=== PATIENT | male | born 1985 | race African-American/Black ===

== ENCOUNTER 2016-07-24 06:56 | Emergency (ER) | payer SELFPAY ==
[2016-07-24] MEDS ORDERED: NORMAL SALINE 1000 ML 1,000 ML IV ONE ×2 (07:12→09:31)
[2016-07-24 08:35] LABS: ABSOLUTE EOSINOPHILS # (AUTO) 0.2 10^3/uL (0.0-0.6); ABSOLUTE LYMPHOCYTES (AUTO) 1.6 10^3/uL (0.5-4.7); ABSOLUTE MONOCYTES (AUTO) 0.6 10^3/uL (0.1-1.4); ABSOLUTE NEUT (AUTO) 6.3 10^3/uL (1.7-8.2); BASOPHILS % (AUTO) 0.4 % (0-2); EOSINOPHILS % (AUTO) 1.7 % (0-6); HEMATOCRIT 43.4 % (37.9-51.0); HEMOGLOBIN 14.9 g/dL (13.5-17.0); HGB HCT DIFFERENCE 1.3; LYMPHOCYTES % (AUTO) 18.5 % (13-45); MEAN CORPUSCULAR HEMOGLOBIN 31.6 pg (27.0-33.4); MEAN CORPUSCULAR HGB CONC 34.4 g/dL (32.0-36.0); MEAN CORPUSCULAR VOLUME 92 fl (80-97); MONOCYTES % (AUTO) 7.2 % (3-13); RED BLOOD COUNT 4.72 10^6/uL (4.35-5.55); RED CELL DISTRIBUTION WIDTH 14.2 % (11.5-14.0); SEGMENTED NEUTROPHILS % (AUTO) 72.2 % (42-78); WHITE BLOOD COUNT 8.7 10^3/uL (4.0-10.5)
[2016-07-24 08:49] LABS: ALANINE AMINOTRANSFERASE 45 U/L (21-72); ALBUMIN 4.1 g/dL (3.5-5.0); ALKALINE PHOSPHATASE 84 U/L (38-126); ANION GAP 10 (5-19); ASPARTATE AMINO TRANSFERASE 46 U/L (17-59); BILIRUBIN,TOTAL 0.6 mg/dL (0.2-1.3); BLOOD UREA NITROGEN 17 mg/dL (7-20); CALCIUM 9.1 mg/dL (8.4-10.2); CARBON DIOXIDE 28 mmol/L (22-30); CHLORIDE 101 mmol/L (98-107); CREATININE RESULT 0.99 mg/dL (0.52-1.25); GLUCOSE 104 mg/dL (75-110); LIPASE 1140.3 U/L (23-300); POTASSIUM 4.6 mmol/L (3.6-5.0); SODIUM 139.3 mmol/L (137-145); TOTAL PROTEIN 6.3 g/dL (6.3-8.2)
[2016-07-24 08:50] LABS: ALCOHOL < 10 mg/dL (NONE DETECTED)
[2016-07-24 10:13] LABS: APPEARANCE,URINE CLEAR; BILIRUBIN,URINE NEGATIVE (NEGATIVE); GLUCOSE, URINE NEGATIVE (NEGATIVE); KETONES,URINE NEGATIVE (NEGATIVE); LEUKOCYTE ESTERASE,URINE NEGATIVE (NEGATIVE); NITRITE,URINE NEGATIVE (NEGATIVE); PROTEIN,URINE NEGATIVE (NEGATIVE); URINE SPECIFIC GRAVITY 1.008
[2016-07-24 10:32] LABS: URINE BARBITURATES SCREEN NEGATIVE; URINE METHADONE SCREEN NEGATIVE; URINE PHENCYCLIDINE SCREEN NEGATIVE
--- NOTE | 2016-07-24 11:15 | ER Document Report ---
ED General - General Chief Complaint: Abdominal Pain Stated Complaint: CHEST PAIN TRAVEL OUTSIDE OF THE [place] IN LAST 30 DAYS: No - HPI Patient complains to provider of: abdominal pain right-sided chest pain Notes: Patient coming in for the above stated symptoms. States started prior to arrival. Patient has multiple visits here in ER for EtOH abdominal pain the past. Patient denies taking alcohol the night. Patient denies using drugs however there is a copious millimeter marijuana with a near patient has bilateral erythema of his eyes. Patient denies fevers chills nausea vomiting. Upon my evaluation patient is sleeping easily arousable. Patient is nontoxic looking - Related Data Allergies/Adverse Reactions: azithromycin [From Zithromax] Allergy (Verified 06/14/16 13:28) ciprofloxacin [From Cipro] Allergy (Verified 06/14/16 13:28) ibuprofen Allergy (Verified 06/14/16 13:28) iodine [Iodine] Allergy (Verified 06/14/16 13:28) ondansetron [From Zofran (as hydrochloride)] Allergy (Verified 06/14/16 13:28) Penicillins Allergy (Verified 06/14/16 13:28) Past Medical History - Social History Smoking Status: Current Every Day Smoker Family History: CVA, DM, Hyperlipidemia, Hypertension Pulmonary Medical History: Reports: Hx Asthma Musculoskeltal Medical History: Reports Hx Musculoskeletal Trauma Psychiatric Medical History: Reports: Hx Anxiety, Hx Bipolar Disorder, Hx Depression Traumatic Medical History: Reports: Hx Fractures - nose - Immunizations Hx Diphtheria, Pertussis, Tetanus Vaccination: Yes Review of Systems - Review of Systems Constitutional: No symptoms reported EENT: No symptoms reported Cardiovascular: Chest pain Respiratory: No symptoms reported Gastrointestinal: Abdominal pain Genitourinary: No symptoms reported Male Genitourinary: No symptoms reported Musculoskeletal: No symptoms reported Skin: No symptoms reported Hematologic/Lymphatic: No symptoms reported Neurological/Psychological: No symptoms reported -: Yes All other systems reviewed and negative Physical Exam - Vital signs Vitals: Resp 18 07/24/16 07:09 Interpretation: Normal - General General appearance: Appears well, Alert - HEENT Head: Normocephalic, Atraumatic Eyes: Normal Conjunctiva: Injected Cornea: Normal Eyelashes: Normal Pupils: PERRL Pharynx: Normal Neck: Normal - Respiratory Respiratory status: No respiratory distress Chest status: Nontender Breath sounds: Normal Chest palpation: Normal - Cardiovascular Rhythm: Regular Heart sounds: Normal auscultation Murmur: No - Abdominal Inspection: Normal Distension: No distension Bowel sounds: Normal Tenderness: Nontender. No: McBurney's point, Gonsalves's sign, Guarding, Rebound Organomegaly: No organomegaly - Back Back: Normal, Nontender - Extremities General upper extremity: Normal inspection, Nontender, Normal color, Normal ROM , Normal temperature General lower extremity: Normal inspection, Nontender, Normal color, Normal ROM , Normal temperature, Normal weight bearing. No: Kristin's sign - Neurological Neuro grossly intact: Yes Cognition: Normal Orientation: AAOx4 [place] Coma Scale Eye Opening: Spontaneous [place] Coma Scale Verbal: Oriented [place] Coma Scale Motor: Obeys Commands [place] Coma Scale Total: 15 Speech: Normal Motor strength normal: LUE, RUE, LLE, RLE Sensory: Normal - Psychological Associated symptoms: Normal affect, Normal mood - Skin Skin Temperature: Warm Skin Moisture: Dry Skin Color: Normal Course - Re-evaluation Re-evalutation: 07/24/16 16:28 Patient's lab work did show elevation in his lipase. Patient did recently have been right upper quadrant ultrasound performed showing a normal right upper quadrant. At this time this is more likely alcohol induced. Discussed with be possibly drug-induced. Patient did return positive for marijuana. Patient was observed in ER given IV hydration. Patient then was able to tolerate by mouth. Upon last 2 evaluations patient sleeping easily arousable. At this time I filled patient is safe to be discharged home. Patient was encouraged to stop his substance abuse is that this is more likely the etiology of his problems. Patient smiles and goes back to sleep very easily. - Vital Signs Vital signs: Temp Pulse Resp BP Pulse Ox 98.3 F 80 16 131/85 H 96 07/24/16 11:43 07/24/16 11:43 07/24/16 11:43 07/24/16 11:43 07/24/16 11:43 - Laboratory Result Diagrams: 07/24/16 08:22 07/24/16 08:22 Laboratory results interpreted by me: 07/24/16 07/24/16 07/24/16 08:22 08:22 08:22 RDW 14.2 H Creatine Kinase 756 H Lipase 1140.3 H Urine Urobilinogen 07/24/16 09:54 RDW Creatine Kinase Lipase Urine Urobilinogen 4.0 H Discharge - Discharge Clinical Impression: Tobacco dependency, Marijuana abuse Pancreatitis Qualifiers: Chronicity: chronic Pancreatitis type: unspecified pancreatitis type Qualified Code(s): K86.1 - Other chronic pancreatitis Condition: Good Disposition: HOME, SELF-CARE Instructions: Pancreatitis ([facility]), Clear Liquid Diet ([facility]) Additional Instructions: Please stick to a clear liquid diet today. He may take the medication prescribed for nausea. Return to ER symptoms worsen. Prescriptions: Promethazine HCl [Phenergan 25 mg Tablet] 1 - 2 tab PO Q6H PRN #15 tablet PRN Reason: Forms: Smoking Cessation Education
[2016-07-24 11:48] VITALS: BP 131/85
--- NOTE | 2016-07-24 11:54 | EKG REPORT ---
SEVERITY:- ABNORMAL ECG - SINUS RHYTHM ST ELEVATION SUGGESTS PERICARDITIS : Confirmed by: Karen Fajardo 24-Jul-2016 11:53:32
== END 2016-07-24 11:48 | disposition home or self-care (01) ==
LOC: ER 06:56
DX: K86.1 Other chronic pancreatitis (principal); F12.10 Cannabis abuse, uncomplicated; R10.9 Unspecified abdominal pain; R07.9 Chest pain, unspecified; F17.200 Nicotine dependence, unspecified, uncomplicated
CPT/HCPCS: 93005; 99285; 96360; 96361; 36415; 80307 ×2; 82550; 83690; 85025; 80053; 81001; 84484; 93010; J7030

== ENCOUNTER 2016-08-06 10:28 | Emergency (ER) | payer SELFPAY ==
[2016-08-06 10:42] VITALS: BP 119/69
--- NOTE | 2016-08-06 10:47 | ER Document Report ---
ED Medical Screen (RME) - General Stated Complaint: MOUTH PAIN Notes: 30 yo male c/o left upper dental pain x 3 days. + swelling. + fever yesterday. no dentist. no chronic health problems TRAVEL OUTSIDE OF THE [place] IN LAST 30 DAYS: No - Related Data Allergies/Adverse Reactions: azithromycin [From Zithromax] Allergy (Verified 06/14/16 13:28) ciprofloxacin [From Cipro] Allergy (Verified 06/14/16 13:28) ibuprofen Allergy (Verified 06/14/16 13:28) iodine [Iodine] Allergy (Verified 06/14/16 13:28) ondansetron [From Zofran (as hydrochloride)] Allergy (Verified 06/14/16 13:28) Penicillins Allergy (Verified 06/14/16 13:28) Past Medical History Pulmonary Medical History: Reports: Hx Asthma Musculoskeltal Medical History: Reports Hx Musculoskeletal Trauma Psychiatric Medical History: Reports: Hx Anxiety, Hx Bipolar Disorder, Hx Depression Traumatic Medical History: Reports: Hx Fractures - nose - Immunizations Hx Diphtheria, Pertussis, Tetanus Vaccination: Yes Physical Exam - Vital signs Vitals: Temp Pulse Resp BP Pulse Ox 97.9 F 84 16 119/69 99 08/06/16 10:41 08/06/16 10:41 08/06/16 10:41 08/06/16 10:41 08/06/16 10:41 Course - Vital Signs Vital signs: Temp Pulse Resp BP Pulse Ox 97.9 F 84 16 119/69 99 08/06/16 10:41 08/06/16 10:41 08/06/16 10:41 08/06/16 10:41 08/06/16 10:41
[2016-08-06] MEDS ORDERED: CLINDAMYCIN HCL 150 MG CAPSULE PO ONE (11:14)
--- NOTE | 2016-08-06 11:22 | ER Document Report ---
HPI - HPI Patient complains to provider of: mouth pain and swelling Onset: Other - staurday Onset/Duration: Gradual Quality of pain: Throbbing Pain Level: 5 Context: 30-year-old male complaining of swelling and pain to his left upper gum. He has a decayed tooth in the area. No fever chills. Associated Symptoms: None Relieved by: Denies Similar symptoms previously: No Recently seen / treated by doctor: No - ROS ROS below otherwise negative: Yes Systems Reviewed and Negative: Yes All other systems reviewed and negative - REPRODUCTIVE Reproductive: DENIES: : - DERM Skin Color: Normal Past Medical History - General Information source: Patient - Social History Smoking Status: Current Every Day Smoker Chew tobacco use (# tins/day): No Frequency of alcohol use: Occasional Drug Abuse: None Lives with: Family Family History: CVA, DM, Hyperlipidemia, Hypertension Patient has suicidal ideation: No Patient has homicidal ideation: No Pulmonary Medical History: Reports: Hx Asthma Musculoskeltal Medical History: Reports Hx Musculoskeletal Trauma Psychiatric Medical History: Reports: Hx Anxiety, Hx Bipolar Disorder, Hx Depression Traumatic Medical History: Reports: Hx Fractures - nose Surgical Hx: Negative - Immunizations Hx Diphtheria, Pertussis, Tetanus Vaccination: Yes Vertical Provider Document - CONSTITUTIONAL Agree With Documented VS: Yes - INFECTION CONTROL TRAVEL OUTSIDE OF THE [place] IN LAST 30 DAYS: No - HEENT HEENT: Normocephalic Notes: gingival swelling, tenderness above the left top biscuspid which is severly decay, some teeth already gone. non tender left malar area. - NECK Neck: Supple. negative: Lymphadenopathy-Left, Lymphadenopathy-Right - RESPIRATORY Respiratory: Breath Sounds Normal, No Respiratory Distress O2 Sat by Pulse Oximetry: 99 - CARDIOVASCULAR Cardiovascular: Regular Rate, Regular Rhythm - MUSCULOSKELETAL/EXTREMETIES Musculoskeletal/Extremeties: TANI MAX - NEURO Level of Consciousness: Awake, Alert - DERM Integumentary: Warm, Dry Course - Vital Signs Vital signs: Temp Pulse Resp BP Pulse Ox 97.9 F 84 16 119/69 99 08/06/16 10:41 08/06/16 10:41 08/06/16 10:41 08/06/16 10:41 08/06/16 10:41 Discharge - Discharge Clinical Impression: upper left dental abscess Condition: Good Disposition: HOME, SELF-CARE Instructions: Oral Narcotic Medication ([facility]), Clindamycin ([facility]), Toothache ([facility] ), Dental Infection or Abscess ([facility]), Dentist Additional Instructions: to er if worse warm compress see the dentist take the antibiotics as prescribed. Prescriptions: Hydrocodone Bit/Acetaminophen [Hydrocodon-Acetaminophen 5-325] 1 each PO Q4HP PRN #10 tablet PRN Reason: Clindamycin HCl [Cleocin 150 mg Capsule] 300 mg PO TID #42 capsule
== END 2016-08-06 11:35 | disposition home or self-care (01) ==
LOC: ER 10:28
DX: K04.7 Periapical abscess without sinus (principal); K02.9 Dental caries, unspecified; F17.200 Nicotine dependence, unspecified, uncomplicated; J45.909 Unspecified asthma, uncomplicated
CPT/HCPCS: 99282

== ENCOUNTER 2016-10-31 03:38 | Emergency (ER) | payer SELFPAY ==
[2016-10-31] MEDS ORDERED: NORMAL SALINE 1000 ML 1,000 ML IV ONE (04:07)
[2016-10-31] MEDS ORDERED: METOCLOPRAMIDE HCL INJ/PF 10 MG/2 ML SDV IV ONE (04:10)
[2016-10-31] MEDS ORDERED: DIPHENHYDRAMINE HCL 50 MG/ML VIAL IV ONE (04:10)
[2016-10-31 04:49] LABS: ABSOLUTE LYMPHOCYTES (AUTO) 2.1 10^3/uL (0.5-4.7); ABSOLUTE MONOCYTES (AUTO) 0.9 10^3/uL (0.1-1.4); ABSOLUTE NEUT (AUTO) 12.6 10^3/uL (1.7-8.2); BASOPHILS % (AUTO) 0.3 % (0-2); EOSINOPHILS % (AUTO) 0.3 % (0-6); HEMATOCRIT 49.4 % (37.9-51.0); HEMOGLOBIN 17.3 g/dL (13.5-17.0); HGB HCT DIFFERENCE 2.5; LYMPHOCYTES % (AUTO) 13.6 % (13-45); MEAN CORPUSCULAR HEMOGLOBIN 32.2 pg (27.0-33.4); MEAN CORPUSCULAR HGB CONC 35.1 g/dL (32.0-36.0); MEAN CORPUSCULAR VOLUME 92 fl (80-97); MONOCYTES % (AUTO) 5.6 % (3-13); RED BLOOD COUNT 5.38 10^6/uL (4.35-5.55); RED CELL DISTRIBUTION WIDTH 13.9 % (11.5-14.0); SEGMENTED NEUTROPHILS % (AUTO) 80.2 % (42-78); WHITE BLOOD COUNT 15.6 10^3/uL (4.0-10.5)
[2016-10-31 05:03] LABS: ALANINE AMINOTRANSFERASE 42 U/L (21-72); ALBUMIN 4.2 g/dL (3.5-5.0); ALKALINE PHOSPHATASE 89 U/L (38-126); ANION GAP 11 (5-19); ASPARTATE AMINO TRANSFERASE 32 U/L (17-59); BILIRUBIN,DIRECT 0.3 mg/dL (0.0-0.4); BILIRUBIN,TOTAL 0.9 mg/dL (0.2-1.3); BLOOD UREA NITROGEN 12 mg/dL (7-20); CARBON DIOXIDE 26 mmol/L (22-30); CHLORIDE 105 mmol/L (98-107); CREATININE RESULT 1.08 mg/dL (0.52-1.25); GLUCOSE 92 mg/dL (75-110); LIPASE 428.2 U/L (23-300); POTASSIUM 4.3 mmol/L (3.6-5.0); SODIUM 141.7 mmol/L (137-145); TOTAL PROTEIN 6.5 g/dL (6.3-8.2)
[2016-10-31 05:04] LABS: APPEARANCE,URINE CLEAR; BILIRUBIN,URINE NEGATIVE (NEGATIVE); GLUCOSE, URINE NEGATIVE (NEGATIVE); KETONES,URINE 20 mg/dL (NEGATIVE); LEUKOCYTE ESTERASE,URINE NEGATIVE (NEGATIVE); NITRITE,URINE NEGATIVE (NEGATIVE); PROTEIN,URINE NEGATIVE (NEGATIVE); URINE SPECIFIC GRAVITY 1.015; UROBILINOGEN,URINE NEGATIVE mg/dL (<2.0)
[2016-10-31 05:18] LABS: URINE BARBITURATES SCREEN NEGATIVE; URINE METHADONE SCREEN NEGATIVE; URINE OPIATES LOW NEGATIVE; URINE PHENCYCLIDINE SCREEN UNCONFIRMED POSITIVE
[2016-10-31] MEDS ORDERED: SUCRALFATE 1 GM TABLET PO ONE (05:38)
[2016-10-31] MEDS ORDERED: FAMOTIDINE 20 MG TABLET PO ONE (05:38)
[2016-10-31] MEDS ORDERED: MAG HYDROX/AL HYDROX/SIMETH SUSP 30 ML UDCUP PO ONE (05:38)
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
[2016-10-31 06:27] VITALS: BP 126/85
== END 2016-10-31 06:29 | disposition home or self-care (01) ==
LOC: ER 03:38
DX: R11.2 Nausea with vomiting, unspecified (principal); R10.84 Generalized abdominal pain; R10.10 Upper abdominal pain, unspecified; R00.0 Tachycardia, unspecified; F17.200 Nicotine dependence, unspecified, uncomplicated; Z88.3 Allergy status to other anti-infective agents; Z88.0 Allergy status to penicillin
CPT/HCPCS: 99284; 96361; 96374; 96375; 36415; 83690; 85025; 80053; 81001; 80307; J1200; J2765; J7030

== ENCOUNTER 2016-11-02 01:54 | Emergency (ER) | payer SELFPAY ==
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
[2016-11-02 06:04] VITALS: BP 124/91
== END 2016-11-02 06:10 | disposition home or self-care (01) ==
LOC: ER 01:54
DX: T14.8 Other injury of unspecified body region (principal); R07.89 Other chest pain; R55 Syncope and collapse; Y09 Assault by unspecified means; Y92.512 Supermarket, store or market as the place of occurrence of the external cause; R03.0 Elevated blood-pressure reading, without diagnosis of hypertension; J45.909 Unspecified asthma, uncomplicated; Z88.1 Allergy status to other antibiotic agents; Z88.6 Allergy status to analgesic agent; Z88.8 Allergy status to other drugs, medicaments and biological substances; Z88.0 Allergy status to penicillin; Z82.49 Family history of ischemic heart disease and other diseases of the circulatory system
CPT/HCPCS: 70450; 70486; 71020; 72070; 99284

== ENCOUNTER 2016-12-10 01:31 | Emergency (ER) | payer SELFPAY ==
[2016-12-10 02:15] VITALS: BP 127/83
== END 2016-12-10 03:10 | disposition left against medical advice (07) ==
LOC: ER 01:31
DX: Z53.9 Procedure and treatment not carried out, unspecified reason (principal); M54.9 Dorsalgia, unspecified

== ENCOUNTER 2017-01-06 04:07 | Emergency (ER) | payer SELFPAY ==
[2017-01-06] MEDS ORDERED: ACETAMINOPHEN 325 MG TABLET PO ONE (05:04)
--- NOTE | 2017-01-06 05:16 | ER Document Report ---
ED General - General Chief Complaint: Leg Pain Stated Complaint: LEG PAIN Time Seen by Provider: 01/06/17 04:59 Notes: Patient is a 31-year-old male who presents with complaint of pain in his right calf. He says sometimes the leg gives out. He is homeless and does walk around constantly. He denies any injuries or trauma to his leg. Denies any weakness or numbness. He says he has had some pain in his leg before but this is more than usual. He has not taken anything for pain. He says ibuprofen gives him hives. No numbness or weakness into the leg. TRAVEL OUTSIDE OF THE [place] IN LAST 30 DAYS: No - Related Data Allergies/Adverse Reactions: azithromycin [From Zithromax] Allergy (Verified 11/02/16 04:58) ciprofloxacin [From Cipro] Allergy (Verified 11/02/16 04:58) ibuprofen Allergy (Verified 11/02/16 04:58) iodine [Iodine] Allergy (Verified 11/02/16 04:58) ondansetron [From Zofran (as hydrochloride)] Allergy (Verified 11/02/16 04:58) Penicillins Allergy (Verified 11/02/16 04:58) Past Medical History - Social History Smoking Status: Unknown if Ever Smoked Frequency of alcohol use: None Drug Abuse: None Family History: CVA, DM, Hyperlipidemia, Hypertension Pulmonary Medical History: Reports: Hx Asthma Renal/ Medical History: Denies: Hx Peritoneal Dialysis Musculoskeltal Medical History: Reports Hx Musculoskeletal Trauma Psychiatric Medical History: Reports: Hx Anxiety, Hx Bipolar Disorder, Hx Depression Traumatic Medical History: Reports: Hx Fractures - nose - Immunizations Hx Diphtheria, Pertussis, Tetanus Vaccination: Yes Review of Systems - Review of Systems Notes: My Normal Review Basic REVIEW OF SYSTEMS: CONSTITUTIONAL : Denies fever, chills, or sweats. Denies recent illness. RESPIRATORY: Denies cough, cold, or chest congestion. Denies shortness of breath, difficulty breathing, or wheezing. GASTROINTESTINAL: Denies abdominal pain. Denies nausea, vomiting, or diarrhea. Denies constipation. Last BM: MUSCULOSKELETAL: Right calf pain SKIN: Denies rash or skin lesions. NEUROLOGICAL: Denies altered mental status or loss of consciousness. Denies headache. Denies weakness or paralysis or loss of use of either side. Denies problems with gait or speech. Denies sensory or motor loss. ALL OTHER SYSTEMS REVIEWED AND NEGATIVE. Physical Exam - Vital signs Vitals: Temp Pulse Resp BP Pulse Ox 98.6 F 87 20 113/72 97 01/06/17 04:12 01/06/17 04:12 01/06/17 04:12 01/06/17 04:12 01/06/17 04:12 - Notes Notes: General Appearance: Well nourished, alert, cooperative, no acute distress, no obvious discomfort. Vitals: reviewed, See vital signs table. Head: no swelling or tenderness to the head Eyes: PERRL, EOMI, Conjuctiva clear Mouth: No decreasd moisture Extremities: strength 5/5 in all extremities, good pulses in all extremities, palpation of the right calf muscle. Pain is mostly over the proximal aspect of the calf muscle. No edema or swelling of the leg. It is the same size as the left lower extremity. Patient does have good strength with plantar dorsiflexion. He has normal patellar reflexes., no edema. Skin: warm, dry, appropriate color, no rash Neuro: speech clear, oriented x 3, normal affect, responds appropriately to questions. Course - Vital Signs Vital signs: Temp Pulse Resp BP Pulse Ox 98.6 F 87 20 113/72 97 01/06/17 04:12 01/06/17 04:12 01/06/17 04:12 01/06/17 04:12 01/06/17 04:12 - Transfer of Care Notes: 01/06/17 05:14 Has what appears to be a gastrocnemius strain. I do not suspect DVT as the patient has been up and walking frequently and he has no swelling or edema to the right lower extremity. We will give the patient crutches. I will give him a Bart bandage to wear on his right calf muscle. I encouraged him return to ER if he has worsening of his pain or has further concerns. Patient agrees with plan and will be discharged home. Dictation of this chart was performed using voice recognition software; therefore, there may be some unintended grammatical errors. Discharge - Discharge Clinical Impression: Gastrocnemius muscle strain Qualifiers: Encounter type: initial encounter Laterality: right Qualified Code(s): S86.111A - Strain of other muscle(s) and tendon(s) of posterior muscle group at lower leg level, right leg, initial encounter Condition: Good Disposition: HOME, SELF-CARE Additional Instructions: Please return to the ER immediately if you develop worsening pain, weakness in your foot. difficulty breathing, chest pain, swelling to your leg, or if you feel unwell. Please use the crutches until you no longer of significant pain with walking. Please follow up with a doctor or the ER in 5 days for reevaluation if you are still having pain.
[2017-01-06 06:03] VITALS: BP 120/74
== END 2017-01-06 06:00 | disposition home or self-care (01) ==
LOC: ER 04:07
DX: S86.111A Strain of other muscle(s) and tendon(s) of posterior muscle group at lower leg level, right leg, initial encounter (principal); X58.XXXA Exposure to other specified factors, initial encounter; Z59.0 Homelessness; Z88.1 Allergy status to other antibiotic agents; Z88.0 Allergy status to penicillin; Z88.6 Allergy status to analgesic agent; Z88.8 Allergy status to other drugs, medicaments and biological substances; J45.909 Unspecified asthma, uncomplicated
CPT/HCPCS: 99283

== ENCOUNTER 2017-01-07 04:53 | Emergency (ER) | payer SELFPAY ==
[2017-01-07 05:16] VITALS: BP 131/80
[2017-01-07] MEDS ORDERED: LIDOCAINE 5% (700 MG) TRANSDERMAL ADH..PATCH TP ONE (06:27)
[2017-01-07] MEDS ORDERED: ACETAMINOPHEN 325 MG TABLET PO ONE (06:27)
--- NOTE | 2017-01-07 06:31 | ER Document Report ---
ED General - General Chief Complaint: Leg Pain Stated Complaint: LEG PAIN Time Seen by Provider: 01/07/17 06:27 TRAVEL OUTSIDE OF THE [place] IN LAST 30 DAYS: No - HPI Patient complains to provider of: Right calf pain Notes: Patient coming in for evaluation of right calf pain. Patient was seen day prior to arrival for similar pain. Patient states pain continues. Patient was diagnosed with a gastroc strain at that time. Patient has been having increasing his walking. Upon my evaluation patient sleeping easily arousable. Patient is able to move his legs are all full range of motion. Patient is complaining of tenderness to touch of his calf. Denies any fever chills nausea vomiting denies history of DVT. - Related Data Allergies/Adverse Reactions: azithromycin [From Zithromax] Allergy (Verified 11/02/16 04:58) ciprofloxacin [From Cipro] Allergy (Verified 11/02/16 04:58) ibuprofen Allergy (Verified 11/02/16 04:58) iodine [Iodine] Allergy (Verified 11/02/16 04:58) ondansetron [From Zofran (as hydrochloride)] Allergy (Verified 11/02/16 04:58) Penicillins Allergy (Verified 11/02/16 04:58) Past Medical History - Social History Smoking Status: Unknown if Ever Smoked Family History: CVA, DM, Hyperlipidemia, Hypertension Patient has suicidal ideation: No Patient has homicidal ideation: No Pulmonary Medical History: Reports: Hx Asthma Renal/ Medical History: Denies: Hx Peritoneal Dialysis Musculoskeltal Medical History: Reports Hx Musculoskeletal Trauma Psychiatric Medical History: Reports: Hx Anxiety, Hx Bipolar Disorder, Hx Depression Traumatic Medical History: Reports: Hx Fractures - nose - Immunizations Hx Diphtheria, Pertussis, Tetanus Vaccination: Yes Review of Systems - Review of Systems Constitutional: No symptoms reported EENT: No symptoms reported Cardiovascular: No symptoms reported Respiratory: No symptoms reported Gastrointestinal: No symptoms reported Genitourinary: No symptoms reported Male Genitourinary: No symptoms reported Musculoskeletal: Other - Back pain calf pain Skin: No symptoms reported Hematologic/Lymphatic: No symptoms reported Neurological/Psychological: No symptoms reported -: Yes All other systems reviewed and negative Physical Exam - Vital signs Vitals: Temp Pulse Resp BP Pulse Ox 98.0 F 81 16 131/80 H 98 01/07/17 05:12 01/07/17 05:12 01/07/17 05:12 01/07/17 05:12 01/07/17 05:12 Interpretation: Normal - General General appearance: Appears well, Alert - HEENT Head: Normocephalic, Atraumatic Eyes: Normal Pupils: PERRL - Respiratory Respiratory status: No respiratory distress Chest status: Nontender Breath sounds: Normal Chest palpation: Normal - Cardiovascular Rhythm: Regular Heart sounds: Normal auscultation Murmur: No - Abdominal Inspection: Normal Distension: No distension Bowel sounds: Normal Tenderness: Nontender Organomegaly: No organomegaly - Back Back: Normal, Nontender - Extremities General upper extremity: Normal inspection, Nontender, Normal color, Normal ROM , Normal temperature General lower extremity: Normal inspection, Tender - Tenderness to palpation of the right calf no swelling appreciated no palpable cords. Bedside ultrasound showed good flow in the popliteal vein with decompression distally. No signs of DVT bedside ultrasound., Normal color, Normal ROM, Normal temperature, Normal weight bearing. No: Kristin's sign - Neurological Neuro grossly intact: Yes Cognition: Normal Orientation: AAOx4 Enigma Coma Scale Eye Opening: Spontaneous Enigma Coma Scale Verbal: Oriented Enigma Coma Scale Motor: Obeys Commands Aubree Coma Scale Total: 15 Speech: Normal Motor strength normal: LUE, RUE, LLE, RLE Sensory: Normal - Psychological Associated symptoms: Normal affect, Normal mood - Skin Skin Temperature: Warm Skin Moisture: Dry Skin Color: Normal Course - Re-evaluation Re-evalutation: 01/07/17 11:27 Patient evaluated for leg pain. No critical etiology seen. Patient was discharged on follow-up primary care physician - Vital Signs Vital signs: Temp Pulse Resp BP Pulse Ox 98.0 F 81 16 131/80 H 98 01/07/17 05:12 01/07/17 05:12 01/07/17 05:12 01/07/17 05:12 01/07/17 05:12 Discharge - Discharge Clinical Impression: Leg pain, right Condition: Good Disposition: HOME, SELF-CARE Instructions: Myalagia (Muscle Pain) ([facility]), Muscle Strain ([facility]), Ice Packs ([facility] ) Additional Instructions: Continue to take tylenol and motrin for pain. Apply ice.
== END 2017-01-07 06:53 | disposition home or self-care (01) ==
LOC: ER 04:53
DX: M79.604 Pain in right leg (principal); M54.9 Dorsalgia, unspecified; J45.909 Unspecified asthma, uncomplicated; Z88.3 Allergy status to other anti-infective agents; Z88.0 Allergy status to penicillin
CPT/HCPCS: 99283

== ENCOUNTER 2018-01-08 04:31 | Emergency (ER) | payer SELFPAY ==
--- NOTE | 2018-01-08 05:12 | ER Document Report ---
ED Medical Screen (RME) - General Chief Complaint: Bloody Stools Stated Complaint: BLOOD IN STOOL Time Seen by Provider: 01/08/18 05:00 Notes: 32-year-old male comes emergency department multiple complaints. First complaint is he states last night he had a seizure, he states he was informed of this by his significant other, she states that he was shaking and not responding for a couple of minutes. He states he was diagnosed with seizures while he was in nursing home, he used to be on a seizure medication although he is not sure which one. He is not currently on any medications. Patient also states that since he stopped shooting up meth 2 weeks ago he has had swelling in his right hand, shakes, sweats, and intermittent blood in his stool. He denies current abdominal pain, chest pain, shortness of breath. TRAVEL OUTSIDE OF THE [place] IN LAST 30 DAYS: No - Related Data Allergies/Adverse Reactions: azithromycin [From Zithromax] Allergy (Verified 11/02/16 04:58) ciprofloxacin [From Cipro] Allergy (Verified 11/02/16 04:58) ibuprofen Allergy (Verified 11/02/16 04:58) iodine [Iodine] Allergy (Verified 11/02/16 04:58) ondansetron [From Zofran (as hydrochloride)] Allergy (Verified 11/02/16 04:58) Penicillins Allergy (Verified 11/02/16 04:58) Past Medical History Pulmonary Medical History: Reports: Hx Asthma Renal/ Medical History: Denies: Hx Peritoneal Dialysis Musculoskeltal Medical History: Reports Hx Musculoskeletal Trauma Psychiatric Medical History: Reports: Hx Anxiety, Hx Bipolar Disorder, Hx Depression Traumatic Medical History: Reports: Hx Fractures - nose - Immunizations Hx Diphtheria, Pertussis, Tetanus Vaccination: Yes Physical Exam - Vital signs Vitals: Temp Pulse Resp BP Pulse Ox 98.5 F 63 18 133/86 H 98 01/08/18 04:38 01/08/18 04:38 01/08/18 04:38 01/08/18 04:38 01/08/18 04:38 - General General appearance: Appears well, Alert In distress: None - Cardiovascular Rhythm: Regular. No: Tachycardia Heart sounds: Normal auscultation, S1 appreciated, S2 appreciated Course - Re-evaluation Re-evalutation: I have greeted and performed a rapid initial assessment of this patient. A comprehensive ED assessment and evaluation of the patient, analysis of test results and completion of the medical decision making process will be conducted by additional ED providers. - Vital Signs Vital signs: Temp Pulse Resp BP Pulse Ox 98.5 F 63 18 133/86 H 98 01/08/18 04:38 01/08/18 04:38 01/08/18 04:38 01/08/18 04:38 01/08/18 04:38
--- NOTE | 2018-01-08 05:26 | RADIOLOGY REPORT (SQ) ---
EXAM DESCRIPTION: XR HAND 3 OR MORE VIEWS COMPLETED DATE/TME: 01/08/2018 05:10 CLINICAL HISTORY: 32 years Male, swelling, hx injecting meth, ?FB COMPARISON: None. Findings: No radiopaque foreign body. 0.4 cm ossicle volar to the second middle phalangeal base. Bones, joints, and soft tissues of the XR RIGHT HAND 3 VIEWS appear otherwise intact. IMPRESSION: No acute findings.
[2018-01-08 06:10] LABS: ABSOLUTE EOSINOPHILS # (AUTO) 0.1 10^3/uL (0.0-0.6); ABSOLUTE LYMPHOCYTES (AUTO) 0.6 10^3/uL (0.5-4.7); ABSOLUTE MONOCYTES (AUTO) 0.7 10^3/uL (0.1-1.4); ABSOLUTE NEUT (AUTO) 3.6 10^3/uL (1.7-8.2); BASOPHILS % (AUTO) 0.5 % (0-2); EOSINOPHILS % (AUTO) 1.7 % (0-6); HEMATOCRIT 40.1 % (37.9-51.0); HEMOGLOBIN 13.8 g/dL (13.5-17.0); LYMPHOCYTES % (AUTO) 12.5 % (13-45); MEAN CORPUSCULAR HEMOGLOBIN 31.3 pg (27.0-33.4); MEAN CORPUSCULAR HGB CONC 34.3 g/dL (32.0-36.0); MEAN CORPUSCULAR VOLUME 91 fl (80-97); MONOCYTES % (AUTO) 13.2 % (3-13); PLATELET COUNT 226 10^3/uL (150-450); RED CELL DISTRIBUTION WIDTH 13.7 % (11.5-14.0); SEGMENTED NEUTROPHILS % (AUTO) 72.1 % (42-78); TOTAL CELLS COUNTED % (AUTO) 100 %; WHITE BLOOD COUNT 4.9 10^3/uL (4.0-10.5)
[2018-01-08 06:24] LABS: ALANINE AMINOTRANSFERASE 45 U/L (21-72); ALBUMIN 4.1 g/dL (3.5-5.0); ALKALINE PHOSPHATASE 103 U/L (38-126); ANION GAP 11 (5-19); ASPARTATE AMINO TRANSFERASE 31 U/L (17-59); BILIRUBIN,DIRECT 0.3 mg/dL (0.0-0.4); BILIRUBIN,TOTAL 0.3 mg/dL (0.2-1.3); BLOOD UREA NITROGEN 10 mg/dL (7-20); CALCIUM 9.7 mg/dL (8.4-10.2); CARBON DIOXIDE 29 mmol/L (22-30); CHLORIDE 104 mmol/L (98-107); GLUCOSE 94 mg/dL (75-110); POTASSIUM 4.1 mmol/L (3.6-5.0); SODIUM 143.5 mmol/L (137-145); TOTAL PROTEIN 7.2 g/dL (6.3-8.2)
[2018-01-08 06:26] LABS: ALCOHOL < 10 mg/dL (NONE DETECTED)
--- NOTE | 2018-01-08 06:30 | ER Document Report ---
ED General - General Mode of Arrival: Ambulatory Information source: Patient TRAVEL OUTSIDE OF THE [place] IN LAST 30 DAYS: No <SHARRI THOMSON - Last Filed: 01/08/18 09:10> <KINGSLEY GALLAGHER - Last Filed: 01/09/18 15:09> - General Chief Complaint: Bloody Stools Stated Complaint: BLOOD IN STOOL Time Seen by Provider: 01/08/18 05:00 Notes: Patient is a 32-year-old male that presents to the emergency department today with complaints of subjective right hand swelling and pain along with possible seizures. Patient states he has been having seizures since age 18 but he has never been diagnosed with "actual seizures". Patient and girlfriend at bedside state that every night for the last 2 weeks between 11 PM and midnight the patient has had a "seizure". Patient mentions that he is a "very anxious person " and he seems to have these "seizures" when he is stressed. Patient is afraid that his right hand swelling and pain is related to him injecting cocaine and methamphetamine into his veins on his right hand. Patient states he stopped injecting 2 weeks ago when his seizures began and plans to remain off of those illicit substances. Patient denies fevers. (SHARRI THOMSON) - Related Data Allergies/Adverse Reactions: azithromycin [From Zithromax] Allergy (Verified 11/02/16 04:58) ciprofloxacin [From Cipro] Allergy (Verified 11/02/16 04:58) ibuprofen Allergy (Verified 11/02/16 04:58) iodine [Iodine] Allergy (Verified 11/02/16 04:58) ondansetron [From Zofran (as hydrochloride)] Allergy (Verified 11/02/16 04:58) Penicillins Allergy (Verified 11/02/16 04:58) Past Medical History - General Information source: Patient - Social History Smoking Status: Current Every Day Smoker Cigarette use (# per day): Yes Frequency of alcohol use: None Drug Abuse: Cocaine, Marijuana, Methamphetamine Lives with: Family Family History: Reviewed & Not Pertinent, CVA, DM, Hyperlipidemia, Hypertension Patient has suicidal ideation: No Patient has homicidal ideation: No Pulmonary Medical History: Reports: Hx Asthma Renal/ Medical History: Denies: Hx Peritoneal Dialysis Musculoskeltal Medical History: Reports Hx Musculoskeletal Trauma Psychiatric Medical History: Reports: Hx Anxiety, Hx Bipolar Disorder, Hx Depression Traumatic Medical History: Reports: Hx Fractures - nose Surgical Hx: Negative - Immunizations Hx Diphtheria, Pertussis, Tetanus Vaccination: Yes <SHARRI THOMSON - Last Filed: 01/08/18 09:10> Review of Systems - Review of Systems Constitutional: denies: Fever EENT: No symptoms reported Cardiovascular: No symptoms reported Respiratory: No symptoms reported Gastrointestinal: No symptoms reported Genitourinary: No symptoms reported Male Genitourinary: No symptoms reported Musculoskeletal: See HPI, Other - Subjective right hand swelling Skin: No symptoms reported Hematologic/Lymphatic: No symptoms reported Neurological/Psychological: See HPI, Seizure - Possible -: Yes All other systems reviewed and negative <SHARRI THOMSON - Last Filed: 01/08/18 09:10> Physical Exam <SHARRI THOMSON - Last Filed: 01/08/18 09:10> <KINGSLEY GALLAGHER - Last Filed: 01/09/18 15:09> - Vital signs Vitals: Resp BP Pulse Ox 18 116/83 99 01/07/18 23:13 01/07/18 23:13 01/07/18 23:13 - Notes Notes: Physical Exam: General: Alert, appears well. HEENT: Normocephalic. Atraumatic. PERRL. Extraocular movements intact. Oropharynx clear. Neck: Supple. Non-tender. Respiratory: No respiratory distress. Clear and equal breath sounds bilaterally. Cardiovascular: Regular rate and rhythm. 2+ bilateral radial pulses. Abdominal: Normal Inspection. Non-tender. No distension. Normal Bowel Sounds. Back: Non-tender. No deformity or step off. Extremities: Moves all four extremities. Upper extremities: Normal inspection. Normal ROM. No swelling appreciated of the right hand. No induration or fluctuance. No palpable cords or tenderness to palpation. Lower extremities: Normal inspection. No edema. Normal ROM. Neurological: Normal cognition. AAOx4. Normal speech. Psychological: Normal affect. Normal Mood. Skin: Warm. Dry. Normal color. (SHARRI THOMSON) Course - Laboratory Result Diagrams: 01/08/18 05:55 01/08/18 05:55 <SHARRI THOMSON - Last Filed: 01/08/18 09:10> - Laboratory Result Diagrams: 01/08/18 05:55 01/08/18 05:55 <KINGSLEY GALLAGHER - Last Filed: 01/09/18 15:09> - Re-evaluation Re-evalutation: 01/08/18 06:56 Patient's vitals within normal limits and lab work is within normal limits of nonsignificant. No foreign body or soft tissue swelling seen on x-ray. Exam is benign no soft tissue swelling noted although mild tenderness to palpation over dorsal aspect right hand with no induration or erythema or fluctuance. History of drug abuse will provide antibiotics and shooting up although he states he is not for 2 weeks. Due to infection risk based on history we will place patient on Bactrim with recheck with community clinic next week. Return precautions were provided. Patient states he has been under more years or seizure type activity per significant other but his presentation appears more pseudoseizure in nature. Also have him follow-up with [facility] regarding his concern for seizure activity. (KINGSLEY GALLAGHER) - Vital Signs Vital signs: Temp Pulse Resp BP Pulse Ox 98.4 F 63 19 128/72 H 100 01/08/18 07:00 01/08/18 04:38 01/08/18 07:00 01/08/18 07:00 01/08/18 07:00 - Laboratory Laboratory results interpreted by me: 01/08/18 05:55 Lymphocytes % 12.5 L Monocytes % 13.2 H Discharge <SHARRI THOMSON - Last Filed: 01/08/18 09:10> <KINGSLEY GALLAGHER - Last Filed: 01/09/18 15:09> - Discharge Clinical Impression: Hand pain, right Condition: Good Disposition: HOME, SELF-CARE Instructions: Antibiotic Therapy ([facility]) Additional Instructions: Please follow-up with community care clinic for reevaluation of your hand pain within the next 3-5 days as well as evaluation for concern of seizure activity Prescriptions: Sulfamethoxazole/Trimethoprim [Bactrim Ds Tablet] 1 each PO BID 7 Days #14 tablet Referrals: [facility] [NO [facility]AL MD] - Follow up in 3-5 days (For re-evaluation ) Scribe Attestation: 01/09/18 15:09 I personally performed the services described documentation, reviewed and edited the documentation which was dictated to describe my presence, and it accurately records my words and actions. (KINGSLEY GALLAGHER) Scribe Documentation - Scribe Written by Scribe:: Dian Lainez, 01/08/2018 0921 acting as scribe for :: Long <SHARRI THOMSON - Last Filed: 01/08/18 09:10>
[2018-01-08 07:49] VITALS: BP 128/72
== END 2018-01-08 07:49 | disposition home or self-care (01) ==
LOC: ER 04:31
DX: K92.1 Melena (principal); M79.641 Pain in right hand; F17.210 Nicotine dependence, cigarettes, uncomplicated; F12.10 Cannabis abuse, uncomplicated; F15.10 Other stimulant abuse, uncomplicated; F14.10 Cocaine abuse, uncomplicated; J45.909 Unspecified asthma, uncomplicated; Z88.1 Allergy status to other antibiotic agents; Z88.6 Allergy status to analgesic agent; Z88.8 Allergy status to other drugs, medicaments and biological substances
CPT/HCPCS: 36415; 80053; 80307; 83735; 85025; 99284

== ENCOUNTER 2018-02-23 23:11 | Emergency (ER) | payer SELFPAY ==
[2018-02-24 02:48] LABS: ABSOLUTE BASOPHILS # (AUTO) 0.1 10^3/uL (0.0-0.2); ABSOLUTE EOSINOPHILS # (AUTO) 0.2 10^3/uL (0.0-0.6); ABSOLUTE MONOCYTES (AUTO) 0.5 10^3/uL (0.1-1.4); ABSOLUTE NEUT (AUTO) 2.7 10^3/uL (1.7-8.2); BASOPHILS % (AUTO) 0.9 % (0-2); EOSINOPHILS % (AUTO) 3.5 % (0-6); HEMATOCRIT 40.5 % (37.9-51.0); HEMOGLOBIN 13.6 g/dL (13.5-17.0); LYMPHOCYTES % (AUTO) 37.7 % (13-45); MEAN CORPUSCULAR HEMOGLOBIN 30.5 pg (27.0-33.4); MEAN CORPUSCULAR HGB CONC 33.6 g/dL (32.0-36.0); MEAN CORPUSCULAR VOLUME 91 fl (80-97); MONOCYTES % (AUTO) 8.5 % (3-13); PLATELET COUNT 242 10^3/uL (150-450); RED BLOOD COUNT 4.45 10^6/uL (4.35-5.55); RED CELL DISTRIBUTION WIDTH 14.7 % (11.5-14.0); SEGMENTED NEUTROPHILS % (AUTO) 49.4 % (42-78); TOTAL CELLS COUNTED % (AUTO) 100 %; WHITE BLOOD COUNT 5.4 10^3/uL (4.0-10.5)
[2018-02-24 03:02] LABS: ALANINE AMINOTRANSFERASE 38 U/L (21-72); ALBUMIN 3.8 g/dL (3.5-5.0); ALKALINE PHOSPHATASE 87 U/L (38-126); ANION GAP 11 (5-19); ASPARTATE AMINO TRANSFERASE 30 U/L (17-59); BILIRUBIN,DIRECT 0.2 mg/dL (0.0-0.4); BILIRUBIN,TOTAL 0.3 mg/dL (0.2-1.3); BLOOD UREA NITROGEN 14 mg/dL (7-20); CALCIUM 9.3 mg/dL (8.4-10.2); CARBON DIOXIDE 27 mmol/L (22-30); CHLORIDE 105 mmol/L (98-107); GLUCOSE 94 mg/dL (75-110); POTASSIUM 4.4 mmol/L (3.6-5.0); SODIUM 142.9 mmol/L (137-145); TOTAL PROTEIN 6.7 g/dL (6.3-8.2)
--- NOTE | 2018-02-24 04:17 | ER Document Report ---
ED General - General Chief Complaint: Seizure Stated Complaint: POSSIBLE SIEZURE Time Seen by Provider: 02/24/18 01:53 Mode of Arrival: Ambulatory Information source: Patient Notes: Patient is a 32-year-old male who presents with chief complaint of seizure. Patient is a known epileptic. Patient reports he has had several seizures over the last few weeks. Patient reports that he has been drinking alcohol and doing crack lately. Patient denies any bladder incontinence with his seizure. TRAVEL OUTSIDE OF THE [place] IN LAST 30 DAYS: No - Related Data Allergies/Adverse Reactions: azithromycin [From Zithromax] Allergy (Verified 11/02/16 04:58) ciprofloxacin [From Cipro] Allergy (Verified 11/02/16 04:58) ibuprofen Allergy (Verified 11/02/16 04:58) iodine [Iodine] Allergy (Verified 11/02/16 04:58) ondansetron [From Zofran (as hydrochloride)] Allergy (Verified 11/02/16 04:58) Penicillins Allergy (Verified 11/02/16 04:58) Past Medical History - General Information source: Patient - Social History Smoking Status: Current Every Day Smoker Frequency of alcohol use: Heavy Drug Abuse: Cocaine Family History: Reviewed & Not Pertinent, CVA, DM, Hyperlipidemia, Hypertension Patient has suicidal ideation: No Patient has homicidal ideation: No Pulmonary Medical History: Reports: Hx Asthma Neurological Medical History: Reports: Hx Seizures Renal/ Medical History: Denies: Hx Peritoneal Dialysis Musculoskeletal Medical History: Reports Hx Musculoskeletal Trauma Psychiatric Medical History: Reports: Hx Anxiety, Hx Bipolar Disorder, Hx Depression Traumatic Medical History: Reports: Hx Fractures - nose - Immunizations Hx Diphtheria, Pertussis, Tetanus Vaccination: Yes Review of Systems - Review of Systems Constitutional: No symptoms reported EENT: No symptoms reported Cardiovascular: No symptoms reported Respiratory: No symptoms reported Gastrointestinal: No symptoms reported Genitourinary: No symptoms reported Male Genitourinary: No symptoms reported Musculoskeletal: No symptoms reported Skin: No symptoms reported Hematologic/Lymphatic: No symptoms reported Neurological/Psychological: No symptoms reported Physical Exam - Vital signs Vitals: Temp Pulse Resp BP Pulse Ox 97.3 F 72 18 130/85 H 100 02/23/18 23:22 02/23/18 23:22 02/23/18 23:22 02/23/18 23:22 02/23/18 23:22 - Notes Notes: PHYSICAL EXAMINATION: GENERAL: Well-appearing, well-nourished and in no acute distress. HEAD: Atraumatic, normocephalic. EYES: Pupils equal round and reactive to light, extraocular movements intact, sclera anicteric, conjunctiva are normal. ENT: Nares patent, oropharynx clear without exudates. Moist mucous membranes. NECK: Normal range of motion, supple without lymphadenopathy LUNGS: Breath sounds clear to auscultation bilaterally and equal. No wheezes rales or rhonchi. HEART: Regular rate and rhythm without murmurs ABDOMEN: Soft, nontender, nondistended abdomen. No guarding, no rebound. No masses appreciated. Musculoskeletal: Normal range of motion, no pitting or edema. No cyanosis. NEUROLOGICAL: Cranial nerves grossly intact. Normal speech, normal gait. Normal sensory, motor exams PSYCH: Normal mood, normal affect. SKIN: Warm, Dry, normal turgor, no rashes or lesions noted. Course - Re-evaluation Re-evalutation: Patient is a 32-year-old male with past medical history of seizure disorder who presents tonight for chief complaint of seizure. This was not witnessed. Patient reports he had generalized shaking without urinary incontinence and without postictal phase. Patient is completely alert, oriented and ambulated into the emergency department without difficulty. Of note, patient refused EKG per triage nurse. CBC, comprehensive metabolic panel and magnesium are all within normal limits. I did not check an EtOH level however patient does not smell of alcohol and does not appear to be clinically intoxicated. Patient reports he has not had any alcohol for a few weeks so I do not think this is a contributing factor. Patient's vital signs are stable during a several hour monitoring. Patient has not had any seizure activity. Patient reports that he does not take any medications for his seizures, he reports he has never been prescribed anything. Patient is stable for discharge. Patient requesting to stay in the emergency department as he states that he is homeless. Patient will be discharged in stable condition. - Vital Signs Vital signs: Temp Pulse Resp BP Pulse Ox 97.5 F 76 18 119/79 98 02/24/18 04:25 02/24/18 04:25 02/23/18 23:22 02/24/18 04:25 02/24/18 04:25 - Laboratory Result Diagrams: 02/24/18 02:20 02/24/18 02:20 Laboratory results interpreted by me: 02/24/18 02:20 RDW 14.7 H Discharge - Discharge Clinical Impression: Seizure Condition: Stable Disposition: HOME, SELF-CARE Additional Instructions: Seizure, Known Epileptic You have had a seizure. Seizures may "break through" in an epileptic due to stress of infection or injury, a change in blood chemistry, or drug and alcohol use. Another common cause is failure to take medication as prescribed. Your doctor has evaluated your situation for the likely cause of this seizure. It is important that you follow his advice concerning any medication changes and follow-up care. Further testing of anti-seizure medication levels in your blood may be necessary. If you have a driver license examiner's license, it's important that you DO NOT DRIVE until given permission by your physician. This seizure must be reported to the driver license examiner 's license bureau. Call the doctor or return if seizures recur, or if new or unusual symptoms arise -- such as severe headache, confusion, excessive sleepiness, local weakness or numbness, neck stiffness, or fever. Please stop smoking crack. This is likely contributing to the increase in your seizure activity. Return to the emergency department with any worsening symptoms or concerns. Referrals: [facility] [Provider Group] - Follow up as needed
[2018-02-24 04:43] VITALS: BP 119/79
== END 2018-02-24 04:39 | disposition home or self-care (01) ==
LOC: ER 23:11
DX: R56.9 Unspecified convulsions (principal); F14.10 Cocaine abuse, uncomplicated; Z72.89 Other problems related to lifestyle; F17.200 Nicotine dependence, unspecified, uncomplicated; J45.909 Unspecified asthma, uncomplicated; Z59.0 Homelessness
CPT/HCPCS: 36415; 80053; 83735; 85025; 99284

== ENCOUNTER 2018-03-02 04:18 | Inpatient (IN) | payer SELFPAY ==
[2018-03-02] MEDS ORDERED: ASPIRIN 81 MG TABLET, CHEWABLE PO ONE (04:54)
--- NOTE | 2018-03-02 05:24 | ER Document Report ---
ED Medical Screen (RME) - General Chief Complaint: Chest Pain Stated Complaint: POSSIBLE PANIC ATTACK Time Seen by Provider: 03/02/18 05:05 Notes: 32-year-old male comes emergency department for chief complaint of feeling like he cannot catch his breath, tightness in his chest, and anxiety. He denies recreational drugs recently, states he is taking them in the past. He denies dizziness, passing out, fever or chills. He called 911, both law-enforcement and EMS responded, after his complaints were voiced he was brought to the emergency department. Past medical history of seizure disorder and bipolar per patient, states he used to be on Dilantin, states he takes no medications at this time. TRAVEL OUTSIDE OF THE [place] IN LAST 30 DAYS: No - Related Data Allergies/Adverse Reactions: azithromycin [From Zithromax] Allergy (Verified 11/02/16 04:58) ciprofloxacin [From Cipro] Allergy (Verified 11/02/16 04:58) ibuprofen Allergy (Verified 11/02/16 04:58) iodine [Iodine] Allergy (Verified 11/02/16 04:58) ondansetron [From Zofran (as hydrochloride)] Allergy (Verified 11/02/16 04:58) Penicillins Allergy (Verified 11/02/16 04:58) Past Medical History - Social History Chew tobacco use (# tins/day): No Frequency of alcohol use: None Drug Abuse: Other Pulmonary Medical History: Reports: Hx Asthma Neurological Medical History: Reports: Hx Seizures Renal/ Medical History: Denies: Hx Peritoneal Dialysis Musculoskeltal Medical History: Reports Hx Musculoskeletal Trauma Psychiatric Medical History: Reports: Hx Anxiety, Hx Bipolar Disorder, Hx Depression - manic depression Traumatic Medical History: Reports: Hx Fractures - nose - Immunizations Hx Diphtheria, Pertussis, Tetanus Vaccination: Yes Physical Exam - Vital signs Vitals: Temp Pulse Resp BP Pulse Ox 98.2 F 80 28 H 125/98 H 99 03/02/18 04:19 03/02/18 04:19 03/02/18 04:19 03/02/18 04:19 03/02/18 04:19 - Respiratory Respiratory status: Tachypnea - Mild tachypnea. No: Labored, Retractions Breath sounds: Normal. No: Decreased air movement, Wheezing - Cardiovascular Rhythm: Regular. No: Tachycardia Heart sounds: Normal auscultation, S1 appreciated, S2 appreciated Course - Vital Signs Vital signs: Temp Pulse Resp BP Pulse Ox 98.2 F 80 22 H 141/100 H 100 03/02/18 04:19 03/02/18 04:19 03/02/18 05:12 03/02/18 05:12 03/02/18 05:12
[2018-03-02 05:43] LABS: ABSOLUTE EOSINOPHILS # (AUTO) 0.1 10^3/uL (0.0-0.6); ABSOLUTE LYMPHOCYTES (AUTO) 1.9 10^3/uL (0.5-4.7); ABSOLUTE MONOCYTES (AUTO) 0.6 10^3/uL (0.1-1.4); ABSOLUTE NEUT (AUTO) 4.8 10^3/uL (1.7-8.2); BASOPHILS % (AUTO) 0.6 % (0-2); EOSINOPHILS % (AUTO) 1.3 % (0-6); HEMOGLOBIN 13.2 g/dL (13.5-17.0); LYMPHOCYTES % (AUTO) 25.9 % (13-45); MEAN CORPUSCULAR HEMOGLOBIN 30.6 pg (27.0-33.4); MEAN CORPUSCULAR VOLUME 90 fl (80-97); MONOCYTES % (AUTO) 7.6 % (3-13); PLATELET COUNT 240 10^3/uL (150-450); RED BLOOD COUNT 4.33 10^6/uL (4.35-5.55); RED CELL DISTRIBUTION WIDTH 14.2 % (11.5-14.0); SEGMENTED NEUTROPHILS % (AUTO) 64.6 % (42-78); TOTAL CELLS COUNTED % (AUTO) 100 %; WHITE BLOOD COUNT 7.5 10^3/uL (4.0-10.5)
[2018-03-02 05:56] LABS: ALANINE AMINOTRANSFERASE 37 U/L (21-72); ALBUMIN 3.9 g/dL (3.5-5.0); ALKALINE PHOSPHATASE 91 U/L (38-126); ANION GAP 11 (5-19); ASPARTATE AMINO TRANSFERASE 42 U/L (17-59); BILIRUBIN,DIRECT 0.2 mg/dL (0.0-0.4); BILIRUBIN,TOTAL 0.3 mg/dL (0.2-1.3); BLOOD UREA NITROGEN 10 mg/dL (7-20); CALCIUM 9.6 mg/dL (8.4-10.2); CARBON DIOXIDE 24 mmol/L (22-30); CHLORIDE 107 mmol/L (98-107); GLUCOSE 92 mg/dL (75-110); POTASSIUM 4.5 mmol/L (3.6-5.0); SODIUM 142.3 mmol/L (137-145); TOTAL PROTEIN 6.9 g/dL (6.3-8.2)
[2018-03-02 05:58] LABS: ACETAMINOPHEN < 10 ug/mL (10-30); ALCOHOL < 10 mg/dL (NONE DETECTED); SALICYLATE < 1.0 mg/dL (2.0-20.0)
--- NOTE | 2018-03-02 06:01 | RADIOLOGY REPORT (SQ) ---
Chest 2 view on 03/02/2018 at 6:03 AM CLINICAL INDICATION: Chest pain COMPARISON: 11/02/2016 FINDINGS: The lungs are clear. Cardiac, hilar and mediastinal contours are within normal limits. Pulmonary vascularity is within normal limits. No bony abnormality is noted. IMPRESSION: No active disease.
--- NOTE | 2018-03-02 07:39 | EKG REPORT ---
SEVERITY:- ABNORMAL ECG - SINUS RHYTHM ST ELEVATION SUGGESTS NROMAL VARIANT : Confirmed by: Henri Rojas MD 02-Mar-2018 07:38:56
[2018-03-02] MEDS ORDERED: NORMAL SALINE 1000 ML 1,000 ML IV ONE (09:10)
[2018-03-02] MEDS ORDERED: KETOROLAC TROMETHAMINE INJ/PF 30 MG/1 ML SDV IV ONE ×2 (09:24→14:00)
--- NOTE | 2018-03-02 09:30 | ER Document Report ---
ED Cardiac - General Chief Complaint: Chest Pain Stated Complaint: POSSIBLE PANIC ATTACK Time Seen by Provider: 03/02/18 05:05 Notes: 32-year-old male reportedly homeless brought in by police for evaluation of chest pain. Patient reportedly was not acting normal. Was well-known to the PD. Patient complaining of chest pain. Chills. Intermittent fevers. Cough. Hurts to take a deep breath. TRAVEL OUTSIDE OF THE [place] IN LAST 30 DAYS: No - HPI Patient complains to provider of: Chest pain, Chest tightness Was the onset of pain: Gradual Chest pain location: Substernal Quality of pain: Sharp, Throbbing - Related Data Allergies/Adverse Reactions: azithromycin [From Zithromax] Allergy (Verified 03/02/18 05:25) ciprofloxacin [From Cipro] Allergy (Verified 03/02/18 05:25) ibuprofen Allergy (Verified 03/02/18 05:25) iodine [Iodine] Allergy (Verified 03/02/18 05:25) ondansetron [From Zofran (as hydrochloride)] Allergy (Verified 03/02/18 05:25) Penicillins Allergy (Verified 03/02/18 05:25) Past Medical History - General Information source: Patient - Social History Smoking Status: Current Every Day Smoker Chew tobacco use (# tins/day): No Frequency of alcohol use: None Drug Abuse: Other Lives with: Homeless Family History: Reviewed & Not Pertinent, CVA, DM, Hyperlipidemia, Hypertension Patient has suicidal ideation: No Patient has homicidal ideation: No Pulmonary Medical History: Reports: Hx Asthma Neurological Medical History: Reports: Hx Seizures Renal/ Medical History: Denies: Hx Peritoneal Dialysis Musculoskeletal Medical History: Reports Hx Musculoskeletal Trauma Psychiatric Medical History: Reports: Hx Anxiety, Hx Bipolar Disorder, Hx Depression - manic depression Traumatic Medical History: Reports: Hx Fractures - nose - Immunizations Hx Diphtheria, Pertussis, Tetanus Vaccination: Yes Review of Systems - Review of Systems Constitutional: denies: Fever, Malaise, Weakness EENT: denies: Double vision, Difficulty swallowing, Throat swelling Cardiovascular: Chest pain. denies: Palpitations, Heart racing, Orthopnea, Syncope, Dizziness Respiratory: denies: Cough, Hurts to breathe, Short of breath, Wheezing Gastrointestinal: denies: Abdominal pain, Diarrhea, Nausea, Vomiting Genitourinary: denies: Burning, Dysuria, Discharge Musculoskeletal: denies: Back pain, Joint pain, Muscle pain, Leg swelling Skin: denies: Change in color, Dryness, Lumps, Rash Hematologic/Lymphatic: denies: Anemia, Blood clots, Easy bleeding, Easy bruising Neurological/Psychological: denies: Confusion, Weakness, Numbness Physical Exam - Vital signs Vitals: Temp Pulse Resp BP Pulse Ox 98.2 F 80 28 H 125/98 H 99 03/02/18 04:19 03/02/18 04:19 03/02/18 04:19 03/02/18 04:19 03/02/18 04:19 Interpretation: Normal - General General appearance: Appears well, Alert - HEENT Head: Normocephalic, Atraumatic Eyes: Normal Pupils: PERRL - Respiratory Respiratory status: No respiratory distress Chest status: Nontender Breath sounds: Normal Chest palpation: Normal - Cardiovascular Rhythm: Regular Heart sounds: Normal auscultation Murmur: No - Abdominal Inspection: Normal Distension: No distension Bowel sounds: Normal Tenderness: Nontender Organomegaly: No organomegaly - Back Back: Normal, Nontender - Extremities General upper extremity: Normal inspection, Nontender, Normal color, Normal ROM , Normal temperature General lower extremity: Normal inspection, Nontender, Normal color, Normal ROM , Normal temperature, Normal weight bearing. No: Kristin's sign - Neurological Neuro grossly intact: Yes Cognition: Normal Orientation: AAOx4 [place]ree Coma Scale Eye Opening: Spontaneous [place] Coma Scale Verbal: Oriented [place] Coma Scale Motor: Obeys Commands [place] Coma Scale Total: 15 Speech: Normal Motor strength normal: LUE, RUE, LLE, RLE Sensory: Normal - Psychological Associated symptoms: Normal affect, Normal mood - Skin Skin Temperature: Warm Skin Moisture: Dry Skin Color: Normal Course - Re-evaluation Re-evalutation: 03/02/18 09:[address] segment elevation on EKG consistent with pericarditis. Patient is unreliable as he is homeless and has a drug abuse history. I am going to get a echocardiogram on him at this time just to make sure that there is no signs of a pericardial effusion as he states his pain is severe. Anticipate that if I discharged the patient he would be brought back in by police again and again so will consult with hospitalist for admission for his pericarditis. Will place a consult with cardiology as well. 03/02/18 10:24 Spoke with the hospitalist. Requests a echocardiogram before admitting to the hospital. Echocardiogram order has been placed. Resting comfortably at this time. - Vital Signs Vital signs: Temp Pulse Resp BP Pulse Ox 98.2 F 80 20 117/83 100 03/02/18 04:19 03/02/18 04:19 03/02/18 09:01 03/02/18 09:01 03/02/18 09:01 - Laboratory Result Diagrams: 03/02/18 05:10 03/02/18 05:10 Laboratory results interpreted by me: 03/02/18 03/02/18 03/02/18 05:10 05:10 05:10 RBC 4.33 L Hgb 13.2 L RDW 14.2 H Creatine Kinase 649 H Salicylates < 1.0 L Acetaminophen < 10 L - EKG Interpretation by Me Additional EKG results interpreted by me: 03/02/18 09:25 Heart rate 57, diffuse ST elevation, suggestive of pericarditis. Discharge - Discharge Clinical Impression: Acute pericarditis Qualifiers: Pericarditis type: unspecified type Qualified Code(s): I30.9 - Acute pericarditis, unspecified Condition: Good Disposition: ADMITTED OBSERVATION Admitting Provider: Hospitalist - [facility] Admitted: Telemetry
--- NOTE | 2018-03-02 13:52 | XCELERA REPORT ---
[address] [address] Transthoracic Echocardiogram Report Name: ROSALVA VAZQUEZ JR Age: 32 yrs Gender: Male : 1985 Patient Status: Emergency Patient Location: ER Study Date: 03/02/2018 11:23 AM Height: 72 in Weight: 143 lb BSA: 1.8 m2 Procedure: A two-dimensional transthoracic echocardiogram with color flow Doppler was performed. The study was technically adequate with some images being suboptimal in quality. Reason For Study: chest pain,ST elevation History: chest pain,ST elevation. Ordering Physician: BURT GRIFFITH Performed By: Rebecca Bowles Interpretation Summary The left ventricle is normal in size. There is normal left ventricular wall thickness. LV EF is 55% Left ventricular systolic function is low normal. Doppler measurements suggest normal left ventricular diastolic function The left ventricular wall motion is normal. There is no ventricular septal defect visualized. The right ventricle is normal in size and function. The right atrium is normal. The left atrial size is normal. The interatrial septum is intact with no evidence for an atrial septal defect. There is no evidence of mitral valve prolapse. There is no vegetation seen on the mitral valve. There is no mitral valve stenosis. There is a trace to mild amount of mitral regurgitation There is no aortic valvular vegetation. There is no aortic valve stenosis There is no LVOT obstruction. No aortic regurgitation is present. There is no tricuspid stenosis. There is a trace amount of tricuspid regurgitation RSVP is equal to RVSP is 25 to 30 mm of Hg with RA mean of 5 to 10. Trace to mild MD. The aortic root is normal size. There is no pericardial effusion. MMode/2D Measurements & Calculations RVDd: 2.4 cm LVIDd: 4.8 cm FS: 26.9 % Ao root diam: 2.7 cm IVSd: 0.99 cm LVIDs: 3.5 cm EDV(Teich): 109.5 ml Ao root area: 5.7 cm2 LVPWd: 1.00 cm ESV(Teich): 52.2 ml LA dimension: 2.7 cm EF(Teich): 52.3 % Doppler Measurements & Calculations MV E max steve: MV P1/2t max steve: Ao V2 max: LV V1 max P.3 cm/sec 49.0 cm/sec 90.3 cm/sec 2.3 mmHg MV A max steve: MV P1/2t: 87.0 msec Ao max PG: LV V1 max: 28.5 cm/sec MVA(P1/2t): 2.5 cm2 3.3 mmHg 76.0 cm/sec MV E/A: 1.6 MV dec slope: 164.9 cm/sec2 MV dec time: 0.29 sec PA V2 max: PI end-d steve: TR max steve: MV P1/2t-pr_phl: 65.6 cm/sec 91.2 cm/sec 227.0 cm/sec 87.0 msec PA max PG: TR max P.7 mmHg 20.6 mmHg Left Ventricle The left ventricle is normal in size. There is normal left ventricular wall thickness. LV EF is 55%. Left ventricular systolic function is low normal. Doppler measurements suggest normal left ventricular diastolic function. The left ventricular wall motion is normal. There is no thrombus. There is no ventricular septal defect visualized. Right Ventricle The right ventricle is normal in size and function. Atria The right atrium is normal. The left atrial size is normal. The interatrial septum is intact with no evidence for an atrial septal defect. Mitral Valve There is no evidence of mitral valve prolapse. There is no vegetation seen on the mitral valve. There is no mitral valve stenosis. There is a trace to mild amount of mitral regurgitation. Aortic Valve There is no aortic valvular vegetation. There is no aortic valve stenosis. There is no LVOT obstruction. No aortic regurgitation is present. Tricuspid Valve There is no tricuspid stenosis. There is a trace amount of tricuspid regurgitation. RSVP is equal to RVSP is 25 to 30 mm of Hg with RA mean of 5 to 10. Pulmonic Valve There is no pulmonic valvular stenosis. Trace to mild MD. Great Vessels The aortic root is normal size. Effusions There is no pericardial effusion. : BURT GRIFFITH > Jana Mancilla
--- NOTE | 2018-03-02 14:00 | EKG REPORT ---
SEVERITY:- BORDERLINE ECG - SINUS RHYTHM ABNORMAL T, CONSIDER ISCHEMIA, ANT-LAT LEADS ST ELEVATION SUGGESTS NORMAL VARIANT. : Confirmed by: Henri Rojas MD 02-Mar-2018 13:59:12
[2018-03-02 14:09] LABS: APPEARANCE,URINE CLEAR; BILIRUBIN,URINE NEGATIVE (NEGATIVE); COLOR,URINE YELLOW; GLUCOSE, URINE NEGATIVE (NEGATIVE); KETONES,URINE NEGATIVE (NEGATIVE); LEUKOCYTE ESTERASE,URINE NEGATIVE (NEGATIVE); NITRITE,URINE NEGATIVE (NEGATIVE); PROTEIN,URINE NEGATIVE (NEGATIVE); URINE SPECIFIC GRAVITY 1.015
[2018-03-02 14:19] LABS: URINE AMPHETAMINES SCREEN NEGATIVE; URINE BARBITURATES SCREEN NEGATIVE; URINE COCAINE SCREEN UNCONFIRMED POSITIVE; URINE MARIJUANA (THC) SCREEN NEGATIVE; URINE METHADONE SCREEN NEGATIVE; URINE PHENCYCLIDINE SCREEN NEGATIVE
[2018-03-02 14:24] LABS: URINE BENZODIAZEPINES SCREEN NEGATIVE
[2018-03-02] MEDS ORDERED: KETOROLAC TROMETHAMINE INJ/PF 30 MG/1 ML SDV IV SCH (14:30)
[2018-03-02] MEDS ORDERED: COLCHICINE 0.6 MG TABLET PO ONE (15:00)
[2018-03-02] MEDS: NORMAL SALINE 1000 ML 1,000 ML IV PRN (15:06)
--- NOTE | 2018-03-02 15:27 | PDOC H&P ---
History of Present Illness Admission Date/PCP: 03/02/18 13:25 None History of Present Illness: ROSALVA VAZQUEZ JR is a 32 year old male who was brought to the emergency room who is homeless. Reportedly his past medical history is significant for bipolar disorder, seizure disorder and drug abuse. He was brought to the emergency room by the police department. He had called 911 as he had developed chest pain and shortness of breath. According to police officers he is well known to them and he was not acting himself at the time he was brought to the hospital. In the emergency room he had a chest x-ray that was unremarkable. EKG revealed diffuse ST elevations throughout all leads. He subsequently had a 2D echocardiogram which revealed no evidence of pericardial effusion or tamponade. He had normal LV function. The patient was given an aspirin as well as IV Toradol in the emergency room. He was referred for admission. When I went to see the patient he is lying in the bed. He is shaking rather uncontrollably and is covered up with the blanket. He states that he has been feeling increasingly weak and been running fevers for at least the past 2 months. He states that he had been using IV methamphetamine on a very regular basis up until 2 months ago and he stopped because he was just feeling so poorly. Since that time he has been snorting cocaine but has not been using any other drugs. The last time he used cocaine was 2 days ago. Yesterday evening he began to develop chest pain. He describes it as a pressure and pain in his chest. He also has pain with inspiration. He became increasingly short of breath and called 911 to bring him to the hospital. The patient states that he has a cough. He does smoke. He states that he is coughing up garcia phlegm. No nausea vomiting or diarrhea. He states that he has not been eating due to lack of food due to his homeless situation. He states he does not want to go into a store because he would steal and then he would get arrested. He just has not been eating. He has had no abdominal pain. He has not had a bowel movement today. He reports no urinary complaints. Past Medical History Cardiac Medical History: Reports: None Pulmonary Medical History: Reports: Asthma EENT Medical History: Reports: None Neurological Medical History: Reports: Seizures Endocrine Medical History: Reports: None Renal/ Medical History: Reports: None Malignancy Medical History: Reports: None GI Medical History: Reports: None Musculoskeltal Medical History: Reports: None Skin Medical History: Reports: None Psychiatric Medical History: Reports: Bipolar Disorder, Depression - manic depression Traumatic Medical History: Reports: None Hematology: Reports: None Infectious Medical History: Reports: None Past Surgical History Past Surgical History: Reports: None Social History Information Source: Patient Lives with: Homeless Smoking Status: Current Every Day Smoker Frequency of Alcohol Use: Heavy Hx Recreational Drug Use: No Drugs: Cocaine, Other - He was using IV methamphetamine up until 2 months ago. Hx Prescription Drug Abuse: No - Advance Directive Resuscitation Status: Full Code Family History Family History: CVA, DM, Hyperlipidemia, Hypertension Parental Family History Reviewed: Yes Children Family History Reviewed: Yes Sibling(s) Family History Reviewed.: Yes Medication/Allergy Home Medications: No Home Medications 03/02/18 Allergies/Adverse Reactions: azithromycin [From Zithromax] Allergy (Verified 03/02/18 05:25) ciprofloxacin [From Cipro] Allergy (Verified 03/02/18 05:25) ibuprofen Allergy (Verified 03/02/18 05:25) iodine [Iodine] Allergy (Verified 03/02/18 05:25) ondansetron [From Zofran (as hydrochloride)] Allergy (Verified 03/02/18 05:25) Penicillins Allergy (Verified 03/02/18 05:25) Review of Systems Constitutional: PRESENT: chills, fatigue, fever(s), night sweats, weight loss Eyes: ABSENT: visual disturbances Ears: ABSENT: hearing changes Nose, Mouth, and Throat: PRESENT: headache(s). ABSENT: sore throat Cardiovascular: PRESENT: chest pain, dyspnea on exertion Respiratory: PRESENT: cough, sputum. ABSENT: hemoptysis Gastrointestinal: ABSENT: abdominal pain, constipation, diarrhea, hematemesis, hematochezia, nausea, vomiting Genitourinary: ABSENT: dysuria, hematuria Musculoskeletal: PRESENT: other - He complains of leg pain bilaterally Integumentary: ABSENT: rash, wounds Neurological: ABSENT: abnormal gait, abnormal speech, confusion, dizziness, focal weakness, syncope Psychiatric: PRESENT: other - The patient is somewhat lethargic. He is shaking. Endocrine: ABSENT: cold intolerance, heat intolerance, polydipsia, polyuria Hematologic/Lymphatic: ABSENT: easy bleeding, easy bruising Physical Exam Vital Signs: Temp Pulse Resp BP Pulse Ox 98.2 F 80 16 112/81 99 03/02/18 04:19 03/02/18 04:19 03/02/18 14:00 03/02/18 11:01 03/02/18 14:00 General appearance: PRESENT: thin - Ill-appearing -Gabonese male. He is shaking Head exam: PRESENT: atraumatic - having shaking spells at the time of my visit. , normocephalic Eye exam: PRESENT: conjunctiva pink, EOMI, PERRLA. ABSENT: scleral icterus Ear exam: PRESENT: normal external ear exam Mouth exam: PRESENT: dry mucosa Neck exam: ABSENT: carotid bruit, JVD, lymphadenopathy, thyromegaly Respiratory exam: PRESENT: other - His lungs sound fairly clear. He has some scattered rhonchi bilaterally Cardiovascular exam: PRESENT: RRR. ABSENT: diastolic murmur, rubs, systolic murmur Pulses: PRESENT: normal dorsalis pedis pul GI/Abdominal exam: PRESENT: normal bowel sounds, soft. ABSENT: distended, guarding, mass, organolmegaly, rebound, tenderness Rectal exam: PRESENT: deferred Extremities exam: PRESENT: full ROM. ABSENT: calf tenderness, clubbing, pedal edema Musculoskeletal exam: PRESENT: ambulatory Neurological exam: PRESENT: other - He is somewhat somnolent. He keeps falling asleep in the middle of our conversations. He is frequently shaking. This does not look like a seizure. Overall he is alert and oriented. Psychiatric exam: PRESENT: appropriate affect, normal mood, other - He is somewhat lethargic. ABSENT: homicidal ideation, suicidal ideation Skin exam: PRESENT: dry, intact, warm. ABSENT: cyanosis, rash Results Laboratory Results: 03/02/18 13:40 Urine Color YELLOW Urine Appearance CLEAR Urine pH 7.0 Ur Specific [place] 1.015 Urine Protein NEGATIVE Urine Glucose (UA) NEGATIVE Urine Ketones NEGATIVE Urine Blood NEGATIVE Urine Nitrite NEGATIVE Ur Leukocyte Esterase NEGATIVE Urine WBC (Auto) 1 Urine RBC (Auto) 0 Impressions: Chest X-Ray 03/02/18 05:05 IMPRESSION: No active disease. Assessment & Plan - Diagnosis (1) Acute pericarditis Is this a current diagnosis for this admission?: Yes Plan: The patient has evidence of acute pericarditis. I am going to place him on scheduled IV Toradol and we will load him with 1.2 mg of colchicine. He will continue on 0.6 mg of colchicine daily. I have spoken to Dr. Mancilla does not believe that he needs to see the patient as he does not have any sort of pericardial effusion and he is sure whether this is actually pericarditis. Certainly he does have diffuse ST elevation throughout all leads. He could be a normal variant. He will have an EKG in the morning. (2) Encephalopathy Is this a current diagnosis for this admission?: Yes Plan: The patient has waxing and waning mental status when I am in the room. I am not sure whether this is due to his bipolar disorder versus drug use or possibly even underlying infection. We will continue to watch him quite closely. He is profoundly malnourished and likely dehydrated. We will hydrate him with fluids and hopefully his mental status will improve. (3) Pleuritic chest pain Is this a current diagnosis for this admission?: Yes Plan: Continue IV Toradol and colchicine. His pleuritic chest pain is likely due to his pericarditis. Of note I do have concerns for possible underlying endocarditis. He does have pleuritic chest pain and increasing shortness of breath. I am going to get a CT angiography of the chest to rule out pulmonary embolus. (4) IVDU (intravenous drug user) Is this a current diagnosis for this admission?: Yes Plan: The patient states that he was using IV methamphetamine on a very regular basis. He quit 2 months ago as he just was not feeling well. He states that he has had low-grade fevers and night sweats that have been worsening. I am concerned that he possibly could have underlying endocarditis. At this point blood cultures have been drawn. I have consulted cardiology. I am not going to start any antibiotics until we get further information. His white blood cell count is normal. (5) Cocaine use Is this a current diagnosis for this admission?: Yes Plan: The patient most recently has been snorting cocaine. He last used 2 days ago. His urine drug screen is positive for cocaine but no other substances. (6) Protein calorie malnutrition Qualifiers: Protein-calorie malnutrition severity: moderate Qualified Code(s): E44.0 - Moderate protein-calorie malnutrition Is this a current diagnosis for this admission?: Yes (7) Bipolar disorder Is this a current diagnosis for this admission?: Yes Plan: This is untreated. He has been homeless on [address]. He states that his parents have disowned him and he is not in touch with them. I have suggested we try to get in touch with them as they would probably like to know that he is in the hospital. He is going to think about this. (8) Seizure disorder Is this a current diagnosis for this admission?: Yes Plan: He will have IV Ativan available as needed. (9) Anemia Is this a current diagnosis for this admission?: Yes Plan: He has a very mild normocytic anemia likely secondary to chronic disease (10) Tobacco dependence Is this a current diagnosis for this admission?: Yes Plan: I am placing a nicotine patch on the patient. (11) Alcohol use Is this a current diagnosis for this admission?: Yes Plan: It is a little unclear how much he actually drinks. He will have IV Ativan available as needed for agitation. We will watch him closely for signs of withdrawal (12) Full code status Is this a current diagnosis for this admission?: Yes - Time Time Spent: 50 to 70 Minutes - Inpatient Certification Medical Necessity: Need Close Monitoring Due to Risk of Patient Decompensation - In placing this patient in inpatient status in the hospital. I am quite concerned the patient may have underlying endocarditis. Certainly he has evidence of pericarditis. He is homeless and is a drug user. He has been in trouble with the law. He is going to need assistance from discharge planning. I would like to keep him in the hospital for a couple of days to make sure his blood cultures remain negative. At this point I really doubt that I will get him out of the hospital in 1 midnight. He will be admitted to inpatient status. , Need For IV Fluids, Other
[2018-03-02] MEDS ORDERED: LORAZEPAM INJ 2 MG/1 ML VIAL IV PRN (15:33)
[2018-03-02 16:44] LABS: CREATINE KINASE MB 2.41 ng/mL (<4.55); TROPONIN I < 0.012 ng/mL
[2018-03-02] MEDS: NICOTINE 21 MG/24 HR PATCH.TD24 TD SCH (16:52)
[2018-03-02 22:01] LABS: CREATINE KINASE MB 1.95 ng/mL (<4.55)
[2018-03-02 22:04] LABS: TROPONIN I < 0.012 ng/mL
[2018-03-03 03:56] LABS: PHOSPHORUS 3.5 mg/dL (2.5-4.5)
[2018-03-03 04:06] LABS: HEMOGLOBIN 13.3 g/dL (13.5-17.0); MEAN CORPUSCULAR HEMOGLOBIN 30.9 pg (27.0-33.4); MEAN CORPUSCULAR HGB CONC 34.1 g/dL (32.0-36.0); MEAN CORPUSCULAR VOLUME 91 fl (80-97); PLATELET COUNT 220 10^3/uL (150-450); RED CELL DISTRIBUTION WIDTH 14.4 % (11.5-14.0); WHITE BLOOD COUNT 5.7 10^3/uL (4.0-10.5)
[2018-03-03 04:15] LABS: CREATINE KINASE MB 1.56 ng/mL (<4.55)
[2018-03-03] MEDS: NORMAL SALINE 1000 ML 1,000 ML IV PRN ×2 (04:18→22:08)
[2018-03-03 04:24] LABS: TROPONIN I < 0.012 ng/mL
--- NOTE | 2018-03-03 07:13 | EKG REPORT ---
SEVERITY:- ABNORMAL ECG - SINUS RHYTHM NONSPECIFIC T ABNORMALITIES, ANT-LAT LEADS ST ELEVATION SUGGESTS NORMAL VARIANT : Confirmed by: Henri Rojas MD 03-Mar-2018 07:13:07
[2018-03-03] MEDS: NICOTINE 21 MG/24 HR PATCH.TD24 TD SCH (09:02)
[2018-03-03] MEDS: ENOXAPARIN SODIUM INJ 40 MG/0.4 ML DISP.SYRIN SUBCUT SCH ×2 (09:03→09:06)
[2018-03-03] MEDS ORDERED: COLCHICINE 0.6 MG TABLET PO SCH (10:00)
--- NOTE | 2018-03-03 20:06 | PDOC PROGRESS REPORT ---
Subjective Progress Note for:: 03/03/18 Subjective:: 32-year-old male known to be homeless, with a history of bipolar disorder, seizure disorder and drug abuse. Had shortness of breath complaints at the time of admission. EKG showed diffuse ST elevations throughout all leads, but this was consistent with an EKG taken in 2016 in his chart. 2D echo was performed that was without any tamponade physiology or pericardial effusion. He had a normal LV function. Patient's chest pain was reproducible on examination. Does appear to be chest wall related. At present patient is being treated for chest wall pain. Given his IV methamphetamine described use and recent cocaine use, blood cultures are currently being monitored for possible growth. No vegetation found on transthoracic echo consistent with a endocarditis. Reason For Visit: PERICARDITIS Physical Exam Vital Signs: Temp Pulse Resp BP Pulse Ox 98.2 F 72 16 82/40 L 100 03/03/18 15:50 03/03/18 15:50 03/03/18 15:50 03/03/18 15:50 03/03/18 15:50 Intake & Output 03/02/18 03/03/18 03/04/18 06:59 06:59 06:59 Intake Total 2338 769 Output Total 1100 2125 Balance 1238 -1356 Weight 67.2 kg General appearance: PRESENT: mild distress, thin. ABSENT: morbidly obese Head exam: PRESENT: atraumatic, normocephalic Eye exam: PRESENT: EOMI. ABSENT: conjunctival injection, nystagmus Ear exam: PRESENT: normal external ear exam. ABSENT: bleeding Mouth exam: PRESENT: moist. ABSENT: dry mucosa Neck exam: ABSENT: full ROM, JVD, tenderness, thyromegaly Respiratory exam: ABSENT: accessory muscle use, rales, rhonchi, wheezes Cardiovascular exam: PRESENT: RRR, +S1, +S2. ABSENT: irregular rhythm Pulses: ABSENT: normal carotid pulses, normal dorsalis pedis pul Vascular exam: PRESENT: normal capillary refill. ABSENT: pallor GI/Abdominal exam: ABSENT: ascites, mass, normal bowel sounds Extremities exam: ABSENT: calf tenderness, joint swelling Musculoskeletal exam: PRESENT: ambulatory, full ROM Neurological exam: PRESENT: alert, oriented to person, oriented to place, oriented to time, CN II-XII grossly intact Psychiatric exam: PRESENT: flat affect. ABSENT: agitated, anxious Focused psych exam: ABSENT: catatonic, paranoid Skin exam: ABSENT: abrasion, mottled Additional comments: Patient was awoken to do the physical exam in room and mildly groggy through the physical exam. Results Laboratory Results: 03/03/18 03:32 03/03/18 03/03/18 03/03/18 03:32 03:32 03:32 WBC 5.7 RBC 4.30 L Hgb 13.3 L Hct 39.0 MCV 91 MCH 30.9 MCHC 34.1 RDW 14.4 H Plt Count 220 Phosphorus 3.5 Magnesium 2.0 TSH 1.36 03/02/18 03/02/18 03/02/18 15:00 15:31 21:30 Creatine Kinase 464 H 327 H CK-MB (CK-2) 2.41 Troponin I < 0.012 03/02/18 03/03/18 03/03/18 21:30 03:32 03:32 Creatine Kinase 314 H CK-MB (CK-2) 1.95 1.56 Troponin I < 0.012 < 0.012 Impressions: Chest X-Ray 03/02/18 05:05 IMPRESSION: No active disease. Assessment & Plan - Diagnosis (1) Chest pain Is this a current diagnosis for this admission?: Yes Plan: Chest pain is reproducible on examination. No elevation in troponins taken. EKG ST segment elevations do appear to be chronic and were present on the 2015 EKG. Continue to pain treat with NSAIDs. Pericarditis was ruled out. Chest pain is not positional. (2) Acute pericarditis Qualifiers: Pericarditis type: unspecified type Qualified Code(s): I30.9 - Acute pericarditis, unspecified Is this a current diagnosis for this admission?: No Plan: Ruled out. (3) Alcohol use Is this a current diagnosis for this admission?: Yes Plan: Start thiamine, folate, multivitamin. Sign of active alcohol withdrawal. IV Ativan as needed. (4) Bipolar disorder Is this a current diagnosis for this admission?: Yes Plan: will need terminologist follow up to faclitate treatment of this at discharge. (5) Cocaine use Is this a current diagnosis for this admission?: Yes Plan: encouraged patient, will need support group and counseling in the outpatient setting. (6) IVDU (intravenous drug user) Is this a current diagnosis for this admission?: Yes Plan: No vegetations found on transthoracic echo. Blood cultures without positive growth at present, 24 hour jordana. Monitor blood cultures. Continue to monitor vitals. At present stable vital signs. (7) Seizure disorder Is this a current diagnosis for this admission?: Yes Plan: IV Ativan prn, seizure activity at present. - Time Time Spent with patient: 15-24 minutes - Inpatient Certification Based on my medical assessment, after consideration of the patient's comorbidities, presenting symptoms, or acuity I expect that the services needed warrant INPATIENT care.: Yes I certify that my determination is in accordance with my understanding of Medicare's requirements for reasonable and necessary INPATIENT services [42 CFR 412.3e].: Yes Medical Necessity: Need Close Monitoring Due to Risk of Patient Decompensation
[2018-03-03] MEDS ORDERED: MORPHINE SULFATE 10 MG/ML INJ IV PRN (20:09)
[2018-03-03] MEDS ORDERED: KETOROLAC TROMETHAMINE INJ/PF 30 MG/1 ML SDV IV PRN (20:11)
[2018-03-03] MEDS ORDERED: IBUPROFEN 800 MG TABLET PO SCH (20:15)
[2018-03-03] MEDS ORDERED: LIDOCAINE 5% (700 MG) TRANSDERMAL ADH..PATCH TP SCH (22:00)
[2018-03-04 06:36] LABS: ABSOLUTE BASOPHILS # (AUTO) 0.1 10^3/uL (0.0-0.2); ABSOLUTE EOSINOPHILS # (AUTO) 0.2 10^3/uL (0.0-0.6); ABSOLUTE LYMPHOCYTES (AUTO) 1.9 10^3/uL (0.5-4.7); ABSOLUTE MONOCYTES (AUTO) 0.5 10^3/uL (0.1-1.4); ABSOLUTE NEUT (AUTO) 3.2 10^3/uL (1.7-8.2); BASOPHILS % (AUTO) 0.9 % (0-2); EOSINOPHILS % (AUTO) 3.6 % (0-6); HEMATOCRIT 40.8 % (37.9-51.0); HEMOGLOBIN 13.8 g/dL (13.5-17.0); LYMPHOCYTES % (AUTO) 32.5 % (13-45); MEAN CORPUSCULAR HEMOGLOBIN 30.5 pg (27.0-33.4); MEAN CORPUSCULAR HGB CONC 33.9 g/dL (32.0-36.0); MEAN CORPUSCULAR VOLUME 90 fl (80-97); MONOCYTES % (AUTO) 8.5 % (3-13); PLATELET COUNT 196 10^3/uL (150-450); RED BLOOD COUNT 4.52 10^6/uL (4.35-5.55); RED CELL DISTRIBUTION WIDTH 14.3 % (11.5-14.0); SEGMENTED NEUTROPHILS % (AUTO) 54.5 % (42-78); TOTAL CELLS COUNTED % (AUTO) 100 %; WHITE BLOOD COUNT 5.8 10^3/uL (4.0-10.5)
[2018-03-04 07:01] LABS: ALBUMIN 3.3 g/dL (3.5-5.0); ANION GAP 10 (5-19); BLOOD UREA NITROGEN 10 mg/dL (7-20); CALCIUM 9.2 mg/dL (8.4-10.2); CARBON DIOXIDE 25 mmol/L (22-30); CHLORIDE 106 mmol/L (98-107); GLUCOSE 91 mg/dL (75-110); PHOSPHORUS 4.4 mg/dL (2.5-4.5); POTASSIUM 4.4 mmol/L (3.6-5.0); SODIUM 140.8 mmol/L (137-145)
[2018-03-04] MEDS: ENOXAPARIN SODIUM INJ 40 MG/0.4 ML DISP.SYRIN SUBCUT SCH (09:59)
[2018-03-04] MEDS: THIAMINE HCL 100 MG TABLET PO SCH (10:09)
[2018-03-04] MEDS: NICOTINE 21 MG/24 HR PATCH.TD24 TD SCH (10:09)
[2018-03-04] MEDS: MULTIVITAMIN TABLET PO SCH (10:09)
[2018-03-04] MEDS: FOLIC ACID 1 MG TABLET PO SCH (10:09)
[2018-03-04] MEDS ORDERED: LIDOCAINE 5% (700 MG) TRANSDERMAL ADH..PATCH TP SCH (15:00)
[2018-03-04] MEDS ORDERED: KETOROLAC TROMETHAMINE INJ/PF 30 MG/1 ML SDV IV ONE (16:00)
[2018-03-04] MEDS: NAPROXEN 250 MG TABLET PO SCH (17:03)
--- NOTE | 2018-03-04 21:50 | PDOC PROGRESS REPORT ---
Subjective Progress Note for:: 03/04/18 Subjective:: 32-year-old male known to be homeless, with a history of bipolar disorder, seizure disorder and drug abuse. Had shortness of breath complaints at the time of admission. EKG showed diffuse ST elevations throughout all leads, but this was consistent with an EKG taken in 2016 in his chart. 2D echo was performed that was without any tamponade physiology or pericardial effusion. He had a normal LV function. Suspect costochondritis with his reproducible chest pain on exam. Giving Naproxen scheduled today, due to his ibuprofen allergy. Monitor for pain control. Giving lidocaine topical patch. Counseled on polysubstance abuse cessation at length today. Reason For Visit: PERICARDITIS Physical Exam Vital Signs: Temp Pulse Resp BP Pulse Ox 98.6 F 75 17 114/73 99 03/04/18 19:29 03/04/18 19:29 03/04/18 19:29 03/04/18 19:29 03/04/18 19:29 Intake & Output 03/03/18 03/04/18 03/05/18 06:59 06:59 06:59 Intake Total 2338 1991 1420 Output Total 1100 3200 1950 Balance 1238 -1209 -530 Weight 67.2 kg 70.7 kg General appearance: PRESENT: no acute distress, cooperative, disheveled Head exam: PRESENT: atraumatic, normocephalic Eye exam: PRESENT: EOMI, PERRLA Ear exam: PRESENT: normal external ear exam. ABSENT: bleeding Mouth exam: PRESENT: moist. ABSENT: dry mucosa Neck exam: PRESENT: full ROM. ABSENT: JVD, thyromegaly Respiratory exam: ABSENT: rales, rhonchi, wheezes Cardiovascular exam: PRESENT: RRR, +S1, +S2 Pulses: PRESENT: normal radial pulses, normal dorsalis pedis pul Vascular exam: PRESENT: normal capillary refill. ABSENT: pallor GI/Abdominal exam: PRESENT: soft. ABSENT: ascites, hyperactive bowel sounds, hypoactive bowel sounds Extremities exam: ABSENT: calf tenderness, joint swelling Musculoskeletal exam: PRESENT: full ROM. ABSENT: ambulatory Neurological exam: PRESENT: alert, oriented to person, oriented to place, oriented to time, oriented to situation, CN II-XII grossly intact Psychiatric exam: ABSENT: agitated, anxious Focused psych exam: ABSENT: delusional, paranoid Skin exam: ABSENT: abrasion, cyanosis Results Laboratory Results: 03/04/18 05:47 03/04/18 05:47 03/04/18 03/04/18 05:47 05:47 WBC 5.8 RBC 4.52 Hgb 13.8 Hct 40.8 MCV 90 MCH 30.5 MCHC 33.9 RDW 14.3 H Plt Count 196 Seg Neutrophils % 54.5 Lymphocytes % 32.5 Monocytes % 8.5 Eosinophils % 3.6 Basophils % 0.9 Absolute Neutrophils 3.2 Absolute Lymphocytes 1.9 Absolute Monocytes 0.5 Absolute Eosinophils 0.2 Absolute Basophils 0.1 Sodium 140.8 Potassium 4.4 Chloride 106 Carbon Dioxide 25 Anion Gap 10 BUN 10 Creatinine 0.92 Est GFR ( Amer) > 60 Est GFR (Non-Af Amer) > 60 Glucose 91 Calcium 9.2 Phosphorus 4.4 Albumin 3.3 L 03/02/18 03/02/18 03/02/18 15:00 15:31 21:30 Creatine Kinase 464 H 327 H CK-MB (CK-2) 2.41 Troponin I < 0.012 03/02/18 03/03/18 03/03/18 21:30 03:32 03:32 Creatine Kinase 314 H CK-MB (CK-2) 1.95 1.56 Troponin I < 0.012 < 0.012 Impressions: Chest X-Ray 03/02/18 05:05 IMPRESSION: No active disease. Assessment & Plan - Diagnosis (1) Chest pain Is this a current diagnosis for this admission?: Yes Plan: This is likely costochondritis. Starting scheduled naproxen today. Chest pain is reproducible on examination. No elevation in troponins taken. EKG ST segment elevations do appear to be chronic and were present on the 2016 EKG. Pericarditis was ruled out. (2) Acute pericarditis Qualifiers: Pericarditis type: unspecified type Qualified Code(s): I30.9 - Acute pericarditis, unspecified Is this a current diagnosis for this admission?: No Plan: Ruled out. (3) Alcohol use Is this a current diagnosis for this admission?: Yes Plan: continue thiamine, folate, multivitamin. No Sign of active alcohol withdrawal. IV Ativan as needed. (4) Bipolar disorder Is this a current diagnosis for this admission?: Yes Plan: will need [facility] follow up to faclitate treatment of this at discharge. (5) Cocaine use Is this a current diagnosis for this admission?: Yes Plan: encouraged cessation, will need support group and counseling in the outpatient setting after discharge. this was re-emphasized to him today. (6) IVDU (intravenous drug user) Is this a current diagnosis for this admission?: Yes Plan: No vegetations found on transthoracic echo. Blood cultures without positive growth at present, 48 hour jordana. Monitor blood cultures. Continue to monitor vitals. At present stable vital signs. (7) Seizure disorder Is this a current diagnosis for this admission?: Yes Plan: IV Ativan prn, seizure activity at present.
[2018-03-05] MEDS: ENOXAPARIN SODIUM INJ 40 MG/0.4 ML DISP.SYRIN SUBCUT SCH (09:22)
[2018-03-05] MEDS: NAPROXEN 250 MG TABLET PO SCH (09:26)
[2018-03-05] MEDS: MULTIVITAMIN TABLET PO SCH (09:26)
[2018-03-05] MEDS: THIAMINE HCL 100 MG TABLET PO SCH (09:26)
[2018-03-05] MEDS: NICOTINE 21 MG/24 HR PATCH.TD24 TD SCH (09:26)
[2018-03-05] MEDS: FOLIC ACID 1 MG TABLET PO SCH (09:26)
--- NOTE | 2018-03-05 15:25 | PDOC DISCHARGE SUMMARY ---
General - Admit/Disc Date/PCP Admission Date/Primary Care Provider: 03/02/18 14:49 Discharge Date: 03/05/18 - seen on rounds this afternoon - Discharge Diagnosis (1) Costochondritis Is this a current diagnosis for this admission?: Yes (2) Acute pericarditis Is this a current diagnosis for this admission?: Yes (3) Chest pain Is this a current diagnosis for this admission?: Yes (4) IVDU (intravenous drug user) Is this a current diagnosis for this admission?: Yes (5) Pleuritic chest pain Is this a current diagnosis for this admission?: Yes (6) Tobacco dependence Is this a current diagnosis for this admission?: Yes - Additional Information Resuscitation Status: Full Code Discharge Activity: Activity As Tolerated, Balance Activity w/Rest Prescriptions: Folic Acid [Folvite 1 mg Tablet] 1 mg PO DAILY #30 tablet Multivitamin [Tab-A-Carrie (Multiple Vitamin) Tablet] 1 tab PO DAILY #30 tablet Naproxen [Naprosyn 250 mg Tablet] 500 mg PO BIDBS 14 Days #28 tablet Thiamine HCl [Thiamine 100 mg Tablet] 100 mg PO DAILY #30 tablet Home Medications: Folic Acid [Folvite 1 mg Tablet] 1 mg PO DAILY #30 tablet 03/05/18 Multivitamin [Tab-A-Carrie (Multiple Vitamin) Tablet] 1 tab PO DAILY #30 tablet Naproxen [Naprosyn 250 mg Tablet] 500 mg PO BIDBS 14 Days #28 tablet 03/05/18 Thiamine HCl [Thiamine 100 mg Tablet] 100 mg PO DAILY #30 tablet 03/05/18 History of Present Illness History of Present Illness: ROSALVA VAZQUEZ JR is a 32 year old male admitted for chest pain with suspicion for pericarditis. please see full assessment and plan from H&P. Hospital Course Hospital Course: after admission he had work up for pericarditis and yesterday it was deemed that his chest pain was NOT from pericarditis. his ST changes were not acute but chronic as seen on old EKG's documented by physician yesterday. i examined him today and he has chest wall tenderness on palpation. i agree with prior physician that this is likely costochondritis. he is to continue with naprosyn twice daily for 2 more weeks with food. do not take ibuprofen while on naprosyn. call PCP if your pain gets worse or you have associated symptoms. he verbalized understanding. i counseled him on alcohol and drug abuse. he is to go to [facility] for help. he had spoken with CM about this. he verbalized understanding. i am so discharging him on folic acid, thiamine and MVI. he is homeless currently but will seek help after discharge. he understands he needs PCP follow up but also needs to get his life together. Physical Exam Vital Signs: Temp Pulse Resp BP Pulse Ox 98.1 F 68 14 117/69 99 03/05/18 10:55 03/05/18 10:55 03/05/18 10:55 03/05/18 10:55 03/05/18 10:55 Intake & Output 03/04/18 03/05/18 03/06/18 06:59 06:59 06:59 Intake Total 19905 503 Output Total 3200 2850 625 Balance -1209 -705 -122 Weight 155 lb 13.869 oz 147 lb 14.883 oz General appearance: PRESENT: no acute distress, well-developed, well-nourished Head exam: PRESENT: atraumatic, normocephalic Eye exam: PRESENT: EOMI, PERRLA. ABSENT: scleral icterus Ear exam: PRESENT: normal external ear exam Mouth exam: PRESENT: neck supple, tongue midline Neck exam: PRESENT: tracheal deviation Respiratory exam: PRESENT: chest wall tenderness - diffuse in both sides, clear to auscultation lalo, symmetrical Cardiovascular exam: PRESENT: RRR, +S1, +S2 Pulses: PRESENT: +2 pedal pulses bilateral GI/Abdominal exam: PRESENT: normal bowel sounds, soft. ABSENT: tenderness Extremities exam: ABSENT: joint swelling, pedal edema, +2 edema Neurological exam: PRESENT: alert, awake, oriented to person, oriented to place , oriented to time, oriented to situation, CN II-XII grossly intact Skin exam: PRESENT: dry, warm Results Laboratory Results: 03/04/18 05:47 03/04/18 05:47 03/02/18 03/02/18 03/02/18 15:00 15:31 21:30 Creatine Kinase 464 H 327 H CK-MB (CK-2) 2.41 Troponin I < 0.012 03/02/18 03/03/18 03/03/18 21:30 03:32 03:32 Creatine Kinase 314 H CK-MB (CK-2) 1.95 1.56 Troponin I < 0.012 < 0.012 Impressions: Chest X-Ray 03/02/18 05:05 IMPRESSION: No active disease. Qualifiers - * PATIENT BEING DISCHARGED WITH ANY OF THE FOLLOWING DIAGNOSIS: No VTE patient discharged on overlapping Therapy?: Yes Plan Time Spent: Less than 30 Minutes
[2018-03-05 15:27] VITALS: BP 126/82
== END 2018-03-05 16:33 | disposition home or self-care (01) | DRG 205 ==
LOC: ER 04:18 → EH 13:25 → OBSVTOIN 14:49 → 4S 17:32
PROVIDERS: ADMIT Internal Medicine; ATTEND Internal Medicine
DX: M94.0 Chondrocostal junction syndrome [Tietze] (principal); G93.40 Encephalopathy, unspecified; E44.0 Moderate protein-calorie malnutrition; Z68.1 Body mass index [BMI] 19.9 or less, adult; F17.200 Nicotine dependence, unspecified, uncomplicated; F41.9 Anxiety disorder, unspecified; E86.0 Dehydration; F31.9 Bipolar disorder, unspecified; F14.90 Cocaine use, unspecified, uncomplicated; F13.90 Sedative, hypnotic, or anxiolytic use, unspecified, uncomplicated; G40.909 Epilepsy, unspecified, not intractable, without status epilepticus; D64.9 Anemia, unspecified; J45.909 Unspecified asthma, uncomplicated; Z59.0 Homelessness; Z88.1 Allergy status to other antibiotic agents; Z88.6 Allergy status to analgesic agent; Z88.0 Allergy status to penicillin; Z82.49 Family history of ischemic heart disease and other diseases of the circulatory system
CPT/HCPCS: 36415; 71046; 80053; 80069; 80307; 81001; 82550; 82553; 83735; 84100; 84443; 84484; 85025; 85027; 85652; 86140; 87040; 93005; 93010; 93306; 96361; 96374; 99285; J1650; J1885; J2060; J3490; J7030

== ENCOUNTER 2018-03-22 03:04 | Emergency (ER) | payer SELFPAY ==
--- NOTE | 2018-03-22 04:39 | ER Document Report ---
ED General - General Chief Complaint: Chest Pain > 30 Stated Complaint: CHEST PAIN Time Seen by Provider: 03/22/18 04:11 Notes: Patient is a 32-year-old male that comes to the emergency department for chief complaint of chest pain. Patient called EMS, he states that he started having chest pain after snorting a line of cocaine. Patient states that he uses cocaine frequently, he denies heroin, methamphetamines, or any other recreational drugs. He denies any IV drugs. He denies any fevers. He states he vomited twice before arrival. He denies current vomiting, he does report current chest pain. He denies difficulty breathing, dizziness, or any other symptoms at this time. Past medical history also includes bipolar disorder and seizure disorder, he is not on any daily medications. He does smoke cigarettes. He denies any alcohol. He states that he has not eaten over the past 1-2 days, states he bought cocaine instead. TRAVEL OUTSIDE OF THE [place] IN LAST 30 DAYS: No - Related Data Allergies/Adverse Reactions: azithromycin [From Zithromax] Allergy (Verified 03/02/18 05:25) ciprofloxacin [From Cipro] Allergy (Verified 03/02/18 05:25) ibuprofen Allergy (Verified 03/02/18 05:25) iodine [Iodine] Allergy (Verified 03/02/18 05:25) ondansetron [From Zofran (as hydrochloride)] Allergy (Verified 03/02/18 05:25) Penicillins Allergy (Verified 03/02/18 05:25) Past Medical History - General Information source: Patient - Social History Smoking Status: Current Every Day Smoker Frequency of alcohol use: None Drug Abuse: Cocaine Lives with: Alone Family History: CVA, DM, Hyperlipidemia, Hypertension Pulmonary Medical History: Reports: Hx Asthma Neurological Medical History: Reports: Hx Seizures Renal/ Medical History: Denies: Hx Peritoneal Dialysis Musculoskeletal Medical History: Reports Hx Musculoskeletal Trauma Psychiatric Medical History: Reports: Hx Anxiety, Hx Bipolar Disorder, Hx Depression - manic depression Traumatic Medical History: Reports: Hx Fractures - nose - Immunizations Hx Diphtheria, Pertussis, Tetanus Vaccination: Yes Review of Systems - Review of Systems Constitutional: See HPI EENT: No symptoms reported Cardiovascular: See HPI Respiratory: No symptoms reported Gastrointestinal: No symptoms reported Genitourinary: No symptoms reported Male Genitourinary: No symptoms reported Musculoskeletal: No symptoms reported Skin: No symptoms reported Hematologic/Lymphatic: No symptoms reported Neurological/Psychological: No symptoms reported Physical Exam - Vital signs Vitals: Temp Pulse Resp BP Pulse Ox 98 F 72 14 119/73 100 03/22/18 03:03/22/18 03:03/22/18 03:03/22/18 03:03/22/18 03:23 - Notes Notes: GENERAL: Sleeping but easily aroused. No distress. HEAD: Normocephalic, atraumatic. EYES: Pupils equal, round, and reactive to light. No dilated pupils. Extraocular movements intact. ENT: Oral mucosa moist, tongue midline. Normal oropharyngeal exam. NECK: Full range of motion. Supple. Trachea midline. LUNGS: Clear to auscultation bilaterally, no wheezes, rales, or rhonchi. No respiratory distress. HEART: Regular rate and rhythm. No murmur ABDOMEN: Soft, non-tender. Non-distended. Bowel sounds present in all 4 quadrants. EXTREMITIES: Moves all 4 extremities spontaneously. No edema, normal radial and dorsalis pedis pulses bilaterally. No cyanosis. BACK: no cervical, thoracic, lumbar midline tenderness. No saddle anesthesia, normal distal neurovascular exam. NEUROLOGICAL: Sleeping and easily aroused. Oriented to person, time, place. Normal speech. [cranial nerves II through XII grossly intact]. PSYCH: Flat affect. SKIN: Warm, dry, normal turgor. No rashes or lesions noted. Course - Re-evaluation Re-evalutation: EKG showing sinus rhythm at a rate of 65, ST elevation in multiple leads including inferiorly and anteriorly however this is not changed from prior. Patient has had this on all of his recent EKGs. QTC of 416, W[place] interval of 168. Chest x-ray unremarkable. CBC, chemistry unremarkable and does not suggest patient has not eaten anything for the past 2 days. Troponin is negative. Patient is not tachycardic, hypotensive, does not have dilated pupils, is sleeping but easily aroused. His drug screen is positive for cocaine but normal otherwise. Negative for alcohol. He does not appear to have just used cocaine (he also is not hypertensive or tachycardic) and he does not appear to be in any distress. He is requesting food and wants to sleep. He denies suicidal ideations or homicidal ideations but he states that he "wants to quit drugs" and he wants to discuss detox. Discussed with Dr. Leong. Patient is medically cleared. Patient is voluntary and wants to speak to the mental health team. Consult placed. - Vital Signs Vital signs: Temp Pulse Resp BP Pulse Ox 98 F 72 14 119/73 100 03/22/18 03:23 03/22/18 03:23 03/22/18 03:23 03/22/18 03:23 03/22/18 03:23 - Laboratory Result Diagrams: 03/22/18 04:40 03/22/18 04:40 Laboratory results interpreted by me: 03/22/18 03/22/18 04:40 04:40 RBC 4.34 L Hgb 13.3 L RDW 14.2 H Chloride 108 H Discharge - Discharge Clinical Impression: Substance abuse Condition: Stable Disposition: HOME, SELF-CARE Additional Instructions: Do not use illegal/recreational drugs, these will cause many health complications and eventually will lead to your . Follow-up with the primary care referral. Return to the hospital for any concerns including vomiting, passing out, difficulty breathing, fever, or something is not right. Referrals: [facility] [Provider Group] - Follow up in 1 week
[2018-03-22 04:47] LABS: ABSOLUTE BASOPHILS # (AUTO) 0.1 10^3/uL (0.0-0.2); ABSOLUTE EOSINOPHILS # (AUTO) 0.1 10^3/uL (0.0-0.6); ABSOLUTE MONOCYTES (AUTO) 0.5 10^3/uL (0.1-1.4); ABSOLUTE NEUT (AUTO) 4.8 10^3/uL (1.7-8.2); BASOPHILS % (AUTO) 0.9 % (0-2); EOSINOPHILS % (AUTO) 1.1 % (0-6); HEMATOCRIT 39.2 % (37.9-51.0); HEMOGLOBIN 13.3 g/dL (13.5-17.0); LYMPHOCYTES % (AUTO) 26.6 % (13-45); MEAN CORPUSCULAR HEMOGLOBIN 30.6 pg (27.0-33.4); MEAN CORPUSCULAR HGB CONC 33.9 g/dL (32.0-36.0); MEAN CORPUSCULAR VOLUME 90 fl (80-97); MONOCYTES % (AUTO) 6.2 % (3-13); PLATELET COUNT 236 10^3/uL (150-450); RED BLOOD COUNT 4.34 10^6/uL (4.35-5.55); RED CELL DISTRIBUTION WIDTH 14.2 % (11.5-14.0); SEGMENTED NEUTROPHILS % (AUTO) 65.2 % (42-78); TOTAL CELLS COUNTED % (AUTO) 100 %; WHITE BLOOD COUNT 7.4 10^3/uL (4.0-10.5)
--- NOTE | 2018-03-22 04:57 | RADIOLOGY REPORT (SQ) ---
Chest single view on 03/22/2018 at 4:42 AM CLINICAL INDICATION: Chest pain COMPARISON: 03/02/2018 FINDINGS: The lungs are clear. Cardiac, hilar and mediastinal contours are within normal limits. Pulmonary vascularity is within normal limits. No bony abnormality is noted. IMPRESSION: No active disease.
[2018-03-22 05:02] LABS: ALANINE AMINOTRANSFERASE 34 U/L (21-72); ALKALINE PHOSPHATASE 99 U/L (38-126); ANION GAP 8 (5-19); ASPARTATE AMINO TRANSFERASE 39 U/L (17-59); BILIRUBIN,DIRECT 0.2 mg/dL (0.0-0.4); BILIRUBIN,TOTAL 0.4 mg/dL (0.2-1.3); BLOOD UREA NITROGEN 8 mg/dL (7-20); CALCIUM 9.4 mg/dL (8.4-10.2); CARBON DIOXIDE 28 mmol/L (22-30); CHLORIDE 108 mmol/L (98-107); GLUCOSE 85 mg/dL (75-110); POTASSIUM 3.9 mmol/L (3.6-5.0); SODIUM 144.4 mmol/L (137-145); TOTAL PROTEIN 7.1 g/dL (6.3-8.2)
[2018-03-22 05:05] LABS: ALCOHOL < 10 mg/dL (NONE DETECTED)
[2018-03-22 05:53] LABS: URINE AMPHETAMINES SCREEN NEGATIVE; URINE BARBITURATES SCREEN NEGATIVE; URINE BENZODIAZEPINES SCREEN NEGATIVE; URINE COCAINE SCREEN UNCONFIRMED POSITIVE; URINE MARIJUANA (THC) SCREEN NEGATIVE; URINE METHADONE SCREEN NEGATIVE; URINE PHENCYCLIDINE SCREEN NEGATIVE
--- NOTE | 2018-03-22 08:10 | EKG REPORT ---
SEVERITY:- ABNORMAL ECG - SINUS RHYTHM NONSPECIFIC T ABNORMALITIES, ANT-LAT LEADS ST ELEVATION SUGGESTS NORMAL VARIANT : Confirmed by: Henri Rojas MD 22-Mar-2018 08:10:21
[2018-03-22 09:03] VITALS: BP 124/82
--- NOTE | 2018-03-22 10:43 | PSYCHOLOGICAL NOTE ---
Psych Note - Psych Note Psych Note: Reason for Consult: substance abuse Consent permissions:none given Pt presents to ED with chest pain that has been present "for the past couple of weeks". Patient called EMS, he states that he started having chest pain after snorting a line of cocaine. Patient patient is closed interest in sobriety however when provided resource information he stated "no I can't do it by myself... I told them...you have to do it for me." Patient conducted psychoeducation on the importance of taking the first steps in sobriety. Patient refused stating that he would just leave and use drugs again. As clinician discussed treatment options and discharge patient stated "I will just go kill myself." Clinician spoke with patient about his comment asking why he stated thoughts of self harm now when discussing treatment options which he requested. Patient disclosed he wants off drugs but can't do it alone. Patient confirmed he is homeless. Clinician attempted to assist the patient with making the phone call here in the ED with the clinician but reminded the patient he would have to talk with the detox facility. Patient stated he did not want to do that. Patient was unable to provided a plan just "using drugs." Clinician contacted [facility], -patient person to notify in chart, she disclosed her concerns of the patient's drug use. She states the patient gets on binges where he does not eat and just does drugs; "He has tried hurting himself by not eating and do drugs." To her knowledge, the patient has never received substance abuse treatment or had a mental health diagnosis. Patient is alert and orientated to person, place, time and circumstance. Mood is irritable with congruent affect. Clinician notes patient was awoken for evaluation. Patient originally denied suicidal homicidal ideation however upon discussing treatment options and discharge patient disclosed passive suicidal ideation i.e. no plans means or intent. Delusions are absent behaviors congruent with an intact reality based presentation i.e. organized and linear thought process. Eye contact was poor. Conversational speech was short and clearly communicated his irritability. Flexion abilities appear to be within average range. Attention and concentration are fair. Insight, judgment, impulse control are fair. No medication recommendations at this time Diagnosis 292.9 (F14.99) Unspecified Stimulant Disorder; Cocaine 292.9 (F15.99) Unspecified stimulant disorder; IV methamphetamine per history 291.9 (F10.99) unspecified alcohol related disorder per history Impression\\plan: Patient is cleared from acute psychiatric services. It is noted the patient may passive suicidal comments (i.e. no plans means or intent) upon discharge. Patient does not meet IVC criteria per [place] GS 122C. Patient discloses wanting to have assistance with substance abuse treatment; however, upon receiving the information patient refused stating he wanted it done for him , he was unable to do for himself. Clinician conducted psychoeducation on the importance of taking the first steps in sobriety. Patient refused further assistance. Dr. Cates was consulted and the care management this patient; attending physician is agreement with recommendations and disposition.
== END 2018-03-22 09:05 | disposition home or self-care (01) ==
LOC: ER 03:04
DX: F19.10 Other psychoactive substance abuse, uncomplicated (principal); R07.9 Chest pain, unspecified; F14.90 Cocaine use, unspecified, uncomplicated; R11.10 Vomiting, unspecified; F17.210 Nicotine dependence, cigarettes, uncomplicated; F31.9 Bipolar disorder, unspecified; I10 Essential (primary) hypertension; J45.909 Unspecified asthma, uncomplicated
CPT/HCPCS: 36415; 71045; 80053; 80307; 84484; 85025; 93005; 93010; 99285

== ENCOUNTER 2018-04-19 03:46 | Emergency (ER) | payer SELFPAY ==
[2018-04-19 04:52] LABS: ABSOLUTE BASOPHILS # (AUTO) 0.1 10^3/uL (0.0-0.2); ABSOLUTE EOSINOPHILS # (AUTO) 0.2 10^3/uL (0.0-0.6); ABSOLUTE MONOCYTES (AUTO) 0.5 10^3/uL (0.1-1.4); BASOPHILS % (AUTO) 0.6 % (0-2); HEMATOCRIT 39.7 % (37.9-51.0); HEMOGLOBIN 13.7 g/dL (13.5-17.0); LYMPHOCYTES % (AUTO) 22.6 % (13-45); MEAN CORPUSCULAR HEMOGLOBIN 31.4 pg (27.0-33.4); MEAN CORPUSCULAR HGB CONC 34.6 g/dL (32.0-36.0); MEAN CORPUSCULAR VOLUME 91 fl (80-97); MONOCYTES % (AUTO) 5.9 % (3-13); PLATELET COUNT 270 10^3/uL (150-450); RED BLOOD COUNT 4.37 10^6/uL (4.35-5.55); RED CELL DISTRIBUTION WIDTH 14.3 % (11.5-14.0); SEGMENTED NEUTROPHILS % (AUTO) 68.9 % (42-78); TOTAL CELLS COUNTED % (AUTO) 100 %; WHITE BLOOD COUNT 8.7 10^3/uL (4.0-10.5)
[2018-04-19 05:08] LABS: ALANINE AMINOTRANSFERASE 30 U/L (21-72); ALBUMIN 4.1 g/dL (3.5-5.0); ALKALINE PHOSPHATASE 98 U/L (38-126); ANION GAP 6 (5-19); ASPARTATE AMINO TRANSFERASE 43 U/L (17-59); BILIRUBIN,DIRECT 0.4 mg/dL (0.0-0.4); BILIRUBIN,TOTAL 0.4 mg/dL (0.2-1.3); BLOOD UREA NITROGEN 12 mg/dL (7-20); CALCIUM 9.2 mg/dL (8.4-10.2); CARBON DIOXIDE 27 mmol/L (22-30); CHLORIDE 105 mmol/L (98-107); CREATINE KINASE 882 U/L (55-170); GLUCOSE 123 mg/dL (75-110); POTASSIUM 4.2 mmol/L (3.6-5.0); SODIUM 137.9 mmol/L (137-145); TOTAL PROTEIN 7.4 g/dL (6.3-8.2)
--- NOTE | 2018-04-19 05:08 | RADIOLOGY REPORT (SQ) ---
EXAM DESCRIPTION: XR CHEST 1 VIEW COMPLETED DATE/TME: 04/19/2018 04:46 CLINICAL HISTORY: 32 years Male, chest pain COMPARISON: None. NUMBER OF VIEWS/TECHNIQUE: 1/AP FINDINGS: Adequate lung volume, clear parenchyma, normal cardiac silhouette, and intact bony thorax. IMPRESSION: No acute cardiopulmonary findings.
[2018-04-19 05:20] LABS: TROPONIN I < 0.012 ng/mL
[2018-04-19 05:31] LABS: CREATINE KINASE MB 5.59 ng/mL (<4.55)
[2018-04-19] MEDS ORDERED: NORMAL SALINE 1000 ML 1,000 ML IV ONE ×2 (05:59→06:37)
--- NOTE | 2018-04-19 06:46 | ER Document Report ---
ED General - General Mode of Arrival: Ambulatory Information source: Patient TRAVEL OUTSIDE OF THE [place] IN LAST 30 DAYS: No <LISSA EDMOND - Last Filed: 04/19/18 07:59> <ROSELYN REZA - Last Filed: 04/19/18 10:03> - General Chief Complaint: Pain All Over Stated Complaint: SHORTNESS OF BREATH Time Seen by Provider: 04/19/18 04:45 Notes: Patient is a 32-year-old male who presents with chief complaint of generalized body pains. Patient reports he has pain from his chest to his feet. Patient reports the chest pain feels like a heaviness in the center of his chest. Denies any radiation. Denies any nausea or vomiting. Patient reports associated shortness of breath. (LISSA EDMOND) - Related Data Allergies/Adverse Reactions: azithromycin [From Zithromax] Allergy (Verified 04/19/18 03:49) ciprofloxacin [From Cipro] Allergy (Verified 04/19/18 03:49) ibuprofen Allergy (Verified 04/19/18 03:49) iodine [Iodine] Allergy (Verified 04/19/18 03:49) ondansetron [From Zofran (as hydrochloride)] Allergy (Verified 04/19/18 03:49) Penicillins Allergy (Verified 04/19/18 03:49) Past Medical History - General Information source: Patient - Social History Smoking Status: Current Every Day Smoker Frequency of alcohol use: Occasional Drug Abuse: Cocaine Family History: CVA, DM, Hyperlipidemia, Hypertension Patient has suicidal ideation: No Patient has homicidal ideation: No - Past Medical History Cardiac Medical History: Reports: Other - Pericarditis Pulmonary Medical History: Reports: Hx Asthma Neurological Medical History: Reports: Hx Seizures Renal/ Medical History: Denies: Hx Peritoneal Dialysis Musculoskeletal Medical History: Reports Hx Musculoskeletal Trauma Psychiatric Medical History: Reports: Hx Anxiety, Hx Bipolar Disorder, Hx Depression - manic depression Traumatic Medical History: Reports: Hx Fractures - nose - Immunizations Hx Diphtheria, Pertussis, Tetanus Vaccination: Yes <LISSA EDMOND - Last Filed: 04/19/18 07:59> Review of Systems - Review of Systems Constitutional: Other - Myalgias Cardiovascular: Chest pain Respiratory: Short of breath -: Yes All other systems reviewed and negative <LISSA EDMOND - Last Filed: 04/19/18 07:59> Physical Exam <LISSA EDMOND - Last Filed: 04/19/18 07:59> <ROSELYN REZA - Last Filed: 04/19/18 10:03> - Vital signs Vitals: Temp Pulse Resp BP Pulse Ox 97.8 F 78 20 124/91 H 99 04/19/18 03:58 04/19/18 03:58 04/19/18 03:58 04/19/18 03:58 04/19/18 03:58 - Notes Notes: PHYSICAL EXAMINATION: GENERAL: Well-appearing, well-nourished and in no acute distress. HEAD: Atraumatic, normocephalic. EYES: Pupils equal round and reactive to light, extraocular movements intact, sclera anicteric, conjunctiva are normal. ENT: Nares patent, oropharynx clear without exudates. Moist mucous membranes. NECK: Normal range of motion, supple without lymphadenopathy LUNGS: Breath sounds clear to auscultation bilaterally and equal. No wheezes rales or rhonchi. HEART: Regular rate and rhythm without murmurs ABDOMEN: Soft, nontender, nondistended abdomen. No guarding, no rebound. No masses appreciated. Musculoskeletal: Normal range of motion, no pitting or edema. No cyanosis. NEUROLOGICAL: Cranial nerves grossly intact. Normal speech, normal gait. Normal sensory, motor exams PSYCH: Normal mood, normal affect. SKIN: Warm, Dry, normal turgor, no rashes or lesions noted. (LISSA EDMOND) Course - Laboratory Result Diagrams: 04/19/18 04:39 04/19/18 04:39 <LISSA EDMOND - Last Filed: 04/19/18 07:59> - Laboratory Result Diagrams: 04/19/18 04:39 04/19/18 04:39 <ROSELYN REZA - Last Filed: 04/19/18 10:03> - Re-evaluation Re-evalutation: CBC and comprehensive metabolic panel are within normal limits. CK is elevated at 882. Troponin is normal. Chest x-ray is negative for any acute findings. EKG shows a sinus rhythm, rate of 73, QTc 437, normal axis, mild ST elevations but no acute changes compared with previous EKG done on 03/22/18. Patient will be given IV fluids and CK will be rechecked in a couple of hours. Patient remains resting comfortably with no acute distress noted, vital signs are within normal limits, heart rate 60, SPO2 100% on room air, respiratory rate of 18, blood pressure 115/79. Patient is updated and aware of the plan of care. Handoff given to oncoming shift, NATACHA Carmen. (LISSA EDMOND) 04/19/18 10:03 Repeat CK discussed with Dr. Benton who stated the Pt. was ok for d/c. Reiterated with Pt importance of keeping well hydrated and return precautions given. (ROSELYN REZA) - Vital Signs Vital signs: Temp Pulse Resp BP Pulse Ox 97.8 F 78 16 121/88 H 100 04/19/18 03:58 04/19/18 03:58 04/19/18 09:00 04/19/18 08:01 04/19/18 09:00 - Laboratory Laboratory results interpreted by me: 04/19/18 04/19/18 04/19/18 04:39 04:39 04:39 RDW 14.3 H Glucose 123 H Creatine Kinase 882 H CK-MB (CK-2) 5.59 H 04/19/18 09:11 RDW Glucose Creatine Kinase 715 H CK-MB (CK-2) Discharge <LISSA EDMOND - Last Filed: 04/19/18 07:59> <ROSELYN REZA - Last Filed: 04/19/18 10:03> - Discharge Clinical Impression: Elevated CK, Dehydration Condition: Stable Disposition: HOME, SELF-CARE Additional Instructions: Dehydration Dehydration can result from vomiting or diarrhea, fever, or decreased intake of fluids. If severe, hospitalization and intravenous fluids may be required. Most cases are treated at home with fluids by mouth. For the next 24 hours, drink lots of clear fluids. In mild cases, this can be soda pop or sports drinks. For more severe dehydration, the doctor may recommend special fluids such as Pedialyte or Lytren. Try to get three liters ( 3 quarts) of fluid per day. If vomiting occurs, continue to drink the fluids frequently (every 15 to 20 minutes), but in small amounts (one or two ounces). Depending on the type of dehydration, the doctor may prescribe antinausea medicine or potassium replacements. Call the doctor or return for re-examination if you become progressively weak, vomit repeatedly, or have other new symptoms. Ice & Elevation Apply ice packs frequently against the painful area. Many different schedules are recommended, such as "20 minutes on, 20 minutes off" or "one hour ice, two hours rest." If you need to work, you may need to go longer between ice treatments. You should plan to have the area ice packed AT LEAST one- fourth of the time. The ice should be applied over the wrap, tape, or splint, or over a layer of cloth -- not directly against the skin. Some ice bags have a built-in cloth and can be put directly on the skin. Your injured part should be elevated as much as possible over the next 48 hours. Try to keep the injury above the level of the heart. Avoid use of the injured area. Elevation and rest will decrease the swelling. Your given IV hydration today for your symptoms. Please drink plenty of fluids. Take all home medications as prescribed. Follow-up with your primary care provider in the next 3-5 days for a follow-up. Return to the emergency department if you develop worsening chest pain, shortness of breath or any other symptom that is concerning to you.
--- NOTE | 2018-04-19 07:57 | EKG REPORT ---
SEVERITY:- ABNORMAL ECG - SINUS RHYTHM ST ELEVATION SUGGESTS PERICARDITIS : Confirmed by: Karen Fajardo 19-Apr-2018 07:56:13
[2018-04-19 10:21] VITALS: BP 123/98
== END 2018-04-19 10:21 | disposition home or self-care (01) ==
LOC: ER 03:46
DX: E86.0 Dehydration (principal); R74.8 Abnormal levels of other serum enzymes; R07.9 Chest pain, unspecified; R06.02 Shortness of breath; M79.10 Myalgia, unspecified site; F17.200 Nicotine dependence, unspecified, uncomplicated; J45.909 Unspecified asthma, uncomplicated; Z88.1 Allergy status to other antibiotic agents; Z88.6 Allergy status to analgesic agent; Z88.8 Allergy status to other drugs, medicaments and biological substances; Z88.0 Allergy status to penicillin
CPT/HCPCS: 36415; 71045; 80053; 82550; 82553; 84484; 85025; 93005; 93010; 96360; 96361; 99284

== ENCOUNTER 2018-04-20 07:24 | Emergency (ER) | payer SELFPAY ==
--- NOTE | 2018-04-20 08:07 | ER Document Report ---
ED General - General Mode of Arrival: Ambulatory Information source: Patient TRAVEL OUTSIDE OF THE [place] IN LAST 30 DAYS: No <SHARRI THOMSON - Last Filed: 04/20/18 10:47> <MAXIMINO ESTRADA - Last Filed: 04/20/18 17:06> - General Chief Complaint: Cough Stated Complaint: COUGH Time Seen by Provider: 04/20/18 07:45 Notes: 32-year-old male who presents to the emergency department today with complaints of chest pain. Patient has an extensive history of cocaine abuse, and originally says he last used cocaine 2 days ago. Upon further questioning, patient does admit to using "crack" at 0300, approximately 4 hours prior to arrival. Patient was seen here yesterday for chest pain he says today his pain is worse. (SHARRI THOMSON) - Related Data Allergies/Adverse Reactions: azithromycin [From Zithromax] Allergy (Verified 04/20/18 07:26) ciprofloxacin [From Cipro] Allergy (Verified 04/20/18 07:26) ibuprofen Allergy (Verified 04/20/18 07:26) iodine [Iodine] Allergy (Verified 04/20/18 07:26) ondansetron [From Zofran (as hydrochloride)] Allergy (Verified 04/20/18 07:26) Penicillins Allergy (Verified 04/20/18 07:26) Past Medical History - General Information source: Patient - Social History Smoking Status: Current Every Day Smoker Cigarette use (# per day): Yes Drug Abuse: Cocaine, Other - reports using "all of them" Family History: Reviewed & Not Pertinent, CVA, DM, Hyperlipidemia, Hypertension Pulmonary Medical History: Reports: Hx Asthma Neurological Medical History: Reports: Hx Seizures Musculoskeletal Medical History: Reports Hx Musculoskeletal Trauma Psychiatric Medical History: Reports: Hx Anxiety, Hx Bipolar Disorder, Hx Depression - manic depression Traumatic Medical History: Reports: Hx Fractures - nose - Immunizations Hx Diphtheria, Pertussis, Tetanus Vaccination: Yes <SHARRI THOMSON - Last Filed: 04/20/18 10:47> Review of Systems - Review of Systems Constitutional: No symptoms reported EENT: No symptoms reported Cardiovascular: See HPI, Chest pain Respiratory: No symptoms reported Gastrointestinal: No symptoms reported Genitourinary: No symptoms reported Male Genitourinary: No symptoms reported Musculoskeletal: No symptoms reported Skin: No symptoms reported Hematologic/Lymphatic: No symptoms reported Neurological/Psychological: No symptoms reported -: Yes All other systems reviewed and negative <SHARRI THOMSON - Last Filed: 04/20/18 10:47> Physical Exam <SHARRI THOMSON - Last Filed: 04/20/18 10:47> <MAXIMINO ESTRADA - Last Filed: 04/20/18 17:06> - Vital signs Vitals: Temp Pulse Resp BP Pulse Ox 98.4 F 82 16 126/76 H 98 04/20/18 07:29 04/20/18 07:29 04/20/18 07:29 04/20/18 07:29 04/20/18 07:29 - Notes Notes: PHYSICAL EXAM GENERAL: Alert, interacts appropriately, appears irritated. No acute distress, does not appear to be in any significant pain. HEAD: Normocephalic, atraumatic. EYES: Pupils equal, round, and reactive to light. Extraocular movements intact. ENT: Oral mucosa moist, tongue midline. NECK: Full range of motion. Supple. Trachea midline. LUNGS: Clear to auscultation bilaterally, no wheezes, rales, or rhonchi. No respiratory distress. HEART: Regular rate and rhythm. No murmurs, gallops, or rubs. ABDOMEN: Soft, non-tender. Non-distended. Bowel sounds present in all 4 quadrants. No guarding, rigidity, or rebound. EXTREMITIES: Moves all 4 extremities spontaneously. No edema, radial and dorsalis pedis pulses 2/4 bilaterally. No cyanosis. NEUROLOGICAL: Alert and oriented x3. Normal speech. PSYCH: Normal affect, normal mood. SKIN: Warm, dry, normal turgor. No rashes or lesions noted. No trackmarks appreciated. (SHARRI THOMSON) Course - Laboratory Result Diagrams: 04/20/18 07:55 04/20/18 07:55 <SHARRI THOMSON - Last Filed: 04/20/18 10:47> - Laboratory Result Diagrams: 04/20/18 07:55 04/20/18 07:55 <MAXIMINO ESTRADA - Last Filed: 04/20/18 17:06> - Re-evaluation Re-evalutation: 04/20/18 17:03 Initial EKG that STEMI criteria however because it was so markedly different from the prior EKG from yesterday we did repeat it as there was a question of possible lead reversal, when the leads were corrected it no longer met STEMI criteria. I did discuss this with Dr. Fajardo our local reservationist who agreed that it was not a good idea to give lytics to a cocaine user particularly with a question of incorrect lead placement on the initial EKG. I also called to discuss it with the casting finisher Dr. Red at [facility], he was kind enough to discuss the patient with me over the phone and I did email him photos securely using my [facility] email address of the patient's EKGs. He stated that he would recommend initially treating the patient with Ativan and nitroglycerin, if the EKG met STEMI criteria after getting nitroglycerin and Ativan then the patient would have to have lytics and be transferred otherwise he would not lytic this patient. After multiple doses of nitroglycerin and Ativan the patient's chest pain has resolved. I did keep the patient for serial EKGs and cardiac enzymes, they remain completely negative. I discussed the patient with Dr. Mancilla who stated that there was some suggestion of pericarditis on the EKG however the ESR and CRP came back negative therefore this is unlikely to be pericarditis. He had a normal echocardiogram within the past year. After many hours of observation and repeat EKGs and cardiac enzymes the patient' s pain has completely resolved, is complaining of being hungry and would like to go home. Patient was counseled to stop using cocaine. Patient was discharged home. (MAXIMINO ESTRADA) - Vital Signs Vital signs: Temp Pulse Resp BP Pulse Ox 98.4 F 82 20 128/79 H 94 04/20/18 07:29 04/20/18 07:29 04/20/18 16:00 04/20/18 11:11 04/20/18 16:00 - Laboratory Laboratory results interpreted by me: 04/20/18 04/20/18 04/20/18 07:55 07:55 11:16 Glucose 135 H Creatine Kinase 712 H 483 H CK-MB (CK-2) 4.84 H - EKG Interpretation by Me Additional EKG results interpreted by me: 04/20/18 16:45 Initial EKG at 07:48 showed sinus rhythm at a rate of 73, left axis deviation, ST segment elevations in lead I and aVL, T wave inversions and some ST segment depressions in 3 and aVF, lead II was normal. There were also T wave inversions in V2, this is significantly different from the prior EKG that was taken yesterday, this does meet STEMI criteria. However before we activated the [employer] or gave lytics we did repeat the EKG because there is some question as to whether or not the leads may have been misplaced. Repeat EKG at 8:01 showed sinus rhythm at a rate of 67, normal axis, normal intervals, ST segment elevations in 2, 3, aVF, persistent T wave inversions in aVL, no reciprocal changes, this does not meet STEMI criteria, ST segment elevations in 2, 3, aVF, aVL showed T wave inversions, there is slight improvement in the ST segment elevations in 2, 3, aVF, continue normal axis and intervals, per my interpretation. Second nitroglycerin was given and EKG was repeated at 8:42 AM, shows sinus rhythm at a rate of 65, continued elevations in 2 3 and aVF with minimal improvement, no change in the other aspects of the EKG, there does appear to be some early repolarization with LVH per my interpretation. After nitroglycerin No. 3 was given EKG was repeated at 8:49 AM, improvement in the ST segment elevations in 2, 3, aVF, continued T wave inversions in aVL and V2, continued LVH and continued early repolarization abnormalities per my interpretation. EKG was performed at 1102 and shows significantly improved ST segment elevations in 2, 3, aVF, persistent T wave inversions in aVL and V2, LVH per my interpretation. Final EKG performed at 1420 when patient was denying any chest pain at this time , less than [address] segment in 2, 3, aVF, persistent T wave inversions in aVL and V2, continued LVH per my interpretation. (MAXIMINO ESTRADA) Discharge <SHARRI THOMSON - Last Filed: 04/20/18 10:47> <MAXIMINO ESTRADA - Last Filed: 04/20/18 17:06> - Discharge Clinical Impression: Cocaine use Chest pain Qualifiers: Chest pain type: unspecified Qualified Code(s): R07.9 - Chest pain, unspecified Condition: Stable Disposition: HOME, SELF-CARE Instructions: Cocaine Abuse ([facility]) Additional Instructions: You must stop using cocaine and crack. This is putting you at very high risk for having a heart attack. You will likely within the next 5-10 years if you continue to use crack and cocaine. You are at a very high risk for heart attack. If you develop worsening chest pain after using cocaine you should return to the emergency department so we can repeat your EKG and see if you have caused your self to have a heart attack. Today we did not see any sign of a heart attack. You are very jessi. Aprilibe Attestation: 04/20/18 17:06 I personally performed the services described in the documentation, reviewed and edited the documentation which was dictated to the scribe in my presence, and it accurately records my words and actions. (MAXIMINO ESTRADA) Aprilibe Documentation - Scribe Written by Dian:: Dian Lainez, 04/20/2018 1057 acting as scribe for :: Gulshan <SHARRI THOMSON - Last Filed: 04/20/18 10:47>
[2018-04-20] MEDS ORDERED: ASPIRIN 325 MG TABLET PO ONE (08:08)
[2018-04-20 08:09] LABS: ABSOLUTE BASOPHILS # (AUTO) 0.1 10^3/uL (0.0-0.2); ABSOLUTE EOSINOPHILS # (AUTO) 0.2 10^3/uL (0.0-0.6); ABSOLUTE LYMPHOCYTES (AUTO) 1.9 10^3/uL (0.5-4.7); ABSOLUTE MONOCYTES (AUTO) 0.5 10^3/uL (0.1-1.4); ABSOLUTE NEUT (AUTO) 5.1 10^3/uL (1.7-8.2); BASOPHILS % (AUTO) 0.8 % (0-2); HEMATOCRIT 39.4 % (37.9-51.0); HEMOGLOBIN 13.7 g/dL (13.5-17.0); LYMPHOCYTES % (AUTO) 24.8 % (13-45); MEAN CORPUSCULAR HEMOGLOBIN 31.1 pg (27.0-33.4); MEAN CORPUSCULAR HGB CONC 34.7 g/dL (32.0-36.0); MEAN CORPUSCULAR VOLUME 90 fl (80-97); MONOCYTES % (AUTO) 6.9 % (3-13); PLATELET COUNT 263 10^3/uL (150-450); RED BLOOD COUNT 4.38 10^6/uL (4.35-5.55); SEGMENTED NEUTROPHILS % (AUTO) 65.5 % (42-78); TOTAL CELLS COUNTED % (AUTO) 100 %; WHITE BLOOD COUNT 7.8 10^3/uL (4.0-10.5)
[2018-04-20 08:12] LABS: INTERNATIONAL RATION (INR) 0.98; PROTHROMBIN TIME 13.5 SEC (11.4-15.4)
[2018-04-20] MEDS ORDERED: LORAZEPAM INJ 2 MG/1 ML VIAL IV ONE (08:12)
[2018-04-20] MEDS: NITROGLYCERIN 0.4 MG/TAB 25 TAB/BOTTLE SL PRN ×3 (08:17→08:48)
[2018-04-20] MEDS ORDERED: NITROGLYCERIN/D5W 50 MG/250 ML RTUINJ IV PRN (08:23)
[2018-04-20 08:30] LABS: ALANINE AMINOTRANSFERASE 30 U/L (21-72); ALBUMIN 4.1 g/dL (3.5-5.0); ALKALINE PHOSPHATASE 95 U/L (38-126); ANION GAP 7 (5-19); ASPARTATE AMINO TRANSFERASE 37 U/L (17-59); BILIRUBIN,DIRECT 0.4 mg/dL (0.0-0.4); BILIRUBIN,TOTAL 0.5 mg/dL (0.2-1.3); BLOOD UREA NITROGEN 12 mg/dL (7-20); CARBON DIOXIDE 29 mmol/L (22-30); CHLORIDE 104 mmol/L (98-107); CREATINE KINASE 712 U/L (55-170); GLUCOSE 135 mg/dL (75-110); POTASSIUM 4.1 mmol/L (3.6-5.0)
[2018-04-20 08:41] LABS: CREATINE KINASE MB 4.84 ng/mL (<4.55)
[2018-04-20 08:43] LABS: TROPONIN I < 0.012 ng/mL
[2018-04-20] MEDS ORDERED: NORMAL SALINE 1000 ML 1,000 ML IV ONE (09:06)
--- NOTE | 2018-04-20 09:08 | RADIOLOGY REPORT (SQ) ---
EXAM DESCRIPTION: CHEST SINGLE VIEW COMPLETED DATE/TIME: 04/20/2018 8:16 am REASON FOR STUDY: chest pain COMPARISON: None. EXAM PARAMETERS: NUMBER OF VIEWS: One view. TECHNIQUE: Single frontal radiographic view of the chest acquired. RADIATION DOSE: NA LIMITATIONS: None. FINDINGS: LUNGS AND PLEURA: No acute infiltrates or effusions. MEDIASTINUM AND HILAR STRUCTURES: No masses. Contour normal. HEART AND VASCULAR STRUCTURES: The heart is normal with normal pulmonary vasculature. BONES: No acute findings. HARDWARE: None in the chest. OTHER: Chest leads in place. IMPRESSION: NO ACUTE DISEASE. TECHNICAL DOCUMENTATION: JOB ID: [id number] [id number] 2010 [email or web address]- All Rights Reserved Reading location - IP/workstation name: [email or web address]
[2018-04-20 12:03] LABS: CREATINE KINASE MB 3.25 ng/mL (<4.55)
[2018-04-20 12:08] LABS: TROPONIN I < 0.012 ng/mL
--- NOTE | 2018-04-20 12:24 | EKG REPORT ---
SEVERITY:- ABNORMAL ECG - SINUS RHYTHM NONSPECIFIC T ABNORMALITIES, ANT-LAT LEADS ST ELEVATION SUGGESTS PERICARDITIS : Confirmed by: Karen Fajardo 20-Apr-2018 12:24:16
--- NOTE | 2018-04-20 12:25 | EKG REPORT ---
SEVERITY:- ABNORMAL ECG - SINUS RHYTHM ST ELEVATION SUGGESTS PERICARDITIS : Confirmed by: Karen Fajardo 20-Apr-2018 12:24:51
[2018-04-20 17:04] VITALS: BP 130/97
--- NOTE | 2018-04-20 19:38 | EKG REPORT ---
SEVERITY:- ABNORMAL ECG - SINUS RHYTHM ST ELEVATION SUGGESTS PERICARDITIS : Confirmed by: Karen Fajardo 20-Apr-2018 19:38:23
--- NOTE | 2018-04-20 19:38 | EKG REPORT ---
SEVERITY:- ABNORMAL ECG - SINUS RHYTHM EARLY REPOL CHANGES : Confirmed by: Karen Fajardo 20-Apr-2018 19:37:57
== END 2018-04-20 17:04 | disposition home or self-care (01) ==
LOC: ER 07:24
DX: F14.90 Cocaine use, unspecified, uncomplicated (principal); R07.9 Chest pain, unspecified; R05 Cough; Z88.3 Allergy status to other anti-infective agents; Z88.0 Allergy status to penicillin
CPT/HCPCS: 93005; 99285; 96361; 96374; 36415; 87040; 82553; 82550; 83605; 85025; 85652; 85610; 86140; 87077; 80053; 84484; 87186; 71045; 93010; J2060

== ENCOUNTER 2018-05-08 05:57 | Emergency (ER) | payer SELFPAY ==
[2018-05-08] MEDS ORDERED: NORMAL SALINE 1000 ML 1,000 ML IV ONE (07:30)
--- NOTE | 2018-05-08 07:30 | ER Document Report ---
ED General - General Chief Complaint: Bloody Stools Stated Complaint: ABDOMINAL PAIN Time Seen by Provider: 05/08/18 07:12 TRAVEL OUTSIDE OF THE [place] IN LAST 30 DAYS: No - HPI Notes: Patient is a 32-year-old male with a history of drug abuse who presents to the ED complaining of bilateral lower abdominal pain cramping with associated bloody stool over the last 1-1/2-2 weeks. Patient states that he has noticed red blood in his stool and no black stool. Patient states that he is still able to eat and drink, but does have decreased p.o. intake due to financial issues. He is urinating normally. Pains do not radiate. Denies any headache, fever, neck pain, URI, sore throat, chest pain, palpitations, syncope, cough, shortness of breath, wheeze, dyspnea, nausea/vomiting/diarrhea, urinary retention, dysuria, hematuria, back pain, loss of control of bowel or bladder, numbness/tingling, muscle paralysis/weakness, or rash. - Related Data Allergies/Adverse Reactions: azithromycin [From Zithromax] Allergy (Verified 04/20/18 07:26) ciprofloxacin [From Cipro] Allergy (Verified 04/20/18 07:26) ibuprofen Allergy (Verified 04/20/18 07:26) iodine [Iodine] Allergy (Verified 04/20/18 07:26) ondansetron [From Zofran (as hydrochloride)] Allergy (Verified 04/20/18 07:26) Penicillins Allergy (Verified 04/20/18 07:26) Past Medical History - Social History Smoking Status: Current Some Day Smoker Frequency of alcohol use: Occasional Drug Abuse: Other Family History: Reviewed & Not Pertinent, CVA, DM, Hyperlipidemia, Hypertension Patient has suicidal ideation: No Patient has homicidal ideation: No Pulmonary Medical History: Reports: Hx Asthma Neurological Medical History: Reports: Hx Seizures Renal/ Medical History: Denies: Hx Peritoneal Dialysis Musculoskeletal Medical History: Reports Hx Musculoskeletal Trauma Psychiatric Medical History: Reports: Hx Anxiety, Hx Bipolar Disorder, Hx Depression - manic depression Traumatic Medical History: Reports: Hx Fractures - nose - Immunizations Hx Diphtheria, Pertussis, Tetanus Vaccination: Yes Review of Systems - Review of Systems -: Yes All other systems reviewed and negative Physical Exam - Vital signs Vitals: Temp Pulse Resp BP Pulse Ox 98 F 96 18 135/75 H 97 05/08/18 06:04 05/08/18 06:04 05/08/18 06:04 05/08/18 06:04 05/08/18 06:04 - Notes Notes: PHYSICAL EXAMINATION: GENERAL: Well-appearing, well-nourished and in no acute distress. HEAD: Atraumatic, normocephalic. EYES: Pupils equal round and reactive to light, extraocular movements intact, sclera anicteric, conjunctiva are normal. ENT: Nares patent and without discharge. oropharynx clear without exudates. No tonsilar hypertrophy or erythema. Moist mucous membranes. NECK: Normal range of motion, supple without lymphadenopathy LUNGS: Breath sounds clear to auscultation bilaterally and equal. No wheezes rales or rhonchi. HEART: Regular rate and rhythm without murmurs, rubs, gallops. ABDOMEN: Soft, nondistended abdomen. No guarding, no rebound. No masses appreciated. Normal bowel sounds present. No CVA tenderness bilaterally. + mild tenderness to the L>R lower abd. Rectal: Stool appears loose, brown colored, no obvious signs of melena. Musculoskeletal: FROM to passive/active. Strength 5+/5. Extremities: No cyanosis, clubbing, or edema b/l. Peripheral pulses 2+. Capillary refill less than 3 seconds. NEUROLOGICAL: Normal speech, normal gait. PSYCH: Normal mood, normal affect. SKIN: Warm, Dry, normal turgor, no rashes or lesions noted. Course - Re-evaluation Re-evalutation: 05/08/18 10:05 Patient is an afebrile, well-hydrated, 32-year-old male who presents to the ED with lower abdominal pain, unspecified. Vitals are acceptable without any significant tachycardia, tachypnea, or hypoxia. PE is otherwise unremarkable. Patient has had improvement in his abdominal pain throughout his stay. He is nontoxic-appearing and is tolerating p.o. without difficulties. CBC, CMP, urinalysis were unremarkable for any acute pathology. Guaiac was negative. CT scan unremarkable. No further labs or imaging warranted at this time. Low suspicion/risk for acute appendicitis, bowel obstruction, acute cholecystitis, perforated diverticulitis, incarcerated hernia, pancreatitis, perforated ulcer, peritonitis, sepsis, testicular torsion, or other systemic emergent condition at this time. Patient is aware that his condition can change from initial presentation and he needs to monitor symptoms closely and seek medical attention if any acute changes. Conservative measures otherwise for symptoms. Recheck with PCM in 2-3 days. Consider consult with a customer sales representative. Return to the ED with any worsening/concerning symptoms otherwise as reviewed in discharge. Patient is in agreement. - Vital Signs Vital signs: Temp Pulse Resp BP Pulse Ox 98 F 96 18 135/75 H 97 05/08/18 06:04 05/08/18 06:04 05/08/18 06:04 05/08/18 06:04 05/08/18 06:04 - Laboratory Result Diagrams: 05/08/18 07:51 05/08/18 07:51 Laboratory results interpreted by me: 05/08/18 05/08/18 07:51 09:35 RBC 4.03 L Hgb 12.4 L Hct 36.3 L RDW 14.3 H Urine Urobilinogen 2.0 H Discharge - Discharge Clinical Impression: Lower abdominal pain, unspecified Condition: Stable Disposition: HOME, SELF-CARE Instructions: Abdominal Pain ([facility]) Additional Instructions: Maintain adequate fluid and food intake Zofran as needed tylenol if needed Monitor for any worsening symptoms Make sure you are staying hydrated enough to urinate and have normal BM's Recheck with your PCM in 2-3 days Consider consult with Gastroenterology for ongoing/worsening symptoms Return to the ED with any worsening symptoms and/or development of fever, headache, chest pain, palpitations, syncope, shortness of breath, trouble breathing, abdominal pain, n/v/d, blood in stool/urine, weakness, or other worsening symptoms that are concerning to you. Forms: Elevated Blood Pressure Referrals: PACO HARRIS MD [ACTIVE STAFF] - Follow up as needed
[2018-05-08 08:08] LABS: ABSOLUTE EOSINOPHILS # (AUTO) 0.1 10^3/uL (0.0-0.6); ABSOLUTE MONOCYTES (AUTO) 0.7 10^3/uL (0.1-1.4); BASOPHILS % (AUTO) 0.4 % (0-2); EOSINOPHILS % (AUTO) 0.9 % (0-6); HEMATOCRIT 36.3 % (37.9-51.0); HEMOGLOBIN 12.4 g/dL (13.5-17.0); LYMPHOCYTES % (AUTO) 20.7 % (13-45); MEAN CORPUSCULAR HEMOGLOBIN 30.9 pg (27.0-33.4); MEAN CORPUSCULAR HGB CONC 34.3 g/dL (32.0-36.0); MEAN CORPUSCULAR VOLUME 90 fl (80-97); MONOCYTES % (AUTO) 6.8 % (3-13); PLATELET COUNT 269 10^3/uL (150-450); RED BLOOD COUNT 4.03 10^6/uL (4.35-5.55); RED CELL DISTRIBUTION WIDTH 14.3 % (11.5-14.0); SEGMENTED NEUTROPHILS % (AUTO) 71.2 % (42-78); TOTAL CELLS COUNTED % (AUTO) 100 %; WHITE BLOOD COUNT 9.8 10^3/uL (4.0-10.5)
[2018-05-08 08:31] LABS: ALANINE AMINOTRANSFERASE 22 U/L (21-72); ALBUMIN 3.7 g/dL (3.5-5.0); ALKALINE PHOSPHATASE 93 U/L (38-126); ANION GAP 9 (5-19); ASPARTATE AMINO TRANSFERASE 22 U/L (17-59); BILIRUBIN,DIRECT 0.1 mg/dL (0.0-0.4); BILIRUBIN,TOTAL 0.4 mg/dL (0.2-1.3); BLOOD UREA NITROGEN 12 mg/dL (7-20); CALCIUM 9.2 mg/dL (8.4-10.2); CARBON DIOXIDE 29 mmol/L (22-30); CHLORIDE 103 mmol/L (98-107); GLUCOSE 108 mg/dL (75-110); POTASSIUM 4.1 mmol/L (3.6-5.0); SODIUM 140.8 mmol/L (137-145); TOTAL PROTEIN 6.3 g/dL (6.3-8.2)
[2018-05-08 09:55] LABS: APPEARANCE,URINE CLEAR; BILIRUBIN,URINE NEGATIVE (NEGATIVE); COLOR,URINE YELLOW; GLUCOSE, URINE NEGATIVE (NEGATIVE); KETONES,URINE NEGATIVE (NEGATIVE); LEUKOCYTE ESTERASE,URINE NEGATIVE (NEGATIVE); NITRITE,URINE NEGATIVE (NEGATIVE); PROTEIN,URINE NEGATIVE (NEGATIVE); URINE SPECIFIC GRAVITY 1.032
--- NOTE | 2018-05-08 10:02 | RADIOLOGY REPORT (SQ) ---
EXAM DESCRIPTION: CT ABD/PELVIS WITH IV ONLY COMPLETED DATE/TIME: 05/08/2018 9:28 am REASON FOR STUDY: Lower abd pain, L>R COMPARISON: CT abdomen pelvis 03/01/2016 TECHNIQUE: CT scan of the abdomen and pelvis performed using helical scanning technique with dynamic intravenous contrast injection. No oral contrast. Images reviewed with lung, soft tissue, and bone windows. Reconstructed coronal and sagittal MPR images reviewed. Delayed images for evaluation of the urinary system also acquired. All images stored on PACS. All CT scanners at this facility use dose modulation, iterative reconstruction, and/or weight based d osing when appropriate to reduce radiation dose to as low as reasonably achievable (ALARA). [facility]: Dose Right [facility]: CareDose [facility]: Dose Right [facility]: Teradose 4D [facility]: Lat49 CONTRAST TYPE AND DOSE: contrast/concentration: Isovue 350.00 mg/ml; Total Contrast Delivered: 78.0 ml; Total Saline Delivered: 67.0 ml RENAL FUNCTION: None required. The patient is less than 50 years old. RADIATION DOSE: CT Rad equipment meets quality standard of care and radiation dose reduction techniq ues were employed. CTDIvol: 4.8 - 5.6 mGy. DLP: 536 mGy-cm.. LIMITATIONS: Slender patient without much body fat. No oral contrast. FINDINGS: LOWER CHEST: No significant findings. No nodules or infiltrates. LIVER: Normal size. No masses. No dilated ducts. SPLEEN: Normal size. No focal lesions. PANCREAS: No masses. No significant calcifications. No adjacent inflammation or peripancreatic fluid collections. Pancreatic duct not dilated. GALLBLADDER: No identified stones by CT criteria. No inflammatory changes to suggest cholecystitis. ADRENAL GLANDS: No significant masses or asymmetry. RIGHT KIDNEY AND URETER: No solid masses. No significant calcifications. No hydronephrosis or hyd roureter. LEFT KIDNEY AND URETER: No solid masses. No significant calcifications. No hydronephrosis or hydr oureter. AORTA AND VESSELS: No aneurysm. No dissection. Renal arteries, SMA, celiac without stenosis. RETROPERITONEUM: No retroperitoneal adenopathy, hemorrhage or masses. BOWEL AND PERITONEAL CAVITY: No gross free intraperitoneal air. No bowel obstruction. Limited evalu ation of the gastrointestinal tract due to lack of oral contrast. APPENDIX: Not identified PELVIS: No mass. No free fluid. Normal bladder. ABDOMINAL WALL: No masses. No hernias. BONES: No significant or acute findings. OTHER: No other significant finding. IMPRESSION: Limited negative study. TECHNICAL DOCUMENTATION: JOB ID: [id number] Quality ID # [id number]: Final reports with documentation of one or more dose reduction techniques (e.g., Au tomated exposure control, adjustment of the mA and/or kV according to patient size, use of iterative reconstruction technique) 2010 [employer]- All Rights Reserved Reading location - IP/workstation name: [email or web address]
[2018-05-08 10:23] VITALS: BP 117/64
== END 2018-05-08 10:23 | disposition home or self-care (01) ==
LOC: ER 05:57
DX: R10.30 Lower abdominal pain, unspecified (principal); K92.1 Melena; F17.200 Nicotine dependence, unspecified, uncomplicated; Z88.3 Allergy status to other anti-infective agents; Z88.6 Allergy status to analgesic agent; Z88.0 Allergy status to penicillin
CPT/HCPCS: 99284; 96360; 36415; 85025; 82272; 80053; 81001; 74177; J7030

== ENCOUNTER 2019-04-08 03:57 | Emergency (ER) | payer SELFPAY ==
[2019-04-08 04:05] VITALS: BP 121/71
[2019-04-08 04:46] LABS: APPEARANCE,URINE CLEAR; BILIRUBIN,URINE NEGATIVE (NEGATIVE); COLOR,URINE YELLOW; GLUCOSE, URINE NEGATIVE (NEGATIVE); KETONES,URINE TRACE mg/dL (NEGATIVE); LEUKOCYTE ESTERASE,URINE NEGATIVE (NEGATIVE); NITRITE,URINE NEGATIVE (NEGATIVE); PROTEIN,URINE 30 mg/dL (NEGATIVE); URINE SPECIFIC GRAVITY 1.029
[2019-04-08 05:26] LABS: ABSOLUTE BASOPHILS # (AUTO) 0.1 10^3/uL (0.0-0.2); ABSOLUTE EOSINOPHILS # (AUTO) 0.1 10^3/uL (0.0-0.6); ABSOLUTE LYMPHOCYTES (AUTO) 1.9 10^3/uL (0.5-4.7); ABSOLUTE MONOCYTES (AUTO) 0.4 10^3/uL (0.1-1.4); ABSOLUTE NEUT (AUTO) 6.8 10^3/uL (1.7-8.2); BASOPHILS % (AUTO) 0.6 % (0-2); EOSINOPHILS % (AUTO) 1.3 % (0-6); HEMATOCRIT 36.9 % (37.9-51.0); HEMOGLOBIN 12.8 g/dL (13.5-17.0); LYMPHOCYTES % (AUTO) 20.8 % (13-45); MEAN CORPUSCULAR HEMOGLOBIN 31.5 pg (27.0-33.4); MEAN CORPUSCULAR HGB CONC 34.7 g/dL (32.0-36.0); MEAN CORPUSCULAR VOLUME 91 fl (80-97); MONOCYTES % (AUTO) 4.8 % (3-13); PLATELET COUNT 207 10^3/uL (150-450); RED BLOOD COUNT 4.06 10^6/uL (4.35-5.55); RED CELL DISTRIBUTION WIDTH 13.5 % (11.5-14.0); SEGMENTED NEUTROPHILS % (AUTO) 72.5 % (42-78); TOTAL CELLS COUNTED % (AUTO) 100 %; WHITE BLOOD COUNT 9.3 10^3/uL (4.0-10.5)
[2019-04-08 05:39] LABS: ALBUMIN 3.6 g/dL (3.5-5.0); ALKALINE PHOSPHATASE 102 U/L (38-126); ANION GAP 8 (5-19); ASPARTATE AMINO TRANSFERASE 39 U/L (17-59); BLOOD UREA NITROGEN 12 mg/dL (7-20); CALCIUM 8.4 mg/dL (8.4-10.2); CARBON DIOXIDE 27 mmol/L (22-30); CHLORIDE 105 mmol/L (98-107); GLUCOSE 139 mg/dL (75-110); POTASSIUM 3.6 mmol/L (3.6-5.0); TOTAL PROTEIN 6.2 g/dL (6.3-8.2)
[2019-04-08 05:46] LABS: BILIRUBIN,TOTAL < 0.1 mg/dL (0.2-1.3)
[2019-04-08] MEDS ORDERED: NORMAL SALINE 1000 ML 1,000 ML IV ONE (08:14)
[2019-04-08 08:44] LABS: URINE AMPHETAMINES SCREEN NEGATIVE; URINE BARBITURATES SCREEN NEGATIVE; URINE BENZODIAZEPINES SCREEN NEGATIVE; URINE COCAINE SCREEN UNCONFIRMED POSITIVE; URINE MARIJUANA (THC) SCREEN UNCONFIRMED POSITIVE; URINE METHADONE SCREEN NEGATIVE; URINE PHENCYCLIDINE SCREEN NEGATIVE
[2019-04-08 08:45] LABS: CREATINE KINASE 807 U/L (55-170)
--- NOTE | 2019-04-08 09:14 | ER Document Report ---
Entered by SHARRI THOMSON SCRIBE 04/08/19 0813 Acting as scribe for:WARD WHYTE MD ED General - General Chief Complaint: Abdominal Pain Stated Complaint: BACK/ABDOMINAL PAIN Time Seen by Provider: 04/08/19 08:03 Information source: Patient, [facility] Records Notes: Patient is a 33-year-old male with a long history of IV drug abuse including methadone, heroin, crack cocaine, methamphetamine, and other illicit substances who presents to the emergency department today with complaints of upper abdominal pain and back pain. Patient states that this pain is a chronic issue for him, mentioning that it has been present for around x2 months. Patient has chronic recurring pancreatitis related to EtOH abuse. According to nursing notes, the patient requested resources for detox as well today. Patient does still endorse wanting to get help. Patient admits that he smoked crack prior to arrival this morning. TRAVEL OUTSIDE OF THE [place] IN LAST 30 DAYS: No - Related Data Allergies/Adverse Reactions: azithromycin [From Zithromax] Allergy (Verified 04/20/18 07:26) ciprofloxacin [From Cipro] Allergy (Verified 04/20/18 07:26) ibuprofen Allergy (Verified 04/20/18 07:26) iodine [Iodine] Allergy (Verified 04/20/18 07:26) ondansetron [From Zofran (as hydrochloride)] Allergy (Verified 04/20/18 07:26) Penicillins Allergy (Verified 04/20/18 07:26) Past Medical History - General Information source: Patient, [facility] Records - Social History Smoking Status: Current Every Day Smoker Cigarette use (# per day): Yes Chew tobacco use (# tins/day): No Smoking Education Provided: No Frequency of alcohol use: None Drug Abuse: None Family History: Reviewed & Not Pertinent, CVA, DM, Hyperlipidemia, Hypertension Patient has suicidal ideation: No Patient has homicidal ideation: No Pulmonary Medical History: Reports: Hx Asthma Neurological Medical History: Reports: Hx Seizures Musculoskeletal Medical History: Reports Hx Musculoskeletal Trauma Psychiatric Medical History: Reports: Hx Anxiety, Hx Bipolar Disorder, Hx Depression - manic depression Traumatic Medical History: Reports: Hx Fractures - nose Surgical Hx: Negative - Immunizations Hx Diphtheria, Pertussis, Tetanus Vaccination: Yes Review of Systems - Review of Systems Constitutional: See HPI, Other - request for detox from heroin, crack cocaine, and methadone EENT: No symptoms reported Cardiovascular: No symptoms reported Respiratory: No symptoms reported Gastrointestinal: See HPI, Abdominal pain Genitourinary: No symptoms reported Male Genitourinary: No symptoms reported Musculoskeletal: See HPI, Back pain Skin: No symptoms reported Hematologic/Lymphatic: No symptoms reported Neurological/Psychological: No symptoms reported -: Yes All other systems reviewed and negative Physical Exam - Vital signs Vitals: Temp Pulse Resp BP Pulse Ox 98.0 F 95 15 121/71 96 04/08/19 04:03 04/08/19 04:03 04/08/19 04:03 04/08/19 04:03 04/08/19 04:03 - Notes Notes: Physical Exam: General: Sleeping initially but does arouse to name for a brief period of time, continues to fall back asleep during interaction. Does not answer several questions, most answers have to be drug out of him. HEENT: Normocephalic. Atraumatic. PERRL. Extraocular movements intact. Oropharynx clear. Neck: Supple. Non-tender. Respiratory: No respiratory distress. Clear and equal breath sounds bilaterally. Cardiovascular: Regular rate and rhythm. Abdominal: Minimal diffuse upper abdominal tenderness with palpation. No distension. Normal Bowel Sounds. Back: No gross abnormalities. Extremities: Moves all four extremities. Upper extremities: Normal inspection. Normal ROM. Lower extremities: Normal inspection. No edema. Normal ROM. Neurological: Normal cognition. AAOx4. Normal speech. Skin: Warm. Dry. Normal color. Course - Re-evaluation Re-evalutation: 04/08/19 10:57 Patient reported he wanted rehab for methadone heroin abuse, he also reported used heroin prior to arrival this morning. He later added that he smoked crack last night. His urine drug screen is negative for methadone, negative for opiates. It is positive for cocaine and marijuana. At this time the patient is sound asleep and has been that way since arriving here about 4 AM this morning. It is now 11 AM. His lab work does suggest he has a mild pancreatitis, but the pain is obviously not bad enough to keep him awake. His lab work also is co nsistent with possibly having been on a crack binge with an elevated CPK along with his inability to stay awake now. He does have a past history of alcohol abuse. He was provided resources for help with his substance abuse. He will be given instructions on mild pancreatitis. - Vital Signs Vital signs: Temp Pulse Resp BP Pulse Ox 98.0 F 95 15 121/71 96 04/08/19 04:03 04/08/19 04:03 04/08/19 04:03 04/08/19 04:03 04/08/19 04:03 - Laboratory Result Diagrams: 04/08/19 05:17 04/08/19 05:17 Laboratory results interpreted by me: 04/08/19 04/08/19 04/08/19 04:05 05:17 05:17 RBC 4.06 L Hgb 12.8 L Hct 36.9 L Glucose 139 H Total Bilirubin < 0.1 L Creatine Kinase Total Protein 6.2 L Lipase 462.4 H Urine Protein 30 H Urine Ketones TRACE H Urine Urobilinogen 2.0 H 04/08/19 05:17 RBC Hgb Hct Glucose Total Bilirubin Creatine Kinase 807 H Total Protein Lipase Urine Protein Urine Ketones Urine Urobilinogen Discharge - Discharge Clinical Impression: Cocaine abuse, Marijuana abuse Pancreatitis Qualifiers: Chronicity: acute Pancreatitis type: alcohol induced Acute pancreatitis complication: unspecified Qualified Code(s): K85.20 - Alcohol induced acute pancreatitis without necrosis or infection Condition: Stable Disposition: HOME, SELF-CARE Additional Instructions: Pancreatitis Pancreatitis is an inflammation of the pancreas, an organ at the back of your abdomen. The pancreas produces insulin and enzymes that digest your food. Pancreatitis can be caused by gallstones in the bile duct, by alcohol or viruses, or by excess fat or calcium in the blood stream. Occasionally, pancreatitis occurs when a stomach ulcer caldwell through into the pancreas. We try to find the cause of pancreatitis, but some tests can't be done until the pancreas heals. The usual symptoms of pancreatitis are pain in the pit of the stomach that goes straight through to the back, vomiting, and low-grade fever. Severe cases require hospital admission, but many patients with mild pancreatitis do well at home. You will probably need medicine for pain and for vomiting. Sometimes we pr escribe medicine to decrease stomach acid secretion and to decrease flow of pancreatic juices. Start with a diet of clear liquids (soda pop, juices). When the pain is decreasing, you can add some simple starches (potato, toast, applesauce). Avoid proteins and fats until you are completely painfree. When you're better, your doctor may suggest treatment to prevent future pancreatitis (such as gallbladder removal). Avoid alcohol forever. Get immediate treatment for any future episodes. Contact your doctor at once or return here if you have increasing pain, shortness of breath, general swelling, increasing size of the abdomen, continued vomiting, muscle spasms, or other new symptoms. Cocaine Abuse Cocaine causes many dangerous medical problems. Problems can occur even w ith "usual" amounts. Cocaine affects judgement, creating a sense of invulnerability. Cocaine users often make bad decisions that seem "great" at the time. Most cocaine users eventually will be hurt by bad job performance, damaged personal relations, crime, and unsafe sexual practices. Toxic effects of cocaine can include seizures, hallucinations, delusions, high blood pressure, heart damage, or sudden . There's always the risk of a "bad batch." But heart attacks, brain hemorrhages, or cardiac arrest can occur unpredictably even with "normal" use. Injection of cocaine is risky for abscesses, endocarditis (heart infection), pneumonia, and AIDS. Withdrawal from cocaine often causes anxiety and drug cravings. Some users become paranoid and psychotic. Many treatment programs are available, but you must make the decision to quit. Medication can be prescribed to control the symptoms of cocaine toxicity (beta blockers or benzodiazepines). Withdrawal symptoms may require tranquilizers. Drink plenty of fluids today to rehydrate, and to help wash the elevated muscle enzymes out of your system. Stop using cocaine and marijuana. There was no sign of methadone or heroin in your urine drug screen today. Follow-up with the resources provided to you for help with your substance abuse. Follow-up with a local medical doctor to help manage her pancreatitis if it does not improve. RETURN TO THE EMERGENCY ROOM IF ANY NEW OR WORSENING SYMPTOMS. Scribe Attestation: 04/08/19 11:00 I personally performed the services described in the documentation, reviewed and edited the documentation which was dictated to the scribe in my presence, and it accurately records my words and actions. I personally performed the services described in the documentation, reviewed and edited the documentation which was dictated to the scribe in my presence, and it accurately records my words and actions.
[2019-04-08] MEDS ORDERED: RINGERS SOLUTION,LACTATED 1,000 ML IV ONE (09:15)
== END 2019-04-08 11:32 | disposition home or self-care (01) ==
LOC: ER 03:57
DX: K85.20 Alcohol induced acute pancreatitis without necrosis or infection (principal); F14.10 Cocaine abuse, uncomplicated; F12.10 Cannabis abuse, uncomplicated; M54.9 Dorsalgia, unspecified; F11.10 Opioid abuse, uncomplicated; F19.10 Other psychoactive substance abuse, uncomplicated; F10.10 Alcohol abuse, uncomplicated; J45.909 Unspecified asthma, uncomplicated; F17.210 Nicotine dependence, cigarettes, uncomplicated
CPT/HCPCS: 36415; 82550; 83690; 85025; 80053; 81001; 80307; J7030; J7120; 96360; 96361; 99283

== ENCOUNTER 2019-04-13 02:18 | Emergency (ER) | payer SELFPAY ==
[2019-04-13] MEDS ORDERED: LIDOCAINE 4% TRANSPARENT DRESSING 5 GM KIT TP ONE (03:16)
--- NOTE | 2019-04-13 03:16 | ER Document Report ---
ED General - General Chief Complaint: Abscess Stated Complaint: ABSCESS Time Seen by Provider: 04/13/19 02:59 Notes: Patient is a 33-year-old male that comes emergency department for chief complaint of abscesses in the left armpit and over the left leg and also a desire to be placed in detox. Patient states that he has a problem with "using and injecting everything", states that today he injected crack cocaine. He denies chest pain, shortness of breath, fever. He denies history of abscesses. Patient also admits to previous heavy alcohol abuse and pancreatitis but denies current heavy alcohol use. He denies suicidal or homicidal ideations but does state he has been suicidal in the past. He states that he is afraid that he might go home and overdose because he cannot help himself. TRAVEL OUTSIDE OF THE [place] IN LAST 30 DAYS: No - Related Data Allergies/Adverse Reactions: azithromycin [From Zithromax] Allergy (Verified 04/20/18 07:26) ciprofloxacin [From Cipro] Allergy (Verified 04/20/18 07:26) ibuprofen Allergy (Verified 04/20/18 07:26) iodine [Iodine] Allergy (Verified 04/20/18 07:26) ondansetron [From Zofran (as hydrochloride)] Allergy (Verified 04/20/18 07:26) Penicillins Allergy (Verified 04/20/18 07:26) Past Medical History - General Information source: Patient - Social History Smoking Status: Current Every Day Smoker Chew tobacco use (# tins/day): No Frequency of alcohol use: Social Drug Abuse: Cocaine, Heroin, Marijuana, Methamphetamine Lives with: Family Family History: Reviewed & Not Pertinent, CVA, DM, Hyperlipidemia, Hypertension Patient has suicidal ideation: No Patient has homicidal ideation: No Pulmonary Medical History: Reports: Hx Asthma Neurological Medical History: Reports: Hx Seizures Renal/ Medical History: Denies: Hx Peritoneal Dialysis Musculoskeletal Medical History: Reports Hx Musculoskeletal Trauma Psychiatric Medical History: Reports: Hx Anxiety, Hx Bipolar Disorder, Hx Depression - manic depression Traumatic Medical History: Reports: Hx Fractures - nose Surgical Hx: Negative - Immunizations Hx Diphtheria, Pertussis, Tetanus Vaccination: Yes Review of Systems - Review of Systems Constitutional: See HPI EENT: No symptoms reported Cardiovascular: No symptoms reported Respiratory: No symptoms reported Gastrointestinal: No symptoms reported Genitourinary: No symptoms reported Male Genitourinary: No symptoms reported Musculoskeletal: No symptoms reported Skin: See HPI Hematologic/Lymphatic: No symptoms reported Neurological/Psychological: No symptoms reported Physical Exam - Vital signs Vitals: Temp Pulse Resp BP Pulse Ox 97.9 F 81 16 120/100 H 96 04/13/19 02:20 04/13/19 02:20 04/13/19 02:20 04/13/19 02:04/13/19 02:20 - Notes Notes: GENERAL: Alert, interacts well. No acute distress. HEAD: Normocephalic, atraumatic. EYES: Pupils equal, round, and reactive to light. Extraocular movements intact. ENT: Oral mucosa moist, tongue midline. Oropharynx unremarkable. Airway patent. NECK: Full range of motion. Supple. Trachea midline. LUNGS: Clear to auscultation bilaterally, no wheezes, rales, or rhonchi. No respiratory distress. HEART: Regular rate and rhythm. No murmur ABDOMEN: Soft, non-tender. Non-distended. EXTREMITIES: Moves all 4 extremities spontaneously. No edema, normal radial and dorsalis pedis pulses bilaterally. No cyanosis. BACK: no cervical, thoracic, lumbar midline tenderness. No saddle anesthesia, normal distal neurovascular exam. Moves all extremities in full range of motion. NEUROLOGICAL: Alert and oriented x3. Normal speech. Cranial nerves II through XII grossly intact. PSYCH: Normal affect, normal mood. SKIN: 2 fluctuant indurated abscesses noted in the left mid axillary area, there is also a raised fluctuant abscess over the proximal left anterior tibial area. No spreading cellulitis noted, no nearby lymphadenopathy, unremarkable skin exam otherwise. Course - Re-evaluation Re-evalutation: Patient with 3 abscesses, 2 in the left axilla and one over the left proximal anterior tibial area. These were drained with large amount of purulent drainage, the abscess over the left tibia specifically appears to have a MRSA component based on the appearance. Starting on Bactrim. Patient initially saying he is not suicidal or homicidal but he is worried about going home, I discussed this with him again, he states that if he goes home he i s worried he will overdose. He states he does not want to and he does not have suicidal ideations. Patient insistent that he wants to stay, see mental health, and hopefully be placed somewhere for detox/recovery from his substance abuse. Drug screen positive for cocaine and marijuana, alcohol negative, general laboratory work-up and EKG unremarkable. Patient does not have a murmur or fever on exam. Patient is medically cleared now that the abscesses have been drained and he has been started on antibiotics. Pending evaluation and possible placement by mental health team. Discussed patient with Dr. James. - Vital Signs Vital signs: Temp Pulse Resp BP Pulse Ox 97.9 F 81 16 120/100 H 96 04/13/19 02:20 04/13/19 02:20 04/13/19 02:20 04/13/19 02:20 04/13/19 02:20 - Laboratory Result Diagrams: 04/13/19 03:35 04/13/19 03:35 Laboratory results interpreted by me: 04/13/19 04/13/19 04/13/19 03:35 03:35 03:35 WBC 11.5 H Absolute Neuts (auto) 8.9 H Urine Urobilinogen 2.0 H Salicylates < 1.0 L Acetaminophen < 10 L Procedures - Incision and Drainage Left axilla #1 Type: Single Anesthetic type: Other - LMX I&D procedure: Shurclens applied, Sterile dressing applied Incision Method: Incision made by scalpel Amount/type of drainage: About 4 cc of purulent drainage Left axilla #2 Type: Single Anesthetic type: Other - LMX I&D procedure: Shurclens applied, Sterile dressing applied Incision Method: Incision made by scalpel Amount/type of drainage: 1 to 2 cc of purulent drainage Left anterior proximal tibia Type: Single I&D procedure: Shurclens applied, Sterile dressing applied Incision Method: Incision made by scalpel Amount/type of drainage: Moderate amount of purulent drainage with small amount of necrotic tissue Discharge - Discharge Clinical Impression: Drug abuse, Abscess Condition: Stable Disposition: PSYCH HOSP/UNIT Prescriptions: Sulfamethoxazole/Trimethoprim [Bactrim Ds Tablet] 1 each PO BID #14 tablet
[2019-04-13] MEDS: LIDOCAINE 1% INJ-PF (10 MG/ML) 30 ML SDV INJ ONE ×2 (03:21→07:09)
[2019-04-13 04:09] LABS: APPEARANCE,URINE CLEAR; BILIRUBIN,URINE NEGATIVE (NEGATIVE); COLOR,URINE YELLOW; GLUCOSE, URINE NEGATIVE (NEGATIVE); KETONES,URINE NEGATIVE (NEGATIVE); LEUKOCYTE ESTERASE,URINE NEGATIVE (NEGATIVE); NITRITE,URINE NEGATIVE (NEGATIVE); PROTEIN,URINE NEGATIVE (NEGATIVE); URINE SPECIFIC GRAVITY 1.026
[2019-04-13 04:10] LABS: ABSOLUTE BASOPHILS # (AUTO) 0.1 10^3/uL (0.0-0.2); ABSOLUTE EOSINOPHILS # (AUTO) 0.1 10^3/uL (0.0-0.6); ABSOLUTE LYMPHOCYTES (AUTO) 1.7 10^3/uL (0.5-4.7); ABSOLUTE MONOCYTES (AUTO) 0.8 10^3/uL (0.1-1.4); ABSOLUTE NEUT (AUTO) 8.9 10^3/uL (1.7-8.2); BASOPHILS % (AUTO) 0.5 % (0-2); EOSINOPHILS % (AUTO) 0.7 % (0-6); HEMATOCRIT 41.1 % (37.9-51.0); LYMPHOCYTES % (AUTO) 14.6 % (13-45); MEAN CORPUSCULAR HGB CONC 34.1 g/dL (32.0-36.0); MEAN CORPUSCULAR VOLUME 91 fl (80-97); MONOCYTES % (AUTO) 6.9 % (3-13); PLATELET COUNT 261 10^3/uL (150-450); RED BLOOD COUNT 4.52 10^6/uL (4.35-5.55); RED CELL DISTRIBUTION WIDTH 13.7 % (11.5-14.0); SEGMENTED NEUTROPHILS % (AUTO) 77.3 % (42-78); TOTAL CELLS COUNTED % (AUTO) 100 %; WHITE BLOOD COUNT 11.5 10^3/uL (4.0-10.5)
[2019-04-13 04:18] LABS: ALBUMIN 4.3 g/dL (3.5-5.0); ALKALINE PHOSPHATASE 110 U/L (38-126); ANION GAP 8 (5-19); ASPARTATE AMINO TRANSFERASE 26 U/L (17-59); BILIRUBIN,DIRECT 0.1 mg/dL (0.0-0.4); BILIRUBIN,TOTAL 0.5 mg/dL (0.2-1.3); BLOOD UREA NITROGEN 11 mg/dL (7-20); CALCIUM 9.8 mg/dL (8.4-10.2); CARBON DIOXIDE 29 mmol/L (22-30); CHLORIDE 103 mmol/L (98-107); GLUCOSE 87 mg/dL (75-110); POTASSIUM 4.4 mmol/L (3.6-5.0); TOTAL PROTEIN 7.3 g/dL (6.3-8.2)
[2019-04-13 04:19] LABS: ACETAMINOPHEN < 10 ug/mL (10-30); ALCOHOL < 10 mg/dL (NONE DETECTED); SALICYLATE < 1.0 mg/dL (2.0-20.0)
[2019-04-13 04:23] LABS: URINE AMPHETAMINES SCREEN NEGATIVE; URINE BARBITURATES SCREEN NEGATIVE; URINE BENZODIAZEPINES SCREEN NEGATIVE; URINE COCAINE SCREEN UNCONFIRMED POSITIVE; URINE MARIJUANA (THC) SCREEN UNCONFIRMED POSITIVE; URINE METHADONE SCREEN NEGATIVE; URINE PHENCYCLIDINE SCREEN NEGATIVE
[2019-04-13] MEDS ORDERED: SULFAMETHOXAZOLE/TRIMETHOPRIM 800-160 MG TABLET PO ONE (05:34)
[2019-04-13] MEDS ORDERED: ACETAMINOPHEN 325 MG TABLET PO ONE (05:36)
--- NOTE | 2019-04-13 08:02 | PSYCHOLOGICAL NOTE ---
Psych Note - Psych Note Date seen by psych provider: 04/13/19 Time seen by psych provider: 07:38 - Evaluation from [id number]. Chart review at 0744. Psych Note: Presenting Problem: Desire for detox, polysubstance, he reported to medical use of marijuana/meth/cocaine/heroin, he reported to this clinician his drug of choice is heroin (last used 4-5 days ago via IV) and crack/cocaine (last use yesterday, he smokes and injects), UDS positive for cocaine and cannabis, he noted chronic SI (current passive, no plan, no intent, no action). He denied past treatment or being in any outpatient services currently. He was seen by [facility] 03/22/18 after coming in for chest pain which he reported started after he did a line of cocaine, his collateral/EC at that time noted patient would go on binges of drug use and go days without eating, and passive SI at that time. Patient alert and oriented x5 with linear thinking, mood was euthymic with congruent affect, he denied HI and noted passive SI (no plan, intent, or action taken), he made fair eye contact, he was able to engage and carry on dialogue conversation which was within normal limits for rate/tone/prosody. Diagnosis: Polysubstance Use Cocaine Use Disorder, Severe Cannabis Use Disorder, Severe Methamphetamine Use Disorder, Moderate per patient Opioid (Heroin) Use Disorder, Moderate per patient Impression/Plan: Patient is cleared from acute psychiatric services. Patient alert and oriented x5 with linear thinking, mood was euthymic with congruent affect, he denied HI and noted passive SI (no plan, intent, or action taken), he made fair eye contact, he was able to engage and carry on dialogue conversation which was within normal limits for rate/tone/prosody. He expressed a desire for detox and gave verbal consent to provide linkage and referral to the [facility]. They denied due to possible wound drainage. Provided patient with the outpatient [facility] resource sheet which highlighted [facility] for assistance with other detox placement options. He agreed to contact them and did so in the ED prior to discharge. Also highlighted [facility] on resource sheet for ongoing outpatient services/support. Consulted with Dr. Cates regarding the management and care of patient. ED Physician in agreement with recommendations.
--- NOTE | 2019-04-13 09:18 | ER Document Report ---
Doctor's Note Notes: 04/13/19 09:16 Pt here with abscess and concerned about drug abuse. No HI/SI. Awaiting psych eval and possible referral to [facility]. Antibiotics started.
--- NOTE | 2019-04-13 11:21 | EKG REPORT ---
SEVERITY:- ABNORMAL ECG - SINUS RHYTHM ST ELEVATION SUGGESTS PERICARDITIS VS EARLY REPOL CHANGES : Confirmed by: Karen Fajardo 13-Apr-2019 11:20:51
[2019-04-13 14:16] VITALS: BP 116/78
== END 2019-04-13 14:15 | disposition home or self-care (01) ==
LOC: ER 02:18
PROC: 0H9CXZZ Drainage of Left Upper Arm Skin, External Approach (ICD-10-PCS; principal; 2019-04-13)
DX: L02.412 Cutaneous abscess of left axilla (principal); L02.416 Cutaneous abscess of left lower limb; F14.10 Cocaine abuse, uncomplicated; F19.10 Other psychoactive substance abuse, uncomplicated; F11.10 Opioid abuse, uncomplicated; F12.10 Cannabis abuse, uncomplicated; F17.200 Nicotine dependence, unspecified, uncomplicated; J45.909 Unspecified asthma, uncomplicated
CPT/HCPCS: 93005; 99283; 36415; 80307 ×4; 85025; 80053; 81001; 93010; 10060; J3490

== ENCOUNTER 2019-04-27 04:26 | Emergency (ER) | payer SELFPAY ==
[2019-04-27 05:42] LABS: ABSOLUTE EOSINOPHILS # (AUTO) 0.1 10^3/uL (0.0-0.6); ABSOLUTE LYMPHOCYTES (AUTO) 1.6 10^3/uL (0.5-4.7); ABSOLUTE MONOCYTES (AUTO) 0.4 10^3/uL (0.1-1.4); BASOPHILS % (AUTO) 0.6 % (0-2); EOSINOPHILS % (AUTO) 1.3 % (0-6); HEMATOCRIT 37.1 % (37.9-51.0); HEMOGLOBIN 12.7 g/dL (13.5-17.0); LYMPHOCYTES % (AUTO) 19.4 % (13-45); MEAN CORPUSCULAR HEMOGLOBIN 31.2 pg (27.0-33.4); MEAN CORPUSCULAR HGB CONC 34.3 g/dL (32.0-36.0); MEAN CORPUSCULAR VOLUME 91 fl (80-97); MONOCYTES % (AUTO) 4.8 % (3-13); PLATELET COUNT 276 10^3/uL (150-450); RED BLOOD COUNT 4.07 10^6/uL (4.35-5.55); RED CELL DISTRIBUTION WIDTH 13.5 % (11.5-14.0); SEGMENTED NEUTROPHILS % (AUTO) 73.9 % (42-78); TOTAL CELLS COUNTED % (AUTO) 100 %; WHITE BLOOD COUNT 8.1 10^3/uL (4.0-10.5)
[2019-04-27 05:57] LABS: ALBUMIN 3.7 g/dL (3.5-5.0); ALKALINE PHOSPHATASE 103 U/L (38-126); ANION GAP 7 (5-19); ASPARTATE AMINO TRANSFERASE 29 U/L (17-59); BLOOD UREA NITROGEN 16 mg/dL (7-20); CALCIUM 9.2 mg/dL (8.4-10.2); CARBON DIOXIDE 28 mmol/L (22-30); CHLORIDE 105 mmol/L (98-107); GLUCOSE 101 mg/dL (75-110); POTASSIUM 4.6 mmol/L (3.6-5.0); TOTAL PROTEIN 6.5 g/dL (6.3-8.2)
[2019-04-27 06:27] LABS: BILIRUBIN,TOTAL < 0.1 mg/dL (0.2-1.3)
[2019-04-27 06:28] LABS: ACETAMINOPHEN < 10 ug/mL (10-30); ALCOHOL < 10 mg/dL (NONE DETECTED); SALICYLATE < 1.0 mg/dL (2.0-20.0)
[2019-04-27 09:08] VITALS: BP 122/71
[2019-04-27 09:46] LABS: AMORPHOUS SEDIMENT,URINE 1+ /HPF; APPEARANCE,URINE TURBID; BILIRUBIN,URINE NEGATIVE (NEGATIVE); COLOR,URINE YELLOW; GLUCOSE, URINE NEGATIVE (NEGATIVE); KETONES,URINE NEGATIVE (NEGATIVE); LEUKOCYTE ESTERASE,URINE NEGATIVE (NEGATIVE); NITRITE,URINE NEGATIVE (NEGATIVE); PROTEIN,URINE NEGATIVE (NEGATIVE); URINE SPECIFIC GRAVITY 1.024; UROBILINOGEN,URINE NEGATIVE mg/dL (<2.0)
[2019-04-27 09:54] LABS: URINE AMPHETAMINES SCREEN NEGATIVE; URINE BARBITURATES SCREEN NEGATIVE; URINE BENZODIAZEPINES SCREEN NEGATIVE; URINE COCAINE SCREEN UNCONFIRMED POSITIVE; URINE MARIJUANA (THC) SCREEN UNCONFIRMED POSITIVE; URINE METHADONE SCREEN NEGATIVE; URINE PHENCYCLIDINE SCREEN NEGATIVE
--- NOTE | 2019-04-27 11:56 | PSYCHOLOGICAL NOTE ---
Psych Note - Psych Note Date seen by psych provider: 04/27/19 Time seen by psych provider: 07:50 Psych Note: Reason for consult: Suicidal ideation Patient presents to [facility] ED reporting passive suicidal ideation i.e. no plans means or intent. Patient reports that his "life sucks." He disclosed that he feels sobriety would assist in him feeling better and would like assistance in detox. He reports he uses cocaine and marijuana most the time however sometimes uses heroin when he is able to get it. He reports that he "hears things a lot" both as if they are his thoughts and if someone standing next to him. He believes he started hearing things prior to his cocaine use. He reports that he has a diagnosis of bipolar but does not have any outpatient mental health provider and does not take any medications. Patient confirms he is currently homeless. Patient is alert and orientated to person, place, time and circumstance. Mood is euthymic with congruent affect. Patient reports passive suicidal (i.e. no plans means or intent) and denies homicidal ideation. Delusions are absent and behaviors congruent with an intact reality based presentation i.e. organized and linear thought process. Eye contact is fair to poor as patient was awoken for evaluation. Conversational speech is within normal rate, tone and prosody. Intellectual abilities appear to be within the average range. Attention and concentration are good. Insight, judgment, impulse control are fair. Behavioral health team contacted [facility]. A bed has been confirmed reserved for the patient at 3 PM. Diagnosis: Polysubstance abuse Medication recommendations per [facility]'s contracted psychiatrist Dr. Nithya SULLIVAN are as follows No medication recommendations at this time Impression\\plan: Patient is cleared from acute psychiatric services. Patient presents with passive suicidal ideation i.e. no plans means or intent. Patient is currently homeless and struggles with polysubstance abuse. Patient identifies going to detox and being able to maintain sobriety would help him feel better. He requests assistance to get into detox. The behavioral health team has been able to reserve a bed for the patient at [facility] for [address] Cates was consulted to care management of this patient; attending physicians in agreement with recommendations and disposition.
--- NOTE | 2019-04-27 13:27 | ER Document Report ---
Entered by SHARRI THOMSON SCRIBE 04/27/19 0652 Acting as scribe for:WARD WHYTE MD ED Psych Disorder / Suicide <PANDEYWENDY - Last Filed: 04/27/19 11:56> - General Information source: Patient, [facility] Records TRAVEL OUTSIDE OF THE [place] IN LAST 30 DAYS: No <WARD WHYTE - Last Filed: 04/27/19 15:05> - General Chief Complaint: Psych Problem Stated Complaint: SUICIDIAL IDEATIONS Time Seen by Provider: 04/27/19 06:09 Primary Care Provider: [facility] [Outside] - Follow up as needed Notes: This 33-year-old male patient comes emergency room complaining of feeling suicidal. He is homeless, bipolar disorder patient, who abuses cocaine and marijuana on a daily basis. He always reports abuse of meth, heroin, and methadone, and he is always drug screen negative for those drugs. He is always positive for the marijuana and cocaine. He wants to go to the [facility] detox [facility], stating he wants to get clean, however I think he wants to go there because he is homeless and that would provide him a respite from the elements. (WARD WHYTE) - Related Data Allergies/Adverse Reactions: azithromycin [From Zithromax] Allergy (Verified 04/20/18 07:26) ciprofloxacin [From Cipro] Allergy (Verified 04/20/18 07:26) ibuprofen Allergy (Verified 04/20/18 07:26) iodine [Iodine] Allergy (Verified 04/20/18 07:26) ondansetron [From Zofran (as hydrochloride)] Allergy (Verified 04/20/18 07:26) Penicillins Allergy (Verified 04/20/18 07:26) Past Medical History - General Information source: Patient - Social History Smoking Status: Current Every Day Smoker Cigarette use (# per day): Yes Drug Abuse: Cocaine, Heroin, Marijuana, Methamphetamine, Prescription drugs Family History: Reviewed & Not Pertinent, CVA, DM, Hyperlipidemia, Hypertension Patient has suicidal ideation: Yes Patient has homicidal ideation: Yes Pulmonary Medical History: Reports: Hx Asthma Neurological Medical History: Reports: Hx Seizures Renal/ Medical History: Denies: Hx Peritoneal Dialysis Musculoskeletal Medical History: Reports Hx Musculoskeletal Trauma Psychiatric Medical History: Reports: Hx Anxiety, Hx Bipolar Disorder, Hx Depression - manic depression Traumatic Medical History: Reports: Hx Fractures - nose - Immunizations Hx Diphtheria, Pertussis, Tetanus Vaccination: Yes <ISABELLWARD - Last Filed: 04/27/19 15:05> Review of Systems - Review of Systems Constitutional: See HPI EENT: No symptoms reported Cardiovascular: No symptoms reported Respiratory: No symptoms reported Gastrointestinal: No symptoms reported Genitourinary: No symptoms reported Male Genitourinary: No symptoms reported Musculoskeletal: No symptoms reported Skin: No symptoms reported Hematologic/Lymphatic: No symptoms reported Neurological/Psychological: See HPI, Other - homeless -: Yes All other systems reviewed and negative <WARD WHYTE - Last Filed: 04/27/19 15:05> Physical Exam <ISABELLWARD HOOVER - Last Filed: 04/27/19 15:05> - Vital signs Vitals: Temp Pulse Resp BP Pulse Ox 97.5 F 71 18 113/66 100 04/27/19 05:15 04/27/19 05:15 04/27/19 05:15 04/27/19 05:15 04/27/19 05:15 - Notes Notes: PHYSICAL EXAMINATION: GENERAL: Well-appearing, well-nourished and in no acute distress. HEAD: Atraumatic, normocephalic. EYES: Pupils equal round and reactive to light, extraocular movements intact, sclera anicteric, conjunctiva are normal. ENT: nares patent, oropharynx clear without exudates. Moist mucous membranes. NECK: Normal range of motion, supple without lymphadenopathy LUNGS: Breath sounds clear to auscultation bilaterally and equal. No wheezes rales or rhonchi. HEART: Regular rate and rhythm without murmurs ABDOMEN: Soft, nontender, normoactive bowel sounds. No guarding, no rebound. No masses appreciated. EXTREMITIES: Normal range of motion, no pitting or edema. No cyanosis. Left axilla shows healing incision from I&D done last we ek. Left anterior tibial leg region shows an open wound related to the incision and drainage done last week, The wound has not completely filled in at this point. NEUROLOGICAL: Cranial nerves grossly intact. Normal speech, normal gait. Normal sensory, motor, and reflex exams. PSYCH: Normal mood, normal affect. SKIN: Warm, Dry, normal turgor, no rashes or lesions noted. (WARD WHYTE) Course - Laboratory Result Diagrams: 04/27/19 05:26 04/27/19 05:26 <WENDY PANDEY - Last Filed: 04/27/19 11:56> - Laboratory Result Diagrams: 04/27/19 05:26 04/27/19 05:26 <WARD WHYTE - Last Filed: 04/27/19 15:05> - Vital Signs Vital signs: Temp Pulse Resp BP Pulse Ox 97.7 F 62 16 122/71 100 04/27/19 09:00 04/27/19 09:00 04/27/19 09:00 04/27/19 09:00 04/27/19 09:00 - Laboratory Laboratory results interpreted by me: 04/27/19 04/27/19 05:26 05:26 RBC 4.07 L Hgb 12.7 L Hct 37.1 L Total Bilirubin < 0.1 L Salicylates < 1.0 L Acetaminophen < 10 L Discharge <WENDY PANDEY - Last Filed: 04/27/19 11:56> <WARD WHYTE - Last Filed: 04/27/19 15:05> - Discharge Clinical Impression: Cocaine abuse, Passive suicidal ideations Condition: Stable Disposition: HOME, SELF-CARE Additional Instructions: You have evaluated both medical and behavioral health teams and been deemed appropriate for discharge. The behavioral health team has been able to reserve a bed for you at [facility] for 3 PM. You are highly encouraged to follow through with this voluntary placement. COCAINE ABUSE: Cocaine causes many dangerous medical problems. Problems can occur even with "usual" amounts. Cocaine affects judgement, creating a sense of invulnerability. Cocaine users often make bad decisions that seem "great" at the time. Most cocaine users eventually will be hurt by bad job performance, damaged personal relations, crime, and unsafe sexual practices. Toxic effects of cocaine can include seizures, hallucinations, delusions, high blood pressure, heart damage, or sudden . There's always the risk of a "bad batch." But heart attacks, brain hemorrhages, or cardiac arrest can occur unpredictably even with "normal" use. Injection of cocaine is risky for abscesses, endocarditis (heart infection), pneumonia, and AIDS. Withdrawal from cocaine often causes anxiety and drug cravings. Some users become paranoid and psychotic. Many treatment programs are available, but you must make the decision to quit. Medication can be prescribed to control the symptoms of cocaine toxicity (beta blockers or benzodiazepines). Withdrawal symptoms may require tranquilizers. DEPRESSION: Your evaluation reveals that you have mental depression. While symptoms may be vague, they often include disturbance of sleep, fatigue, loss of appetite, and general loss of interest in life. While depression may be a side effect of drugs, or a reaction to a major change in your life, many cases have no known cause. If depression is acute, and related to a major loss in your life, you can expect it to clear completely with time. If you have been depressed a long time, are prone to repeated bouts of depression or low mood, or have been thinking of suicide, get help. Depression can be treated with anti-depressant medication and counselling. Long-term depression will often take a few weeks to clear, even with appropriate medication. Follow-up care is important. SUICIDAL IDEATION: Suicidal ideation is a common medical term for thoughts about suicide, which may be as detailed as a formulated plan, without the suicidal act itself. Although most people who undergo suicidal ideation do not commit suicide, some go on to make suicide attempts. The range of suicidal ideation varies greatly from fleeting to detailed planning, role playing, and unsuccessful attempts. While thoughts about suicide are common, most people do not carry out serious actions to commit suicide. Based upon your evaluation and discussion with you, we do not believe you are currently at risk to act upon your thoughts of suicide. You have agreed to return to the Emergency Department, at any time, if you feel inclined to act upon your suicidal thoughts. FOLLOW-UP CARE: If you have been referred to a physician for follow-up care, call the physicians office for an appointment as you were instructed or within the next two days. If you experience worsening or a significant change in your symptoms, notify the physician immediately or return to the Emergency Department at any time for re-evaluation. Referrals: [facility] [Outside] - Follow up as needed Scribe Attestation: 04/27/19 07:54 I personally performed the services described in the documentation, reviewed and edited the documentation which was dictated to the scribe in my presence, and it accurately records my words and actions. (WARD WHYTE) I personally performed the services described in the documentation, reviewed and edited the documentation which was dictated to the scribe in my presence, and it accurately records my words and actions.
== END 2019-04-27 15:20 | disposition home or self-care (01) ==
LOC: ER 04:26
DX: F14.10 Cocaine abuse, uncomplicated (principal); R45.851 Suicidal ideations; F17.210 Nicotine dependence, cigarettes, uncomplicated; Z59.0 Homelessness; F31.9 Bipolar disorder, unspecified; Z88.3 Allergy status to other anti-infective agents; Z88.6 Allergy status to analgesic agent; Z88.0 Allergy status to penicillin
CPT/HCPCS: 36415; 80053; 80307; 81001; 85025; 99285

== ENCOUNTER 2019-04-30 04:05 | Emergency (ER) | payer SELFPAY ==
--- NOTE | 2019-04-30 07:30 | ER Document Report ---
ED General - General Chief Complaint: Wound Recheck Stated Complaint: LEG PAIN Time Seen by Provider: 04/30/19 07:04 Notes: 33-year-old male presents emergency department complaining of continuing pain on his left leg after having an MRSA abscess drained approximately 2 weeks ago. Patient states he did not take the antibiotics as instructed. States that he has not had any drainage recently, states the pain continues to radiate down his leg. Denies any fevers, numbness, tingling, weakness. Denies any worsening with walking. TRAVEL OUTSIDE OF THE [place] IN LAST 30 DAYS: No - Related Data Allergies/Adverse Reactions: azithromycin [From Zithromax] Allergy (Verified 04/20/18 07:26) ciprofloxacin [From Cipro] Allergy (Verified 04/20/18 07:26) ibuprofen Allergy (Verified 04/20/18 07:26) iodine [Iodine] Allergy (Verified 04/20/18 07:26) ondansetron [From Zofran (as hydrochloride)] Allergy (Verified 04/20/18 07:26) Penicillins Allergy (Verified 04/20/18 07:26) Past Medical History - General Information source: Patient - Social History Smoking Status: Current Every Day Smoker Frequency of alcohol use: None Drug Abuse: Marijuana Family History: Reviewed & Not Pertinent, CVA, DM, Hyperlipidemia, Hypertension Patient has suicidal ideation: No Patient has homicidal ideation: No Pulmonary Medical History: Reports: Hx Asthma Neurological Medical History: Reports: Hx Seizures Renal/ Medical History: Denies: Hx Peritoneal Dialysis Musculoskeletal Medical History: Reports Hx Musculoskeletal Trauma Psychiatric Medical History: Reports: Hx Anxiety, Hx Bipolar Disorder, Hx Depression - manic depression Traumatic Medical History: Reports: Hx Fractures - nose - Immunizations Hx Diphtheria, Pertussis, Tetanus Vaccination: Yes Review of Systems - Review of Systems Constitutional: No symptoms reported EENT: No symptoms reported Cardiovascular: No symptoms reported Respiratory: No symptoms reported Musculoskeletal: See HPI Skin: See HPI Neurological/Psychological: No symptoms reported Physical Exam - Vital signs Vitals: Temp Pulse Resp BP Pulse Ox 98 F 97 16 119/82 94 04/30/19 04:10 04/30/19 04:10 04/30/19 04:10 04/30/19 04:10 04/30/19 04:10 Interpretation: Normal - General General appearance: Appears well, Alert In distress: None - HEENT Head: Normocephalic, Atraumatic Eyes: Normal Pupils: PERRL - Respiratory Respiratory status: No respiratory distress - Cardiovascular Pulses: Normal: Posterior tibial, Dorsalis pedis Normal capillary refill: Yes - Skin Notes: Approximately 1 cm lesion noted to the proximal tibia anteriorly, minimally tender palpation, depigmentation noted, no fluctuance, no erythema, no lymphangitic streaking, appears quite well-healed and consistent with history of prior incision and drainage. No evidence of remaining infection. Minimal tenderness of the surrounding bone. No surrounding swelling, able to fully flex and extend without difficulty. Course - Re-evaluation Re-evalutation: 04/30/19 09:02 X-ray negative for any foreign body or evidence of osteomyelitis, no evidence of infection. I do not know why the patient's leg still hurts. Patient has no risk factors for and no evidence of DVT. Patient will be discharged home. - Vital Signs Vital signs: Temp Pulse Resp BP Pulse Ox 98 F 97 16 119/82 94 04/30/19 04:10 04/30/19 04:10 04/30/19 04:10 04/30/19 04:10 04/30/19 04:10 Discharge - Discharge Clinical Impression: Pain of left anterior lower extremity Condition: Stable Disposition: HOME, SELF-CARE Additional Instructions: Your abscess appears well-healed. There is no evidence of continuing infection. The x-ray did not show any evidence of fracture, dislocation, foreign body or infection in the bone. I do not know why your leg is still hurting. You may take [id number] medications such as acetaminophen or ibuprofen as directed on the bottle for pain. Please return to the emergency department for any new or concerning symptoms.
--- NOTE | 2019-04-30 08:45 | RADIOLOGY REPORT (SQ) ---
XR TIBIA FIBULA 2 VIEWS CLINICAL STATEMENT: proximal tibial pain COMPARISON: None FINDINGS: Bony alignment is anatomic. There is no fracture or dislocation. The soft tissues are unremarkable. IMPRESSION: No fracture.
[2019-04-30 09:15] VITALS: BP 116/68
== END 2019-04-30 09:15 | disposition home or self-care (01) ==
LOC: ER 04:05
DX: M79.605 Pain in left leg (principal); Z86.14 Personal history of Methicillin resistant Staphylococcus aureus infection; F17.200 Nicotine dependence, unspecified, uncomplicated; J45.909 Unspecified asthma, uncomplicated
CPT/HCPCS: 99283

== ENCOUNTER 2019-05-09 18:30 | Emergency (ER) | payer SELFPAY ==
--- NOTE | 2019-05-09 18:42 | ER Document Report ---
ED Medical Screen (RME) - General Chief Complaint: Psych Problem Stated Complaint: SUICIDAL IDEATION Time Seen by Provider: 05/09/19 18:40 Mode of Arrival: Ambulatory Information source: Patient Notes: 33-year-old male presented to ED for complaint of suicidal ideations. He states he thought he would jump out in front of a car on [address]. He states he has had thoughts of suicide for a long time but is just tired of everything today so he came in. [place] about 2 weeks ago for the same thing. He states he left both times. I have greeted and performed a rapid initial assessment of this patient. A comprehensive ED assessment and evaluation of the patient, analysis of test results and completion of medical decision making process will be conducted by an additional ED providers. TRAVEL OUTSIDE OF THE [place] IN LAST 30 DAYS: No - Related Data Allergies/Adverse Reactions: azithromycin [From Zithromax] Allergy (Verified 04/20/18 07:26) ciprofloxacin [From Cipro] Allergy (Verified 04/20/18 07:26) ibuprofen Allergy (Verified 04/20/18 07:26) iodine [Iodine] Allergy (Verified 04/20/18 07:26) ondansetron [From Zofran (as hydrochloride)] Allergy (Verified 04/20/18 07:26) Penicillins Allergy (Verified 04/20/18 07:26) Past Medical History Pulmonary Medical History: Reports: Hx Asthma Neurological Medical History: Reports: Hx Seizures Renal/ Medical History: Denies: Hx Peritoneal Dialysis Musculoskeltal Medical History: Reports Hx Musculoskeletal Trauma Psychiatric Medical History: Reports: Hx Anxiety, Hx Bipolar Disorder, Hx Depression - manic depression Traumatic Medical History: Reports: Hx Fractures - nose - Immunizations Hx Diphtheria, Pertussis, Tetanus Vaccination: Yes
[2019-05-09 19:41] LABS: ABSOLUTE EOSINOPHILS # (AUTO) 0.1 10^3/uL (0.0-0.6); ABSOLUTE LYMPHOCYTES (AUTO) 1.8 10^3/uL (0.5-4.7); ABSOLUTE MONOCYTES (AUTO) 0.4 10^3/uL (0.1-1.4); BASOPHILS % (AUTO) 0.5 % (0-2); EOSINOPHILS % (AUTO) 2.1 % (0-6); HEMATOCRIT 38.9 % (37.9-51.0); HEMOGLOBIN 12.9 g/dL (13.5-17.0); LYMPHOCYTES % (AUTO) 27.5 % (13-45); MEAN CORPUSCULAR HEMOGLOBIN 30.4 pg (27.0-33.4); MEAN CORPUSCULAR HGB CONC 33.1 g/dL (32.0-36.0); MEAN CORPUSCULAR VOLUME 92 fl (80-97); MONOCYTES % (AUTO) 6.8 % (3-13); PLATELET COUNT 227 10^3/uL (150-450); RED BLOOD COUNT 4.24 10^6/uL (4.35-5.55); RED CELL DISTRIBUTION WIDTH 13.6 % (11.5-14.0); SEGMENTED NEUTROPHILS % (AUTO) 63.1 % (42-78); TOTAL CELLS COUNTED % (AUTO) 100 %; WHITE BLOOD COUNT 6.4 10^3/uL (4.0-10.5)
[2019-05-09 19:49] LABS: ACETAMINOPHEN < 10 ug/mL (10-30); ALBUMIN 3.8 g/dL (3.5-5.0); ALCOHOL < 10 mg/dL (NONE DETECTED); ALKALINE PHOSPHATASE 93 U/L (38-126); ANION GAP 9 (5-19); ASPARTATE AMINO TRANSFERASE 36 U/L (17-59); BILIRUBIN,DIRECT 0.1 mg/dL (0.0-0.4); BILIRUBIN,TOTAL 0.2 mg/dL (0.2-1.3); BLOOD UREA NITROGEN 17 mg/dL (7-20); CALCIUM 9.1 mg/dL (8.4-10.2); CARBON DIOXIDE 25 mmol/L (22-30); CHLORIDE 109 mmol/L (98-107); GLUCOSE 127 mg/dL (75-110); POTASSIUM 4.4 mmol/L (3.6-5.0); TOTAL PROTEIN 6.6 g/dL (6.3-8.2)
[2019-05-09 20:10] LABS: APPEARANCE,URINE CLEAR; BILIRUBIN,URINE NEGATIVE (NEGATIVE); COLOR,URINE YELLOW; GLUCOSE, URINE NEGATIVE (NEGATIVE); KETONES,URINE NEGATIVE (NEGATIVE); LEUKOCYTE ESTERASE,URINE NEGATIVE (NEGATIVE); NITRITE,URINE NEGATIVE (NEGATIVE); PROTEIN,URINE NEGATIVE (NEGATIVE); URINE SPECIFIC GRAVITY 1.023
[2019-05-09] MEDS ORDERED: NORMAL SALINE 1000 ML 1,000 ML IV ONE (20:15)
[2019-05-09 20:27] LABS: URINE AMPHETAMINES SCREEN NEGATIVE; URINE BARBITURATES SCREEN NEGATIVE; URINE BENZODIAZEPINES SCREEN NEGATIVE; URINE COCAINE SCREEN UNCONFIRMED POSITIVE; URINE MARIJUANA (THC) SCREEN NEGATIVE; URINE METHADONE SCREEN NEGATIVE; URINE PHENCYCLIDINE SCREEN NEGATIVE
--- NOTE | 2019-05-09 21:40 | ER Document Report ---
ED Psych Disorder / Suicide - General Chief Complaint: Suicidal Ideation Stated Complaint: SUICIDAL IDEATION Time Seen by Provider: 05/09/19 18:40 Mode of Arrival: Ambulatory Notes: Patient is a 33-year-old male presents to the emergency department for suicidal ideations. Patient voices he would like to kill himself. Patient then voices he would like to walk into traffic in order to kill himself. Patient's denying any homicidal ideations. He is denying any auditory or visual hallucinations. TRAVEL OUTSIDE OF THE [place] IN LAST 30 DAYS: No - Related Data Allergies/Adverse Reactions: azithromycin [From Zithromax] Allergy (Verified 04/20/18 07:26) ciprofloxacin [From Cipro] Allergy (Verified 04/20/18 07:26) ibuprofen Allergy (Verified 04/20/18 07:26) iodine [Iodine] Allergy (Verified 04/20/18 07:26) ondansetron [From Zofran (as hydrochloride)] Allergy (Verified 04/20/18 07:26) Penicillins Allergy (Verified 04/20/18 07:26) Past Medical History - General Information source: Patient - Social History Smoking Status: Current Every Day Smoker Frequency of alcohol use: Occasional Drug Abuse: Cocaine, Heroin, Marijuana, Methamphetamine Family History: Reviewed & Not Pertinent, CVA, DM, Hyperlipidemia, Hypertension Patient has suicidal ideation: Yes Patient has homicidal ideation: Yes Pulmonary Medical History: Reports: Hx Asthma Neurological Medical History: Reports: Hx Seizures Renal/ Medical History: Denies: Hx Peritoneal Dialysis Musculoskeletal Medical History: Reports Hx Musculoskeletal Trauma Psychiatric Medical History: Reports: Hx Anxiety, Hx Bipolar Disorder, Hx Depression - manic depression Traumatic Medical History: Reports: Hx Fractures - nose - Immunizations Hx Diphtheria, Pertussis, Tetanus Vaccination: Yes Review of Systems - Review of Systems Constitutional: denies: Fever EENT: No symptoms reported Cardiovascular: No symptoms reported Respiratory: No symptoms reported Gastrointestinal: No symptoms reported Genitourinary: No symptoms reported Male Genitourinary: No symptoms reported Musculoskeletal: No symptoms reported Skin: No symptoms reported Hematologic/Lymphatic: No symptoms reported Neurological/Psychological: See HPI Physical Exam - Vital signs Vitals: Temp Pulse Resp BP Pulse Ox 98 F 86 16 135/86 H 100 05/09/19 18:43 05/09/19 18:43 05/09/19 18:43 05/09/19 18:43 05/09/19 18:43 - Notes Notes: GENERAL: Alert, interacts well. No acute distress. HEAD: Normocephalic, atraumatic. EYES: Pupils equal, round, and reactive to light. Extraocular movements intact. ENT: Oral mucosa moist, tongue midline. NECK: Full range of motion. Supple. Trachea midline. LUNGS: Clear to auscultation bilaterally, no wheezes, rales, or rhonchi. No respiratory distress. HEART: Regular rate and rhythm. No murmur ABDOMEN: Soft, non-tender. Non-distended. Bowel sounds present in all 4 quadrants. EXTREMITIES: Moves all 4 extremities spontaneously. No edema, normal radial and dorsalis pedis pulses bilaterally. No cyanosis. BACK: no cervical, thoracic, lumbar midline tenderness. No saddle anesthesia, normal distal neurovascular exam. NEUROLOGICAL: Alert and oriented x3. Normal speech. cranial nerves II through XII grossly intact PSYCH: Flat affect, depressed mood. SKIN: Warm, dry, normal turgor. No rashes or lesions noted. Course - Re-evaluation Re-evalutation: IVC paperwork has been filled out on patient. Laboratory 05/09/19 05/09/19 05/09/19 19:17 19:17 19:17 WBC 6.4 RBC 4.24 L Hgb 12.9 L Hct 38.9 MCV 92 MCH 30.4 MCHC 33.1 RDW 13.6 Plt Count 227 Lymph % (Auto) 27.5 [place] % (Auto) 6.8 Eos % (Auto) 2.1 Baso % (Auto) 0.5 Absolute Neuts (auto) 4.0 Absolute Lymphs (auto) 1.8 Absolute Monos (auto) 0.4 Absolute Eos (auto) 0.1 Absolute Basos (auto) 0.0 Seg Neutrophils % 63.1 Sodium 142.7 Potassium 4.4 Chloride 109 H Carbon Dioxide 25 Anion Gap 9 BUN 17 Creatinine 1.75 H Est GFR ( Amer) 55 L Est GFR (MDRD) Non-Af 45 L Glucose 127 H Calcium 9.1 Total Bilirubin 0.2 Direct Bilirubin 0.1 Neonat Total Bilirubin Not Reportable Neonat Direct Bilirubin Not Reportable Neonat Indirect Bili Not Reportable AST 36 ALT 23 Alkaline Phosphatase 93 Total Protein 6.6 Albumin 3.8 Urine Color YELLOW Urine Appearance CLEAR Urine pH 7.0 Ur Specific [place] 1.023 Urine Protein NEGATIVE Urine Glucose (UA) NEGATIVE Urine Ketones NEGATIVE Urine Blood NEGATIVE Urine Nitrite NEGATIVE Urine Bilirubin NEGATIVE Urine Urobilinogen 2.0 H Ur Leukocyte Esterase NEGATIVE Urine WBC (Auto) 0 Urine RBC (Auto) 0 Urine Ascorbic Acid NEGATIVE Salicylates 1.0 L Urine Opiates Screen Urine Methadone Screen Acetaminophen < 10 L Ur Barbiturates Screen Ur Phencyclidine Scrn Ur Amphetamines Screen U Benzodiazepines Scrn Urine Cocaine Screen U Marijuana (THC) Screen Serum Alcohol < 10 05/09/19 19:17 WBC RBC Hgb Hct MCV MCH MCHC RDW Plt Count Lymph % (Auto) [place] % (Auto) Eos % (Auto) Baso % (Auto) Absolute Neuts (auto) Absolute Lymphs (auto) Absolute Monos (auto) Absolute Eos (auto) Absolute Basos (auto) Seg Neutrophils % Sodium Potassium Chloride Carbon Dioxide Anion Gap BUN Creatinine Est GFR ( Amer) Est GFR (MDRD) Non-Af Glucose Calcium Total Bilirubin Direct Bilirubin Neonat Total Bilirubin Neonat Direct Bilirubin Neonat Indirect Bili AST ALT Alkaline Phosphatase Total Protein Albumin Urine Color Urine Appearance Urine pH Ur Specific [place] Urine Protein Urine Glucose (UA) Urine Ketones Urine Blood Urine Nitrite Urine Bilirubin Urine Urobilinogen Ur Leukocyte Esterase Urine WBC (Auto) Urine RBC (Auto) Urine Ascorbic Acid Salicylates Urine Opiates Screen NEGATIVE Urine Methadone Screen NEGATIVE Acetaminophen Ur Barbiturates Screen NEGATIVE Ur Phencyclidine Scrn NEGATIVE Ur Amphetamines Screen NEGATIVE U Benzodiazepines Scrn NEGATIVE Urine Cocaine Screen UNCONFIRMED POSITIVE U Marijuana (THC) Screen NEGATIVE Serum Alcohol Patient's creatinine was noted to be elevated. Patient voices no history of kidney disease or problems. In reviewing past charts patient has no never had a creatinine at 1.75. He was treated with normal saline solution in the emergency department. Patient has been sleeping, easily arousable to verbal stimuli, cooperative. Patient stable for psychiatric evaluation. - Vital Signs Vital signs: Temp Pulse Resp BP Pulse Ox 98 F 86 16 135/86 H 100 05/09/19 18:43 05/09/19 18:43 05/09/19 18:43 05/09/19 18:43 05/09/19 18:43 - Laboratory Result Diagrams: 05/09/19 19:17 05/09/19 19:17 Laboratory results interpreted by me: 1005/09/19 05/09/19 19:17 19:17 19:17 RBC 4.24 L Hgb 12.9 L Chloride 109 H Creatinine 1.75 H Est GFR ( Amer) 55 L Est GFR (MDRD) Non-Af 45 L Glucose 127 H Urine Urobilinogen 2.0 H Salicylates 1.0 L Acetaminophen < 10 L Discharge - Discharge Clinical Impression: Suicidal ideation Condition: Stable Disposition: PSYCH HOSP/UNIT
--- NOTE | 2019-05-10 09:25 | EKG REPORT ---
SEVERITY:- OTHERWISE NORMAL ECG - SINUS RHYTHM ST ELEV, PROBABLE NORMAL EARLY REPOL PATTERN : Confirmed by: Jana Mancilla MD 10-May-2019 09:25:04
--- NOTE | 2019-05-10 09:52 | PSYCHOLOGICAL NOTE ---
Psych Note - Psych Note Date seen by psych provider: 05/10/19 Time seen by psych provider: 09:15 Psych Note: Reason for Consult: Suicidal ideation Pt comes in with SI and has a plan of jumping in front of a car on [facility]. Pt states that he has previously treated at [facility], was here about two weeks ago. Patient states he walked to [facility] because he has been homeless "for a while, suicidal and on drugs." He reports that he did go to [facility] when the referral was made back on 04/27/2019 however left after 2 days because "I did not think I need to be there." He confirms he relapsed the day after leaving. He confirms he would like assistance in returning to [facility] as he realizes he is unable to main sobriety without treatment. Patient denies any thoughts of wanting to hurt others however states that he has "suicidal tendencies" and is attempted to harm himself 5 times in the past. He reports that the last time he attempted to harm himself was yesterday "I tried to jump in front of a car." He denies any memory of what he did in an attempt to harm himself or when he attempted when asked about the other times. Patient states that he has auditory hallucinations of " bodies" that are in color. When asked how often he states "I do not know when they want to." When asked for further clarification he reports "all the time." Patient states he has diagnosis of bipolar, borderline personality disorder, antisocial personality disorder, PTSD, and suicidal tendencies. Clinician contacted [facility] secured a bed for the patient for 10:30 AM. There is some concern that the patient left AGAINST MEDICAL ADVICE last time he was in their facility. Due to this they will reevaluate the patient upon arrival to ensure patient's level of commitment to sobriety. There is some concern that the patient is attempting to use both [facility] and [facility] as resource for physical/social needs such as housing. Patient is alert and orientated to person, place, time and circumstance. Mood is irritable with congruent affect. Patient endorses passive suicidal ideation i.e. no plans means or intent that is chronic. Patient denies homicidal ideation. Delusions are absent behaviors congruent with an intact reality based presentation i.e. organized and linear thought process. Patient reports visual hallucinations of bodies that are in color however states that he sees them "all the time." Patient has significant polysubstance abuse until patient achieves sobriety it is difficult to ascertain level of internal stimuli that is not from polysubstance abuse. Eye contact is poor as patient was awoken for evaluation and kept his eyes closed and back towards clinician even when asked to face clinician. Intellectual abilities appear to be within average range. Attention and concentration is fair. Insight, judgment, impulse control is fair. Chart review: 04/27/2019 Behavioral health team contacted [facility] and secured a bed for [facility] Medical History: Asthma Seizures Musculoskeletal Trauma Diagnosis: Antisocial personality disorder Polysubstance abuse Chronic Homelessness No medication recommendations at this time Impression/Plan: patient is recommended for rescind of IVC and is cleared from acute psychiatric services. Patient presents with chronic passive suicidal ideation i.e. no plans means or intent. Patient has a long history of substance abuse and homelessness. Clinician notes on 04/27/2019 the behavioral health team was able to secure a bed for the patient however he reports he only stayed for a few days thinking he did not need for further assistance. He confirms that he was wrong and would like to return to [facility]. [facility] confirms they will reevaluate the patient and if the patient truly wants sobriety he has a secured bed for 10:30 AM. Patient was provided local resource list of area providers including mobile crisis contact information and the economic resource list. Patient is highly encouraged to follow through with this voluntary placement. Dr. Cates was consulted and the care management of this patient; attending physicians in agreement with recommendations and disposition.
--- NOTE | 2019-05-10 11:23 | ER Document Report ---
Doctor's Note Notes: 05/10/19 10:15 PHYSICAL EXAMINATION: GENERAL: Well-appearing and in no acute distress. HEAD: Atraumatic, normocephalic. EYES: sclera anicteric, conjunctiva are normal. ENT: nares patent. Moist mucous membranes. NECK: Normal range of motion, supple without lymphadenopathy LUNGS: CTAB and equal. No wheezes rales or rhonchi. HEART: Regular rate and rhythm without murmurs ABDOMEN: Soft, nontender, normal bowel sounds, no guarding. EXTREMITIES: Normal range of motion, no pitting edema. No cyanosis. BACK: No midline tenderness, no step-off or deformity. No CVA tenderness NEUROLOGICAL: Cranial nerves grossly intact. Normal speech. Normal gait. PSYCH: Normal mood, normal affect. SKIN: Warm, Dry, normal turgor, no rashes or lesions noted Reviewed patient's diagnostic evaluation, nurse's notes as well as vital signs. Patient medically stable for discharge or placement pending mental health evaluation. Patient had an incidental elevation in creatinine and was treated with IV fluids last night. Offered to repeat this test this morning, patient declines. Patient encouraged to follow-up with a primary doctor to have his creatinine reevaluated. Patient encouraged to stay well-hydrated. 05/10/19 11:22 Mental health team feels that patient is stable for discharge and plans to resend his IVC orders at this time. Patient does have an available bed at [facility] and they are waiting for him at this time. Patient voiced plan to go to [facility] and wants to get there before they serve lunch. Consulted with Dr. Marroquin regarding patient presentation. Agrees with plan to resend the IVC orders at this time.
[2019-05-10 11:30] VITALS: BP 129/84
== END 2019-05-10 11:30 | disposition home or self-care (01) ==
LOC: ER 18:30
DX: R45.851 Suicidal ideations (principal); R45.850 Homicidal ideations; F14.10 Cocaine abuse, uncomplicated; F11.10 Opioid abuse, uncomplicated; F12.10 Cannabis abuse, uncomplicated; F15.10 Other stimulant abuse, uncomplicated; R79.89 Other specified abnormal findings of blood chemistry; F17.200 Nicotine dependence, unspecified, uncomplicated; J45.909 Unspecified asthma, uncomplicated; Z59.0 Homelessness; Z88.0 Allergy status to penicillin; Z88.1 Allergy status to other antibiotic agents; Z88.8 Allergy status to other drugs, medicaments and biological substances
CPT/HCPCS: 93005; 36415; 80307 ×4; 85025; 80053; 81001; 93010; J7030; 96360; 96361; 99285

== ENCOUNTER 2019-05-12 17:48 | Emergency (ER) | payer OTHER ==
--- NOTE | 2019-05-12 18:45 | ER Document Report ---
ED Psych Disorder / Suicide - General Chief Complaint: Psych Problem Stated Complaint: IVC WITH PAPERS Time Seen by Provider: 05/12/19 18:40 Mode of Arrival: Ambulatory Information source: Law Enforcement Notes: Patient is a 33-year-old male presenting to the emergency department on IVC papers from the [facility]. Patient was reportedly at [facility] for 2 to 3 days for cocaine abuse. Staff reports that he was becoming aggressive and state in the IVC papers that he was making statements that he would jump into traffic. Patient denies any suicidal or homicidal ideations. He does have a history of depression. He states at [facility] he was taking clonidine, gabapentin and Ativan for his withdrawal symptoms which was helping. TRAVEL OUTSIDE OF THE U.S. IN LAST 30 DAYS: No - Related Data Allergies/Adverse Reactions: azithromycin [From Zithromax] Allergy (Verified 04/20/18 07:26) ciprofloxacin [From Cipro] Allergy (Verified 04/20/18 07:26) ibuprofen Allergy (Verified 04/20/18 07:26) iodine [Iodine] Allergy (Verified 04/20/18 07:26) ondansetron [From Zofran (as hydrochloride)] Allergy (Verified 04/20/18 07:26) Penicillins Allergy (Verified 04/20/18 07:26) Past Medical History - General Information source: Patient - Social History Smoking Status: Current Some Day Smoker Frequency of alcohol use: Occasional Drug Abuse: Cocaine Family History: Reviewed & Not Pertinent, CVA, DM, Hyperlipidemia, Hypertension Pulmonary Medical History: Reports: Hx Asthma Neurological Medical History: Reports: Hx Seizures Renal/ Medical History: Denies: Hx Peritoneal Dialysis Musculoskeletal Medical History: Reports Hx Musculoskeletal Trauma Psychiatric Medical History: Reports: Hx Anxiety, Hx Bipolar Disorder, Hx Depression - manic depression Traumatic Medical History: Reports: Hx Fractures - nose - Immunizations Hx Diphtheria, Pertussis, Tetanus Vaccination: Yes Review of Systems - Review of Systems Constitutional: No symptoms reported EENT: No symptoms reported Cardiovascular: No symptoms reported Respiratory: No symptoms reported Gastrointestinal: No symptoms reported Genitourinary: No symptoms reported Male Genitourinary: No symptoms reported Musculoskeletal: No symptoms reported Skin: No symptoms reported Hematologic/Lymphatic: No symptoms reported Neurological/Psychological: No symptoms reported Physical Exam - Vital signs Vitals: Temp Pulse Resp BP Pulse Ox 98.6 F 87 16 115/74 99 05/12/19 19:43 10/24/19 19:43 05/12/19 19:43 05/12/19 19:43 05/12/19 19:43 - Notes Notes: PHYSICAL EXAMINATION: GENERAL: Well-appearing, well-nourished and in no acute distress. HEAD: Atraumatic, normocephalic. EYES: Pupils equal round and reactive to light, extraocular movements intact, sclera anicteric, conjunctiva are normal. ENT: Nares patent, oropharynx clear without exudates. Moist mucous membranes. NECK: Normal range of motion, supple without lymphadenopathy LUNGS: Breath sounds clear to auscultation bilaterally and equal. No wheezes rales or rhonchi. HEART: Regular rate and rhythm without murmurs ABDOMEN: Soft, nontender, nondistended abdomen. No guarding, no rebound. No masses appreciated. Musculoskeletal: Normal range of motion, no pitting or edema. No cyanosis. NEUROLOGICAL: Cranial nerves grossly intact. Normal speech, normal gait. Normal sensory, motor exams PSYCH: Flat affect, cooperative. SKIN: Warm, Dry, normal turgor, no rashes or lesions noted. Course - Re-evaluation Re-evalutation: Patient was brought in via [employer] on IVC papers. According to security and nursing staff patient was initially very uncooper ative. At the time of my evaluation patient is cooperative and calm. He is answering all questions appropriately. He currently denies any suicidal or homicidal ideations. He reports that he was unhappy at the [facility] treatment facility because "they were not doing anything for me". IVC work-up pending. Patient will be medically cleared as soon as labs are back unless there are any abnormalities. 05/12/19 20:12 Patient is medically cleared at this time, pending psych eval. - Vital Signs Vital signs: Temp Pulse Resp BP Pulse Ox 98.6 F 87 16 115/74 99 05/12/19 19:43 05/12/19 19:43 05/12/19 19:43 05/12/19 19:43 05/12/19 19:43 - Laboratory Result Diagrams: 05/12/19 18:11 05/12/19 18:11 Laboratory results interpreted by me: 05/12/19 18:11 Creatinine 1.59 H Est GFR (MDRD) Non-Af 51 L Total Bilirubin 0.1 L Salicylates < 1.0 L Acetaminophen < 10 L Discharge - Discharge Clinical Impression: Involuntary commitment Condition: Stable Disposition: PSYCH HOSP/UNIT
[2019-05-12 18:55] LABS: APPEARANCE,URINE CLEAR; BILIRUBIN,URINE NEGATIVE (NEGATIVE); COLOR,URINE YELLOW; GLUCOSE, URINE NEGATIVE (NEGATIVE); KETONES,URINE NEGATIVE (NEGATIVE); LEUKOCYTE ESTERASE,URINE NEGATIVE (NEGATIVE); NITRITE,URINE NEGATIVE (NEGATIVE); PROTEIN,URINE NEGATIVE (NEGATIVE); URINE SPECIFIC GRAVITY 1.014; UROBILINOGEN,URINE NEGATIVE mg/dL (<2.0)
[2019-05-12 18:58] LABS: ABSOLUTE BASOPHILS # (AUTO) 0.1 10^3/uL (0.0-0.2); ABSOLUTE EOSINOPHILS # (AUTO) 0.2 10^3/uL (0.0-0.6); ABSOLUTE LYMPHOCYTES (AUTO) 1.9 10^3/uL (0.5-4.7); ABSOLUTE MONOCYTES (AUTO) 0.4 10^3/uL (0.1-1.4); ABSOLUTE NEUT (AUTO) 4.7 10^3/uL (1.7-8.2); BASOPHILS % (AUTO) 0.9 % (0-2); EOSINOPHILS % (AUTO) 2.2 % (0-6); HEMATOCRIT 43.9 % (37.9-51.0); HEMOGLOBIN 14.9 g/dL (13.5-17.0); LYMPHOCYTES % (AUTO) 26.5 % (13-45); MEAN CORPUSCULAR HEMOGLOBIN 31.2 pg (27.0-33.4); MEAN CORPUSCULAR VOLUME 92 fl (80-97); PLATELET COUNT 270 10^3/uL (150-450); RED CELL DISTRIBUTION WIDTH 13.6 % (11.5-14.0); SEGMENTED NEUTROPHILS % (AUTO) 64.4 % (42-78); TOTAL CELLS COUNTED % (AUTO) 100 %; WHITE BLOOD COUNT 7.3 10^3/uL (4.0-10.5)
[2019-05-12 19:11] LABS: ALBUMIN 4.4 g/dL (3.5-5.0); ALKALINE PHOSPHATASE 115 U/L (38-126); ANION GAP 11 (5-19); ASPARTATE AMINO TRANSFERASE 26 U/L (17-59); BILIRUBIN,DIRECT 0.1 mg/dL (0.0-0.4); BILIRUBIN,TOTAL 0.1 mg/dL (0.2-1.3); BLOOD UREA NITROGEN 17 mg/dL (7-20); CALCIUM 9.9 mg/dL (8.4-10.2); CARBON DIOXIDE 26 mmol/L (22-30); CHLORIDE 102 mmol/L (98-107); GLUCOSE 103 mg/dL (75-110); POTASSIUM 4.7 mmol/L (3.6-5.0); TOTAL PROTEIN 7.6 g/dL (6.3-8.2)
[2019-05-12 19:12] LABS: ACETAMINOPHEN < 10 ug/mL (10-30); ALCOHOL < 10 mg/dL (NONE DETECTED); SALICYLATE < 1.0 mg/dL (2.0-20.0)
[2019-05-12 19:17] LABS: URINE AMPHETAMINES SCREEN NEGATIVE; URINE BARBITURATES SCREEN NEGATIVE; URINE BENZODIAZEPINES SCREEN NEGATIVE; URINE COCAINE SCREEN NEGATIVE; URINE MARIJUANA (THC) SCREEN NEGATIVE; URINE METHADONE SCREEN NEGATIVE; URINE PHENCYCLIDINE SCREEN NEGATIVE
[2019-05-12] MEDS: BENZTROPINE MESYLATE 1 MG TABLET PO SCH (19:42)
[2019-05-12] MEDS: OLANZAPINE 5 MG TABLET PO SCH (19:42)
[2019-05-13] MEDS: BENZTROPINE MESYLATE 1 MG TABLET PO SCH (10:09)
[2019-05-13] MEDS: OLANZAPINE 5 MG TABLET PO SCH (10:09)
--- NOTE | 2019-05-13 12:37 | PSYCHOLOGICAL NOTE ---
Psych Note - Psych Note Date seen by psych provider: 05/13/19 Time seen by psych provider: 07:20 Psych Note: Reason for consult: SI Patient was brought to ED via [employer] as an IVC from [place] on 05/12/2019. Patient presented to ED hostile and easily agitated. Patient repeatedly stated, my uncle is waiting for me at the mall. Patient denied suicidal and homicidal ideations. Patient initially refused to follow IVC protocol (no personal belongings, provide blood sample). Clinician used Rogerian therapeutic techniques to deescalate patient and facilitate cooperation. After patient continued to be uncooperative, restraints were placed on the bed and patient was provided opportunity to comply. Patient became compliant, however quit engaging with clinician. Medication recommendations per [facility] contracted psychiatrist Dr. Nithya SULLIVAN were obtained. Clinician attempted to see patient at 07:20. Patient requested clinician "come back" as he was groggy. Clinician returned to patient's room at 11:50. Patient was seemingly resting. Patient was pleasant and actively engaged with clinician. Patient described incident with [facility] from his perspective. Patient expressed a belief he was "lied to" by [facility]. Patient, again, denied a desire to . Patient denies suicidal ideation and homicidal ideation. Patient report engaging in infrequent cocaine use. Patient states last use was "a month ago." Discussed the seriousness of endorsing suicidal ideation. Patient stated, "I know people use that place as a homeless detention." Patient, again, stated his belief that he was assured by [facility] that he was free to go. Patient states he is still interested in substance abuse treatment, however prefers local treatment options. Patient stated he is tolerating medications well and expressed a desire to remain on medications. Patient reports he has stable housing with his cousin and uncle. When asked if cousin or uncle could come to the ED to be collaborators in his plan of care, patient stated they are both working and would not be able or willing to come to the ED. Patient is alert and oriented to person, place, time and circumstance. Mood is euthymic with congruent affect as evidenced by smiling, laughing and engaging with clinician. Patient denies suicidal and homicidal ideation. Delusions are absent and behavior is congruent with an intact- reality based presentation (i.e. organized and linear thought processes). Patient denies auditory and visual hallucinations. There is no observed behavior that suggests patient is responding to internal stimuli. Eye contact is good. Conversational speech is within normal rate, tone, and prosody. Intellectual ability appears to be within average range. Attention and concentration are good. Insight, judgment, and impulse control are fair. DSM Diagnosis: Per history, SI Per history, Bipolar disorder Medication recommendations per [facility] contracted psychiatrist Dr. Nithya SULLIVAN is as follows: Add Zyprexa 5MG, twice daily Add Cognetin 1MG, one time daily Impression/Plan: Patient is cleared from acute psychiatric services. It is recommenced that IVC be rescinded as patient does not meet IVC criteria per [place] GS 122C. At this time, patient is demonstrating insight and judgment into current situation and is able to thoughtfully and purposefully participate in plan of care development. Patient denies suicidal and homicidal ideation. Patient denies auditory and visual hallucinations. Patient will be provided with resources for local substance abuse treatment options. Patient will be also provided with community mental health resource list. It is recommended that patient present to [facility] as a walk in. Dr. Cates was consulted on the care and management of this patient; attending physician is in agreement with recommendations and disposition.
--- NOTE | 2019-05-13 13:57 | ER Document Report ---
Doctor's Note Notes: 05/13/19 10:50 PHYSICAL EXAMINATION: GENERAL: Well-appearing and in no acute distress. HEAD: Atraumatic, normocephalic. EYES: sclera anicteric, conjunctiva are normal. ENT: nares patent. Moist mucous membranes. NECK: Normal range of motion, supple LUNGS: Respirations unlabored EXTREMITIES: Normal range of motion, no pitting edema. NEUROLOGICAL: Cranial nerves grossly intact. Normal speech. PSYCH: Normal mood SKIN: Warm, Dry, normal turgor, no rashes or lesions noted Patient resting with blanket on his head. Patient denies any complaints at this time. Patient denies any suicidal homicidal ideation. Reviewed patient's notes, diagnostic evaluation and vital signs. Patient medically clear for discharge or transfer pending mental health consultation. 05/13/19 13:57 Mental health team consulted with Dr. Kaplan who agrees with discharge plan of care at this time. No prescriptions advised at this time.
[2019-05-13 14:11] VITALS: BP 125/79
--- NOTE | 2019-05-13 19:07 | EKG REPORT ---
SEVERITY:- ABNORMAL ECG - SINUS RHYTHM PROBABLE LEFT ATRIAL ABNORMALITY ST ELEV, PROBABLE NORMAL EARLY REPOL PATTERN : Confirmed by: Jana Mancilla MD 13-May-2019 19:07:08
== END 2019-05-13 14:19 | disposition home or self-care (01) ==
LOC: ER 17:48
DX: R45.851 Suicidal ideations (principal); F31.9 Bipolar disorder, unspecified; F14.10 Cocaine abuse, uncomplicated; F17.200 Nicotine dependence, unspecified, uncomplicated; Z88.3 Allergy status to other anti-infective agents; Z88.0 Allergy status to penicillin
CPT/HCPCS: 36415; 80053; 80307; 81001; 85025; 93005; 93010; 99285

== ENCOUNTER 2019-05-15 13:13 | Emergency (ER) | payer OTHER ==
--- NOTE | 2019-05-15 13:37 | ER Document Report ---
ED General - General Chief Complaint: Drug Abuse Stated Complaint: POSSIBLE DRUG USE Time Seen by Provider: 05/15/19 13:34 TRAVEL OUTSIDE OF THE U.S. IN LAST 30 DAYS: No - Related Data Allergies/Adverse Reactions: azithromycin [From Zithromax] Allergy (Verified 04/20/18 07:26) ciprofloxacin [From Cipro] Allergy (Verified 04/20/18 07:26) ibuprofen Allergy (Verified 04/20/18 07:26) iodine [Iodine] Allergy (Verified 04/20/18 07:26) ondansetron [From Zofran (as hydrochloride)] Allergy (Verified 04/20/18 07:26) Penicillins Allergy (Verified 04/20/18 07:26) Past Medical History - Social History Smoking Status: Unknown if Ever Smoked Drug Abuse: Cocaine, Marijuana, Other Family History: Reviewed & Not Pertinent, CVA, DM, Hyperlipidemia, Hypertension Patient has suicidal ideation: No Patient has homicidal ideation: No Pulmonary Medical History: Reports: Hx Asthma Neurological Medical History: Reports: Hx Seizures Renal/ Medical History: Denies: Hx Peritoneal Dialysis Musculoskeletal Medical History: Reports Hx Musculoskeletal Trauma Psychiatric Medical History: Reports: Hx Anxiety, Hx Bipolar Disorder, Hx Depression - manic depression Traumatic Medical History: Reports: Hx Fractures - nose - Immunizations Hx Diphtheria, Pertussis, Tetanus Vaccination: Yes Physical Exam - Vital signs Vitals: Temp 97.8 F 05/15/19 13:21 Course - Re-evaluation Re-evalutation: 05/15/19 13:36 EKG shows a heart rate of 78, diffuse ST elevations with minimal depressions compatible with possible pericarditis - Vital Signs Vital signs: Temp Pulse Resp BP Pulse Ox 97.8 F 74 20 130/85 H 05/15/19 13:21 05/15/19 13:24 05/15/19 13:24 05/15/19 13:24
--- NOTE | 2019-05-15 13:43 | ER Document Report ---
ED General - General Chief Complaint: Drug Abuse Stated Complaint: POSSIBLE DRUG USE Time Seen by Provider: 05/15/19 13:34 Notes: HPI: 33-year-old male with a history of drug abuse he states he used multiple drugs earlier today. He denies any chest pain or shortness of breath. He denies any weakness or numbness. Patient was found wandering around the stores. He denies any suicidal homicidal ideations. ROS: See HPI All other review of systems reviewed and otherwise negative Reviewed vital signs and nursing note as charted by RN. PHYSICAL EXAM: CONSTITUTIONAL: Patient does appear to be slightly altered but answers all questions and follows all commands HEAD: Normocephalic; atraumatic EYES: PERRL; no nystagmus ENT: Normal nose; no rhinorrhea; moist mucous membranes; pharynx without lesions noted NECK: Supple without meningismus; non-tender; no cervical lymphadenopathy, no masses CARD: Regular rate and rhythm; no murmurs; symmetric distal pulses RESP: Normal chest excursion without splinting or tachypnea; breath sounds clear and equal bilaterally; no wheezes, no rhonchi, no rales ABD/GI: Normal bowel sounds; non-distended; soft, non-tender; no palpable organomegaly or masses BACK: The back appears normal and is non-tender to palpation EXT: Normal ROM in all joints; non-tender to palpation; no edema SKIN: No acute lesions noted NEURO: CN 2-12 intact; 5/5 bilateral upper and lower extremity strength with sensation intact to light touch PSYCH: The patient's mood and manner are appropriate. Grooming and personal hygiene are appropriate. TRAVEL OUTSIDE OF THE [place] IN LAST 30 DAYS: No - Related Data Allergies/Adverse Reactions: azithromycin [From Zithromax] Allergy (Verified 04/20/18 07:26) ciprofloxacin [From Cipro] Allergy (Verified 04/20/18 07:26) ibuprofen Allergy (Verified 04/20/18 07:26) iodine [Iodine] Allergy (Verified 04/20/18 07:26) ondansetron [From Zofran (as hydrochloride)] Allergy (Verified 04/20/18 07:26) Penicillins Allergy (Verified 04/20/18 07:26) Past Medical History - Social History Smoking Status: Unknown if Ever Smoked Drug Abuse: Cocaine, Marijuana, Other Family History: Reviewed & Not Pertinent, CVA, DM, Hyperlipidemia, Hypertension Patient has suicidal ideation: No Patient has homicidal ideation: No Pulmonary Medical History: Reports: Hx Asthma Neurological Medical History: Reports: Hx Seizures Renal/ Medical History: Denies: Hx Peritoneal Dialysis Musculoskeletal Medical History: Reports Hx Musculoskeletal Trauma Psychiatric Medical History: Reports: Hx Anxiety, Hx Bipolar Disorder, Hx Depression - manic depression Traumatic Medical History: Reports: Hx Fractures - nose - Immunizations Hx Diphtheria, Pertussis, Tetanus Vaccination: Yes Physical Exam - Vital signs Vitals: Temp 97.8 F 05/15/19 13:21 Course - Re-evaluation Re-evalutation: 05/15/19 13:42 Given the above history and physical, with EKG as recorded, will obtain basic labs, place the patient on the monitor, and reassess. I do not believe any CT imaging is necessary at this moment. Patient denies any complaints at this time. EKG shows a heart of 78, normal sinus rhythm, diffuse ST elevation with minimal ST depression consistent with possible pericarditis. However the previous EKG 3 days ago shows a similar presentation. 05/15/19 14:52 Labs and imaging as recorded. Patient has eaten and ambulated without difficulty. Patient will be discharged home with strict return precautions and instructed not to use illicit drugs. - Vital Signs Vital signs: Temp Pulse Resp BP Pulse Ox 97.8 F 74 20 130/85 H 05/15/19 13:21 05/15/19 13:24 05/15/19 13:24 05/15/19 13:24 - Laboratory Result Diagrams: 05/15/19 13:53 05/15/19 13:53 Laboratory results interpreted by me: 05/15/19 05/15/19 13:53 13:53 WBC 10.6 H Lymph % (Auto) 5.2 L [place] % (Auto) 2.7 L Absolute Neuts (auto) 9.7 H Seg Neutrophils % 91.7 H Potassium 5.2 H Chloride 95 L Carbon Dioxide 31 H BUN 25 H Glucose 145 H Calcium 10.3 H Discharge - Discharge Clinical Impression: Drug abuse Condition: Fair Disposition: HOME, SELF-CARE Additional Instructions: Come back immediately with any pain, fevers, vomiting, weakness or numbness, or any other acute problems. Please refrain from using drugs.
[2019-05-15 14:05] LABS: ABSOLUTE LYMPHOCYTES (AUTO) 0.6 10^3/uL (0.5-4.7); ABSOLUTE MONOCYTES (AUTO) 0.3 10^3/uL (0.1-1.4); ABSOLUTE NEUT (AUTO) 9.7 10^3/uL (1.7-8.2); BASOPHILS % (AUTO) 0.4 % (0-2); HEMATOCRIT 44.1 % (37.9-51.0); HEMOGLOBIN 14.8 g/dL (13.5-17.0); LYMPHOCYTES % (AUTO) 5.2 % (13-45); MEAN CORPUSCULAR HEMOGLOBIN 30.8 pg (27.0-33.4); MEAN CORPUSCULAR HGB CONC 33.5 g/dL (32.0-36.0); MEAN CORPUSCULAR VOLUME 92 fl (80-97); MONOCYTES % (AUTO) 2.7 % (3-13); PLATELET COUNT 247 10^3/uL (150-450); RED CELL DISTRIBUTION WIDTH 13.9 % (11.5-14.0); SEGMENTED NEUTROPHILS % (AUTO) 91.7 % (42-78); TOTAL CELLS COUNTED % (AUTO) 100 %; WHITE BLOOD COUNT 10.6 10^3/uL (4.0-10.5)
[2019-05-15 14:23] LABS: ANION GAP 12 (5-19); BLOOD UREA NITROGEN 25 mg/dL (7-20); CALCIUM 10.3 mg/dL (8.4-10.2); CARBON DIOXIDE 31 mmol/L (22-30); CHLORIDE 95 mmol/L (98-107); GLUCOSE 145 mg/dL (75-110); POTASSIUM 5.2 mmol/L (3.6-5.0)
--- NOTE | 2019-05-15 14:41 | EKG REPORT ---
SEVERITY:- ABNORMAL ECG - SINUS RHYTHM ST ELEVATION SUGGESTS PERICARDITIS : Confirmed by: Jana Mancilla MD 15-May-2019 14:40:28
[2019-05-15 15:09] VITALS: BP 130/86
== END 2019-05-15 15:11 | disposition home or self-care (01) ==
LOC: ER 13:13
DX: F19.10 Other psychoactive substance abuse, uncomplicated (principal); Z88.3 Allergy status to other anti-infective agents; Z88.6 Allergy status to analgesic agent; Z88.0 Allergy status to penicillin
CPT/HCPCS: 36415; 80048; 84484; 85025; 93005; 93010; 99284

== ENCOUNTER 2019-05-19 03:58 | Emergency (ER) | payer SELFPAY ==
[2019-05-19 05:26] LABS: ABSOLUTE EOSINOPHILS # (AUTO) 0.1 10^3/uL (0.0-0.6); ABSOLUTE LYMPHOCYTES (AUTO) 1.5 10^3/uL (0.5-4.7); ABSOLUTE MONOCYTES (AUTO) 0.6 10^3/uL (0.1-1.4); BASOPHILS % (AUTO) 0.3 % (0-2); EOSINOPHILS % (AUTO) 1.1 % (0-6); HEMATOCRIT 39.2 % (37.9-51.0); HEMOGLOBIN 13.3 g/dL (13.5-17.0); LYMPHOCYTES % (AUTO) 18.4 % (13-45); MEAN CORPUSCULAR HEMOGLOBIN 30.7 pg (27.0-33.4); MEAN CORPUSCULAR HGB CONC 33.9 g/dL (32.0-36.0); MEAN CORPUSCULAR VOLUME 90 fl (80-97); MONOCYTES % (AUTO) 6.9 % (3-13); PLATELET COUNT 210 10^3/uL (150-450); RED BLOOD COUNT 4.33 10^6/uL (4.35-5.55); RED CELL DISTRIBUTION WIDTH 13.5 % (11.5-14.0); SEGMENTED NEUTROPHILS % (AUTO) 73.3 % (42-78); TOTAL CELLS COUNTED % (AUTO) 100 %; WHITE BLOOD COUNT 8.2 10^3/uL (4.0-10.5)
[2019-05-19 05:35] LABS: APPEARANCE,URINE CLEAR; BILIRUBIN,URINE NEGATIVE (NEGATIVE); COLOR,URINE YELLOW; GLUCOSE, URINE NEGATIVE (NEGATIVE); KETONES,URINE TRACE mg/dL (NEGATIVE); LEUKOCYTE ESTERASE,URINE NEGATIVE (NEGATIVE); NITRITE,URINE NEGATIVE (NEGATIVE); PROTEIN,URINE 30 mg/dL (NEGATIVE); URINE SPECIFIC GRAVITY 1.039
[2019-05-19 05:45] LABS: ALBUMIN 3.9 g/dL (3.5-5.0); ALKALINE PHOSPHATASE 105 U/L (38-126); ANION GAP 9 (5-19); ASPARTATE AMINO TRANSFERASE 44 U/L (17-59); BILIRUBIN,DIRECT 0.1 mg/dL (0.0-0.4); BILIRUBIN,TOTAL 0.5 mg/dL (0.2-1.3); BLOOD UREA NITROGEN 18 mg/dL (7-20); CALCIUM 9.4 mg/dL (8.4-10.2); CARBON DIOXIDE 28 mmol/L (22-30); CHLORIDE 103 mmol/L (98-107); GLUCOSE 121 mg/dL (75-110); TOTAL PROTEIN 6.7 g/dL (6.3-8.2)
[2019-05-19 05:47] LABS: ACETAMINOPHEN < 10 ug/mL (10-30); ALCOHOL < 10 mg/dL (NONE DETECTED); SALICYLATE < 1.0 mg/dL (2.0-20.0)
[2019-05-19 05:54] LABS: URINE BARBITURATES SCREEN NEGATIVE; URINE BENZODIAZEPINES SCREEN NEGATIVE; URINE COCAINE SCREEN UNCONFIRMED POSITIVE; URINE MARIJUANA (THC) SCREEN UNCONFIRMED POSITIVE; URINE METHADONE SCREEN NEGATIVE; URINE PHENCYCLIDINE SCREEN NEGATIVE
--- NOTE | 2019-05-19 07:20 | EKG REPORT ---
SEVERITY:- ABNORMAL ECG - SINUS RHYTHM ST ELEVATION LIKELY NORMAL VARIANT : Confirmed by: Henri Rojas MD 19-May-2019 07:19:11
--- NOTE | 2019-05-19 10:24 | ER Document Report ---
ED Psych Disorder / Suicide - General Chief Complaint: Suicidal Ideation Stated Complaint: SUICIDAL IDEATION Time Seen by Provider: 05/19/19 05:35 Mode of Arrival: Ambulatory Information source: Patient Notes: Patient is an otherwise healthy 33-year-old male who is well-known to our facility presenting with suicidal ideations. Patient reports he was at the local detox center for the last few days however he states he did not like the way the operated things there so he decided to leave. Patient does report using illicit drugs the last few days, states he wants to kill himself but is unable to come up with any specific plan. Patient is calm and cooperative at the time of my initial evaluation. TRAVEL OUTSIDE OF THE [place] IN LAST 30 DAYS: No - Related Data Allergies/Adverse Reactions: azithromycin [From Zithromax] Allergy (Verified 04/20/18 07:26) ciprofloxacin [From Cipro] Allergy (Verified 04/20/18 07:26) ibuprofen Allergy (Verified 04/20/18 07:26) iodine [Iodine] Allergy (Verified 04/20/18 07:26) ondansetron [From Zofran (as hydrochloride)] Allergy (Verified 04/20/18 07:26) Penicillins Allergy (Verified 04/20/18 07:26) Past Medical History - General Information source: Patient - Social History Smoking Status: Current Every Day Smoker Frequency of alcohol use: Social Drug Abuse: Other Family History: Reviewed & Not Pertinent, CVA, DM, Hyperlipidemia, Hypertension Patient has suicidal ideation: Yes Patient has homicidal ideation: No Pulmonary Medical History: Reports: Hx Asthma Neurological Medical History: Reports: Hx Seizures Renal/ Medical History: Denies: Hx Peritoneal Dialysis Musculoskeletal Medical History: Reports Hx Musculoskeletal Trauma Psychiatric Medical History: Reports: Hx Anxiety, Hx Bipolar Disorder, Hx Dep ression - manic depression Traumatic Medical History: Reports: Hx Fractures - nose - Immunizations Hx Diphtheria, Pertussis, Tetanus Vaccination: Yes Review of Systems - Review of Systems Constitutional: No symptoms reported EENT: No symptoms reported Cardiovascular: No symptoms reported Respiratory: No symptoms reported Gastrointestinal: No symptoms reported Genitourinary: No symptoms reported Male Genitourinary: No symptoms reported Musculoskeletal: No symptoms reported Skin: No symptoms reported Hematologic/Lymphatic: No symptoms reported Neurological/Psychological: Suicidal ideation - Without plan Physical Exam - Vital signs Vitals: Temp Pulse Resp BP Pulse Ox 97.5 F 92 20 125/86 H 100 05/19/19 04:28 05/19/19 04:28 05/19/19 04:28 05/19/19 04:28 05/19/19 04:28 - Notes Notes: PHYSICAL EXAMINATION: GENERAL: Well-appearing, well-nourished and in no acute distress. HEAD: Atraumatic, normocephalic. EYES: Pupils equal round and reactive to light, extraocular movements intact, sclera anicteric, conjunctiva are normal. ENT: Nares patent, oropharynx clear without exudates. Moist mucous membranes. NECK: Normal range of motion, supple without lymphadenopathy LUNGS: Breath sounds clear to auscultation bilaterally and equal. No wheezes rales or rhonchi. HEART: Regular rate and rhythm without murmurs ABDOMEN: Soft, nontender, nondistended abdomen. No guarding, no rebound. No masses appreciated. Musculoskeletal: Normal range of motion, no pitting or edema. No cyanosis. NEUROLOGICAL: Cranial nerves grossly intact. Normal speech, normal gait. Normal sensory, motor exams PSYCH: Normal mood, normal affect. SKIN: Warm, Dry, normal turgor, no rashes or lesions noted. Course - Re-evaluation Re-evalutation: Patient presents to the emergency department with complaints of suicidal ideatio ns. Patient does not have a clear plan. Patient has been seen in this emergency department multiple times with a similar presentation. He states that he has been seen at the detox center for drug rehab however he states he does not like the way he is treated there and does not like the food that they have there that he has decided to come to the emergency department. Patient denies any homicidal ideations. Patient will likely be cleared later this morning by mental health services and hopefully will be discharged from the emergency department. - Vital Signs Vital signs: Temp Pulse Resp BP Pulse Ox 98.0 F 69 16 116/74 100 05/19/19 07:20 05/19/19 07:20 05/19/19 07:20 05/19/19 07:20 05/19/19 07:20 - Laboratory Result Diagrams: 05/19/19 05:05 05/19/19 05:05 Laboratory results interpreted by me: 05/19/19 05/19/19 05/19/19 05:05 05:05 05:15 RBC 4.33 L Hgb 13.3 L Glucose 121 H Urine Protein 30 H Urine Ketones TRACE H Urine Urobilinogen 2.0 H Salicylates < 1.0 L Acetaminophen < 10 L Discharge - Discharge Clinical Impression: Suicidal ideation, Drug abuse Condition: Stable Disposition: PSYCH HOSP/UNIT
[2019-05-19 11:16] VITALS: BP 116/82
--- NOTE | 2019-05-19 12:54 | ER Document Report ---
Doctor's Note Notes: 05/19/19 12:53 Patient's vital signs and previous diagnostic evaluation reviewed. Reviewed mental health notes, nurse's notes and previous providers notes. VSS. Pt is in no distress at this time. He tested positive for methamphetamine, cocaine and THC. Patient states that he "always feels suicidal". Consulted with Stiven Cates, psychologist on-call as well as Dr. Elder, is it. Patient would be appropriate for discharge at 6 PM due to patient being actively intoxicated at this time. We will continue to monitor. General: A&Ox3. Answers questions appropriately. Heart: RRR Lungs: CTAB Psych: Flat affect A/P: Continue monitoring and rec's per MH. Normal diet Consider placement.
[2019-05-19] MEDS ORDERED: HALOPERIDOL 5 MG TABLET PO SCH (13:00)
--- NOTE | 2019-05-19 15:52 | PSYCHOLOGICAL NOTE ---
Psych Note - Psych Note Date seen by psych provider: 05/19/19 Time seen by psych provider: 15:15 Psych Note: Reason for consult: Substance Use Disorder Completed chart review. Patient presented to ED via POV due to suicidal ideation following substance use. Patient has a history of chronic substance abuse and subsequent suicidal ideations. Patients urine drug screen is positive for amphetamines, marijuana, and cocaine. Clinician attempted to evaluate patient this morning. Patient asked clinician to come back after breakfast. Clinician spoke with patient briefly, as patient became reluctant to engage with clinician. Patient was cooperative and pleasant until clinician brought up discharge. Patient became irritated and began speaking of the lack of resources in [facility] for homeless people. Patient stated a disagreement with his cousin resulted in him being asked to leave. Patient listed reasons as to why he is homeless and cannot stay in the homeless intermediate (specifically the lack of a valid state id). Clinician confronted patient regarding his responsibility in his life. Patient began to endorse suicidal ideation and stated Im just going to jump in front of a car. Clinician redirected client to developing a plan of action to change his circumstance. Patient was reminded he has been provided with resources and opportunities to receive substance abuse treatment, however continues to engage in the cycle of abuse. Patient became irritated and began endorsing suicidal ideation and how the [place] is the only state that will put suicidal people out on the street. Clinician continued to redirect patient to identify his responsibility in the situation. Patient became irritated and did not want to speak further. Patient is alert and oriented to person, place, time and circumstance. Mood is dysthymic with congruent affect as evidenced by little eye contact, flat affect and limited engaging with clinician. Patient endorses suicidal ideation- as per history. Patient denies homicidal ideation. Delusions are absent and behavior is congruent with an intact reality based presentation (i.e. organized and linear thought processes). Patient denies auditory and visual hallucinations. There is no observed behavior that suggests patient is responding to internal stimuli. Eye contact is good. Conversational speech is within normal rate, tone, and prosody. Intellectual ability appears to be within average range. Attention and concentration are fair. Insight, judgment, and impulse control are poor. DSM Diagnosis: Per report, Bipolar Disorder Substance Use Disorder; Severe; Ongoing Medication recommendations per [facility] contracted psychiatrist Dr. Nithya SULLIVAN is as follows: NONE Impression/Plan: Patient is cleared from acute psychiatric services. Patient does not meet IVC criteria per [place] GS 122C. At this time, patient is demonstrating insight and judgment into their current situation and is able to thoughtfully and purposefully be a collaborator in their plan of care, however d eclines to engage in treatment. Patient endorses suicidal ideation-per extensive history. Patient denies homicidal ideation. Patient denies auditory and visual hallucinations. It is recommended that patient receive substance abuse treatment. It is recommended that patient engage in medication management and mental health services. Patient has an extensive history chronic substance use disorder, and then using various health and social care teacher to have his basic needs met. When patient is presented with discharge, he endorses suicidal ideation. Dr. Cates was consulted on the care and management of this patient; attending physician is in agreement with recommendations and disposition.
== END 2019-05-19 17:47 | disposition home or self-care (01) ==
LOC: ER 03:58
DX: R45.851 Suicidal ideations (principal); F19.10 Other psychoactive substance abuse, uncomplicated; F17.200 Nicotine dependence, unspecified, uncomplicated; J45.909 Unspecified asthma, uncomplicated; Z59.0 Homelessness; Z88.1 Allergy status to other antibiotic agents; Z88.8 Allergy status to other drugs, medicaments and biological substances; Z88.0 Allergy status to penicillin
CPT/HCPCS: 36415; 80053; 80307; 81001; 85025; 93005; 93010

== ENCOUNTER 2019-06-03 03:41 | Emergency (ER) | payer OTHER ==
--- NOTE | 2019-06-03 04:56 | ER Document Report ---
ED Psych Disorder / Suicide - General Chief Complaint: Suicidal Ideation Stated Complaint: SUICIDAL IDEATIONS Time Seen by Provider: 06/03/19 04:49 Notes: Patient is a 33-year-old male history of depression presents to the emergency department for suicidal ideations. When I asked the patient why he is in the emergency department he yells at me "I want to kill myself!" He initially will not answer any other questions. He then states he has no plan. Patient then denies homicidal ideations. Patient will not make eye contact. In reviewing past charts patient has been to this facility in the past for psychiatric evaluation. TRAVEL OUTSIDE OF THE [place] IN LAST 30 DAYS: No - Related Data Allergies/Adverse Reactions: azithromycin [From Zithromax] Allergy (Verified 04/20/18 07:26) ciprofloxacin [From Cipro] Allergy (Verified 04/20/18 07:26) ibuprofen Allergy (Verified 04/20/18 07:26) iodine [Iodine] Allergy (Verified 04/20/18 07:26) ondansetron [From Zofran (as hydrochloride)] Allergy (Verified 04/20/18 07:26) Penicillins Allergy (Verified 04/20/18 07:26) Past Medical History - General Information source: Patient - Social History Smoking Status: Unknown if Ever Smoked Family History: Reviewed & Not Pertinent, CVA, DM, Hyperlipidemia, Hypertension Patient has suicidal ideation: No Patient has homicidal ideation: No Pulmonary Medical History: Reports: Hx Asthma Neurological Medical History: Reports: Hx Seizures Renal/ Medical History: Denies: Hx Peritoneal Dialysis Musculoskeletal Medical History: Reports Hx Musculoskeletal Trauma Psychiatric Medical History: Reports: Hx Anxiety, Hx Bipolar Disorder, Hx Depression - manic depression Traumatic Medical History: Reports: Hx Fractures - nose - Immunizations Hx Diphtheria, Pertussis, Tetanus Vaccination: Yes Review of Systems - Review of Systems Constitutional: denies: Fever EENT: No symptoms reported Cardiovascular: No symptoms reported Respiratory: No symptoms reported Gastrointestinal: No symptoms reported Genitourinary: No symptoms reported Male Genitourinary: No symptoms reported Musculoskeletal: No symptoms reported Skin: No symptoms reported Hematologic/Lymphatic: No symptoms reported Neurological/Psychological: See HPI Physical Exam - Vital signs Vitals: Temp Pulse Resp BP Pulse Ox 97.9 F 86 20 134/82 H 100 06/03/19 03:55 06/03/19 03:55 06/03/19 03:55 06/03/19 03:55 06/03/19 03:55 - Notes Notes: GENERAL: Alert, interacts well. No acute distress. HEAD: Normocephalic, atraumatic. EYES: Pupils equal, round, and reactive to light. Extraocular movements intact. ENT: Oral mucosa moist, tongue midline. NECK: Full range of motion. Supple. Trachea midline. LUNGS: Clear to auscultation bilaterally, no wheezes, rales, or rhonchi. No respiratory distress. HEART: Regular rate and rhythm. No murmur ABDOMEN: Soft, non-tender. Non-distended. Bowel sounds present in all 4 quadrants. EXTREMITIES: Moves all 4 extremities spontaneously. No edema, normal radial and dorsalis pedis pulses bilaterally. No cyanosis. BACK: no cervical, thoracic, lumbar midline tenderness. No saddle anesthesia, normal distal neurovascular exam. NEUROLOGICAL: Alert and oriented x3. Normal speech. PSYCH: flat affect, depressed mood. SKIN: Warm, dry, normal turgor. No rashes or lesions noted. Course - Re-evaluation Re-evalutation: 06/03/19 07:13 Laboratory 06/03/19 06/03/19 06/03/19 05:50 05:50 05:55 WBC 7.8 RBC 4.26 L Hgb 13.1 L Hct 39.1 MCV 92 MCH 30.7 MCHC 33.5 RDW 13.7 Plt Count 245 Lymph % (Auto) 28.8 Barry % (Auto) 7.0 Eos % (Auto) 1.5 Baso % (Auto) 0.9 Absolute Neuts (auto) 4.8 Absolute Lymphs (auto) 2.2 Absolute Monos (auto) 0.5 Absolute Eos (auto) 0.1 Absolute Basos (auto) 0.1 Seg Neutrophils % 61.8 Sodium 144.1 Potassium 4.0 Chloride 109 H Carbon Dioxide 25 Anion Gap 10 BUN 18 Creatinine 1.56 H Est GFR ( Amer) > 60 Est GFR (MDRD) Non-Af 52 L Glucose 113 H Calcium 9.0 Total Bilirubin 0.3 Direct Bilirubin 0.0 Neonat Total Bilirubin Not Reportable Neonat Direct Bilirubin Not Reportable Neonat Indirect Bili Not Reportable AST 33 ALT 23 Alkaline Phosphatase 89 Total Protein 6.7 Albumin 3.9 Urine Color YELLOW Urine Appearance CLEAR Urine pH 6.0 Ur Specific May 1.035 Urine Protein NEGATIVE Urine Glucose (UA) NEGATIVE Urine Ketones TRACE H Urine Blood NEGATIVE Urine Nitrite NEGATIVE Urine Bilirubin NEGATIVE Urine Urobilinogen 2.0 H Ur Leukocyte Esterase NEGATIVE Urine WBC (Auto) 1 Urine RBC (Auto) 1 Urine Mucus (Auto) RARE Urine Ascorbic Acid NEGATIVE Salicylates < 1.0 L Urine Opiates Screen Urine Methadone Screen Acetaminophen < 10 L Ur Barbiturates Screen Ur Phencyclidine Scrn Ur Amphetamines Screen U Benzodiazepines Scrn Urine Cocaine Screen U Marijuana (THC) Screen Serum Alcohol < 10 06/03/19 05:55 WBC RBC Hgb Hct MCV MCH MCHC RDW Plt Count Lymph % (Auto) Barry % (Auto) Eos % (Auto) Baso % (Auto) Absolute Neuts (auto) Absolute Lymphs (auto) Absolute Monos (auto) Absolute Eos (auto) Absolute Basos (auto) Seg Neutrophils % Sodium Potassium Chloride Carbon Dioxide Anion Gap BUN Creatinine Est GFR ( Amer) Est GFR (MDRD) Non-Af Glucose Calcium Total Bilirubin Direct Bilirubin Neonat Total Bilirubin Neonat Direct Bilirubin Neonat Indirect Bili AST ALT Alkaline Phosphatase Total Protein Albumin Urine Color Urine Appearance Urine pH Ur Specific May Urine Protein Urine Glucose (UA) Urine Ketones Urine Blood Urine Nitrite Urine Bilirubin Urine Urobilinogen Ur Leukocyte Esterase Urine WBC (Auto) Urine RBC (Auto) Urine Mucus (Auto) Urine Ascorbic Acid Salicylates Urine Opiates Screen NEGATIVE Urine Methadone Screen NEGATIVE Acetaminophen Ur Barbiturates Screen NEGATIVE Ur Phencyclidine Scrn NEGATIVE Ur Amphetamines Screen NEGATIVE U Benzodiazepines Scrn NEGATIVE Urine Cocaine Screen UNCONFIRMED POSITIVE U Marijuana (THC) Screen NEGATIVE Serum Alcohol IVC paperwork has been filled out by myself and signed by Dr. Hirsch. Patient is medically cleared for psychiatric evaluation. - Vital Signs Vital signs: Temp Pulse Resp BP Pulse Ox 97.9 F 86 20 134/82 H 100 06/03/19 03:55 06/03/19 03:55 06/03/19 03:55 06/03/19 03:55 06/03/19 03:55 - Laboratory Result Diagrams: 06/03/19 05:50 06/03/19 05:50 Laboratory results interpreted by me: 06/03/19 06/03/19 06/03/19 05:50 05:50 05:55 RBC 4.26 L Hgb 13.1 L Chloride 109 H Creatinine 1.56 H Est GFR (MDRD) Non-Af 52 L Glucose 113 H Urine Ketones TRACE H Urine Urobilinogen 2.0 H Salicylates < 1.0 L Acetaminophen < 10 L Discharge - Discharge Clinical Impression: Suicidal ideations Condition: Stable Disposition: PSYCH HOSP/UNIT
[2019-06-03 06:04] LABS: ABSOLUTE BASOPHILS # (AUTO) 0.1 10^3/uL (0.0-0.2); ABSOLUTE EOSINOPHILS # (AUTO) 0.1 10^3/uL (0.0-0.6); ABSOLUTE LYMPHOCYTES (AUTO) 2.2 10^3/uL (0.5-4.7); ABSOLUTE MONOCYTES (AUTO) 0.5 10^3/uL (0.1-1.4); ABSOLUTE NEUT (AUTO) 4.8 10^3/uL (1.7-8.2); BASOPHILS % (AUTO) 0.9 % (0-2); EOSINOPHILS % (AUTO) 1.5 % (0-6); HEMATOCRIT 39.1 % (37.9-51.0); HEMOGLOBIN 13.1 g/dL (13.5-17.0); LYMPHOCYTES % (AUTO) 28.8 % (13-45); MEAN CORPUSCULAR HEMOGLOBIN 30.7 pg (27.0-33.4); MEAN CORPUSCULAR HGB CONC 33.5 g/dL (32.0-36.0); MEAN CORPUSCULAR VOLUME 92 fl (80-97); PLATELET COUNT 245 10^3/uL (150-450); RED BLOOD COUNT 4.26 10^6/uL (4.35-5.55); RED CELL DISTRIBUTION WIDTH 13.7 % (11.5-14.0); SEGMENTED NEUTROPHILS % (AUTO) 61.8 % (42-78); TOTAL CELLS COUNTED % (AUTO) 100 %; WHITE BLOOD COUNT 7.8 10^3/uL (4.0-10.5)
[2019-06-03 06:13] LABS: APPEARANCE,URINE CLEAR; BILIRUBIN,URINE NEGATIVE (NEGATIVE); COLOR,URINE YELLOW; GLUCOSE, URINE NEGATIVE (NEGATIVE); KETONES,URINE TRACE mg/dL (NEGATIVE); LEUKOCYTE ESTERASE,URINE NEGATIVE (NEGATIVE); NITRITE,URINE NEGATIVE (NEGATIVE); PROTEIN,URINE NEGATIVE (NEGATIVE); URINE SPECIFIC GRAVITY 1.035
[2019-06-03 06:17] LABS: ALBUMIN 3.9 g/dL (3.5-5.0); ALKALINE PHOSPHATASE 89 U/L (38-126); ANION GAP 10 (5-19); ASPARTATE AMINO TRANSFERASE 33 U/L (17-59); BILIRUBIN,TOTAL 0.3 mg/dL (0.2-1.3); BLOOD UREA NITROGEN 18 mg/dL (7-20); CARBON DIOXIDE 25 mmol/L (22-30); CHLORIDE 109 mmol/L (98-107); GLUCOSE 113 mg/dL (75-110); TOTAL PROTEIN 6.7 g/dL (6.3-8.2)
[2019-06-03 06:18] LABS: ACETAMINOPHEN < 10 ug/mL (10-30); ALCOHOL < 10 mg/dL (NONE DETECTED); SALICYLATE < 1.0 mg/dL (2.0-20.0)
[2019-06-03 06:28] LABS: URINE AMPHETAMINES SCREEN NEGATIVE; URINE BARBITURATES SCREEN NEGATIVE; URINE BENZODIAZEPINES SCREEN NEGATIVE; URINE MARIJUANA (THC) SCREEN NEGATIVE; URINE METHADONE SCREEN NEGATIVE; URINE PHENCYCLIDINE SCREEN NEGATIVE
[2019-06-03 06:29] LABS: URINE COCAINE SCREEN UNCONFIRMED POSITIVE
--- NOTE | 2019-06-03 11:09 | PSYCHOLOGICAL NOTE ---
Psych Note - Psych Note Date seen by psych provider: 06/03/19 Time seen by psych provider: 08:35 Psych Note: Reason for Consult: Suicidal ideation Pt comes in with SI and has a plan of jumping in front of a car on [facility]. Pt states that he has previously treated at [facility], was here about two weeks ago. Patient states he walked to [facility] ED because he has been homeless "for a while, suicidal and on drugs." He reports that he did go to [facility] crisis center when the referral was made back on 04/27/2019 however left after 2 days because "I did not think I need to be there." He confirms he relapsed the day after leaving. He confirms he would like assistance in returning to [facility] as he realizes he is unable to main sobriety without treatment. Patient denies any thoughts of wanting to hurt others however states that he has "suicidal tendencies" and is attempted to harm himself 5 times in the past. He reports that the last time he attempted to harm himself was yesterday "I tried to jump in front of a car." He denies any memory of what he did in an attempt to harm himself or when he attempted when asked about the other times. Patient states that he has auditory hallucinations of " bodies" that are in color. When asked how often he states "I do not know when they want to." When asked for further clarification he reports "all the time." Patient states he has diagnosis of bipolar, borderline personality disorder, antisocial personality disorder, PTSD, and suicidal tendencies. Patient is alert and orientated to person, place, time and circumstance. Mood is irritable with congruent affect. Patient endorses passive suicidal ideation i.e. no plans means or intent that is chronic. Patient denies homicidal ideation. Delusions are absent behaviors congruent with an intact reality based presentation i.e. organized and linear thought process. Patient reports visual hallucinations of bodies that are in color however states that he sees them "all the time." Patient has significant polysubstance abuse until patient achieves sobriety it is difficult to ascertain level of internal stimuli that is not from polysubstance abuse. Eye contact is fair. Intellectual abilities appear to be within average range. Attention and concentration is fair. Insight, judgment, impulse control is fair. Chart review: 04/27/2019 Patient seen for passive suicidal ideation; Behavioral health team contacted [facility] and secured a bed for Detox (left their facility AMA) 05/17/2019 Patient seen for passive suicidal ideation; Behavioral health team contacted [facility] and secured a bed for Detox (Did not follow through) 05/19/2019 Patient seen for passive suicidal ideation;Patient very clearly expressed frustration surrounding homelessness and not having resources. Medical History: Asthma Seizures Musculoskeletal Trauma Diagnosis: Antisocial personality disorder Polysubstance abuse Chronic Homelessness No medication recommendations at this time Impression/Plan: patient is recommended for rescind of IVC and is cleared from acute psychiatric services. Patient presents with chronic passive suicidal ideation i.e. no plans means or intent. Patient has a long history of substance abuse and homelessness. Clinician notes the behavioral health team was able to secure a bed at the local crisis center for the patient on multiple previous [facility] ED visits; however, he left AMA once and did not follow through the last time. There is concern that the patient is attempting to use both [facility] and [facility] as resource for physical/social needs such as housing. Patient refuses to follow recommendations and continues to use the emergency department for longterm. Patient has been provided local resource list of area providers including mobile crisis contact information and the economic resource list during his previous visits; and again this time. Dr. Cates was consulted and the care management of this patient; attending physicians in agreement with recommendations and disposition.
--- NOTE | 2019-06-03 11:22 | ER Document Report ---
Doctor's Note Notes: 06/03/19 12:11 I have evaluated the patient and the patient is rather sleepy. He states that he is "lorrie" suicidal when I asked him if he was suicidal. I asked him if he had any plan and he stated, "no." PHYSICAL EXAMINATION: GENERAL: Appears well, healthy, well-nourished, no acute distress. LUNGS: Equal breath sounds bilaterally and clear to auscultation. No wheezes rales or rhonchi. CARDIOVASCULAR: S1-S2, regular rate, regular rhythm. Radial pulses 2+, normal. ABDOMEN: Normoactive bowel sounds. Soft, nontender, no guarding, no rebound tenderness, and no masses palpated. PSYCH: Withdrawn, sleepy. Normal mood. Spoke with Daniel, mental health social worker palliative care. The patient will be discharged, as he does not have any plan at this time. He was safe overnight. Labs and vital signs reviewed. Patient was positive for cocaine. Patient admitted to doing cocaine. Patient states that he is just sleepy. Patient's creatinine was slightly elevated, but the patient has been drinking plenty of fluids. Reviewed this case with Dr. Antunez. Patient is stable for discharge.
[2019-06-03 12:24] VITALS: BP 111/71
--- NOTE | 2019-06-04 11:44 | EKG REPORT ---
SEVERITY:- NORMAL ECG - SINUS RHYTHM ST ELEV, PROBABLE NORMAL EARLY REPOL PATTERN : Confirmed by: Jana Mancilla MD 04-Jun-2019 11:43:45
== END 2019-06-03 12:25 | disposition home or self-care (01) ==
LOC: ER 03:41
DX: R45.851 Suicidal ideations (principal); F14.10 Cocaine abuse, uncomplicated; J45.909 Unspecified asthma, uncomplicated; Z59.0 Homelessness; Z88.1 Allergy status to other antibiotic agents; Z88.8 Allergy status to other drugs, medicaments and biological substances; Z88.0 Allergy status to penicillin
CPT/HCPCS: 36415; 80053; 80307; 81001; 85025; 93005; 93010; 99285

== ENCOUNTER 2019-06-06 01:50 | Emergency (ER) | payer SELFPAY ==
--- NOTE | 2019-06-06 03:10 | ER Document Report ---
ED GI/ - General Chief Complaint: Testicular Problem Stated Complaint: SCROTAL ISSUE Time Seen by Provider: 06/06/19 02:52 Mode of Arrival: Ambulatory Information source: Patient Notes: This 34-year-old man presents to the emergency department with history of multiple lesions on his penis which he says are raw and irritated. He has never had this happen before. Last unprotected sexual encounter with approximately 1 month ago. He denies dysuria or penile discharge he denies any pain in the testicular region. TRAVEL OUTSIDE OF THE [place] IN LAST 30 DAYS: No - Related Data Allergies/Adverse Reactions: azithromycin [From Zithromax] Allergy (Verified 04/20/18 07:26) ciprofloxacin [From Cipro] Allergy (Verified 04/20/18 07:26) ibuprofen Allergy (Verified 04/20/18 07:26) iodine [Iodine] Allergy (Verified 04/20/18 07:26) ondansetron [From Zofran (as hydrochloride)] Allergy (Verified 04/20/18 07:26) Penicillins Allergy (Verified 04/20/18 07:26) Past Medical History - Social History Smoking Status: Current Every Day Smoker Frequency of alcohol use: None Drug Abuse: Cocaine Family History: Reviewed & Not Pertinent, CVA, DM, Hyperlipidemia, Hypertension Patient has suicidal ideation: No Patient has homicidal ideation: No Pulmonary Medical History: Reports: Hx Asthma Neurological Medical History: Reports: Hx Seizures Renal/ Medical History: Denies: Hx Peritoneal Dialysis Musculoskeletal Medical History: Reports Hx Musculoskeletal Trauma Psychiatric Medical History: Reports: Hx Anxiety, Hx Bipolar Disorder, Hx Depression - manic depression Traumatic Medical History: Reports: Hx Fractures - nose - Immunizations Hx Diphtheria, Pertussis, Tetanus Vaccination: Yes Review of Systems - Review of Systems Notes: Constitutional: Negative for fever. Cardiovascular: Negative for chest pain. Respiratory: Negative for shortness of breath. Gastrointestinal: Negative for vomiting : + Penile rash and irritation Musculoskeletal: Negative for back pain. Skin: Negative for rash. Neurological: Negative for weakness or numbness. 10 point ROS negative except as marked above and in HPI. Physical Exam - Vital signs Vitals: Temp Pulse Resp BP Pulse Ox 97.1 F 91 18 128/88 H 100 06/06/19 01:57 06/06/19 01:57 06/06/19 01:57 06/06/19 01:57 06/06/19 01:57 - Notes Notes: PHYSICAL EXAMINATION: GENERAL: Well-appearing, well-nourished male in no acute distress HEAD: Atraumatic, normocephalic. EYES: Pupils equal round and reactive to light, extraocular movements intact, sclera anicteric, conjunctiva are normal. ENT: nares patent, oropharynx clear without exudates. Moist mucous membranes. NECK: Normal range of motion, supple without lymphadenopathy LUNGS: Breath sounds clear to auscultation bilaterally and equal. No wheezes rales or rhonchi. HEART: Regular rate and rhythm without murmurs ABDOMEN: Soft, nontender, normoactive bowel sounds. No guarding, no rebound. No masses appreciated. : Circumcised male, multiple ulcerated lesions associated pain and irritation. EXTREMITIES: Normal range of motion, no pitting or edema. No cyanosis. NEUROLOGICAL: No focal neurological deficits. Moves all extremities spontaneously and on command. PSYCH: Normal mood, normal affect. SKIN: Warm, Dry, normal turgor, no rashes or lesions noted. Course - Re-evaluation Re-evalutation: 06/06/19 03:10 The patient likely has contracted herpes genitalis, we will give him a course of treatment with antiviral medications and encouraging follow-up with primary physician or the health department. The patient acknowledges understanding of this plan and is in agreement. 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
[2019-06-06 03:55] VITALS: BP 124/65
== END 2019-06-06 03:29 | disposition home or self-care (01) ==
LOC: ER 01:50
DX: A60.00 Herpesviral infection of urogenital system, unspecified (principal); F17.200 Nicotine dependence, unspecified, uncomplicated; Z88.0 Allergy status to penicillin; Z88.3 Allergy status to other anti-infective agents; Z88.6 Allergy status to analgesic agent
CPT/HCPCS: 99283

== ENCOUNTER 2019-06-07 04:52 | Emergency (ER) | payer SELFPAY ==
[2019-06-07 06:34] LABS: ABSOLUTE EOSINOPHILS # (AUTO) 0.1 10^3/uL (0.0-0.6); ABSOLUTE LYMPHOCYTES (AUTO) 1.6 10^3/uL (0.5-4.7); ABSOLUTE MONOCYTES (AUTO) 0.4 10^3/uL (0.1-1.4); ABSOLUTE NEUT (AUTO) 4.2 10^3/uL (1.7-8.2); BASOPHILS % (AUTO) 0.7 % (0-2); EOSINOPHILS % (AUTO) 2.3 % (0-6); HEMATOCRIT 39.5 % (37.9-51.0); HEMOGLOBIN 13.3 g/dL (13.5-17.0); LYMPHOCYTES % (AUTO) 24.5 % (13-45); MEAN CORPUSCULAR HEMOGLOBIN 30.8 pg (27.0-33.4); MEAN CORPUSCULAR HGB CONC 33.8 g/dL (32.0-36.0); MEAN CORPUSCULAR VOLUME 91 fl (80-97); MONOCYTES % (AUTO) 6.8 % (3-13); PLATELET COUNT 264 10^3/uL (150-450); RED BLOOD COUNT 4.34 10^6/uL (4.35-5.55); RED CELL DISTRIBUTION WIDTH 13.8 % (11.5-14.0); SEGMENTED NEUTROPHILS % (AUTO) 65.7 % (42-78); TOTAL CELLS COUNTED % (AUTO) 100 %; WHITE BLOOD COUNT 6.4 10^3/uL (4.0-10.5)
[2019-06-07 07:02] LABS: ACETAMINOPHEN < 10 ug/mL (10-30); ALBUMIN 4.3 g/dL (3.5-5.0); ALCOHOL < 10 mg/dL (NONE DETECTED); ALKALINE PHOSPHATASE 108 U/L (38-126); ANION GAP 10 (5-19); ASPARTATE AMINO TRANSFERASE 41 U/L (17-59); BILIRUBIN,DIRECT 0.1 mg/dL (0.0-0.4); BILIRUBIN,TOTAL 0.4 mg/dL (0.2-1.3); BLOOD UREA NITROGEN 10 mg/dL (7-20); CALCIUM 9.6 mg/dL (8.4-10.2); CARBON DIOXIDE 28 mmol/L (22-30); CHLORIDE 104 mmol/L (98-107); GLUCOSE 99 mg/dL (75-110); POTASSIUM 3.7 mmol/L (3.6-5.0); SALICYLATE < 1.0 mg/dL (2.0-20.0); TOTAL PROTEIN 7.2 g/dL (6.3-8.2)
--- NOTE | 2019-06-07 07:04 | ER Document Report ---
ED Psych Disorder / Suicide <EBONI PRASAD - Last Filed: 06/07/19 11:43> - General Information source: Patient TRAVEL OUTSIDE OF THE [place] IN LAST 30 DAYS: No - HPI Patient complains to provider of: Suicidal ideation, Suicidal plan. No: Aggress ion, Agitated, Bizarre behavior, Hallucinating, Homicidal ideation, Homicidal plan, Homicidal attempt, Overdose, Suicidal attempt, Self injury, Other Onset: This morning Onset was: Gradual Quality of pain: denies: No pain, Achy, Burning, Cramping, Dull, Fullness, Pressure, Sharp, Stabbing, Throbbing, Other Severity: None Pain Level: Denies Suicide Risk Factors: Depressed, Schizophrenia, Other mental health dx. Situational problems related to: denies: Daughter, Legal problems, Lost job, Parent, Recent , Recent divorce, School, Sexual orientation, Significant other, Son, Spouse, Work, Other Suicide Attempt Method: denies: Drowning, Hanging, Motor Vehicle, Overdose, Shooting, Stabbing/Cutting, Train, Other Injury to: No: Generalized, Abdomen, Ankle, Back, Breast, Buttocks, Chest, Elbow, Epigastric, Flank, Face, Finger, Foot, Hand, Head, Hip, Knee, Leg, Lower extremity, Mouth, Neck, Pelvic, Penis, Perineum, Rectum, Shoulder, Testicle, Thigh, Throat, Trunk, Upper extremity, Vagina, Wrist Associated symptoms: No: Normal affect, Normal mood, Aggressive, Agitated, Angry, Anxious, Auditory hallucinations, Circumferential speech, Combative, Confused, Decreased appetite, Excessive sleeping, Flat affect, Flight of ideas, Increased appetite, Irritable, Labile, Manic, Paranoid, Psychomotor agitation, Psychomotor depression, Synagogue preoccupation, Restlessness, Tactile hallucinations, Tangential speech, Tearful, Unable to sleep, Uncooperative, Visual hallucinations, Other Similar symptoms previously: Yes Recently seen / treated by doctor: Yes <DAVID MANN - Last Filed: 06/07/19 11:56> - General Chief Complaint: Suicidal Ideation Stated Complaint: PSYCH Primary Care Provider: [facility] [Outside] - Follow up as needed - Related Data Allergies/Adverse Reactions: azithromycin [From Zithromax] Allergy (Verified 04/20/18 07:26) ciprofloxacin [From Cipro] Allergy (Verified 04/20/18 07:26) ibuprofen Allergy (Verified 04/20/18 07:26) iodine [Iodine] Allergy (Verified 04/20/18 07:26) ondansetron [From Zofran (as hydrochloride)] Allergy (Verified 04/20/18 07:26) Penicillins Allergy (Verified 04/20/18 07:26) Past Medical History - Social History Smoking Status: Current Every Day Smoker Chew tobacco use (# tins/day): No Frequency of alcohol use: Rare Drug Abuse: Cocaine, Marijuana, Methamphetamine, Prescription drugs Family History: Reviewed & Not Pertinent, CVA, DM, Hyperlipidemia, Hypertension Patient has suicidal ideation: Yes Patient has homicidal ideation: No Pulmonary Medical History: Reports: Hx Asthma Neurological Medical History: Reports: Hx Seizures Renal/ Medical History: Denies: Hx Peritoneal Dialysis Musculoskeletal Medical History: Reports Hx Musculoskeletal Trauma Psychiatric Medical History: Reports: Hx Anxiety, Hx Bipolar Disorder, Hx Depression - manic depression Traumatic Medical History: Reports: Hx Fractures - nose - Immunizations Hx Diphtheria, Pertussis, Tetanus Vaccination: Yes <DAVID MANN - Last Filed: 06/07/19 11:56> Review of Systems - Review of Systems Constitutional: denies: No symptoms reported, See HPI, Chills, Diaphoresis, Fever, Malaise, Weakness, Other, Weight gain, Weight loss, Recent illness EENT: denies: No symptoms reported, See HPI, Eye pain, Eye discharge, Blurred vision, Tearing, Double vision, Ear pain, Ear discharge, Nose pain, Nose congestion, Nose discharge, Sinus pressure, Sinus discharge, Throat pain, Difficulty swallowing, Throat swelling, Mouth pain, Mouth swelling, Dental problem, Vertigo, Other Cardiovascular: denies: No symptoms reported, See HPI, Chest pain, Palpitations, Heart racing, Orthopnea, Dyspnea, Syncope, Dizziness, Lightheaded, Edema, Other, Paroxysmal Nocturnal Dysp Respiratory: denies: No symptoms reported, See HPI, Cough, Hurts to breathe, Hemoptysis, Short of breath, Sputum, Stridor, Wheezing, Other Gastrointestinal: denies: No symptoms reported, See HPI, Abdomen distended, Abdominal pain, Diarrhea, Nausea, Vomiting, Constipation, Blood streaked bowels, Poor appetite, Poor fluid intake, Blood in vomit, Black stools, Rectal bleeding, Last bowel movement, Fecal incontinence, Other Genitourinary: denies: No symptoms reported, See HPI, Burning, Dysuria, Disc harge, Frequency, Flank pain, Hematuria, Incontinence, Pain, Urgency, Retention, Other Musculoskeletal: denies: No symptoms reported, See HPI, Back pain, Gout, Joint pain, Joint swelling, Muscle pain, Muscle stiffness, Neck pain, Deformity, Leg swelling, Ankle swelling, Other Neurological/Psychological: Depression, Suicidal ideation. denies: No symptoms reported, See HPI, Confusion, Dementia, Hallucinations, Anxiety, Homicidal ideation, Sensory change, Weakness, Gait changes, Loss of power, Paralysis, Seizure, Lost consciousness, Headaches, Speech impairment, Numbness, Tingling, Tremor, Other -: Yes All other systems reviewed and negative <DAVID MANN - Last Filed: 06/07/19 11:56> Physical Exam <DAVID MANN - Last Filed: 06/07/19 11:56> - Vital signs Vitals: Temp Pulse Resp BP Pulse Ox 97.9 F 81 19 132/85 H 100 06/07/19 05:04 06/07/19 05:04 06/07/19 05:04 06/07/19 05:04 06/07/19 05:04 Notes: PHYSICAL EXAMINATION: GENERAL: Well-appearing, well-nourished and in no acute distress. HEAD: Atraumatic, normocephalic. EYES: Pupils equal round and reactive to light, extraocular movements intact, sclera anicteric, conjunctiva are normal. ENT: nares patent, oropharynx clear without exudates. Moist mucous membranes. NECK: Normal range of motion, supple without lymphadenopathy LUNGS: Breath sounds clear to auscultation bilaterally and equal. No wheezes rales or rhonchi. HEART: Regular rate and rhythm without murmurs ABDOMEN: Soft, nontender, normoactive bowel sounds. No guarding, no rebound. No masses appreciated. EXTREMITIES: Normal range of motion, no pitting or edema. No cyanosis. NEUROLOGICAL: No focal neurological deficits. Moves all extremities spontaneously and on command. PSYCH: Flat affect. Patient admits suicidal ideation with plan to run in front of a car. Denies homicidal ideations auditory visual hallucination. Does admit to methamphetamine heroin and cocaine abuse. SKIN: Warm, Dry, normal turgor, no rashes or lesions noted. (DAVID MANN) Course - Laboratory Result Diagrams: 06/07/19 06:14 06/07/19 06:14 <EBONI PRASAD - Last Filed: 06/07/19 11:43> - Laboratory Result Diagrams: 06/07/19 06:14 06/07/19 06:14 - EKG Interpretation by Me EKG shows normal: Sinus rhythm Rate: Normal When compared to previous EKG there are: Previous EKG unavailable <DAVID MANN - Last Filed: 06/07/19 11:56> - Vital Signs Vital signs: Temp Pulse Resp BP Pulse Ox 98.2 F 77 17 130/80 H 99 06/07/19 10:15 06/07/19 10:15 06/07/19 10:15 06/07/19 10:15 06/07/19 10:15 - Laboratory Laboratory results interpreted by me: 06/07/19 06/07/19 06:14 06:14 RBC 4.34 L Hgb 13.3 L Salicylates < 1.0 L Acetaminophen < 10 L - EKG Interpretation by Me Additional EKG results interpreted by me: 06/07/19 07:08 Evidence of repolarization early (DAVID MANN) Discharge <EBONI PRASAD - Last Filed: 06/07/19 11:43> <DAVID MANN - Last Filed: 06/07/19 11:56> - Discharge Clinical Impression: Substance abuse, Dysthymia Condition: Stable Disposition: HOME, SELF-CARE Additional Instructions: You have been evaluated by both medical and behavioral health teams and have been deemed appropriate for discharge. You have elected to voluntarily seek substance abuse treatment at [facility]. You are encouraged to follow through with this opportunity. You are highly encouraged to cease all illicit substance use. You have been provided with a list of social service referrals. You have been provid ed with the contact information for mobile crisis, as needed. COCAINE ABUSE: (Crack Cocaine) Cocaine causes many dangerous medical problems. Problems can occur even with "usual" amounts. Cocaine affects judgement, creating a sense of invulnerability. Cocaine users often make bad decisions that seem "great" at the time. Most cocaine users eventually will be hurt by bad job performance, damaged personal relations, crime, and unsafe sexual practices. Toxic effects of cocaine can include seizures, hallucinations, delusions, high blood pressure, heart damage, or sudden . There's always the risk of a "bad batch." But heart attacks, brain hemorrhages, or cardiac arrest can occur unpredictably even with "normal" use. Injection of cocaine is risky for abscesses, endocarditis (heart infection), pneumonia, and AIDS. Withdrawal from cocaine often causes anxiety and drug cravings. Some users become paranoid and psychotic. Many treatment programs are available, but you must make the decision to quit. Medication can be prescribed to control the symptoms of cocaine toxicity (beta blockers or benzodiazepines). Withdrawal symptoms may require tranquilizers. NARCOTIC / OPIOD ABUSE: (Heroin) Narcotics and opiods are pain-relieving drugs that are often abused. They are addicting. Narcotics cause euphoria, but it often takes increasing amounts to "feel good" and avoid withdrawal symptoms. Overdose of narcotics causes small pupils, coma, and decreased breathing. It's a common cause of . Purity of street narcotics is unpredictable. Injection of narcotics is risky for abscesses, endocarditis (heart infection), pneumonia, and AIDS. Withdrawal from narcotics causes goose bumps, watery mouth, sweating, nasal congestion, muscle aches, abdominal cramps, vomiting, and diarrhea. There's o ften restlessness and confusion. Treatment programs are available, but you must make the decision to quit. Medication (such as clonidine) can be prescribed to control the symptoms of withdrawal. AT ANY TIME, IF YOUR SYMPTOMS CHANGE SIGNIFICANTLY OR WORSEN OR YOU DEVELOP NEW SYMPTOMS, RETURN TO THE EMERGENCY DEPARTMENT IMMEDIATELY FOR RE-EVALUATION. Referrals: [facility] [Outside] - Follow up as needed
--- NOTE | 2019-06-07 07:38 | EKG REPORT ---
SEVERITY:- ABNORMAL ECG - SINUS RHYTHM PROBABLE LEFT VENTRICULAR HYPERTROPHY ST ELEVATION SUGGESTS NORMAL VARIANT : Confirmed by: Henri Rojas MD 07-Jun-2019 07:37:28
--- NOTE | 2019-06-07 07:57 | PSYCHOLOGICAL NOTE ---
Psych Note - Psych Note Date seen by psych provider: 06/07/19 Time seen by psych provider: 06:55 Psych Note: Reason for consult: Substance Use Disorder Completed chart review. Patient presented to ED via POV due to suicidal ideation following substance use. Patient has a history of chronic substance abuse and subsequent suicidal ideation. Patient is homeless and has a history of using ED resources for food and long-term. Patient has been in the ED, most recently, on 06/03/19, 06/06/19, and 06/07/2019. Patient reports the use of heroin and crack cocaine. Patient denied suicidal and homicidal ideations. Patient denies auditory and visual hallucinations. Patient's urine drug screen is positive for THC and cocaine. Clinician reached out to [facility] for availability. Clinician spoke with Tiffany who stated the facility will take patient at 10:30. Patient was informed and was in agreement with plan. Upon discharge, patient stated there was approximately $6.00 missing from his wallet. Patient stated he was going to suzie the hospital. Patient expressed a belief that "security were liars." Patient was confronted with his overuse of ED services. Patient attempted to reframe the situation (i.e. lack of concern of his SI). Patient stated he would not be treated this way in [place]. Clinicians probed regarding gainful employment and saving up money for an Uber to [place], if services will be "better" there. 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 DSM Diagnosis: Per report, Bipolar Disorder Substance Use Disorder; Severe; Ongoing Medication recommendations per [facility] contracted psychiatrist Dr. Nithya SULLIVAN is as follows: NONE Impression/Plan: Patient is cleared from acute psychiatric services. Patient does not meet IVC criteria per [place] GS 122C. Patient denied suicidal and homicidal ideations. Patient denies auditory and visual hallucinations. Patient endorses suicidal ideation-per extensive history. The endorsement of suicidal ideation typically follows illicit substance use. Patient denies homicidal ideation. Patient denies auditory and visual hallucinations. It is recommended that patient receive substance abuse treatment. Patient has been linked with substance abuse treatment on several occasions, however patient does not follow through with treatment or leaves treatment early. Patient is homeless, and atte mpts to use various social sciences professor to have his basic needs met. Patient's family provides little support due to his chronic substance abuse. Plan is for patient to voluntarily present to [facility] for substance abuse treatment. Dr. Cates was consulted on the care and management of this patient; attending physician is in agreement with recommendations and disposition.
[2019-06-07 08:36] LABS: APPEARANCE,URINE CLEAR; BILIRUBIN,URINE NEGATIVE (NEGATIVE); COLOR,URINE YELLOW; GLUCOSE, URINE NEGATIVE (NEGATIVE); KETONES,URINE NEGATIVE (NEGATIVE); LEUKOCYTE ESTERASE,URINE NEGATIVE (NEGATIVE); NITRITE,URINE NEGATIVE (NEGATIVE); PROTEIN,URINE NEGATIVE (NEGATIVE); URINE SPECIFIC GRAVITY 1.014; UROBILINOGEN,URINE NEGATIVE mg/dL (<2.0)
[2019-06-07 08:50] LABS: URINE AMPHETAMINES SCREEN NEGATIVE; URINE BARBITURATES SCREEN NEGATIVE; URINE BENZODIAZEPINES SCREEN NEGATIVE; URINE METHADONE SCREEN NEGATIVE; URINE PHENCYCLIDINE SCREEN NEGATIVE
[2019-06-07 08:52] LABS: URINE COCAINE SCREEN UNCONFIRMED POSITIVE; URINE MARIJUANA (THC) SCREEN UNCONFIRMED POSITIVE
[2019-06-07 12:17] VITALS: BP 115/72
== END 2019-06-07 12:28 | disposition home or self-care (01) ==
LOC: ER 04:52
DX: F34.1 Dysthymic disorder (principal); F32.9 Major depressive disorder, single episode, unspecified; R45.851 Suicidal ideations; F14.10 Cocaine abuse, uncomplicated; F12.10 Cannabis abuse, uncomplicated; F11.10 Opioid abuse, uncomplicated; F15.10 Other stimulant abuse, uncomplicated; J45.909 Unspecified asthma, uncomplicated; F17.200 Nicotine dependence, unspecified, uncomplicated; Z88.1 Allergy status to other antibiotic agents; Z88.8 Allergy status to other drugs, medicaments and biological substances; Z88.0 Allergy status to penicillin
CPT/HCPCS: 36415; 80053; 80307; 81001; 85025; 93005; 93010; 99285

== ENCOUNTER 2019-06-13 05:33 | Emergency (ER) | payer OTHER ==
[2019-06-13 06:09] VITALS: BP 141/84
[2019-06-13 06:25] LABS: ABSOLUTE BASOPHILS # (AUTO) 0.1 10^3/uL (0.0-0.2); ABSOLUTE EOSINOPHILS # (AUTO) 0.2 10^3/uL (0.0-0.6); ABSOLUTE LYMPHOCYTES (AUTO) 1.6 10^3/uL (0.5-4.7); ABSOLUTE MONOCYTES (AUTO) 0.6 10^3/uL (0.1-1.4); BASOPHILS % (AUTO) 0.8 % (0-2); EOSINOPHILS % (AUTO) 1.9 % (0-6); HEMATOCRIT 38.6 % (37.9-51.0); HEMOGLOBIN 13.1 g/dL (13.5-17.0); LYMPHOCYTES % (AUTO) 14.9 % (13-45); MEAN CORPUSCULAR HEMOGLOBIN 31.2 pg (27.0-33.4); MEAN CORPUSCULAR VOLUME 92 fl (80-97); MONOCYTES % (AUTO) 6.1 % (3-13); PLATELET COUNT 263 10^3/uL (150-450); RED BLOOD COUNT 4.21 10^6/uL (4.35-5.55); RED CELL DISTRIBUTION WIDTH 14.5 % (11.5-14.0); SEGMENTED NEUTROPHILS % (AUTO) 76.3 % (42-78); TOTAL CELLS COUNTED % (AUTO) 100 %; WHITE BLOOD COUNT 10.5 10^3/uL (4.0-10.5)
--- NOTE | 2019-06-13 06:27 | ER Document Report ---
ED Psych Disorder / Suicide <PANDEYWENDY - Last Filed: 06/13/19 08:20> - General Information source: Patient, Emergency Med Personnel, [facility] Records TRAVEL OUTSIDE OF THE U.S. IN LAST 30 DAYS: No <WARD WHYTE - Last Filed: 06/13/19 08:25> - General Chief Complaint: Suicidal Ideation Stated Complaint: SUICIDAL IDEATION Time Seen by Provider: 06/13/19 06:10 Primary Care Provider: [facility] [Outside] - Follow up as needed Notes: This 33-year-old male patient brought to emergency room by EMS for reported suicidal ideation. This patient was a frequent visitor here prior to going to shelter in April 2018. He was in the local [facility] shelter for conviction for "selling drugs, felony and hit and run, DWI and injury to personal property". He was released in March 2019 and has been here 1-2 times per week since he got out of shelter. He is homeless, bipolar, and abuses cocaine and marijuana. He always reports abusing multiple other drugs but his drug screens are always negative for those other drugs. He is here because he is homeless. Today he reports he came in because he tried to go out in front of a car. He did call EMS prior to this reported attempt to step in front of the car. He states the reason it did not happen with the police stopped him. He is usually here with vague suicidal ideations without a plan. The patient was here 6 days ago and 10 days ago reporting suicidal ideation. He was walked from the emergency room to [facility] on his visit here 6 days ago. (WARD WHYTE) - Related Data Allergies/Adverse Reactions: azithromycin [From Zithromax] Allergy (Verified 06/13/19 05:53) ciprofloxacin [From Cipro] Allergy (Verified 06/13/19 05:53) ibuprofen Allergy (Verified 06/13/19 05:53) iodine [Iodine] Allergy (Verified 06/13/19 05:53) ondansetron [From Zofran (as hydrochloride)] Allergy (Verified 06/13/19 05:53) Penicillins Allergy (Verified 06/13/19 05:53) Past Medical History - Social History Smoking Status: Current Every Day Smoker Cigarette use (# per day): Yes Chew tobacco use (# tins/day): No Smoking Education Provided: No Frequency of alcohol use: None Drug Abuse: Cocaine, Marijuana Occupation: Unemployed Lives with: Homeless Family History: Reviewed & Not Pertinent, CVA, DM, Hyperlipidemia, Hypertension Patient has suicidal ideation: Yes Patient has homicidal ideation: Yes Pulmonary Medical History: Reports: Hx Asthma Neurological Medical History: Reports: Hx Seizures Musculoskeletal Medical History: Reports Hx Musculoskeletal Trauma Psychiatric Medical History: Reports: Hx Anxiety, Hx Bipolar Disorder, Hx Depression Traumatic Medical History: Reports: Hx Fractures - nose - Immunizations Hx Diphtheria, Pertussis, Tetanus Vaccination: Yes <WARD WHYTE - Last Filed: 06/13/19 08:25> Review of Systems - Review of Systems Constitutional: No symptoms reported EENT: No symptoms reported Cardiovascular: No symptoms reported Respiratory: No symptoms reported Gastrointestinal: No symptoms reported Genitourinary: No symptoms reported Musculoskeletal: No symptoms reported Skin: No symptoms reported Hematologic/Lymphatic: No symptoms reported Neurological/Psychological: Suicidal ideation <WARD WHYTE - Last Filed: 06/13/19 08:25> Physical Exam - Vital signs Interpretation: Normal - General General appearance: Appears well, Alert In distress: None - Patient is lying in bed eating crackers and having a soda, watching cartoons. - HEENT Head: Normocephalic, Atraumatic Eyes: Normal Pupils: PERRL - Respiratory Respiratory status: No respiratory distress Breath sounds: Normal - Cardiovascular Rhythm: Regular Heart sounds: Normal auscultation Murmur: No - Abdominal Inspection: Normal - Back Back: Normal - Depressed - Extremities General upper extremity: Normal inspection General lower extremity: Normal inspection - Neurological Neuro grossly intact: Yes - Psychological Associated symptoms: Normal affect, Normal mood - Skin Skin Temperature: Warm Skin Moisture: Dry Skin Color: Normal <WARD WHYTE - Last Filed: 06/13/19 08:25> - Vital signs Vitals: Temp Pulse Resp BP 97.8 F 85 18 141/84 H 06/13/19 05:53 06/13/19 05:53 06/13/19 05:53 06/13/19 05:53 Course - Laboratory Result Diagrams: 06/13/19 06:09 06/13/19 06:09 <WENDY PANDEY - Last Filed: 06/13/19 08:20> - Laboratory Result Diagrams: 06/13/19 06:09 06/13/19 06:09 <WARD WHYTE - Last Filed: 06/13/19 08:25> - Vital Signs Vital signs: Temp Pulse Resp BP Pulse Ox 97.8 F 85 18 141/84 H 06/13/19 05:53 06/13/19 05:53 06/13/19 05:53 06/13/19 05:53 - Laboratory Laboratory results interpreted by me: 06/13/19 06/13/19 06:09 06:09 RBC 4.21 L Hgb 13.1 L RDW 14.5 H Salicylates < 1.0 L Acetaminophen < 10 L Discharge <WENDY PANDEY - Last Filed: 06/13/19 08:20> <WARD WHYTE - Last Filed: 06/13/19 08:25> - Discharge Clinical Impression: Suicidal ideations, Substance abuse, Homeless single person Condition: Stable Disposition: HOME, SELF-CARE Additional Instructions: You have been evaluated both medical and behavioral health teams and been deemed appropriate for discharge. You have been provided a local resource list of area providers including mobile crisis contact information. You are reminded the emergency department is for acute care both medical and for mental health. Detention information has been provided to you. COCAINE ABUSE: Cocaine causes many dangerous medical problems. Problems can occur even with "usual" amounts. Cocaine affects judgement, creating a sense of invulnerability. Cocaine users often make bad decisions that seem "great" at the time. Most cocaine users eventually will be hurt by bad job performance, damaged personal relations, crime, and unsafe sexual practices. Toxic effects of cocaine can include seizures, hallucinations, delusions, high blood pressure, heart damage, or sudden . There's always the risk of a "bad batch." But heart attacks, brain hemorrhages, or cardiac arrest can occur unpredictably even with "normal" use. Injection of cocaine is risky for abscesses, endocarditis (heart infection), pneumonia, and AIDS. Withdrawal from cocaine often causes anxiety and drug cravings. Some users become paranoid and psychotic. Many treatment programs are available, but you must make the decision to quit. Medication can be prescribed to control the symptoms of cocaine toxicity (beta blockers or benzodiazepines). Withdrawal symptoms may require tranquilizers. DEPRESSION: Your evaluation reveals that you have mental depression. While symptoms may be vague, they often include disturbance of sleep, fatigue, loss of appetite, and general loss of interest in life. While depression may be a side effect of drugs, or a reaction to a major change in your life, many cases have no known cause. If depression is acute, and related to a major loss in your life, you can expect it to clear completely with time. If you have been depressed a long time, are prone to repeated bouts of depression or low mood, or have been thin vivinene of suicide, get help. Depression can be treated with anti-depressant medication and counselling. Long-term depression will often take a few weeks to clear, even with appropriate medication. Follow-up care is important. SUICIDAL IDEATION: Suicidal ideation is a common medical term for thoughts about suicide, which may be as detailed as a formulated plan, without the suicidal act itself. Although most people who undergo suicidal ideation do not commit suicide, some go on to make suicide attempts. The range of suicidal ideation varies greatly from fleeting to detailed planning, role playing, and unsuccessful attempts. While thoughts about suicide are common, most people do not carry out serious actions to commit suicide. Based upon your evaluation and discussion with you, we do not believe you are currently at risk to act upon your thoughts of suicide. You have agreed to return to the Emergency Department, at any time, if you feel inclined to act upon your suicidal thoughts. FOLLOW-UP CARE: If you have been referred to a physician for follow-up care, call the physicians office for an appointment as you were instructed or within the next two days. If you experience worsening or a significant change in your symptoms, notify the physician immediately or return to the Emergency Department at any time for re-evaluation. Referrals: [facility] [Outside] - Follow up as needed Scribe Attestation: 06/13/19 08:25 I personally performed the services described in the documentation, reviewed and edited the documentation which was dictated to the scribe in my presence, and it accurately records my words and actions. (WARD WHYTE)
--- NOTE | 2019-06-13 06:45 | EKG REPORT ---
SEVERITY:- BORDERLINE ECG - SINUS RHYTHM ST ELEVATION SUGGESTS NORMAL VARIANT : Confirmed by: Henri Rojas MD 13-Jun-2019 06:44:39
[2019-06-13 06:50] LABS: ACETAMINOPHEN < 10 ug/mL (10-30); ALBUMIN 4.2 g/dL (3.5-5.0); ALCOHOL < 10 mg/dL (NONE DETECTED); ALKALINE PHOSPHATASE 109 U/L (38-126); ANION GAP 8 (5-19); ASPARTATE AMINO TRANSFERASE 48 U/L (17-59); BILIRUBIN,DIRECT 0.2 mg/dL (0.0-0.4); BILIRUBIN,TOTAL 0.4 mg/dL (0.2-1.3); BLOOD UREA NITROGEN 14 mg/dL (7-20); CALCIUM 9.7 mg/dL (8.4-10.2); CARBON DIOXIDE 30 mmol/L (22-30); CHLORIDE 103 mmol/L (98-107); GLUCOSE 98 mg/dL (75-110); POTASSIUM 4.3 mmol/L (3.6-5.0); SALICYLATE < 1.0 mg/dL (2.0-20.0); TOTAL PROTEIN 7.3 g/dL (6.3-8.2)
== END 2019-06-13 09:22 | disposition home or self-care (01) ==
LOC: ER 05:33
DX: R45.851 Suicidal ideations (principal); Z59.0 Homelessness; F14.10 Cocaine abuse, uncomplicated; F12.10 Cannabis abuse, uncomplicated; F17.210 Nicotine dependence, cigarettes, uncomplicated; J45.909 Unspecified asthma, uncomplicated; Z88.1 Allergy status to other antibiotic agents; Z88.8 Allergy status to other drugs, medicaments and biological substances; Z88.0 Allergy status to penicillin
CPT/HCPCS: 36415; 80053; 80307; 85025; 93005; 93010; 99285

== ENCOUNTER 2019-06-19 19:22 | Emergency (ER) | payer OTHER ==
[2019-06-19 19:35] VITALS: BP 121/73
--- NOTE | 2019-06-19 20:08 | ER Document Report ---
ED Medical Screen (RME) - General Chief Complaint: Psych Problem Stated Complaint: ABCESS AND GROIN PAIN Time Seen by Provider: 06/19/19 20:00 Mode of Arrival: Ambulatory Information source: Patient Notes: Patient presents complaining of multiple abscesses to bilateral lower extremities. Patient also states he has a male private issue that he did not feel comfortable speaking to a female about and prefers to see a male provider. Patient additionally is requesting placement at a mental health facility as he initially states he has had suicidal thoughts and has a history of depression. Patient then states that he does not have current suicidal thoughts but has had them in the past but does have bipolar PTSD and would like to get treatment for this. I have greeted and performed a rapid initial assessment of this patient. A comprehensive ED assessment and evaluation of the patient, analysis of test results and completion of the medical decision making process will be conducted by additional ED providers. TRAVEL OUTSIDE OF THE [place] IN LAST 30 DAYS: No - Related Data Allergies/Adverse Reactions: azithromycin [From Zithromax] Allergy (Verified 06/13/19 05:53) ciprofloxacin [From Cipro] Allergy (Verified 06/13/19 05:53) ibuprofen Allergy (Verified 06/13/19 05:53) iodine [Iodine] Allergy (Verified 06/13/19 05:53) ondansetron [From Zofran (as hydrochloride)] Allergy (Verified 06/13/19 05:53) Penicillins Allergy (Verified 06/13/19 05:53) Past Medical History Pulmonary Medical History: Reports: Hx Asthma Neurological Medical History: Reports: Hx Seizures Renal/ Medical History: Denies: Hx Peritoneal Dialysis Musculoskeltal Medical History: Reports Hx Musculoskeletal Trauma Psychiatric Medical History: Reports: Hx Anxiety, Hx Bipolar Disorder, Hx D epression Traumatic Medical History: Reports: Hx Fractures - nose - Immunizations Hx Diphtheria, Pertussis, Tetanus Vaccination: Yes Physical Exam - Vital signs Vitals: Temp Pulse Resp BP Pulse Ox 98.2 F 80 15 121/73 100 06/19/19 19:34 06/19/19 19:34 06/19/19 19:34 06/19/19 19:34 06/19/19 19:34 - General General appearance: Appears well, Alert Notes: Patient with tender indurated lesion to right lower extremity Course - Vital Signs Vital signs: Temp Pulse Resp BP Pulse Ox 98.2 F 80 15 121/73 100 06/19/19 19:34 06/19/19 19:34 06/19/19 19:34 06/19/19 19:34 06/19/19 19:34
[2019-06-19 20:45] LABS: ABSOLUTE EOSINOPHILS # (AUTO) 0.2 10^3/uL (0.0-0.6); ABSOLUTE MONOCYTES (AUTO) 0.6 10^3/uL (0.1-1.4); ABSOLUTE NEUT (AUTO) 3.9 10^3/uL (1.7-8.2); BASOPHILS % (AUTO) 0.5 % (0-2); EOSINOPHILS % (AUTO) 2.4 % (0-6); HEMATOCRIT 37.2 % (37.9-51.0); HEMOGLOBIN 12.6 g/dL (13.5-17.0); LYMPHOCYTES % (AUTO) 30.1 % (13-45); MEAN CORPUSCULAR HEMOGLOBIN 30.6 pg (27.0-33.4); MEAN CORPUSCULAR HGB CONC 33.8 g/dL (32.0-36.0); MEAN CORPUSCULAR VOLUME 91 fl (80-97); MONOCYTES % (AUTO) 8.6 % (3-13); PLATELET COUNT 306 10^3/uL (150-450); RED BLOOD COUNT 4.11 10^6/uL (4.35-5.55); SEGMENTED NEUTROPHILS % (AUTO) 58.4 % (42-78); TOTAL CELLS COUNTED % (AUTO) 100 %; WHITE BLOOD COUNT 6.6 10^3/uL (4.0-10.5)
[2019-06-19 20:49] LABS: APPEARANCE,URINE CLEAR; BILIRUBIN,URINE NEGATIVE (NEGATIVE); COLOR,URINE YELLOW; GLUCOSE, URINE NEGATIVE (NEGATIVE); KETONES,URINE TRACE mg/dL (NEGATIVE); LEUKOCYTE ESTERASE,URINE NEGATIVE (NEGATIVE); NITRITE,URINE NEGATIVE (NEGATIVE); PROTEIN,URINE NEGATIVE (NEGATIVE); URINE SPECIFIC GRAVITY 1.028
[2019-06-19 21:05] LABS: ALBUMIN 3.9 g/dL (3.5-5.0); ALKALINE PHOSPHATASE 95 U/L (38-126); ANION GAP 7 (5-19); ASPARTATE AMINO TRANSFERASE 32 U/L (17-59); BILIRUBIN,DIRECT 0.1 mg/dL (0.0-0.4); BILIRUBIN,TOTAL 0.3 mg/dL (0.2-1.3); BLOOD UREA NITROGEN 17 mg/dL (7-20); CALCIUM 9.5 mg/dL (8.4-10.2); CARBON DIOXIDE 27 mmol/L (22-30); CHLORIDE 105 mmol/L (98-107); GLUCOSE 131 mg/dL (75-110); POTASSIUM 4.5 mmol/L (3.6-5.0)
[2019-06-19 21:05] LABS: URINE AMPHETAMINES SCREEN NEGATIVE; URINE BARBITURATES SCREEN NEGATIVE; URINE BENZODIAZEPINES SCREEN NEGATIVE; URINE METHADONE SCREEN NEGATIVE; URINE PHENCYCLIDINE SCREEN NEGATIVE
[2019-06-19 21:06] LABS: ALCOHOL < 10 mg/dL (NONE DETECTED)
[2019-06-19 21:06] LABS: URINE COCAINE SCREEN UNCONFIRMED POSITIVE; URINE MARIJUANA (THC) SCREEN UNCONFIRMED POSITIVE
[2019-06-19 21:07] LABS: ACETAMINOPHEN < 10 ug/mL (10-30); SALICYLATE < 1.0 mg/dL (2.0-20.0)
--- NOTE | 2019-06-19 22:07 | ER Document Report ---
Doctor's Note Notes: 06/19/19 22:06 I signed up for, and went into the room to evaluate this patient. I did review his nurse's notes, triage note, and laboratory investigations. I went in to evaluate the patient. He states he does not feel comfortable with a female provider visualizing his genitals. I explained to him that we did have another male provider here, he wished to see the PA instead. I did not further discuss this case, nor did I examined the patient.
[2019-06-19 22:13] LABS: CHLAM PCR NOT DETECTED (NOT DETECT)
[2019-06-19] MEDS ORDERED: SULFAMETHOXAZOLE/TRIMETHOPRIM 800-160 MG TABLET PO ONE (22:50)
[2019-06-19] MEDS ORDERED: LIDOCAINE 1% INJ (10 MG/ML) 10 ML MDV INJ ONE (22:50)
--- NOTE | 2019-06-19 22:54 | ER Document Report ---
ED General - General Chief Complaint: Abscess Stated Complaint: ABCESS AND GROIN PAIN Time Seen by Provider: 06/19/19 20:00 Mode of Arrival: Ambulatory Notes: 33-year-old male with history of bipolar disorder, PTSD, depressive disorder presents to the emergency department with multiple chief complaints. Patient states that [facility] as he had had suicidal thoughts. Patient then told the triage provider that he does not currently have suicidal thoughts but is seeking treatment for his conditions. he also complains about 2 abscesses to his right lower extremity. He also states that he is having penile pain with acute tenderness to touch. He denies any urethral discharge, hematuria, no current illicit sex partners, last sex contact was 1 month ago when he states he always uses condoms. Denies fevers or chills, denies nausea or vomiting, denies any other symptoms. TRAVEL OUTSIDE OF THE [place] IN LAST 30 DAYS: No - Related Data Allergies/Adverse Reactions: azithromycin [From Zithromax] Allergy (Verified 06/13/19 05:53) ciprofloxacin [From Cipro] Allergy (Verified 06/13/19 05:53) ibuprofen Allergy (Verified 06/13/19 05:53) iodine [Iodine] Allergy (Verified 06/13/19 05:53) ondansetron [From Zofran (as hydrochloride)] Allergy (Verified 06/13/19 05:53) Penicillins Allergy (Verified 06/13/19 05:53) Past Medical History - General Information source: Patient - Social History Smoking Status: Current Every Day Smoker Drug Abuse: Cocaine Family History: Reviewed & Not Pertinent, CVA, DM, Hyperlipidemia, Hypertension Patient has suicidal ideation: No Patient has homicidal ideation: No Pulmonary Medical History: Reports: Hx Asthma Neurological Medical History: Reports: Hx Seizures Renal/ Medical History: Denies: Hx Peritoneal Dialysis Musculoskeletal Medical History: Reports Hx Musculoskeletal Trauma Psychiatric Medical History: Reports: Hx Anxiety, Hx Bipolar Disorder, Hx Depression Traumatic Medical History: Reports: Hx Fractures - nose - Immunizations Hx Diphtheria, Pertussis, Tetanus Vaccination: Yes Review of Systems - Review of Systems Constitutional: See HPI EENT: No symptoms reported Cardiovascular: No symptoms reported Respiratory: No symptoms reported Gastrointestinal: See HPI Genitourinary: See HPI Male Genitourinary: See HPI Musculoskeletal: No symptoms reported Skin: No symptoms reported Hematologic/Lymphatic: No symptoms reported Neurological/Psychological: No symptoms reported Physical Exam - Vital signs Vitals: Temp Pulse Resp BP Pulse Ox 98.2 F 80 15 121/73 100 06/19/19 19:34 06/19/19 19:34 06/19/19 19:34 06/19/19 19:34 06/19/19 19:34 - Notes Notes: PHYSICAL EXAMINATION: Reviewed vital signs and charting by RN GENERAL: Alert, interacts well. No acute distress. HEAD: Normocephalic, atraumatic. EYES: Pupils equal and round. Extraocular movements intact. ENT: Oral mucosa moist, tongue midline. NECK: Full range of motion. Trachea midline. LUNGS: Clear to auscultation bilaterally, no wheezes, rales, or rhonchi. No respiratory distress. HEART: Regular rate and rhythm. No murmur ABDOMEN: soft, non-tender. No distention. Bowel sounds present : Acute tenderness to light touch of the shaft of the penis, no discharge seen on, skin is dry and scaly but there are no open wounds seen EXTREMITIES: Moves all 4 extremities spontaneously. No edema, No cyanosis. PSYCH: Normal affect, normal mood. SKIN: Warm, dry, normal turgor. Abscess on the right distal lower extremity just proximal to the lateral malleolus with another abscess on the posterior proximal left lower extremity both with purulent discharge Course - Re-evaluation Re-evalutation: 06/20/19 00:18 Patient presents with 2 abscesses on his left lower extremity and what appears to be dermatitis of the penis. Patient is having significant anxiety about doing an incision and drainage of the abscess on his distal left lower extremity, I initially injected a small amount of lidocaine 1% without epinephrine but then the patient was very ambivalent and kept stalling so I aborted the procedure. Nurse reports that he is currently having significant anxiety and is crying in the room. I am going to cover him with Keflex and Bactrim. I explained to the patient that we need to perform an incision and drainage to ensure that it will drain adequately. He does have a history of IV drug use, last use he said a couple months ago. Patient is medically cleared for psychiatric evaluation. 06/20/19 04:45 Patient refused incision and drainage after I initiated injection with local anesthesia. Patient became very anxious and told me to stop. I explained to patient that even though they are actively oozing and there is purulent discharge that they are deeper and need to be incised and opened up. Patient stated that he did not want the I&D is performed. I tried again to explain to the patient that is in his best interest but he refused. Patient did receive a dose of Bactrim and Keflex and a prescription was written for him for both. Psychiatric evaluation still pending. - Vital Signs Vital signs: Temp Pulse Resp BP Pulse Ox 98.2 F 80 15 121/73 100 06/19/19 19:34 06/19/19 19:34 06/19/19 19:34 06/19/19 19:34 06/19/19 19:34 - Laboratory Result Diagrams: 06/19/19 20:20 06/19/19 20:20 Laboratory results interpreted by me: 06/19/19 06/19/19 06/19/19 20:20 20:20 20:23 RBC 4.11 L Hgb 12.6 L Hct 37.2 L Glucose 131 H Urine Ketones TRACE H Urine Urobilinogen 2.0 H Salicylates < 1.0 L Acetaminophen < 10 L Discharge - Discharge Clinical Impression: Suicidal ideation, Abscess Condition: Stable Disposition: OTHER Additional Instructions: You have 2 abscesses on your right leg but you declined incision and drainage. It is unfortunate because they do need to be incised and opened up to ensure that the medications will be effective. You have been given Keflex 500 mg that you need to take 4 times per day for 7 days and also Bactrim double strength that you need to take 2 times per day for 7 days. It is important that you take these medications. Is important that you look for worsening signs of infection to include fever, worsening redness around the abscesses, increased pain, or red streaks moving up or down your leg. It looks like a dermatitis on your penis and the best thing to do is to use an emollient cream like Aquaphor 2 times a day. You can also use [id number] hydrocortisone cream. Your lab work was all within normal limits. Return to the emergency department if you blood in your urine, you have purulent discharge from your urethra, the rash gets worse on your penis, you have any other concerning symptoms in that area. Prescriptions: Sulfamethoxazole/Trimethoprim [Bactrim Ds Tablet] 1 each PO BID #14 tablet Cephalexin Monohydrate [Keflex 500 mg Capsule] 500 mg PO Q6H 7 Days capsule
[2019-06-19] MEDS: CEFTRIAXONE INJ 1000 MG VIAL IM ONE ×2 (23:10→23:14)
[2019-06-19] MEDS ORDERED: HYDROCODONE/ACETAMINOPHEN 5-325 MG TABLET PO ONE (23:37)
[2019-06-20] MEDS ORDERED: CEPHALEXIN 500 MG CAPSULE PO ONE ×2 (00:17→07:59)
--- NOTE | 2019-06-20 01:32 | EKG REPORT ---
SEVERITY:- ABNORMAL ECG - SINUS RHYTHM NONSPECIFIC T ABNORMALITIES, ANT-LAT LEADS ST ELEVATION SUGGESTS PERICARDITIS : Confirmed by: Karen Fajardo 20-Jun-2019 01:31:21
[2019-06-20] MEDS ORDERED: SULFAMETHOXAZOLE/TRIMETHOPRIM 800-160 MG TABLET PO ONE (07:59)
--- NOTE | 2019-06-20 10:28 | PSYCHOLOGICAL NOTE ---
Psych Note - Psych Note Date seen by psych provider: 06/20/19 Time seen by psych provider: 06:50 Psych Note: Reason for consult: SI This 33-year-old male patient brought to emergency room via POV for multiple abscesses to bilateral lower extremities. He was incarcerated for "selling drugs, felony and hit and run, DWI and injury to personal property". He was released in March 2019 and has been here frequently since his release from residential. Patient is homeless, reports a diagnosis of bipolar disorder, and engages in polysubstance use (cocaine and marijuana). He always reports other drug use, however his drug screens are typically only positive for cocaine and marijuana. Patient has been provided with substance abuse treatment referrals on many occasions.Historically, patient does not follow through with referrals/linkages for mental health services. Patient has been informed on multiple occasions that ED services are for legitimate medical emergencies, and claiming suicidal ideation for food and skilled nursing is not acceptable. Patient has been provided resources for the homeless skilled nursing on multiple occasions, however patient refuses to have state issues ID card made which is a requirement for services. Since 04/19/2019, patient has visited this ED 16 times. Per conversation with nurse, patient refused treatment. Patient reverted back to behavior like a little boy when medical team attempted to provide medical assistance that required the use of a needle (patient has a history of IV drug use). Patient refused EKG. Patient was uncooperative with clinician. Clinician turned on the light to room and patient was seemingly asleep. Clinician walked out of the room and over to the nurses station, and patient got up and turned the light off. Clinician reentered the room and turned both lights on. Patient became agitated and refused to cooperate with evaluation. Patient was informed he was here for treatment and part of the evaluation process was eye contact. Patient removed the blanket so half of his face was visible. Consistent with patients history, patient is requesting inpatient placement. Patient states he left [place] to eat a thanksgiving meal at the soup kitchen. Patient admits cocaine use 4 days ago. Patient is requesting to return to [place] to address " my mental health issues." Patient endorsed passive suicidal ideation with no plan. Patient states he has no job, no money, and has still not obtained a state issued ID. Per staffing with Dr. Cates, [place] [employer] ([employer]) was contacted to arrest patient for abuse of emergency services. When [employer] arrived the officer informed clinician that per conversation with officer's supervisor drying and winding, an arrest cannot be made due to patient having a medical issue. Officer provided clinician with ). Patient was informed he was banned from the premises for 1 year (this timeframe can be extended), unless experiencing a legitimate medical or mental health emergency. Patient became agitated. Patient refused to take prescription for antibiotic. Patient is alert and oriented to person, place, time and circumstance. Mood labile with congruent affect. Patient endorses passive suicidal ideation with no plan. Patient denies homicidal ideation. Delusions are absent and behavior is congruent with an intact reality based presentation (i.e. organized and linear thought processes). Patient denies auditory and visual hallucinations. There is no observed behavior that suggests patient is responding to internal stimuli. Eye contact is por. Conversational speech is within normal rate, tone, and prosody. Intellectual ability appears to be within average range. Attention and concentration are poor. Insight, judgment, and impulse control are poor. DSM Diagnosis: Per report, PTSD Polysubstance Use Medication recommendations per [facility] contracted psychiatrist Dr. Nithya SULLIVAN is as follows: None Impression/Plan: Patient is cleared from acute psychiatric services. Patient does not meet IVC criteria per [place] GS 122C. Patient has no means to provide for his basic needs and abuses emergency services to have basic needs met. Patient refused community mental health resource list, substance abuse resource list, and street sheet resource list. Patient left without incident. Dr. Cates was consulted on the care and management of this patient; attending physician is in agreement with recommendations and disposition.
--- NOTE | 2019-06-20 11:02 | ER Document Report ---
Doctor's Note Notes: 06/20/19 11:02 evaluated patient. Vitals signs acceptable. Patient nontoxic/well appearing. Patient given antibiotics for abscess. Patient also provided resources for outpatient follow-up.
== END 2019-06-20 11:04 | disposition home or self-care (01) ==
LOC: ER 19:22
DX: L02.416 Cutaneous abscess of left lower limb (principal); L02.415 Cutaneous abscess of right lower limb; R45.851 Suicidal ideations; N48.89 Other specified disorders of penis; F41.9 Anxiety disorder, unspecified; F17.200 Nicotine dependence, unspecified, uncomplicated; F14.10 Cocaine abuse, uncomplicated; J45.909 Unspecified asthma, uncomplicated; Z88.1 Allergy status to other antibiotic agents; Z88.8 Allergy status to other drugs, medicaments and biological substances; Z88.0 Allergy status to penicillin
CPT/HCPCS: 36415; 80053; 80307; 81001; 85025; 87491; 87591; 93005; 93010; 96374; 99285; J0696

== ENCOUNTER 2019-09-01 02:37 | Emergency (ER) | payer OTHER ==
[2019-09-01 02:48] VITALS: BP 124/84
[2019-09-01 09:08] LABS: ALBUMIN 3.8 g/dL (3.5-5.0); ALKALINE PHOSPHATASE 109 U/L (38-126); ANION GAP 7 (5-19); ASPARTATE AMINO TRANSFERASE 35 U/L (17-59); BILIRUBIN,DIRECT 0.2 mg/dL (0.0-0.4); BILIRUBIN,TOTAL 0.4 mg/dL (0.2-1.3); BLOOD UREA NITROGEN 11 mg/dL (7-20); CALCIUM 9.4 mg/dL (8.4-10.2); CARBON DIOXIDE 28 mmol/L (22-30); CHLORIDE 104 mmol/L (98-107); GLUCOSE 88 mg/dL (75-110); POTASSIUM 4.4 mmol/L (3.6-5.0)
[2019-09-01 09:10] LABS: ALCOHOL < 10 mg/dL (NONE DETECTED)
[2019-09-01 09:12] LABS: APPEARANCE,URINE CLEAR; BILIRUBIN,URINE NEGATIVE (NEGATIVE); COLOR,URINE YELLOW; GLUCOSE, URINE NEGATIVE (NEGATIVE); KETONES,URINE NEGATIVE (NEGATIVE); LEUKOCYTE ESTERASE,URINE NEGATIVE (NEGATIVE); NITRITE,URINE NEGATIVE (NEGATIVE); PROTEIN,URINE NEGATIVE (NEGATIVE); URINE SPECIFIC GRAVITY 1.014; UROBILINOGEN,URINE NEGATIVE mg/dL (<2.0)
[2019-09-01 09:14] LABS: ABSOLUTE BASOPHILS # (AUTO) 0.1 10^3/uL (0.0-0.2); ABSOLUTE EOSINOPHILS # (AUTO) 0.2 10^3/uL (0.0-0.6); ABSOLUTE LYMPHOCYTES (AUTO) 1.2 10^3/uL (0.5-4.7); ABSOLUTE MONOCYTES (AUTO) 0.5 10^3/uL (0.1-1.4); ABSOLUTE NEUT (AUTO) 2.9 10^3/uL (1.7-8.2); BASOPHILS % (AUTO) 1.1 % (0-2); EOSINOPHILS % (AUTO) 3.2 % (0-6); HEMATOCRIT 40.2 % (37.9-51.0); HEMOGLOBIN 13.8 g/dL (13.5-17.0); LYMPHOCYTES % (AUTO) 25.3 % (13-45); MEAN CORPUSCULAR HEMOGLOBIN 30.8 pg (27.0-33.4); MEAN CORPUSCULAR HGB CONC 34.3 g/dL (32.0-36.0); MEAN CORPUSCULAR VOLUME 90 fl (80-97); MONOCYTES % (AUTO) 10.1 % (3-13); PLATELET COUNT 249 10^3/uL (150-450); RED BLOOD COUNT 4.48 10^6/uL (4.35-5.55); RED CELL DISTRIBUTION WIDTH 13.9 % (11.5-14.0); SEGMENTED NEUTROPHILS % (AUTO) 60.3 % (42-78); TOTAL CELLS COUNTED % (AUTO) 100 %; WHITE BLOOD COUNT 4.8 10^3/uL (4.0-10.5)
[2019-09-01 09:26] LABS: URINE BARBITURATES SCREEN NEGATIVE; URINE BENZODIAZEPINES SCREEN NEGATIVE; URINE MARIJUANA (THC) SCREEN NEGATIVE; URINE METHADONE SCREEN NEGATIVE; URINE PHENCYCLIDINE SCREEN NEGATIVE
[2019-09-01 09:38] LABS: URINE COCAINE SCREEN UNCONFIRMED POSITIVE
--- NOTE | 2019-09-01 09:44 | ER Document Report ---
ED Psych Disorder / Suicide <WENDY PANDEY - Last Filed: 09/01/19 14:21> - General Mode of Arrival: Ambulatory Information source: Patient TRAVEL OUTSIDE OF THE [place] IN LAST 30 DAYS: No - HPI Patient complains to provider of: Suicidal ideation, Suicidal plan Onset: This morning Quality of pain: No pain Suicide Risk Factors: Depressed, Lack of social support, Male, Substance abuse Suicide Attempt Method: Overdose Overdose of: Other - Street drugs Normal mood: No Associated symptoms: Depressed Similar symptoms previously: Yes Recently seen / treated by doctor: No <BRANDIN PATEL - Last Filed: 09/01/19 19:33> - General Chief Complaint: Suicidal Ideation Stated Complaint: SUICIDAL IDEATIONS Time Seen by Provider: 09/01/19 09:31 Notes: Patient states that he called [facility] because he has felt like he is going to kill himself by overdosing. Patient reports a history of anxiety depression seizures and bipolar disorder as well as asthma. Patient not on any medications. Patient is currently homeless and he is depressed by his life situation. Patient states he has been using meth and crack with last use yesterday. (BRANDIN PATEL) - Related Data Allergies/Adverse Reactions: azithromycin [From Zithromax] Allergy (Verified 06/13/19 05:53) ciprofloxacin [From Cipro] Allergy (Verified 06/13/19 05:53) ibuprofen Allergy (Verified 06/13/19 05:53) iodine [Iodine] Allergy (Verified 06/13/19 05:53) ondansetron [From Zofran (as hydrochloride)] Allergy (Verified 06/13/19 05:53) Penicillins Allergy (Verified 06/13/19 05:53) Past Medical History - General Information source: Patient - Social History Smoking Status: Current Every Day Smoker Frequency of alcohol use: None Drug Abuse: Other Lives with: Homeless Family History: Reviewed & Not Pertinent, CVA, DM, Hyperlipidemia, Hypertension Patient has suicidal ideation: Yes Patient has homicidal ideation: No Pulmonary Medical History: Reports: Hx Asthma Neurological Medical History: Reports: Hx Seizures Renal/ Medical History: Denies: Hx Peritoneal Dialysis Musculoskeletal Medical History: Reports Hx Musculoskeletal Trauma Psychiatric Medical History: Reports: Hx Anxiety, Hx Bipolar Disorder, Hx Depression Traumatic Medical History: Reports: Hx Fractures - nose Surgical Hx: Negative - Immunizations Hx Diphtheria, Pertussis, Tetanus Vaccination: Yes <BRANDIN PATEL - Last Filed: 09/01/19 19:33> Review of Systems - Review of Systems Constitutional: No symptoms reported EENT: No symptoms reported Cardiovascular: No symptoms reported Respiratory: No symptoms reported. denies: Cough Gastrointestinal: No symptoms reported. denies: Vomiting Genitourinary: No symptoms reported Male Genitourinary: No symptoms reported Musculoskeletal: No symptoms reported Skin: No symptoms reported Hematologic/Lymphatic: No symptoms reported Neurological/Psychological: Depression, Suicidal ideation <BRANDIN PATEL - Last Filed: 09/01/19 19:33> Physical Exam - General General appearance: Appears well, Alert In distress: None - HEENT Head: Normocephalic, Atraumatic Eyes: Normal Conjunctiva: Normal Nasal: Normal Mouth/Lips: Normal Mucous membranes: Normal Neck: Normal, Supple - Respiratory Respiratory status: No respiratory distress Chest status: Nontender Breath sounds: Normal. No: Rales, Rhonchi, Stridor, Wheezing Chest palpation: Normal - Cardiovascular Rhythm: Regular Heart sounds: S1 appreciated, S2 appreciated - Abdominal Inspection: Normal Tenderness: Nontender - Back Back: Normal, Nontender. No: CVA tenderness - Extremities General upper extremity: Normal inspection, Normal strength General lower extremity: Normal inspection, Normal strength - Neurological Neuro grossly intact: Yes Cognition: Normal Orientation: AAOx4 [place] Coma Scale Eye Opening: Spontaneous [place] Coma Scale Verbal: Oriented [place] Coma Scale Motor: Obeys Commands Aubree Coma Scale Total: 15 - Psychological Associated symptoms: Depressed - Skin Skin Temperature: Warm Skin Moisture: Dry Skin Color: Normal <BRANDIN PATEL - Last Filed: 09/01/19 19:33> - Vital signs Vitals: Temp Pulse Resp BP Pulse Ox 98.0 F 81 20 124/84 100 09/01/19 02:46 09/01/19 02:46 09/01/19 02:46 09/01/19 02:46 09/01/19 02:46 Course - Laboratory Result Diagrams: 09/01/19 08:40 09/01/19 08:40 <WENDY PANDEY - Last Filed: 09/01/19 14:21> - Laboratory Result Diagrams: 09/01/19 08:40 09/01/19 08:40 <BRANDIN PATEL - Last Filed: 09/01/19 19:33> - Re-evaluation Re-evalutation: 09/01/19 13:05 Patient diagnostic test results reviewed, patient medically clear for discharge or transfer pending mental health evaluation at this time. 09/01/19 15:57 Mental health team has cleared patient from their services at this time and feel that patient does not meet IVC criteria. Patient is very well-known to this department and frequently presents due to the fact that he is also homeless. Patient is agreeable with discharge plan of care and states that he plans to walk over to the [facility] for detox. (BRANDIN PATEL) - Vital Signs Vital signs: Temp Pulse Resp BP Pulse Ox 98.0 F 81 20 124/84 100 09/01/19 02:46 09/01/19 02:46 09/01/19 02:46 09/01/19 02:46 09/01/19 02:46 - Laboratory Laboratory results interpreted by me: 09/01/19 08:40 Salicylates < 1.0 L Acetaminophen < 10 L 09/01/19 08:40 Salicylates < 1.0 L Acetaminophen < 10 L 09/01/19 15:57 Labs- Entire Visit 09/01/19 09/01/19 09/01/19 08:40 08:40 08:40 WBC 4.8 RBC 4.48 Hgb 13.8 Hct 40.2 MCV 90 MCH 30.8 MCHC 34.3 RDW 13.9 Plt Count 249 Lymph % (Auto) 25.3 [place] % (Auto) 10.1 Eos % (Auto) 3.2 Baso % (Auto) 1.1 Absolute Neuts (auto) 2.9 Absolute Lymphs (auto) 1.2 Absolute Monos (auto) 0.5 Absolute Eos (auto) 0.2 Absolute Basos (auto) 0.1 Seg Neutrophils % 60.3 Sodium 138.8 Potassium 4.4 Chloride 104 Carbon Dioxide 28 Anion Gap 7 BUN 11 Creatinine 0.91 Est GFR ( Amer) > 60 Est GFR (MDRD) Non-Af > 60 Glucose 88 Calcium 9.4 Total Bilirubin 0.4 Direct Bilirubin 0.2 Neonat Total Bilirubin Not Reportable Neonat Direct Bilirubin Not Reportable Neonat Indirect Bili Not Reportable AST 35 ALT 25 Alkaline Phosphatase 109 Total Protein 7.0 Albumin 3.8 Urine Color YELLOW Urine Appearance CLEAR Urine pH 6.0 Ur Specific [place] 1.014 Urine Protein NEGATIVE Urine Glucose (UA) NEGATIVE Urine Ketones NEGATIVE Urine Blood NEGATIVE Urine Nitrite NEGATIVE Urine Bilirubin NEGATIVE Urine Urobilinogen NEGATIVE Ur Leukocyte Esterase NEGATIVE Urine WBC (Auto) 1 Urine RBC (Auto) 0 Squamous Epi Cells Auto <1 Urine Mucus (Auto) RARE Urine Ascorbic Acid NEGATIVE Salicylates Urine Opiates Screen Urine Methadone Screen Acetaminophen Ur Barbiturates Screen Ur Phencyclidine Scrn Ur Amphetamines Screen U Benzodiazepines Scrn Urine Cocaine Screen U Marijuana (THC) Screen Serum Alcohol < 10 09/01/19 09/01/19 08:40 08:40 WBC RBC Hgb Hct MCV MCH MCHC RDW Plt Count Lymph % (Auto) [place] % (Auto) Eos % (Auto) Baso % (Auto) Absolute Neuts (auto) Absolute Lymphs (auto) Absolute Monos (auto) Absolute Eos (auto) Absolute Basos (auto) Seg Neutrophils % Sodium Potassium Chloride Carbon Dioxide Anion Gap BUN Creatinine Est GFR ( Amer) Est GFR (MDRD) Non-Af Glucose Calcium Total Bilirubin Direct Bilirubin Neonat Total Bilirubin Neonat Direct Bilirubin Neonat Indirect Bili AST ALT Alkaline Phosphatase Total Protein Albumin Urine Color Urine Appearance Urine pH Ur Specific [place] Urine Protein Urine Glucose (UA) Urine Ketones Urine Blood Urine Nitrite Urine Bilirubin Urine Urobilinogen Ur Leukocyte Esterase Urine WBC (Auto) Urine RBC (Auto) Squamous Epi Cells Auto Urine Mucus (Auto) Urine Ascorbic Acid Salicylates < 1.0 L Urine Opiates Screen NEGATIVE Urine Methadone Screen NEGATIVE Acetaminophen < 10 L Ur Barbiturates Screen NEGATIVE Ur Phencyclidine Scrn NEGATIVE Ur Amphetamines Screen U Benzodiazepines Scrn NEGATIVE Urine Cocaine Screen UNCONFIRMED POSITIVE U Marijuana (THC) Screen NEGATIVE Serum Alcohol (BRANDIN PATEL) Discharge <WENDY PANDEY - Last Filed: 09/01/19 14:21> <BRANDIN PATEL - Last Filed: 09/01/19 19:33> - Discharge Clinical Impression: Suicidal ideations, Substance abuse Condition: Stable Disposition: HOME, SELF-CARE Additional Instructions: You have been evaluated by both medical and behavioral health teams for Substance abuse and suicidal ideation and have been deemed appropriate for discharge. While you were in the Emergency Department you received the following services: medical, psychiatric/psychological, dietary, nursing, manager food safety and security, environmental in addition to psychoeducation and resources/referrals. You have been provided local resource list of area providers for mental health and substance abuse on multiple occasions and again during today's visit. You are highly encouraged to follow-up with outpatient mental health services thro [facility]. If you are interested in detox, you are encouraged to follow-up with the [place] crisis center. If there is no availability [facility] can assist you in finding a detox bed. You are encouraged to abstain from using illegal substances as they increase your depression. COCAINE ABUSE: Cocaine causes many dangerous medical problems. Problems can occur even with "usual" amounts. Cocaine affects judgement, creating a sense of invulnerability. Cocaine users often make bad decisions that seem "great" at the time. Most cocaine users eventually will be hurt by bad job performance, damaged personal relations, crime, and unsafe sexual practices. Toxic effects of cocaine can include seizures, hallucinations, delusions, high blood pressure, heart damage, or sudden . There's always the risk of a "bad batch." But heart attacks, brain hemorrhages, or cardiac arrest can occur unpredictably even with "normal" use. Injection of cocaine is risky for abscesses, endocarditis (heart infection), pneumonia, and AIDS. Withdrawal from cocaine often causes anxiety and drug cravings. Some users become paranoid and psychotic. Many treatment programs are available, but you must make the decision to quit. Medication can be prescribed to control the symptoms of cocaine toxicity (beta blockers or benzodiazepines). Withdrawal symptoms may require tranquilizers. You have been evaluated by both medical and behavioral health teams for suicidal ideation and substance abuse and have been deemed appropriate for discharge. While you were in the Emergency Department you received the following services: medical, psychiatric/psychological, pharmaceutical, dietary, nursing, manager food safety and security, environmental in addition to psychoeducation and resources/referrals. AMPHETAMINE / METHAMPHETAMINE ABUSE: Amphetamines are addicting stimulants. Amphetamines overstimulate the nervous system and give a false feeling of power and mastery. These drugs may be obtained as prescription pills for weight loss, narcolepsy, or attention-deficit disorder. More often they're bought as an illegal street drug, methamphetamine (crank, crystal, speed). Using amphetamines repeatedly can lead to serious medical problems including malnutrition, severe depression, and paranoia. It can take increasing amounts to feel good. Eventually, there will be a "burn out." When you go off amphetamines there is a period of depression that may last for weeks or even months. High doses of amphetamines can cause seizures, confusion, hallucinations, d elusions, high blood pressure, muscle damage, heart damage, or sudden . Many times these deadly complications occur even with "normal" doses. Injection of amphetamines is risky for developing abscesses, endocarditis (heart infection), pneumonia, and AIDS. Withdrawal from amphetamines often causes anxiety, depression, and drug cravings. Some users become paranoid and psychotic. There may be cramps, nausea, and vomiting. Many treatment programs are available, but you must make the decision to quit. Medication can be prescribed to control the symptoms of amphetamine toxicity (beta blockers or benzodiazepines). Withdrawal symptoms may require tranquilizers. DEPRESSION: Your evaluation reveals that you have mental depression. While symptoms may be vague, they often include disturbance of sleep, fatigue, loss of appetite, and general loss of interest in life. While depression may be a side effect of drugs, or a reaction to a major change in your life, many cases have no known cause. If depression is acute, and related to a major loss in your life, you can expect it to clear completely with time. If you have been depressed a long time, are prone to repeated bouts of depression or low mood, or have been thinking of suicide, get help. Depression can be treated with anti-depressant medication and counselling. Long-term depression will often take a few weeks to clear, even with appropriate medication. Follow-up care is important. SUICIDAL IDEATION: Suicidal ideation is a common medical term for thoughts about suicide, which may be as detailed as a formulated plan, without the suicidal act itself. Although most people who undergo suicidal ideation do not commit suicide, some go on to make suicide attempts. The range of suicidal ideation varies greatly from fleeting to detailed planning, role playing, and unsuccessful attempts. While thoughts about suicide are common, most people do not carry out serious actions to commit suicide. Based upon your evaluation and discussion with you, we do not believe you are currently at risk to act upon your thoughts of suicide. You have agreed to return to the Emergency Department, at any time, if you feel inclined to act upon your suicidal thoughts. FOLLOW-UP CARE: If you have been referred to a physician for follow-up care, call the physicians office for an appointment as you were instructed or within the next two days. If you experience worsening or a significant change in your symptoms, notify the physician immediately or return to the Emergency Department at any time for re-evaluation.
[2019-09-01 09:53] LABS: ACETAMINOPHEN < 10 ug/mL (10-30); SALICYLATE < 1.0 mg/dL (2.0-20.0)
--- NOTE | 2019-09-01 10:26 | PSYCHOLOGICAL NOTE ---
Psych Note - Psych Note Date seen by psych provider: 09/01/19 Time seen by psych provider: 10:20 - 1st attempt Psych Note: Reason for Consult: Suicidal ideation substance abuse Patient presented under the influence reporting hallucinations and thoughts of harming himself. Patient has probable positive toxicology results for methamphetamine and cocaine; patient does admit to use. Clinician attempted to engage patient in evaluation however patient is currently sleeping and unable to be awoken. Previously patient was having difficulty controlling his himself which resulted in security being called however it was not necessary to use chemical or physical restraints. Patient has a long history of polysubstance abuse and homelessness. Clinician notes historically patient attempts to use inpatient psychiatric treatment to meet social needs i.e. fdc and food. Clinician will reattempt evaluation at a later time when patient is able to engage. 1345 Evaluation Patient reports he would like help with detox. He confirms reporting he had thoughts of killing himself last night by "taking a lot of drugs." Patient attempts to keep the blanket over himself and speak very quietly. Clinician notes patient's behaviors upon arrival to [facility] and toxicology results indicate the patient was under the influence. He has since become very tired and continues to sleep. Patient is alert and orientated to person, place, time and circumstance. Mood is irritable with congruent affect. Patient endorses passive suicidal ideation i.e. no plans means or intent that is chronic. Patient denies homicidal ideation. Delusions are absent behaviors congruent with an intact reality based presentation i.e. organized and linear thought process. Patient reports visual hallucinations of bodies that are in color however states that he sees them "all the time." Patient has significant polysubstance abuse until patient achieves sobriety it is difficult to ascertain level of internal stimuli that is not from polysubstance abuse. Eye contact is fair. Intellectual abilities appear to be within average range. Attention and concentration is fair. Insight, judgment, impulse control is fair. Clinician spoke with [facility]- they report concern the patient has been noncompliant with recommendations and clearly demonstrates and reports he is not interested in sobriety when he is with them. She reports the last time they saw him was when they triaged him on the end of January however at that time he did not meet criteria. She reports that if the patient is serious and would like assistance with sobriety he is welcome to return for an assessment. Patient has pending charges for a court date of 09/26/2019. Charges are felony possession of cocaine and a misdemeanor possession of drug paraphernalia. Chart review: Patient has been in the [facility] ED 14 times since 04/08/2019. 04/08, 04/30 and 06/06 were for medical complains the rest 04/13, 04/27, 05/09, 05/12, 05/15, 05/19, 06/03, 06/07, 06/13, 06/20 and today are for passive SI and substance abuse. 04/13/2019 Patient presented for passive suicidal ideation and requesting detox. Patient was unable to go to a facility due to wound drainage. Was provided resources to follow up once his open wound (that was treated 04/08/2019) healed. 04/27/2019 Patient seen for passive suicidal ideation; Behavioral health team contacted [facility] and secured a bed for Detox (left their facility AMA on 04/29) 05/09/2019 Patient seen for passive suicidal ideation; Behavioral health team contacted [facility] and secured a bed for Detox (left their facility AMA on 05/12) 06/12/2019 Patient was sent from [facility] on IVC after patient reported passive suicidal ideation when they attempted to work on discharging 05/15/2019 Patient was seen by [facility] ED physicain for being under the influence 05/17/2019 Patient seen for passive suicidal ideation; Behavioral health team contacted [facility] and secured a bed for Detox (Did not follow through) 05/19/2019 Patient seen for passive suicidal ideation; Patient very clearly expressed frustration surrounding homelessness and not having resources. 06/03/2019 Patient seen for passive suicidal ideation; was given resources of local area. [facility] reports he can present for evaluation but they report concern about patient's noncompliance- (left their facility AMA same day) 06/07/2019 Patient seen for passive suicidal ideation; was given resources of local area. [facility] reports he can present for evaluation but they report concern about patient's noncompliance- (left AMA on 06/10) 06/13/2019 Patient seen for passive suicidal ideation; was given resources of local area. 06/20/2019 Patient seen for passive suicidal ideation; he refused resources. Diagnosis: Antisocial personality disorder Polysubstance abuse Chronic Homelessness Impression/Plan: Patient is cleared from acute psychiatric services. Patient presents with chronic passive suicidal ideation i.e. no plans means or intent. Patient has a long history of substance abuse and homelessness. Clinician notes the behavioral health team was able to secure a bed at the local crisis center for the patient on multiple previous [facility] ED visits; however, his is noncompliant with treatment. This patient was a frequent visitor here prior to going to group home in April 2018. He was in the local [facility] group home for conviction for "selling drugs, felony and hit and run, DWI and injury to personal property". He was released in March 2019 and has since been to [facility] ED 14 times and 6 times at [facility]. There is concern that the patient is attempting to use both [facility] and [facility] as resource for physical/social needs such (ie fdc). Patient refuses to follow recommendations and continues to use the emergency department for fdc. Patient has been provided local resource list of area providers including [facility] contact information and the economic resource list during his previous visits; and again this time. Patient is engaged with mobile crisis and is encouraged that he continue working with them for substance abuse treatment. Dr. Cates was consulted and the care management of this patient; attending physicians in agreement with recommendati ons and disposition.
--- NOTE | 2019-09-01 13:29 | EKG REPORT ---
SEVERITY:- NORMAL ECG - SINUS RHYTHM : Confirmed by: Henri Rojas MD 01-Sep-2019 13:28:11
== END 2019-09-01 16:13 | disposition home or self-care (01) ==
LOC: ER 02:37
DX: R45.851 Suicidal ideations (principal); F19.10 Other psychoactive substance abuse, uncomplicated; F32.9 Major depressive disorder, single episode, unspecified; J45.909 Unspecified asthma, uncomplicated; F17.200 Nicotine dependence, unspecified, uncomplicated; Z59.0 Homelessness; Z88.1 Allergy status to other antibiotic agents; Z88.8 Allergy status to other drugs, medicaments and biological substances; Z88.0 Allergy status to penicillin
CPT/HCPCS: 36415; 80053; 80307; 81001; 85025; 93005; 93010

== ENCOUNTER 2019-10-13 04:07 | Emergency (ER) | payer SELFPAY ==
[2019-10-13 04:46] LABS: ABSOLUTE EOSINOPHILS # (AUTO) 0.1 10^3/uL (0.0-0.6); ABSOLUTE LYMPHOCYTES (AUTO) 1.2 10^3/uL (0.5-4.7); ABSOLUTE MONOCYTES (AUTO) 0.4 10^3/uL (0.1-1.4); ABSOLUTE NEUT (AUTO) 5.9 10^3/uL (1.7-8.2); BASOPHILS % (AUTO) 0.6 % (0-2); EOSINOPHILS % (AUTO) 1.1 % (0-6); HEMATOCRIT 40.6 % (37.9-51.0); HEMOGLOBIN 14.3 g/dL (13.5-17.0); LYMPHOCYTES % (AUTO) 15.3 % (13-45); MEAN CORPUSCULAR HEMOGLOBIN 31.5 pg (27.0-33.4); MEAN CORPUSCULAR HGB CONC 35.4 g/dL (32.0-36.0); MEAN CORPUSCULAR VOLUME 89 fl (80-97); MONOCYTES % (AUTO) 5.2 % (3-13); PLATELET COUNT 273 10^3/uL (150-450); RED BLOOD COUNT 4.55 10^6/uL (4.35-5.55); RED CELL DISTRIBUTION WIDTH 14.1 % (11.5-14.0); SEGMENTED NEUTROPHILS % (AUTO) 77.8 % (42-78); TOTAL CELLS COUNTED % (AUTO) 100 %; WHITE BLOOD COUNT 7.6 10^3/uL (4.0-10.5)
--- NOTE | 2019-10-13 05:03 | ER Document Report ---
ED Psych Disorder / Suicide <PRABHA PANDEYIME - Last Filed: 10/13/19 07:41> - General TRAVEL OUTSIDE OF THE [place] IN LAST 30 DAYS: No <ALLEN MAYS - Last Filed: 10/13/19 08:30> - General Chief Complaint: Psych Problem Stated Complaint: PSYCH Time Seen by Provider: 10/13/19 04:35 Primary Care Provider: [facility] [Outside] - Follow up as needed [facility] [Outside] - Follow up in 3-5 days Notes: Patient is a 33-year-old male that comes emergency department for chief complaint of suicidal ideations. He states that he abuses street drugs, he states that typically he shoots up ice or crack, however he states tonight he became very depressed and was considering shooting up and killing himself. He states that if he is discharged right now he will go outside and find someone to give him something where he can overdose to kill himself. He states that he is depressed about not being able to see his kid, homelessness, and lack of a job. He states his history of bipolar disorder and he cannot afford his medications. He is on no medications currently. He denies any sick symptoms. He does state that he has pain in his right arm from "tying the cords too tight for shooting". He states he last used IV drugs 2 days ago (crack). He denies fever, chest pain, vomiting, shortness of breath, swelling of the arm, numbness in the arm, or any other complaints. (ALLEN MAYS) - Related Data Allergies/Adverse Reactions: azithromycin [From Zithromax] Allergy (Verified 06/13/19 05:53) ciprofloxacin [From Cipro] Allergy (Verified 06/13/19 05:53) ibuprofen Allergy (Verified 06/13/19 05:53) iodine [Iodine] Allergy (Verified 06/13/19 05:53) ondansetron [From Zofran (as hydrochloride)] Allergy (Verified 06/13/19 05:53) Penicillins Allergy (Verified 06/13/19 05:53) Past Medical History - General Information source: Patient - Social History Smoking Status: Current Every Day Smoker Frequency of alcohol use: None Drug Abuse: Bath salts, Cocaine, Heroin, Methamphetamine Lives with: Homeless Family History: Reviewed & Not Pertinent, CVA, DM, Hyperlipidemia, Hypertension Patient has suicidal ideation: Yes Patient has homicidal ideation: No Pulmonary Medical History: Reports: Hx Asthma Neurological Medical History: Reports: Hx Seizures Renal/ Medical History: Denies: Hx Peritoneal Dialysis Musculoskeletal Medical History: Reports Hx Musculoskeletal Trauma Psychiatric Medical History: Reports: Hx Anxiety, Hx Bipolar Disorder, Hx Depression Traumatic Medical History: Reports: Hx Fractures - nose Past Surgical History: - Immunizations Hx Diphtheria, Pertussis, Tetanus Vaccination: Yes <ALLEN MAYS - Last Filed: 10/13/19 08:30> Review of Systems - Review of Systems Constitutional: No symptoms reported EENT: No symptoms reported Cardiovascular: No symptoms reported Respiratory: No symptoms reported Gastrointestinal: No symptoms reported Genitourinary: No symptoms reported Male Genitourinary: No symptoms reported Musculoskeletal: See HPI Skin: No symptoms reported Hematologic/Lymphatic: No symptoms reported Neurological/Psychological: See HPI <ALLEN MAYS - Last Filed: 10/13/19 08:30> Physical Exam <ALLEN MAYS - Last Filed: 10/13/19 08:30> - Vital signs Vitals: Temp Pulse BP Pulse Ox 97.8 F 73 115/72 98 10/13/19 04:52 10/13/19 04:52 10/13/19 04:52 10/13/19 04:52 - Notes Notes: GENERAL: Alert, interacts well. No acute distress. HEAD: Normocephalic, atraumatic. EYES: Pupils equal, round, and reactive to light. Extraocular movements intact. ENT: Oral mucosa moist, tongue midline. Oropharynx unremarkable. Airway patent. LUNGS: Clear to auscultation bilaterally, no wheezes, rales, or rhonchi. No respiratory distress. HEART: Regular rate and rhythm. No murmur ABDOMEN: Soft, non-tender. Non-distended. EXTREMITIES: There are abrasions that are healed over the right bicep and right forearm areas. There are no open wounds, there is no erythema, tenderness, swelling. Full range of motion of the elbow, wrist, shoulder. 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 Unremarkable extremities otherwise. BACK: no cervical, thoracic, lumbar midline tenderness. No saddle anesthesia, normal distal neurovascular exam. Moves all extremities in full range of motion. NEUROLOGICAL: Alert and oriented x3. Normal speech. Cranial nerves II through XII grossly intact. PSYCH: Patient is cooperative and makes good eye contact. Appears to have normal affect. SKIN: Warm, dry, normal turgor. No rashes or lesions noted. (ALLEN MAYS) Course - Laboratory Result Diagrams: 10/13/19 04:30 10/13/19 04:30 <WENYD PANDEY - Last Filed: 10/13/19 07:41> - Laboratory Result Diagrams: 10/13/19 04:30 10/13/19 04:30 <ALLEN MAYS - Last Filed: 10/13/19 08:30> - Re-evaluation Re-evalutation: Patient is actually friendly, cooperative, well-appearing. Because of his reported suicidal ideations with a plan he was placed on IVC paperwork, this was signed by Dr. Gaffney. Physical exam is unremarkable. Vital signs unremarkable. EKG without significant change from prior, general work-up unremarkable except for elevated specific gravity and slightly elevated LFTs with ALT greater than AST. I discussed this with patient. He does state that he has been taking Tylenol because of some pain in his right arm, however because of his IV drug abuse I recommended hepatitis testing and patient gladly consented to this. This will be pending. Patient has an unremarkable examination of his right arm with some abrasions where he tightened the cord but there is no swelling, erythema, noted tenderness, signs of infection, or neurovascular deficit. I did discuss possible x-ray for potential needle foreign body but patient declined. I feel this is appropriate and I have very low suspicion of this based on his very benign evaluation other than mild abrasions to the arm. Patient is medically cleared. 10/13/19 Patient has been evaluated by the mental health team and they recommend discharge with their instructions, they are completing the discharge instructions. (ALLEN MAYS) - Vital Signs Vital signs: Temp Pulse Resp BP Pulse Ox 97.8 F 76 15 115/74 98 10/13/19 07:52 10/13/19 07:52 10/13/19 07:52 10/13/19 07:52 10/13/19 07:52 - Laboratory Laboratory results interpreted by me: 10/13/19 10/13/19 10/13/19 04:30 04:30 04:30 RDW 14.1 H Sodium 136.1 L Glucose 131 H AST 105 H ALT 112 H Urine Ketones TRACE H Urine Urobilinogen 2.0 H Urine Ascorbic Acid 40 H Salicylates < 1.0 L Acetaminophen < 10 L - EKG Interpretation by Me Additional EKG results interpreted by me: EKG shows sinus rhythm at a rate of 76, normal axis, slightly peaked T waves with J-point elevation but no concerning ST changes or T wave inversions in consecutive leads. QTC of 405. No significant change compared to prior. (ALLEN MAYS) Discharge <WENDY PANDEY - Last Filed: 10/13/19 07:41> <ALLEN MAYS - Last Filed: 10/13/19 08:30> - Discharge Clinical Impression: Suicidal ideations, Homeless, Cocaine abuse Condition: Stable Disposition: HOME, SELF-CARE Additional Instructions: You have been evaluated by both medical and behavioral health teams for Substance abuse and suicidal ideation and have been deemed appropriate for d ischarge. While you were in the Emergency Department you received the following services: medical, psychiatric/psychological, dietary, nursing, construction safety consultant and security, environmental in addition to psychoeducation and resources/referrals. You have been provided local resource list of area providers for mental health and substance abuse on multiple occasions and again during today's visit. You are highly encouraged to follow-up with outpatient mental health services through [facility]. If you are interested in detox, you are encouraged to follow-up with the [facility]. If there is no availability [facility] can assist you in finding a detox bed. You are encouraged to abstain from using illegal substances as they increase your depression. You are reminded the emergency department is for acute care both medical and for mental health. Prison information has been provided to you. COCAINE ABUSE: Cocaine causes many dangerous medical problems. Problems can occur even with "usual" amounts. Cocaine affects judgement, creating a sense of invulnerability. Cocaine users often make bad decisions that seem "great" at the time. Most cocaine users eventually will be hurt by bad job performance, damaged personal relations, crime, and unsafe sexual practices. Toxic effects of cocaine can include seizures, hallucinations, delusions, high blood pressure, heart damage, or sudden . There's always the risk of a "bad batch." But heart attacks, brain hemorrhages, or cardiac arrest can occur unpredictably even with "normal" use. Injection of cocaine is risky for abscesses, endocarditis (heart infection), pneumonia, and AIDS. Withdrawal from cocaine often causes anxiety and drug cravings. Some users become paranoid and psychotic. Many treatment programs are available, but you must make the decision to quit. Medication can be prescribed to control the symptoms of cocaine toxicity (beta blockers or benzodiazepines). Withdrawal symptoms may require tranquilizers. You have been evaluated by both medical and behavioral health teams for suicidal ideation and substance abuse and have been deemed appropriate for discharge. While you were in the Emergency Department you received the following services: medical, psychiatric/psychological, pharmaceutical, dietary, nursing, construction safety consultant and security, environmental in addition to psychoeducation and resources/referrals. DEPRESSION: Your evaluation reveals that you have mental depression. While symptoms may be vague, they often include disturbance of sleep, fatigue, loss of appetite, and general loss of interest in life. While depression may be a side effect of drugs, or a reaction to a major change in your life, many cases have no known cause. If depression is acute, and related to a major loss in your life, you can expect it to clear completely with time. If you have been depressed a long time, are prone to repeated bouts of depression or low mood, or have been thinking of suicide, get help. Depression can be treated with anti-depressant medication and counselling. Long-term depression will often take a few weeks to clear, even with appropriate medication. Follow-up care is important. SUICIDAL IDEATION: Suicidal ideation is a common medical term for thoughts about suicide, which may be as detailed as a formulated plan, without the suicidal act itself. Although most people who undergo suicidal ideation do not commit suicide, some go on to make suicide attempts. The range of suicidal ideation varies greatly from fleeting to detailed planning, role playing, and unsuccessful attempts. While thoughts about suicide are common, most people do not carry out serious actions to commit suicide. Based upon your evaluation and discussion with you, we do not believe you are currently at risk to act upon your thoughts of suicide. You have agreed to return to the Emergency Department, at any time, if you feel inclined to act upon your suicidal thoughts. FOLLOW-UP CARE: If you have been referred to a physician for follow-up care, call the physicians office for an appointment as you were instructed or within the next two days. If you experience worsening or a significant change in your symptoms, notify the physician immediately or return to the Emergency Department at any time for re-evaluation. Referrals: [facility] [Outside] - Follow up as needed [facility] [Outside] - Follow up in 3-5 days
[2019-10-13 05:04] LABS: ALBUMIN 4.2 g/dL (3.5-5.0); ALKALINE PHOSPHATASE 109 U/L (38-126); ANION GAP 7 (5-19); ASPARTATE AMINO TRANSFERASE 105 U/L (17-59); BILIRUBIN,DIRECT 0.3 mg/dL (0.0-0.4); BILIRUBIN,TOTAL 0.3 mg/dL (0.2-1.3); BLOOD UREA NITROGEN 12 mg/dL (7-20); CALCIUM 9.5 mg/dL (8.4-10.2); CARBON DIOXIDE 26 mmol/L (22-30); CHLORIDE 103 mmol/L (98-107); GLUCOSE 131 mg/dL (75-110); POTASSIUM 4.5 mmol/L (3.6-5.0); TOTAL PROTEIN 7.5 g/dL (6.3-8.2)
[2019-10-13 05:05] LABS: ACETAMINOPHEN < 10 ug/mL (10-30); ALCOHOL < 10 mg/dL (NONE DETECTED); SALICYLATE < 1.0 mg/dL (2.0-20.0)
[2019-10-13 05:20] LABS: APPEARANCE,URINE CLEAR; BILIRUBIN,URINE NEGATIVE (NEGATIVE); CALCIUM OXALATE CRYSTALS,URINE RARE /HPF; COLOR,URINE YELLOW; GLUCOSE, URINE NEGATIVE (NEGATIVE); KETONES,URINE TRACE mg/dL (NEGATIVE); LEUKOCYTE ESTERASE,URINE NEGATIVE (NEGATIVE); NITRITE,URINE NEGATIVE (NEGATIVE); PROTEIN,URINE NEGATIVE (NEGATIVE); URINE SPECIFIC GRAVITY 1.032
[2019-10-13 05:35] LABS: URINE AMPHETAMINES SCREEN NEGATIVE; URINE BARBITURATES SCREEN NEGATIVE; URINE BENZODIAZEPINES SCREEN NEGATIVE; URINE METHADONE SCREEN NEGATIVE; URINE PHENCYCLIDINE SCREEN NEGATIVE
[2019-10-13 05:49] LABS: URINE COCAINE SCREEN UNCONFIRMED POSITIVE; URINE MARIJUANA (THC) SCREEN UNCONFIRMED POSITIVE
--- NOTE | 2019-10-13 07:30 | PSYCHOLOGICAL NOTE ---
Psych Note - Psych Note Date seen by psych provider: 10/13/19 Time seen by psych provider: 07:20 Psych Note: Reason for Consult: Suicidal ideation, substance abuse Patient is a 33-year-old male that comes emergency department for chief complaint of suicidal ideations. He states that he abuses street drugs, he states that typically he shoots up ice or crack, however he states tonight he became very depressed and was considering shooting up and killing himself. Patient reports there are no changes to is current situation or mental health. He has chronic suicidal ideation that is directly connected to his substance abuse and homelessness. He confirms he has not followed up with outpatient services for his mental health or substance abuse. He reports it is not safe on the streets for him which is why he came in to [facility]. Patient is upset that clinician turned on the lights. He reports he was promised breakfast; he states he has not had a real meal in 2 days. Clinician provided psychoeducation on the importance of outpatient services and the appropriate use of emergency department and other emergency services. Patient is alert and orientated to person, place, time and circumstance. Mood is irritable with congruent affect. Chart review: Patient has been in the [facility] ED 14 times since 04/08/2019. 04/08/19, 04/30/19 and 06/06/19 were for medical complains the rest 04/13/19, 04/27/19, 05/09/19, 05/12/19, 05/15/19, 05/19/19, 06/03/19, 06/07/19, 06/13/19, 06/20/19, 09/01/19 and today are for passive SI and substance abuse. 04/13/2019 Patient presented for passive suicidal ideation and requesting detox. Patient was unable to go to a facility due to wound drainage. Was provided resources to follow up once his open wound (that was treated 04/08/2019) healed. 04/27/2019 Patient seen for passive suicidal ideation; Behavioral health team contacted [facility] and secured a bed for Detox (left their facility AMA on 04/29) 05/09/2019 Patient seen for passive suicidal ideation; Behavioral health team contacted [facility] and secured a bed for Detox (left their facility AMA on 05/12) 06/12/2019 Patient was sent from [facility] on IVC after patient reported passive suicidal ideation when they attempted to work on discharging 05/15/2019 Patient was seen by [facility] ED physicain for being under the influence 05/17/2019 Patient seen for passive suicidal ideation; Behavioral health team contacted [facility] and secured a bed for Detox (Did not follow through) 05/19/2019 Patient seen for passive suicidal ideation; Patient very clearly expressed frustration surrounding homelessness and not having resources. 06/03/2019 Patient seen for passive suicidal ideation; was given resources of [facility]. [facility] reports he can present for evaluation but they report concern about patient's noncompliance- (left their facility AMA same day) 06/07/2019 Patient seen for passive suicidal ideation; was given resources of [facility]. [facility] reports he can present for evaluation but they report concern about patient's noncompliance- (left AMA on 06/10) 06/13/2019 Patient seen for passive suicidal ideation; was given resources of [facility]. 06/20/2019 Patient seen for passive suicidal ideation; he refused resources. 09/01/2019 Patient seen for passive suicidal ideation; he refused resources. Diagnosis: Antisocial personality disorder Polysubstance abuse Chronic Homelessness Impression/Plan: Patient is cleared from acute psychiatric services. Patient presents with chronic passive suicidal ideation i.e. no plans means or intent. Patient has a long history of substance abuse and homelessness. Clinician notes the behavioral health team was able to secure a bed at the [facility] for the patient on multiple previous [facility] ED visits; however, his is noncompliant with treatment. This patient was a frequent visitor here prior to going to senior care in April 2018. He was in the local [facility] for conviction for "selling drugs, felony and hit and run, DWI and injury to personal property". He was released in March 2019 and has since been to [facility] ED 14 times and 6 times at [facility]. There is concern that the patient is attempting to use both [facility] and [facility] as resource for physical/social needs (ie long-term). Patient refuses to follow recommendations and continues to use the emergency department for long-term. Patient has been provided local resource list of area providers including [facility] contact information and the economic resource list during his previous visits; and again this time. Patient is engaged with [facility] crisis and is encouraged that he continue working with them for substance abuse treatment. Dr. Cates was consulted and the care management of this patient; attending physicians in agreement with recommendations and disposition.
[2019-10-13 07:56] VITALS: BP 115/74
--- NOTE | 2019-10-13 08:22 | EKG REPORT ---
SEVERITY:- BORDERLINE ECG - SINUS RHYTHM ST ELEVATION PROBABLY NORMAL VARIANT : Confirmed by: Henri Rojas MD 13-Oct-2019 08:22:00
[2019-10-14 06:36] LABS: HEPATITS B SURFACE ANTIGEN Negative (Negative)
[2019-10-14 07:12] LABS: HEPATITIS C VIRUS ANTIBODY <0.1 s/co ratio (0.0-0.9)
== END 2019-10-13 08:04 | disposition home or self-care (01) ==
LOC: ER 04:07
DX: R45.851 Suicidal ideations (principal); F14.10 Cocaine abuse, uncomplicated; F11.10 Opioid abuse, uncomplicated; F15.10 Other stimulant abuse, uncomplicated; F19.10 Other psychoactive substance abuse, uncomplicated; F31.9 Bipolar disorder, unspecified; M79.601 Pain in right arm; R74.0 Nonspecific elevation of levels of transaminase and lactic acid dehydrogenase [LDH]; J45.909 Unspecified asthma, uncomplicated; Z59.0 Homelessness; Z56.0 Unemployment, unspecified; Z88.1 Allergy status to other antibiotic agents; Z88.8 Allergy status to other drugs, medicaments and biological substances; Z88.0 Allergy status to penicillin
CPT/HCPCS: 36415; 80053; 80074; 80307; 81001; 85025; 93005; 93010; 99285

== ENCOUNTER 2019-11-10 17:26 | Emergency (ER) | payer SELFPAY ==
[2019-11-10 19:24] LABS: APPEARANCE,URINE CLEAR; BILIRUBIN,URINE NEGATIVE (NEGATIVE); COLOR,URINE COLORLESS; GLUCOSE, URINE NEGATIVE (NEGATIVE); KETONES,URINE NEGATIVE (NEGATIVE); PROTEIN,URINE NEGATIVE (NEGATIVE); URINE SPECIFIC GRAVITY 1.002; UROBILINOGEN,URINE NEGATIVE mg/dL (<2.0)
[2019-11-10 19:38] LABS: URINE AMPHETAMINES SCREEN NEGATIVE; URINE BARBITURATES SCREEN NEGATIVE; URINE BENZODIAZEPINES SCREEN NEGATIVE; URINE COCAINE SCREEN NEGATIVE; URINE MARIJUANA (THC) SCREEN UNCONFIRMED POSITIVE; URINE METHADONE SCREEN NEGATIVE; URINE PHENCYCLIDINE SCREEN NEGATIVE
--- NOTE | 2019-11-10 22:58 | ER Document Report ---
ED General - General Chief Complaint: Cold Symptoms Stated Complaint: FEVER Time Seen by Provider: 11/10/19 21:49 Notes: 33-year-old homeless male with recent IV drug use 2 days ago presents to the emergency department with 2 chief complaints. First, patient states that he is acutely short of breath and states that his former roommate "has the coronavirus and came here", and second, patient complains of significant bilateral lower extremity pain and reduced sensation. Patient states he is currently living on the streets. Patient denies fevers but complains of chills, patient states that when he takes a deep breath he also has chest wall pain., Patient denies any nausea or vomiting, patient denies any urinary retention, did complain of some mild bowel incontinence once, and denies any significant lumbar back pain. TRAVEL OUTSIDE OF THE [place] IN LAST 30 DAYS: No - Related Data Allergies/Adverse Reactions: azithromycin [From Zithromax] Allergy (Verified 11/10/19 18:27) ciprofloxacin [From Cipro] Allergy (Verified 11/10/19 18:27) ibuprofen Allergy (Verified 11/10/19 18:27) iodine [Iodine] Allergy (Verified 11/10/19 18:27) ondansetron [From Zofran (as hydrochloride)] Allergy (Verified 11/10/19 18:27) Penicillins Allergy (Verified 11/10/19 18:27) Past Medical History - Social History Smoking Status: Current Every Day Smoker Chew tobacco use (# tins/day): No Frequency of alcohol use: None Drug Abuse: Cocaine, Marijuana, Methamphetamine, Other Family History: Reviewed & Not Pertinent, CVA, DM, Hyperlipidemia, Hypertension Patient has suicidal ideation: Yes Patient has homicidal ideation: No Pulmonary Medical History: Reports: Hx Asthma Neurological Medical History: Reports: Hx Seizures Renal/ Medical History: Denies: Hx Peritoneal Dialysis Musculoskeletal Medical History: Reports Hx Musculoskeletal Trauma Psychiatric Medical History: Reports: Hx Anxiety, Hx Bipolar Disorder, Hx Depression Traumatic Medical History: Reports: Hx Fractures - nose Past Surgical History: - Immunizations Hx Diphtheria, Pertussis, Tetanus Vaccination: Yes Review of Systems - Review of Systems Constitutional: See HPI EENT: No symptoms reported Cardiovascular: See HPI Respiratory: See HPI Gastrointestinal: See HPI Genitourinary: See HPI Male Genitourinary: See HPI Musculoskeletal: See HPI Skin: No symptoms reported Hematologic/Lymphatic: No symptoms reported Neurological/Psychological: See HPI Physical Exam - Vital signs Vitals: Temp Pulse Resp BP Pulse Ox 98.4 F 88 20 136/80 H 98 11/10/19 17:26 11/10/19 17:26 11/10/19 17:26 11/10/19 17:26 11/10/19 17:26 - Notes Notes: PHYSICAL EXAMINATION: Reviewed vital signs and charting by RN GENERAL: Alert, interacts well. No acute distress. HEAD: Normocephalic, atraumatic. EYES: Pupils equal and round. Extraocular movements intact. ENT: Oral mucosa moist, tongue midline. NECK: Full range of motion. Trachea midline. LUNGS: Clear to auscultation bilaterally, no wheezes, rales, or rhonchi. No respiratory distress. HEART: Regular rate and rhythm. No murmur ABDOMEN: soft, non-tender. No distention. Bowel sounds present EXTREMITIES: Moves all 4 extremities spontaneously. No edema, No cyanosis. 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 Lumbar spinal nerves grossly intact PSYCH: Normal affect, normal mood. SKIN: Warm, dry, normal turgor. No rashes or lesions noted. Course - Re-evaluation Re-evalutation: 11/10/19 22:57 Patient is a homeless male and because of his recent IV drug use I cannot rule out a spinal epidural abscess at this time. He reported reduced sensation on his right side but had normal strength in his extremities. Normal rectal tone and normal sharp to dull testing. I have ordered an ESR. Patient also states that he had a COVID exposure and does complain of shortness of breath. I have went ahead and performed COVID testing on him. 11/11/19 00:10 I completed a structure, evidence-based clinical evaluation to screen for acute nontraumatic spinal emergencies. The patient has a normal detailed neurologic exam and a low red flag score. The evidence indicates that the patient is very low risk for an acute spinal emergency in this consistent with my clinical intuition. The risk of further work-up is higher than the likelihood of a s mehdi epidural abscess or other dangerous spinal condition. It is therefore in the patient's best interest not to do additional emergent testing at this time. I have discussed with the patient my clinical impression and the result of an evidence-based clinical evaluation to screen for spinal epidural abscess and other spinal emergencies as well as risk for further testing and hospitalization. Patient is stable for discharge. 11/11/19 00:11 - Vital Signs Vital signs: Temp Pulse Resp BP Pulse Ox 98.3 F 70 20 117/53 L 97 11/11/19 00:26 11/11/19 00:26 11/11/19 00:26 11/11/19 00:26 11/11/19 00:26 - Laboratory Result Diagrams: 11/10/19 22:37 11/10/19 22:37 Laboratory results interpreted by me: 11/10/19 11/10/19 22:37 22:37 RBC 4.30 L Hgb 12.9 L Seg Neuts % (Manual) 79 H Band Neutrophils % 1 L Monocytes % (Manual) 2 L Sodium 135.0 L Glucose 127 H AST 177 H ALT 385 H Alkaline Phosphatase 141 H Discharge - Discharge Clinical Impression: Upper respiratory symptom Condition: Good Disposition: HOME, SELF-CARE Additional Instructions: You were seen in the emergency department today for cough and concern about coronavirus exposure. You were tested and is important that you self isolate until testing is complete. Testing takes 3 days. Also you need to perform contact tracing for people that are in close contact with. You had a normal nEURO: A &O X 3, normal speech, normal gailt, PERRL, EOMI, SILT, follows commands in all 4 extremities, no gross abnormalities of cranial nerves, no focal neuro deficits, no pronator drift, [id number] testing normal, rapid alternating hand movements normal, [id number] normal, school standards coach strength 5/5 bilateral, 5/5 strength in both proximal and distal upper and lower extremities and a lab that measures inflammation was very low so I have very low suspicion that you have a spinal infection. Is unclear why you are having the leg pain but it could be related to your sleeping conditions or possibly withdrawal symp toms from not using for 2 days. Please immediately return to the emergency department if you develop severe lower back pain, inability to urinate, you cannot hold your stools then, you develop weakness in one or both of your legs, you develop fevers, or you have any other concerning symptoms.
[2019-11-10 23:03] LABS: HEMATOCRIT 38.4 % (37.9-51.0); MEAN CORPUSCULAR VOLUME 89 fl (80-97); PLATELET COUNT 277 10^3/uL (150-450); RED CELL DISTRIBUTION WIDTH 13.9 % (11.5-14.0); WHITE BLOOD COUNT 9.7 10^3/uL (4.0-10.5)
[2019-11-10 23:16] LABS: ALBUMIN 3.5 g/dL (3.5-5.0); ALKALINE PHOSPHATASE 141 U/L (38-126); ANION GAP 5 (5-19); ASPARTATE AMINO TRANSFERASE 177 U/L (17-59); BILIRUBIN,DIRECT 0.2 mg/dL (0.0-0.4); BILIRUBIN,TOTAL 0.5 mg/dL (0.2-1.3); BLOOD UREA NITROGEN 9 mg/dL (7-20); CALCIUM 9.2 mg/dL (8.4-10.2); CARBON DIOXIDE 28 mmol/L (22-30); CHLORIDE 102 mmol/L (98-107); GLUCOSE 127 mg/dL (75-110); POTASSIUM 4.6 mmol/L (3.6-5.0); TOTAL PROTEIN 6.7 g/dL (6.3-8.2)
[2019-11-10 23:21] LABS: HEMOGLOBIN 12.9 g/dL (13.5-17.0)
[2019-11-10 23:22] LABS: MEAN CORPUSCULAR HGB CONC 33.5 g/dL (32.0-36.0)
[2019-11-10 23:35] LABS: ABSOLUTE LYMPHOCYTES# (MANUAL) 1.5 10^3/uL (0.5-4.7); ABSOLUTE MONOCYTES # (MANUAL) 0.2 10^3/uL (0.1-1.4); BAND NEUTROPHILS % (MANUAL) 1 % (3-5); BASOPHILS % (MANUAL) 1 % (0-2); EOSINOPHILS % (MANUAL) 2 % (0-6); LYMPHOCYTES % (MANUAL) 15 % (13-45); MONOCYTES % (MANUAL) 2 % (3-13); SEGMENTED NEUTROPHILS % (MAN) 79 % (42-78); TOTAL CELLS COUNTED 100
[2019-11-10 23:40] LABS: PLATELET COMMENT ADEQUATE; TEAR DROP CELLS SLIGHT; TOXIC GRANULATION SLIGHT
[2019-11-10 23:49] LABS: ERYTHROCYTE SEDIMENTATION RATE 4 mm/hr (0-15)
[2019-11-11 00:34] VITALS: BP 117/53
--- NOTE | 2019-11-11 00:38 | RADIOLOGY REPORT (SQ) ---
EXAM DESCRIPTION: XR CHEST 1 VIEW COMPLETED DATE/TME: 11/10/2019 22:52 CLINICAL HISTORY: 33 years Male, Concern COVID COMPARISON: None. NUMBER OF VIEWS/TECHNIQUE: 1/AP FINDINGS: Adequate lung volume, clear parenchyma, normal cardiac silhouette, and intact bony thorax. IMPRESSION: No acute cardiopulmonary findings.
--- NOTE | 2019-11-11 00:40 | RADIOLOGY REPORT (SQ) ---
EXAM DESCRIPTION: XR LUMBAR SPINE 2-3 VIEWS COMPLETED DATE/TME: 11/10/2019 22:52 CLINICAL HISTORY: 33 years Male, Acute low back pain COMPARISON: None. Findings: Normal alignment and curvature. Mild developmental anterior vertebral wedging at the thoracolumbar junction. Extraspinal structures are grossly intact. [place] opacity in the expected right gluteal region. IMPRESSION: No acute findings of XR LUMBAR SPINE 2 VIEWS. .
== END 2019-11-11 01:51 | disposition home or self-care (01) ==
LOC: ER 17:26
DX: R68.83 Chills (without fever) (principal); J45.909 Unspecified asthma, uncomplicated; R06.02 Shortness of breath; M79.604 Pain in right leg; M79.605 Pain in left leg; R20.8 Other disturbances of skin sensation; R07.89 Other chest pain; R15.9 Full incontinence of feces; F15.10 Other stimulant abuse, uncomplicated; F14.10 Cocaine abuse, uncomplicated; F12.10 Cannabis abuse, uncomplicated; F17.200 Nicotine dependence, unspecified, uncomplicated; Z20.828 Contact with and (suspected) exposure to other viral communicable diseases; Z59.0 Homelessness; Z88.1 Allergy status to other antibiotic agents; Z88.8 Allergy status to other drugs, medicaments and biological substances; Z88.0 Allergy status to penicillin
CPT/HCPCS: 36415; 71045; 72100; 80053; 80307; 81001; 85025; 85652; 87635; 99283

== ENCOUNTER 2019-12-06 17:59 | Emergency (ER) | payer SELFPAY ==
[2019-12-06 19:35] VITALS: BP 122/66
[2019-12-06 19:41] LABS: APPEARANCE,URINE CLEAR; BILIRUBIN,URINE NEGATIVE (NEGATIVE); COLOR,URINE YELLOW; GLUCOSE, URINE NEGATIVE (NEGATIVE); KETONES,URINE NEGATIVE (NEGATIVE); LEUKOCYTE ESTERASE,URINE NEGATIVE (NEGATIVE); NITRITE,URINE NEGATIVE (NEGATIVE); PROTEIN,URINE NEGATIVE (NEGATIVE); URINE SPECIFIC GRAVITY 1.024
--- NOTE | 2019-12-06 19:43 | ER Document Report ---
ED General <SHANNON ALCANTARA - Last Filed: 12/06/19 21:25> - General TRAVEL OUTSIDE OF THE [place] IN LAST 30 DAYS: No <JOSEPH MARTINEZ - Last Filed: 12/06/19 22:29> - General Chief Complaint: Psych Problem Stated Complaint: SUICIDAL IDEATION Time Seen by Provider: 12/06/19 19:03 Primary Care Provider: [facility] [Outside] - 12/07/19 8:00 am ([facility] IS EXPECTING DISCHARGES TOMORROW (12/07/2019) MORNING YOU CAN CALL OR SHOW UP IN PERSON FOR SCREENING PROCESS) [facility] [Outside] - Follow up as needed [facility] [Outside] - 12/07/19 8:00 am (WALK INS ARE MONDAYS-FRIDAYS 8:00AM-4:30PM. IF YOU CHOOSE NOT TO GO TO [place] OR OTHER DETOFICATION FACILITY, OR ARE UNABLE TO GET BED PLACEMENT YOU ARE RECOMMMENDED TO WALK IN TO [facility] TOMORROW (12/07/2019) MORNING.) [facility] [Outside] - Follow up as needed - [facility] Notes: Patient is a 33-year-old male who presents to the emergency department for evaluation of suicidal ideation. He states he plan to slit his wrist. He has a history of suicide attempt in the past by overdose. The patient states he feels like this "every day." He really cannot tell me what brought him in to the emergency department about it today, other than he states he also has a drug issue, would like help with that. He admits to injecting methamphetamine, smoking crack. Last drug use was yesterday. He states that he would like to get help, states he was at [place] in the past and received significant help from them. The patient had a cough, but has not really been coughing for the last 2 weeks. No fevers. He has intermittent nausea but no vomiting. (JOSEPH MARTINEZ) - Related Data Allergies/Adverse Reactions: azithromycin [From Zithromax] Allergy (Verified 11/10/19 18:27) ciprofloxacin [From Cipro] Allergy (Verified 11/10/19 18:27) ibuprofen Allergy (Verified 11/10/19 18:27) iodine [Iodine] Allergy (Verified 11/10/19 18:27) ondansetron [From Zofran (as hydrochloride)] Allergy (Verified 04/23/20 18:27) Penicillins Allergy (Verified 11/10/19 18:27) Past Medical History - General Information source: Patient - Social History Smoking Status: Current Every Day Smoker Drug Abuse: Cocaine, Methamphetamine Family History: Reviewed & Not Pertinent, CVA, DM, Hyperlipidemia, Hypertension Pulmonary Medical History: Reports: Hx Asthma Neurological Medical History: Reports: Hx Seizures Renal/ Medical History: Denies: Hx Peritoneal Dialysis Musculoskeletal Medical History: Reports Hx Musculoskeletal Trauma Psychiatric Medical History: Reports: Hx Anxiety, Hx Bipolar Disorder, Hx De pression Traumatic Medical History: Reports: Hx Fractures - nose Past Surgical History: - Immunizations Hx Diphtheria, Pertussis, Tetanus Vaccination: Yes <JOSEPH MARTINEZ - Last Filed: 12/06/19 22:29> Review of Systems - Review of Systems Neurological/Psychological: See HPI -: Yes All other systems reviewed and negative <JOSEPH MARTINEZ - Last Filed: 12/06/19 22:29> Physical Exam <JOSEPH MARTINEZ - Last Filed: 12/06/19 22:29> - Vital signs Vitals: Temp Pulse Resp BP Pulse Ox 98.6 F 88 16 122/66 99 12/06/19 19:33 12/06/19 19:33 12/06/19 19:33 12/06/19 19:33 12/06/19 19:33 - Notes Notes: This is a 33-year-old male who appears his stated age in no acute distress. He has a flat affect, but is cooperative with examiner. Vital signs reviewed, please refer to chart. Head is normocephalic, atraumatic. Pupils equal round, reactive to light. Neck is supple without meningismus. Heart is regular rate and rhythm. Lungs are clear to auscultation bilaterally. Abdomen is soft, nontender, normoactive bowel sounds throughout. Extremities without cyanosis, clubbing. Posterior calves are nontender. Peripheral pulses are equal. Skin is warm and dry. Patient is awake, alert, neurological exam is nonfocal. (JOSEPH MARTINEZ) Course - Laboratory Result Diagrams: 12/06/19 20:15 12/06/19 20:15 <SHANNON ALCANTARA - Last Filed: 12/06/19 21:25> - Laboratory Result Diagrams: 12/06/19 20:15 12/06/19 20:15 <JOSEPH MARTINEZ - Last Filed: 12/06/19 22:29> - Re-evaluation Re-evalutation: 12/06/19 19:42 Patient presents to the emergency department for evaluation. He has been tested for COVID in the past, nearly a month ago, and was found to be negative. The patient has clear lungs, and was 100% on room air. He is suicidal, has polysubstance abuse issues. I do not believe him to be a COVID risk at this time. Laboratory investigations are ordered. Patient is stable, denies any needs. We will continue to follow. 12/06/19 22:26 I went in to reevaluate the patient. He refused to repeat CBC. He spoke to the psychosocial team. He is stated that he does not want to "go that far" for any of his follow-up. He states he does not have a ride. Initially he had told provider that he was staying at a hotel, that he had a place to stay. I went in to reevaluate the patient. [facility] does not have any male beds at this time. I talked to him about perhaps outpatient follow-up with them tomorrow morning. The patient became agitated. He told me he had no place to go. I asked him if he had family or friends, or the hotel that he can stay in, the patient became agitated. He stated he just wanted to leave. He rescinded any suicidal statements. He states he just wants to go. He states he does not want to go through the intake testing at [facility]. He does not want to drive all the way to [place] or [place] for further care. He is not actively suicidal at this time, and has had repeated visits to the hospital with similar complaints. He has not followed up with any of the care plans outlined for him. At this point I do not believe the patient is actively suicidal, and again he voiced to me that he was not. He states he just wants his clothing and his discharge papers. He is reminded that if anytime he changes his mind, starts to have thoughts of hurting himself or others, or develops any other new or concerning symptoms, he is to return immediately to the ED. He is also advised to refrain from using illicit drugs. (JOSEPH MARTINEZ) - Vital Signs Vital signs: Temp Pulse Resp BP Pulse Ox 98.0 F 88 16 122/66 99 12/06/19 19:42 12/06/19 19:33 12/06/19 19:33 12/06/19 19:33 12/06/19 19:33 - Laboratory Laboratory results interpreted by me: 12/06/19 12/06/19 18:08 20:15 Sodium 136.5 L Creatinine 1.26 H Glucose 129 H AST 155 H ALT 244 H Total Protein 6.1 L Albumin 3.4 L Urine Urobilinogen 4.0 H Salicylates < 1.0 L Acetaminophen < 10 L - EKG Interpretation by Me Additional EKG results interpreted by me: 12/06/19 22:28 Sinus mechanism with a rate of 82 bpm. Normal axis and intervals. ST elevation, J-point elevation, across the precordium, consistent with early repolarization. Normal variant, unchanged from prior study. (JOSEPH MARTINEZ) Discharge <SHANNON ALCANTARA - Last Filed: 12/06/19 21:25> <JOSEPH MARTINEZ - Last Filed: 12/06/19 22:29> - Discharge Clinical Impression: Polysubstance abuse, Cocaine abuse, Phencyclidine abuse, Cannabis abuse, Methamphetamine abuse, Suicidal ideation Disposition: HOME, SELF-CARE Additional Instructions: You have been evaluated by both medical and behavioral health teams for poly- substance abuse and suicidal ideation. You have been deemed appropriate for discharge. While in the emergency department you received the following services/or had access to them: Medical screening and assessment, nursing services, dietary services, pharmacological services, one-on-one counseling and/or psychotherapy, environmental services, and continuous observation by a patient safety supervisor. You endorsed a desire for voluntary dual diagnosis (substance abuse and mental health) treatment at [facility] and gave verbal consent to provide linkage. [facility] does not have male beds available this evening but are expecting at least one of not more discharges tomorrow (12/07/2019) morning. You have to go through their screening process regardless. You have not yet established outpatient mental health services with [facility] (medication management, group therapy, individual therapy) and are recommended to do a walk in tomorrow (12/07/2019) morning if you cannot get into [facility] or some other detoxification facility. You should abstain from drug use as the uppers and d owners affect mood, depression, anxiety, psychosis and suicidal ideation. There is a focus on substance abuse because it is difficult to address symptoms of an individual when they are actively using drugs. COCAINE ABUSE: Cocaine causes many dangerous medical problems. Problems can occur even with "usual" amounts. Cocaine affects judgement, creating a sense of invuln erability. Cocaine users often make bad decisions that seem "great" at the time. Most cocaine users eventually will be hurt by bad job performance, damaged personal relations, crime, and unsafe sexual practices. Toxic effects of cocaine can include seizures, hallucinations, delusions, high blood pressure, heart damage, or sudden . There's always the risk of a "bad batch." But heart attacks, brain hemorrhages, or cardiac arrest can occur unpredictably even with "normal" use. Injection of cocaine is risky for abscesses, endocarditis (heart infection), pneumonia, and AIDS. Withdrawal from cocaine often causes anxiety and drug cravings. Some users become paranoid and psychotic. Many treatment programs are available, but you must make the decision to quit. Medication can be prescribed to control the symptoms of cocaine toxicity (beta blockers or benzodiazepines). Withdrawal symptoms may require tranquilizers. AMPHETAMINE / METHAMPHETAMINE ABUSE: Amphetamines are addicting stimulants. Amphetamines overstimulate the nervous system and give a false feeling of power and mastery. These drugs may be obtained as prescription pills for weight loss, narcolepsy, or attention-deficit disorder. More often they're bought as an illegal street drug, methamphetamine (crank, crystal, speed). Using amphetamines repeatedly can lead to serious medical problems including malnutrition, severe depression, and paranoia. It can take increasing amounts to feel good. Eventually, there will be a "burn out." When you go off amphetamines there is a period of depression that may last for weeks or even months. High doses of amphetamines can cause seizures, confusion, hallucinations, delusions, high blood pressure, muscle damage, heart damage, or sudden . Many times these deadly complications occur even with "normal" doses. Injection of amphetamines is risky for developing abscesses, endocarditis (heart infection), pneumonia, and AIDS. Withdrawal from amphetamines often causes anxiety, depression, and drug cravings. Some users become paranoid and psychotic. There may be cramps, nausea, and vomiting. Many treatment programs are available, but you must make the decision to quit. Medication can be prescribed to control the symptoms of amphetamine toxicity (beta blockers or benzodiazepines). Withdrawal symptoms may require tranquilizers. DEPRESSION: (when using uppers and downers it affects mood, often is a depressant to central nervous system) Your evaluation reveals that you have mental depression. While symptoms may be vague, they often include disturbance of sleep, fatigue, loss of appetite, and general loss of interest in life. While depression may be a side effect of drugs, or a reaction to a major change in your life, many cases have no known cause. If depression is acute, and related to a major loss in your life, you can expect it to clear completely with time. If you have been depressed a long time, are prone to repeated bouts of depression or low mood, or have been thinking of suicide, get help. Depression can be treated with anti-depressant medication and counselling. Long-term depression will often take a few weeks to clear, even with appropriate medication. Follow-up care is important. SUICIDAL IDEATION: (substance use often increases versus decreases it) Suicidal ideation is a common medical term for thoughts about suicide, which may be as detailed as a formulated plan, without the suicidal act itself. Although most people who undergo suicidal ideation do not commit suicide, some go on to make suicide attempts. The range of suicidal ideation varies greatly from fleeting to detailed planning, role playing, and unsuccessful attempts. While thoughts about suicide are common, most people do not carry out serious actions to commit suicide. Based upon your evaluation and discussion with you, we do not believe you are currently at risk to act upon your thoughts of suicide. You have agreed to return to the Emergency Department, at any time, if you feel inclined to act upon your suicidal thoughts. FOLLOW-UP CARE: You have been provided contact information for [facility], they are expecting discharges tomorrow (12/07/2019) morning for male bed availability and you have to go through their screening process. You are encouraged to utilize mobile crisis to assist with voluntary substance abuse and mental health treatment. Both mobile crisis numbers have been provided. You have been provided the substance abuse resource sheet which lists the 6 detoxification facilities, as well as recovery/rehabilitation programs such as [facility] and [facility] (contact numbers provided). You have been provided the outpatient mental health resource sheet which highlighted [facility] and documented walk in tomorrow (12/07/2019) if you aren't going to try voluntary substance abuse inpatient, if you are unable to obtain a bed right away. [facility] does walk ins Mondays-Fridays 8:00AM-4:30 PM. If you experience worsening or a significant change in your symptoms notify your physician immediately, utilize appropriate resources (such as [facility], [facility], [facility]), utilize mobile crisis or return to the Emergency Department at any time for re-evaluation. Referrals: [facility] [Outside] - Follow up as needed [facility] [Outside] - Follow up as needed [facility] [Outside] - 12/07/19 8:00 am ([facility] IS EXPECTING DISCHARGES TOMORROW (12/07/2019) MORNING YOU CAN CALL OR SHOW UP IN PERSON FOR SCREENING PROCESS) [facility] [Outside] - 12/07/19 8:00 am (WALK INS ARE MONDAYS-FRIDAYS 8:00AM-4:30PM. IF YOU CHOOSE NOT TO GO TO [place] OR OTHER DETOFICATION FACILITY, OR ARE UNABLE TO GET BED PLACEMENT YOU ARE RECOMMMENDED TO WALK IN TO [facility] TOMORROW (12/07/2019) MORNING.)
[2019-12-06 19:57] LABS: URINE AMPHETAMINES SCREEN NEGATIVE; URINE BARBITURATES SCREEN NEGATIVE; URINE BENZODIAZEPINES SCREEN NEGATIVE; URINE METHADONE SCREEN NEGATIVE
[2019-12-06 20:02] LABS: URINE COCAINE SCREEN UNCONFIRMED POSITIVE; URINE MARIJUANA (THC) SCREEN UNCONFIRMED POSITIVE; URINE PHENCYCLIDINE SCREEN UNCONFIRMED POSITIVE
[2019-12-06 20:49] LABS: ALBUMIN 3.4 g/dL (3.5-5.0); ALKALINE PHOSPHATASE 91 U/L (38-126); ASPARTATE AMINO TRANSFERASE 155 U/L (17-59); BILIRUBIN,TOTAL 0.3 mg/dL (0.2-1.3); BLOOD UREA NITROGEN 15 mg/dL (7-20); CHLORIDE 104 mmol/L (98-107); GLUCOSE 129 mg/dL (75-110); TOTAL PROTEIN 6.1 g/dL (6.3-8.2)
[2019-12-06 20:50] LABS: ACETAMINOPHEN < 10 ug/mL (10-30); ALCOHOL < 10 mg/dL (NONE DETECTED); SALICYLATE < 1.0 mg/dL (2.0-20.0)
[2019-12-06 20:55] LABS: ANION GAP 5 (5-19); CARBON DIOXIDE 28 mmol/L (22-30)
--- NOTE | 2019-12-06 22:24 | PSYCHOLOGICAL NOTE ---
Psych Note - Psych Note Date seen by psych provider: 12/06/19 Time seen by psych provider: 20:2024-2035, [id number] Psych Note: Presenting Problem: Patient is a 33 year old male who presented to the [facility] ED this evening POV voluntarily seeking help. He admitted to smoking crack and injecting methamphetamine with last use a day ago. He reported suicidal ideation with plan to slit wrist. He said he had auditory hallucinations telling him to hurt people, some he knows. He told the medical provider he's been to [facility] previously and it was helpful so he'd like to go back. UDS positive for Phencyclidine, Cocaine and Cannabis. Patient identified he is in the hospital for help. When asked why he didn't go to [facility] directly he commented "well are they just going to do the screening and then let me go?" He was made aware their process involves the screening, it depends how he answers questions and what his goals are. When asked if he's followed up with [facility] he commented "I tried but no I didn't." When asked if he followed up with [facility] ([facility] had set this recovery program up for him) he said "no they need to find places that are close I don't have transportation." Explained it is wherever has bed availability and there aren't close places he said "there's places in [facility]" suggesting he knows his resources but does not seem to be using them since he has not had any follow up. When asked if he was still homeless he said "no not really, I'm staying in a hotel." He denied the hotel being set up by the local homeless senior living and stated "I can't go to the homeless senior living I don't have an ID." Asked patient directly of he was experiencing hallucinations, stated it's information needed to understand what symptoms he has and [facility] would want to know that information. He responded with "it happens when I'm frustrated." He confirmed he was getting frustrated however at that time he was able to say that and be in the moment. He admitted to smoking crack, injecting meth and smoking Formaldehyde in a cigarette. About an hour later went back to discuss plan of care for discharge with patient. Provided substance abuse and mental health resource sheets with information highlighted and documented on each. Informed him [facility] does not have a male bed tonight but are expecting discharges in the morning and he would have to go through their screening process since that is their protocol. Explained mobile crisis would assist with voluntary placement efforts and there are other possibilities but he would need transportation. Noted walk in to [facility] if he chooses not to go to [facility] or cannot get a bed. It was during this discussion patient said "I'm tired of people not helping me." He was confronted that people are helping and he has had linkage but not done his part to follow through. 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 It was during this check in patient said he did follow up with [facility] but they told him to come back and "I didn't because it was a waste of time." When informed had he gone back he might very well be on medication, in groups and in individual therapy. Then he said "I lost my job due to COVID so no money for medications." He was informed [facility] is low income/low cost and they try to get cheaper medications as well as give samples if available but he would not know that since he had not followed up. Patient is well known to this ED and this clinician. This year (once every months since August) he's presented 3 times for suicidal ideation. He presents under the influence of multiple substances with suicidal ideation (usually a plan of cutting wrist). From 04/27/2019 through 06/12/2019 patient had 7 ED visits for similar etiology. During that time he went back a forth between [facility] and [facility]. He's been to [facility] at least twice with linkage that came from [facility] Behavior[facility]. [facility] got patient accepted to [facility] recovery program in [place] but patient maintained he did not have transportation though he had an Uncle meet him [place] upon that [facility] discharge. He has been recommended to follow up with [facility] from [facility] numerous times. Patient was alert and oriented to self, person, place, time and situation. Mood was depressed with flat affect which may be due to coming down/sobering up from multiple substances. He endorsed auditory hallucinations telling him to hurt people/some he knows, however was able to engage in dialogue conversation, stay on topic and answer questions when addressed. He endorsed suicidal ideation with plan to cut wrist (this is his etiology when he comes in: under the influence of multiple substances, Si, plan to cut wrist) and he only continued to endorse and talk about it once discussion took place about discharge and his treatment options which require him to do work. Patient did not appear to be responding to internal stimuli as evidenced by fair eye contact and answering questions appropriately when addressed. Conversational speech was within normal limits for rate, tone and prosody. Thought processes were linear and organized. Intellectual abilities are estimated to be average. Insight, judgment and impulse control were fair as evidenced by seeking voluntary assistance for help however he seems to want others to do the work as evidenced by frustration and making suicidal statements when discussion of him doing his part (walking in or calling [facility] first thing 12/07/2019 morning for bed availability and screening, walk in to [facility] to establish outpatient services, get a ride to [facility] for recovery program). Contacted [facility]. Spoke to Eulalio. They have no male bed availability this evening but are expecting discharges in the morning. Interventions: Used open ended questioning to obtain information regarding current crisis situation and past, as well as to get patient to elaborate. Used coming alongside when patient talked about frustration and having to do screening at [facility] to get let go. Challenged and confronted patient about linkage and supports since he had not followed through with anything ([facility] recovery Program, [facility] for outpatient services locally, [facility] for voluntary treatment but came to ED). 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 Diagnosis: Poly Substance Use Phencyclidine Cocaine Methamphetamine Cannabis Suicidal Ideation Impression/Plan: Patient is cleared from acute psychiatric services. He does not appear to be responding to internal stimuli given he was able to engage and carry on dialogue conversation, had linear and organized thinking, had fair eye contact and could track information about follow up from previous ED visits. He also stated the hallucinations happen when he is frustrated so seems to be out of rage. He only endorsed suicidal ideation to this clinician when discussion of plan of care for discharge took place and he was being held accountable to do hi s part for follow up (Call or walk in to [facility] tomorrow morning, if chooses not to go there or cannot get a bed then walk in to [facility] to establish services). Patient was provided with the outpatient substance abuse resource sheet which highlighted/documented both [facility] numbers for assistance with voluntary placement and [facility] expecting discharges tomorrow so to call or walk in. He was also provided the outpatient mental health resource sheet which highlighted both [facility] numbers for crisis/talk therapy/linkage as well as [facility] and documented walk in to establish services (gave walk in time Mondays-Fridays 8:00AM-4:30PM). Consulted with Dr. Catse regarding the management and care of patient. ED Physician in agreement with recommendations.
--- NOTE | 2019-12-07 07:46 | EKG REPORT ---
SEVERITY:- ABNORMAL ECG - SINUS RHYTHM ST ELEV, PROBABLE NORMAL EARLY REPOL PATTERN : Confirmed by: Jana Mancilla MD 07-Dec-2019 07:45:33
== END 2019-12-06 23:01 | disposition home or self-care (01) ==
LOC: ER 17:59
DX: R45.851 Suicidal ideations (principal); F14.10 Cocaine abuse, uncomplicated; F15.10 Other stimulant abuse, uncomplicated; F19.10 Other psychoactive substance abuse, uncomplicated; F17.200 Nicotine dependence, unspecified, uncomplicated; Z88.6 Allergy status to analgesic agent; Z88.3 Allergy status to other anti-infective agents; Z88.0 Allergy status to penicillin
CPT/HCPCS: 36415; 80053; 80307; 81001; 93005; 93010; 99285

== ENCOUNTER 2019-12-06 23:24 | Emergency (ER) | payer SELFPAY ==
--- NOTE | 2019-12-07 02:29 | ER Document Report ---
ED General - General TRAVEL OUTSIDE OF THE [place] IN LAST 30 DAYS: No - HPI Patient complains to provider of: Suicidal ideation <EMILY CARO IV - Last Filed: 12/07/19 02:30> <WENDY PANDEY - Last Filed: 12/07/19 15:36> <JOSEPH JAMES - Last Filed: 12/07/19 16:40> - General Chief Complaint: Suicidal Ideation Stated Complaint: SUICIDAL THOUGHTS Time Seen by Provider: 12/07/19 01:55 Primary Care Provider: [facility] [Outside] - Follow up tomorrow - HPI Notes: Patient is a 33-year-old male, well-known to this ED, presenting after being discharged less than appropriately 6 hours ago stating that he is having suicidal thoughts. Patient's prior visit and documentation was reviewed by this MD. Furthermore, patient was discussed with the provider, Dr. James, and his visit yesterday was also discussed. Dr. James reported that the patient admitted to her that he was not actively suicidal and was just looking for a place to stay. When the patient was confronted with this information, he stated that Dr. James was "lying." Patient states that he is still having suicidal thoughts and is thinking about committing suicide by stepping into traffic. Patient states he spoke to his mother today for the first time in many years and became very emotionally upset about it. Patient told the nurse taking care of him that he was hungry. Patient stated that he was not able to eat the terence crackers offered to him because he is "allergic" to them. (EMILY CARO IV) - Related Data Allergies/Adverse Reactions: azithromycin [From Zithromax] Allergy (Verified 11/10/19 18:27) ciprofloxacin [From Cipro] Allergy (Verified 11/10/19 18:27) ibuprofen Allergy (Verified 11/10/19 18:27) iodine [Iodine] Allergy (Verified 11/10/19 18:27) ondansetron [From Zofran (as hydrochloride)] Allergy (Verified 11/10/19 18:27) Penicillins Allergy (Verified 11/10/19 18:27) Past Medical History - Social History Smoking Status: Current Some Day Smoker Frequency of alcohol use: None Drug Abuse: Cocaine, Methamphetamine Family History: Reviewed & Not Pertinent, CVA, DM, Hyperlipidemia, Hypertension Patient has homicidal ideation: Yes Pulmonary Medical History: Reports: Hx Asthma Neurological Medical History: Reports: Hx Seizures Renal/ Medical History: Denies: Hx Peritoneal Dialysis Musculoskeletal Medical History: Reports Hx Musculoskeletal Trauma Psychiatric Medical History: Reports: Hx Anxiety, Hx Bipolar Disorder, Hx Depression Traumatic Medical History: Reports: Hx Fractures - nose Past Surgical History: - Immunizations Hx Diphtheria, Pertussis, Tetanus Vaccination: Yes <EMILY CARO IV - Last Filed: 12/07/19 02:30> Review of Systems - Review of Systems Constitutional: No symptoms reported EENT: No symptoms reported Cardiovascular: No symptoms reported Respiratory: No symptoms reported Gastrointestinal: No symptoms reported Genitourinary: No symptoms reported Male Genitourinary: No symptoms reported Musculoskeletal: No symptoms reported Skin: No symptoms reported Hematologic/Lymphatic: No symptoms reported Neurological/Psychological: Depression, Suicidal ideation -: Yes All other systems reviewed and negative <VANIAEMILY WILKINSON IV - Last Filed: 12/07/19 02:30> Physical Exam <EMILY CARO IV - Last Filed: 12/07/19 02:30> - Vital signs Vitals: Temp 98.5 F 12/06/19 23:25 - Notes Notes: CONSTITUTIONAL [Vital signs reviewed, Patient appears comfortable, Alert and oriented X 3, Normal stature.] HEAD [Atraumatic, Normocephalic.] EYES [Eyes are normal to inspection, No discharge from eyes, Extraocular muscles intact, Sclera are normal, Conjunctiva are normal.] NECK [Normal ROM, No jugular venous distention, No meningeal signs, no carotid bruit.] RESPIRATORY CHEST [Chest is nontender, Breath sounds normal, No respiratory distress.] CARDIOVASCULAR [RRR, No murmurs, Normal S1 S2, No rub, No gallop.] ABDOMEN [Abdomen is nontender, No pulsatile masses, No other masses, Bowel sounds normal, No distension, No peritoneal signs, No hernias.] BACK [There is no CVA Tenderness, There is no tenderness to palpation, Normal inspection.] UPPER EXTREMITY [Inspection normal, No cyanosis, No clubbing, No edema, 2+ radial pulses.] LOWER EXTREMITY [Inspection normal, No cyanosis, No clubbing, No edema, No calf tenderness, 2+ femoral pulses.] NEURO [No focal motor deficits, No focal sensory deficits, Speech normal.] SKIN [Skin is warm, Skin is dry, Skin is normal color.] LYMPHATIC [No adenopathy in neck.] PSYCHIATRIC Patient makes intermittent eye contact when interviewed. Patient has a slightly depressed affect. (EMILY CARO IV) Course - Laboratory Result Diagrams: 12/07/19 02:35 <WENDY PANDEY - Last Filed: 12/07/19 15:36> - Laboratory Result Diagrams: 12/07/19 02:35 <JOSEPH JAMES - Last Filed: 12/07/19 16:40> - Vital Signs Vital signs: Temp Pulse Resp BP Pulse Ox 98.1 F 78 20 136/70 H 100 12/07/19 15:50 12/07/19 15:50 12/07/19 15:50 12/07/19 15:50 12/07/19 15:50 - Laboratory Laboratory results interpreted by me: 12/07/19 02:35 RBC 4.25 L Hgb 13.1 L RDW 14.4 H Discharge <EMILY CARO IV - Last Filed: 12/07/19 02:30> <WENDY PANDEY - Last Filed: 12/07/19 15:36> <JOSEPH JAMES - Last Filed: 12/07/19 16:40> - Discharge Clinical Impression: Suicidal ideations, Substance abuse, Homelessness Condition: Stable Disposition: HOME, SELF-CARE Additional Instructions: You have been evaluated by both medical and behavioral health teams for Substance abuse and suicidal ideation and have been deemed appropriate for discharge. While you were in the Emergency Department you received the following services: medical, psychiatric/psychological, dietary, nursing, safety sitter and security, environmental in addition to psychoeducation and resources/referrals. You have been provided local resource list of area providers for mental health and substance abuse on multiple occasions and again during today's visit. You are highly encouraged to follow-up with outpatient mental health services through [facility]. If you are interested in detox, you are encouraged to follow-up with the [facility] crisis [facility]. If there is no availability, you have been provided detox facility and mobile crisis contact information; [facility] can assist you in finding a detox bed. You are encouraged to abstain from using illegal substances as they increase your depression. You are reminded the emergency department is for acute care both medical and for mental health. Assisted information has been provided to you. [facility]- ([facility] IS EXPECTING DISCHARGES TOMORROW (12/07/2019) MORNING YOU CAN CALL OR SHOW UP IN PERSON FOR SCREENING PROCESS) [facility] WALK INS ARE MONDAYS-FRIDAYS 8:00AM-4:30PM. IF YOU CHOOSE NOT TO GO TO [facility] OR ANOTHER DETOX FACILITY, OR ARE UNABLE TO GET BED PLACEMENT YOU ARE RECOMMENDED TO WALK IN TO [facility] FIRST THING TOMORROW COCAINE ABUSE: Cocaine causes many dangerous medical problems. Problems can occur even with "usual" amounts. Cocaine affects judgement, creating a sense of invulnerability. Cocaine users often make bad decisions that seem "great" at the time. Most cocaine users eventually will be hurt by bad job performance, damaged personal relations, crime, and unsafe sexual practices. Toxic effects of cocaine can include seizures, hallucinations, delusions, high blood pressure, heart damage, or sudden . There's always the risk of a "bad batch." But heart attacks, brain hemorrhages, or cardiac arrest can occur unpredictably even with "normal" use. Injection of cocaine is risky for abscesses, endocarditis (heart infection), pneumonia, and AIDS. Withdrawal from cocaine often causes anxiety and drug cravings. Some users become paranoid and psychotic. Many treatment programs are available, but you must make the decision to quit. Medication can be prescribed to control the symptoms of cocaine toxicity (beta blockers or benzodiazepines). Withdrawal symptoms may require tra nquilizers. FOLLOW-UP CARE: If you have been referred to a physician for follow-up care, call the physicians office for an appointment as you were instructed or within the next two days. If you experience worsening or a significant change in your symptoms, notify the physician immediately or return to the Emergency Department at any time for re-evaluation. Referrals: [facility] [Outside] - Follow up tomorrow
[2019-12-07 04:25] LABS: ABSOLUTE EOSINOPHILS # (AUTO) 0.1 10^3/uL (0.0-0.6); ABSOLUTE LYMPHOCYTES (AUTO) 2.1 10^3/uL (0.5-4.7); ABSOLUTE MONOCYTES (AUTO) 0.5 10^3/uL (0.1-1.4); ABSOLUTE NEUT (AUTO) 2.8 10^3/uL (1.7-8.2); BASOPHILS % (AUTO) 0.8 % (0-2); EOSINOPHILS % (AUTO) 2.6 % (0-6); HEMATOCRIT 38.1 % (37.9-51.0); HEMOGLOBIN 13.1 g/dL (13.5-17.0); LYMPHOCYTES % (AUTO) 37.1 % (13-45); MEAN CORPUSCULAR HEMOGLOBIN 30.8 pg (27.0-33.4); MEAN CORPUSCULAR HGB CONC 34.4 g/dL (32.0-36.0); MEAN CORPUSCULAR VOLUME 90 fl (80-97); MONOCYTES % (AUTO) 9.1 % (3-13); PLATELET COUNT 244 10^3/uL (150-450); RED BLOOD COUNT 4.25 10^6/uL (4.35-5.55); RED CELL DISTRIBUTION WIDTH 14.4 % (11.5-14.0); SEGMENTED NEUTROPHILS % (AUTO) 50.4 % (42-78); TOTAL CELLS COUNTED % (AUTO) 100 %; WHITE BLOOD COUNT 5.6 10^3/uL (4.0-10.5)
[2019-12-07 15:50] VITALS: BP 136/70
== END 2019-12-07 16:56 | disposition home or self-care (01) ==
LOC: ER 23:24
DX: R45.851 Suicidal ideations (principal); F19.10 Other psychoactive substance abuse, uncomplicated; Z59.0 Homelessness; F17.200 Nicotine dependence, unspecified, uncomplicated; Z88.3 Allergy status to other anti-infective agents; Z88.0 Allergy status to penicillin
CPT/HCPCS: 36415; 85025; 99284

== ENCOUNTER 2020-01-11 14:42 | Emergency (ER) | payer SELFPAY ==
[2020-01-11 14:50] VITALS: BP 123/72
--- NOTE | 2020-01-11 15:24 | ER Document Report ---
ED General - General Chief Complaint: Passed Out Prior to Arrival Stated Complaint: MEDICAL CLEARANCE Notes: Patient is a 34-year-old -Citizen Of [place] male with past medical history of asthma, well controlled without medication usage who presents to the emergency department with chief complaint of syncopal episode. The patient reports that he has a history of methamphetamine abuse but has not used in at least 2 months. He states that he occasionally uses marijuana and does not drink any alcohol. He states that he had went to an acquaintance's house to check on her and his brother while he was there he reports the police came in with guns drawn, have him at gun point told him to turn around put his hands on his back. Patient states that he was feeling very anxious and "hyperventilating". He states he was put in the back of a car car and his brother was calling out for him outside of the car, he became very anxious could not get out of the car to attend to his brother and states that he must have passed out. He reports that EMS showed up, checked his vitals and advised to come for evaluation. The patient denies any drug use today. States that EMS reports his vitals were normal and states that they brought him to the emergency department entrance and dropped him off, not through the EMS entrance. He denies being given any medication for any reason by EMS. He does not present with the EMS run sheet. TRAVEL OUTSIDE OF THE [place] IN LAST 30 DAYS: No - Related Data Allergies/Adverse Reactions: azithromycin [From Zithromax] Allergy (Verified 11/10/19 18:27) ciprofloxacin [From Cipro] Allergy (Verified 11/10/19 18:27) ibuprofen Allergy (Verified 11/10/19 18:27) iodine [Iodine] Allergy (Verified 11/10/19 18:27) ondansetron [From Zofran (as hydrochloride)] Allergy (Verified 11/10/19 18:27) Penicillins Allergy (Verified 11/10/19 18:27) Past Medical History - Social History Smoking Status: Current Every Day Smoker Frequency of alcohol use: None Drug Abuse: Marijuana, Methamphetamine Family History: Reviewed & Not Pertinent, CVA, DM, Hyperlipidemia, Hypertension Patient has homicidal ideation: No Pulmonary Medical History: Reports: Hx Asthma Neurological Medical History: Reports: Hx Seizures Renal/ Medical History: Denies: Hx Peritoneal Dialysis Musculoskeletal Medical History: Reports Hx Musculoskeletal Trauma Psychiatric Medical History: Reports: Hx Anxiety, Hx Bipolar Disorder, Hx Depression Traumatic Medical History: Reports: Hx Fractures - nose Past Surgical History: - Immunizations Hx Diphtheria, Pertussis, Tetanus Vaccination: Yes Review of Systems - Review of Systems Cardiovascular: Syncope -: Yes All other systems reviewed and negative Physical Exam - Vital signs Vitals: Temp 98.8 F 01/11/20 14:43 - General General appearance: Appears well, Alert In distress: None - Respiratory Respiratory status: No respiratory distress Chest status: Nontender Breath sounds: Normal Chest palpation: Normal - Cardiovascular Rhythm: Regular Heart sounds: Normal auscultation - Extremities General upper extremity: Normal inspection, Normal ROM. No: Edema General lower extremity: Normal inspection, Normal ROM. No: Edema - Neurological Neuro grossly intact: Yes Cognition: Normal Orientation: AAOx4 [place] Coma Scale Eye Opening: Spontaneous [place] Coma Scale Verbal: Oriented [place] Coma Scale Motor: Obeys Commands Aubree Coma Scale Total: 15 Speech: Normal Cerebellar coordination: Normal Motor strength normal: LUE, RUE, LLE, RLE Sensory: Normal - Psychological Associated symptoms: Anxious - Skin Skin Temperature: Warm Skin Moisture: Dry Skin Color: Normal, Other - No track iyer noted Course - Re-evaluation Re-evalutation: 01/11/20 15:24 Patient reports he is asymptomatic here in triage. During the medical screening exam he states he does not wish to be evaluated. He states he is only here under pressure from EMS and police. He states he has no intention of being cleared for any detox facilities. He is not suicidal or homicidal. He does not appear to be under the obvious influence of any drugs or alcohol. He is obviously anxious. He is has what sounds like a syncopal episode. He requested to not have any further medical evaluation or work-up and leave AGAINST MEDICAL ADVICE. He is of sound mind mental capacity to make informed decision. He is currently stable and with appropriate affect. He is aware that he is free to return here at any time to continue his care. He was instructed to follow-up with his regular doctor soon as possible for evaluation and advised he return here any ER immediately with any new, persistent or worsening symptoms. He verbalized understood and agreed. - Vital Signs Vital signs: Temp Pulse Resp BP Pulse Ox 98.8 F 101 H 16 123/72 96 01/11/20 14:47 01/11/20 14:47 01/11/20 14:47 01/11/20 14:47 01/11/20 14:47 Discharge - Discharge Clinical Impression: Encounter for medical screening examination Condition: Stable Disposition: AGAINST MEDICAL ADVICE Instructions: Syncopal Episode ([facility]) Additional Instructions: You have elected to leave today AGAINST MEDICAL ADVICE without full examination or medical work-up. Please follow-up with your regular doctor as soon as possible for reevaluation. Please return here any ER immediately with any new, persistent or worsening symptoms.
== END 2020-01-11 15:25 | disposition left against medical advice (07) ==
LOC: ER 14:42
DX: Z00.00 Encounter for general adult medical examination without abnormal findings (principal); F12.10 Cannabis abuse, uncomplicated; F19.10 Other psychoactive substance abuse, uncomplicated; R55 Syncope and collapse; F41.9 Anxiety disorder, unspecified; Z88.1 Allergy status to other antibiotic agents; Z88.0 Allergy status to penicillin; Z88.8 Allergy status to other drugs, medicaments and biological substances; J45.909 Unspecified asthma, uncomplicated; F17.200 Nicotine dependence, unspecified, uncomplicated
CPT/HCPCS: 99284